=== PATIENT | male | born 1940 | race Caucasian/White ===

== ENCOUNTER 2018-04-30 13:22 | Emergency (ER) | payer MEDICARE, OTHER ==
[2018-04-30] MEDS ORDERED: SODIUM CHLORIDE 0.9% 1,000 ML IV STA (13:59)
--- NOTE | 2018-04-30 14:03 | ED ---
General Adult HPI - General Chief complaint: Dizziness Stated complaint: Hypertenion Time Seen by Provider: 04/30/18 13:45 Source: EMS Mode of arrival: EMS - History of Present Illness Initial comments: Dictation was produced using [employer] dictation software. please excuse any grammatical, word or spelling errors. Chief Complaint: 77-year-old male presents with low blood pressure. History of Present Illness: Patient is a 77-year-old male. He was sent here from [facility]. Patient was therefore a clinic appointment. They did vitals upon initial presentation. Is found have a low blood pressure with systolic in the 60s. Patient was transferred immediately to our emergency department. Patient states he feels slightly lightheaded. He has no other complaints at this time. Denies any abdominal pain, back pain or chest pain. Denies nausea vomiting diarrhea. No runny nose cough or sore throat. Patient denies any diarrhea. Patient reports he's been eating and drinking well. He states he is on a 2500 mg sodium diet. He eats of [employer] every day. Patient is a poor historian and digress is frequently during obtaining HPI. The ROS documented in this emergency department record has been reviewed and confirmed by me. Those systems with pertinent positive or negative responses have been documented in the HPI. All other systems are other negative and/or noncontributory. PHYSICAL EXAM: General Impression: Alert and oriented x3, not in acute distress, cachectic sick HEENT: Normocephalic atraumatic, extra-ocular movements intact, pupils equal and reactive to light bilaterally, mucous membranes moist. Cardiovascular: Heart regular rate and rhythm, S1&S2 audible, no murmurs, rubs or gallops Chest: Lungs clear to auscultation bilaterally, no rhonchi, no wheeze, no rales Abdomen: Bowel sounds present, abdomen soft, non-tender, non-distended, no organomegaly Musculoskeletal: Pulses present and equal in all extremities, no peripheral edema Motor: Power 5/5 bilaterally, no focal deficits noted Neurological: CN II-XII grossly intact, no focal motor or sensory deficits noted Skin: Intact with no visualized rashes Psych: Normal affect and mood ED course: 77-year-old male presents with acute episodic low blood pressure. Patient was transferred here by EMS. [facility] Blood pressure is checked by EMS shows improvement. Patient here in our emergency department with a blood pressure 122/80. Upon arrival are within acceptable limits.Laboratory evaluation obtained. CBC unremarkable. Patient has stable hemoglobin. Coag panel unremarkable. Metabolic panel is unremarkable. Patient appeared is unremarkable. Chest x- ray is unremarkable. Repeat EKG shows no dynamic changes. She is asymptomatic at this time. Tolerating by mouth. Patient clear for discharge. Told to follow-up with his primary care physician regarding his low blood pressure. Patient is understandable and agreeable to plan. Without complications and tolerated by mouth at time of discharge. EKG interpretation: Ventricular rate 57, sinus bradycardia, AR interval 226, QS 100, QTC 432. No AR prolongation, no QTC prolongation, no ST or T-wave changes noted. EKG compared to 12/12/2008 showing no changes. Overall, this EKG is unremarkable - Related Data Home Medications Medication Instructions Recorded Confirmed Artificial Tears Ointment 1 gm OPHTHALMIC HS 04/30/18 04/30/18 [Lub[place]h Pm Ointment] Aspirin [[place]owell Aspirin EC] 81 mg PO DAILY 04/30/18 04/30/18 Carboxymethylcellulose Sodium 1 drop BOTH EYES TID 04/30/18 04/30/18 [Refresh Tears] Finasteride [Proscar] 5 mg PO DAILY 04/30/18 04/30/18 Fluticasone Nasal [place] [Flonase 1 spray EA NOSTRIL BID 04/30/18 04/30/18 Nasal [place]] Furosemide [Lasix] 40 mg PO DAILY 04/30/18 04/30/18 Gabapentin [Neurontin] 100 mg PO TID 04/30/18 04/30/18 Glucosam/Geovany-Msm1/C/Evan/Bosw 2 tab PO DAILY 04/30/18 04/30/18 [Glucosamine-Chondroitin Tablet] Lidocaine 5% Patch [Lidoderm] 1 patch TOPICAL DAILY 04/30/18 04/30/18 Losartan [Cozaar] 25 mg PO DAILY 04/30/18 04/30/18 Metoprolol Succinate [Toprol XL] 12.5 mg PO DAILY 04/30/18 04/30/18 Nitroglycerin Sl Tabs [Nitrostat] 0.4 mg SUBLINGUAL Q5M PRN 02/04/19 02/04/19 Rosuvastatin Calcium [Crestor] 5 mg PO HS 04/30/18 04/30/18 Saw [place] 160 mg PO DAILY 04/30/18 04/30/18 Allergies Allergy/AdvReac Type Severity Reaction Status Date / Time diazepam [From Valium] Allergy Unknown Verified 04/30/18 14:25 simvastatin [From Zocor] Allergy MYOSITIS Verified 04/30/18 14:25 terazosin Allergy SYNCOPE Verified 04/30/18 14:25 lisinopril AdvReac Cough Verified 04/30/18 14:25 Review of Systems ROS Statement: Those systems with pertinent positive or pertinent negative responses have been documented in the HPI. ROS Other: All systems not noted in ROS Statement are negative. Past Medical History Past Medical History: Unable to Obtain History of Any Multi-Drug Resistant Organisms: None Reported Past Psychological History: PTSD Smoking Status: Never smoker Past Alcohol Use History: None Reported Past Drug Use History: None Reported Course Vital Signs 04/30/18 04/30/18 13:25 15:58 Temperature 99.1 F 99.0 F Pulse Rate 68 67 Respiratory 16 12 Rate Blood Pressure 123/80 143/85 O2 Sat by Pulse 95 97 Oximetry Medical Decision Making - Lab Data Result diagrams: 04/30/18 13:41 04/30/18 13:41 Lab Results 04/30/18 04/30/18 04/30/18 Range/Units 13:41 13:41 13:41 WBC 5.1 (3.8-10.6) k/uL RBC 3.78 L (4.30-5.90) m/uL Hgb 11.7 L (13.0-17.5) gm/dL Hct 34.0 L (39.0-53.0) % MCV 90.0 (80.0-100.0) fL MCH 30.9 (25.0-35.0) pg MCHC 34.3 (31.0-37.0) g/dL RDW 12.0 (11.5-15.5) % Plt Count 220 (150-450) k/uL Neutrophils % 67 % Lymphocytes % 18 % Monocytes % 9 % Eosinophils % 4 % Basophils % 1 % Neutrophils # 3.4 (1.3-7.7) k/uL Lymphocytes # 0.9 L (1.0-4.8) k/uL Monocytes # 0.5 (0-1.0) k/uL Eosinophils # 0.2 (0-0.7) k/uL Basophils # 0.0 (0-0.2) k/uL PT 11.7 (9.0-12.0) sec INR 1.1 (<1.2) Sodium 139 (137-145) mmol/L Potassium 4.0 (3.5-5.1) mmol/L Chloride 104 (98-107) mmol/L Carbon Dioxide 26 (22-30) mmol/L Anion Gap 9 mmol/L BUN 33 H (9-20) mg/dL Creatinine 1.45 H (0.66-1.25) mg/dL Est GFR (CKD-EPI)AfAm 53 (>60 ml/min/1.73 sqM) Est GFR (CKD-EPI)NonAf 46 (>60 ml/min/1.73 sqM) Glucose 90 (74-99) mg/dL Plasma Lactic Acid Dash (0.7-2.0) mmol/L Calcium 9.7 (8.4-10.2) mg/dL Troponin I (0.000-0.034) ng/mL Urine Color Urine Appearance (Clear) Urine pH (5.0-8.0) Ur Specific [place] (1.001-1.035) Urine Protein (Negative) Urine Glucose (UA) (Negative) Urine Ketones (Negative) Urine Blood (Negative) Urine Nitrite (Negative) Urine Bilirubin (Negative) Urine Urobilinogen (<2.0) mg/dL Ur Leukocyte Esterase (Negative) Urine RBC (0-5) /hpf Ur Squamous Epith Cells (0-4) /hpf Urine Mucus (None) /hpf 04/30/18 04/30/18 04/30/18 Range/Units 13:41 13:41 15:59 WBC (3.8-10.6) k/uL RBC (4.30-5.90) m/uL Hgb (13.0-17.5) gm/dL Hct (39.0-53.0) % MCV (80.0-100.0) fL MCH (25.0-35.0) pg MCHC (31.0-37.0) g/dL RDW (11.5-15.5) % Plt Count (150-450) k/uL Neutrophils % % Lymphocytes % % Monocytes % % Eosinophils % % Basophils % % Neutrophils # (1.3-7.7) k/uL Lymphocytes # (1.0-4.8) k/uL Monocytes # (0-1.0) k/uL Eosinophils # (0-0.7) k/uL Basophils # (0-0.2) k/uL PT (9.0-12.0) sec INR (<1.2) Sodium (137-145) mmol/L Potassium (3.5-5.1) mmol/L Chloride (98-107) mmol/L Carbon Dioxide (22-30) mmol/L Anion Gap mmol/L BUN (9-20) mg/dL Creatinine (0.66-1.25) mg/dL Est GFR (CKD-EPI)AfAm (>60 ml/min/1.73 sqM) Est GFR (CKD-EPI)NonAf (>60 ml/min/1.73 sqM) Glucose (74-99) mg/dL Plasma Lactic Acid Dash 1.2 (0.7-2.0) mmol/L Calcium (8.4-10.2) mg/dL Troponin I <0.012 (0.000-0.034) ng/mL Urine Color Yellow Urine Appearance Cloudy (Clear) Urine pH 7.5 (5.0-8.0) Ur Specific [place] 1.008 (1.001-1.035) Urine Protein Trace H (Negative) Urine Glucose (UA) Negative (Negative) Urine Ketones Negative (Negative) Urine Blood Negative (Negative) Urine Nitrite Negative (Negative) Urine Bilirubin Negative (Negative) Urine Urobilinogen <2.0 (<2.0) mg/dL Ur Leukocyte Esterase Large H (Negative) Urine RBC 4 (0-5) /hpf Ur Squamous Epith Cells 1 (0-4) /hpf Urine Mucus Rare H (None) /hpf Disposition Clinical Impression: Hypotension Disposition: HOME SELF-CARE Condition: Good Instructions (If sedation given, give patient instructions): Hypotension (ED) Is patient prescribed a controlled substance at d/c from ED?: No Referrals: [facility],Clinic [Primary Care Provider] - 1-2 days Time of Disposition: 16:39
[2018-04-30 14:30] LABS: Basophils % (A) 1 %; Eosinophils # (A) 0.2 k/uL (0-0.7); Eosinophils % (A) 4 %; HGB 11.7 gm/dL (13.0-17.5); Lymphocytes # (A) 0.9 k/uL (1.0-4.8); Lymphocytes % (A) 18 %; MCH 30.9 pg (25.0-35.0); MCHC 34.3 g/dL (31.0-37.0); Mean Platelet Volume 7.7; Monocytes # (A) 0.5 k/uL (0-1.0); Monocytes % (A) 9 %; Neutrophils # (A) 3.4 k/uL (1.3-7.7); Neutrophils % (A) 67 %; Platelet Count 220 k/uL (150-450); RBC 3.78 m/uL (4.30-5.90); WBC 5.1 k/uL (3.8-10.6)
[2018-04-30 14:36] LABS: INR 1.1 (<1.2); Prothrombin Time 11.7 sec (9.0-12.0)
[2018-04-30 14:43] LABS: Calcium 9.7 mg/dL (8.4-10.2)
--- NOTE | 2018-04-30 14:45 | XR ---
EXAMINATION TYPE: XR chest 2V DATE OF EXAM: 04/30/2018 COMPARISON: Chest x-ray November 14, 2014 HISTORY: History of dizziness presents with hypotension per order. TECHNIQUE: Frontal and lateral views of the chest are obtained. FINDINGS: There is diminished inspiration current study. There is chronic parenchymal change redemons trated bilaterally most prominent in the left and lower lungs. Overlying sternal wires and mediastina l clips are redemonstrated. There is no new suspicious focal air space opacity, pleural effusion, or pneumothorax seen. The cardiac silhouette size is stable and upper limits of normal. The osseous s tructures are demineralized . Advanced right shoulder glenohumeral joint arthropathy is redemonstrate d. IMPRESSION: Chronic parenchymal changes suspected with cardiomegaly, no new suspicious focal infiltra te clearly seen.
[2018-04-30 16:27] LABS: Appearance,Urine Cloudy (Clear); Bilirubin,Urine Negative (Negative); Blood,Urine Negative (Negative); Color,Urine Yellow; Glucose,Urine (UA) Negative (Negative); Ketones,Urine Negative (Negative); Leukocyte Esterase,Urine Large (Negative); Mucus,Urine Rare /hpf; Nitrite,Urine Negative (Negative); PH, Urine 7.5 (5.0-8.0); Protein,Urine Trace (Negative); RBC,Urine 4 /hpf (0-5); Specific Gravity,Urine 1.008 (1.001-1.035); Squamous Epithelial Cell,Urine 1 /hpf (0-4); Urobilinogen,Urine <2.0 mg/dL (<2.0)
[2018-04-30 17:00] VITALS: BP 145/86; PULSE 77; RESP 20; TEMP 98.2
== END 2018-04-30 16:59 | disposition home or self-care (01) ==
LOC: EC 13:22
DX: I95.9 Hypotension, unspecified (principal); R00.1 Bradycardia, unspecified; Z88.8 Allergy status to other drugs, medicaments and biological substances; Z79.51 Long term (current) use of inhaled steroids; Z79.82 Long term (current) use of aspirin; Z79.899 Other long term (current) drug therapy
CPT/HCPCS: 36415; 71046; 80048; 81001; 83605; 84484; 85025; 85610; 87077; 87086; 87186; 93005; 96360; 96361; 99285

== ENCOUNTER 2018-12-18 16:29 | Emergency (ER) | payer MEDICARE, OTHER ==
[2018-12-18 16:57] VITALS: TEMP 98.2
--- NOTE | 2018-12-18 18:25 | XR ---
PROCEDURE: XR foot complete LT - 3V DATE AND TIME: 12/18/2018 5:31 PM CLINICAL INDICATION: PHH; pain swelling left foot TECHNIQUE: Department protocol COMPARISON: None FINDINGS: There is no fracture or malalignment. The soft tissues are for acute findings. Atherosclero tic calcifications are noted. IMPRESSION: NO ACUTE PROCESS.
[2018-12-18 19:09] VITALS: BP 128/78; PULSE 58; RESP 20
[2018-12-18 19:12] LABS: Basophils % (A) 1 %; Eosinophils # (A) 0.2 k/uL (0-0.7); Eosinophils % (A) 4 %; HCT 36.9 % (39.0-53.0); HGB 12.7 gm/dL (13.0-17.5); Lymphocytes # (A) 1.7 k/uL (1.0-4.8); Lymphocytes % (A) 28 %; MCH 32.1 pg (25.0-35.0); MCHC 34.4 g/dL (31.0-37.0); MCV 93.1 fL (80.0-100.0); Mean Platelet Volume 7.7; Monocytes # (A) 0.4 k/uL (0-1.0); Monocytes % (A) 7 %; Neutrophils # (A) 3.5 k/uL (1.3-7.7); Neutrophils % (A) 59 %; Platelet Count 166 k/uL (150-450); RBC 3.96 m/uL (4.30-5.90); RDW 14.2 % (11.5-15.5)
[2018-12-18 19:22] LABS: Albumin 3.8 g/dL (3.5-5.0); Calcium 10.2 mg/dL (8.4-10.2); Potassium 4.6 mmol/L (3.5-5.1); Total Bilirubin 0.7 mg/dL (0.2-1.3); Total Protein 6.8 g/dL (6.3-8.2)
--- NOTE | 2018-12-18 19:54 | ED ---
Extremity Problem HPI - General Chief complaint: Extremity Problem,Nontraumatic Stated complaint: foot swelling Time Seen by Provider: 12/18/18 17:02 Source: patient Mode of arrival: wheelchair Limitations: no limitations - History of Present Illness Initial comments: 78-year-old male presents emergency department for evaluation of left foot swelling. Patient states his left foot and ankle swelling for the past few days. He states he has had no trauma causing injury to the area. Patient denies any redness. He denies any fever or flulike symptoms. Patient denies any pain in the calf mass the calf or calf swelling. 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 Patient denies any difficulty lying flat chest pain shortness of breath. Patient does any history of heart failure states he does wear compression stockings daily. Patient states the swelling is called discomfort at the ankle especially lateral and medial malleolus. Patient denies any numbness tingling loss of sensation or pain that feels out of proportion, rashes. Remaining review systems negative. Upon arrival patient appears well signs of acute distress. - Related Data Home Medications Medication Instructions Recorded Confirmed Artificial Tears Ointment 1 gm OPHTHALMIC HS 04/30/18 04/30/18 [Lubrifresh Pm Ointment] Aspirin [[place] Aspirin EC] 81 mg PO DAILY 04/30/18 04/30/18 Carboxymethylcellulose Sodium 1 drop BOTH EYES TID 04/30/18 04/30/18 [Refresh Tears] Finasteride [Proscar] 5 mg PO DAILY 04/30/18 04/30/18 Fluticasone Nasal [place] [Flonase 1 spray EA NOSTRIL BID 04/30/18 04/30/18 Nasal [place]] Furosemide [Lasix] 40 mg PO DAILY 04/30/18 04/30/18 Gabapentin [Neurontin] 100 mg PO TID 04/30/18 04/30/18 Glucosam/Geovany-Msm1/C/Evan/Bosw 2 tab PO DAILY 04/30/18 04/30/18 [Glucosamine-Chondroitin Tablet] Lidocaine 5% Patch [Lidoderm] 1 patch TOPICAL DAILY 04/30/18 04/30/18 Losartan [Cozaar] 25 mg PO DAILY 04/30/18 04/30/18 Metoprolol Succinate [Toprol XL] 12.5 mg PO DAILY 04/30/18 04/30/18 Nitroglycerin Sl Tabs [Nitrostat] 0.4 mg SUBLINGUAL Q5M PRN 04/30/18 04/30/18 Rosuvastatin Calcium [Crestor] 5 mg PO HS 04/30/18 04/30/18 Saw Rembert 160 mg PO DAILY 04/30/18 04/30/18 Previous Rx's Medication Instructions Recorded Cephalexin [Keflex] 500 mg PO Q6HR 7 Days #28 cap 12/18/18 Allergies Allergy/AdvReac Type Severity Reaction Status Date / Time diazepam [From Valium] Allergy Unknown Verified 12/18/18 16:57 simvastatin [From Zocor] Allergy MYOSITIS Verified 12/18/18 16:57 terazosin Allergy SYNCOPE Verified 12/18/18 16:57 lisinopril AdvReac Cough Verified 12/18/18 16:57 Review of Systems ROS Statement: Those systems with pertinent positive or pertinent negative responses have been documented in the HPI. ROS Other: All systems not noted in ROS Statement are negative. Past Medical History Past Medical History: Unable to Obtain History of Any Multi-Drug Resistant Organisms: None Reported Past Surgical History: No Surgical Hx Reported Past Psychological History: PTSD Smoking Status: Never smoker Past Alcohol Use History: None Reported Past Drug Use History: None Reported General Exam - General Exam Comments Initial Comments: General: The patient is awake and alert, in no distress, and does not appear acutely ill. Eye: Pupils are equal, round and reactive to light, extra-ocular movements are intact. No nystagmus. There is normal conjunctiva bilaterally. No signs of icterus. Cardiovascular: There is a regular rate and rhythm. No murmur, rub or gallop is appreciated. Respiratory: Lungs are clear to auscultation, respirations are non-labored, breath sounds are equal. No wheezes, stridor, rales, or rhonchi. Musculoskeletal: Soft tissue swelling of the left foot and ankle. Tenderness to patient the lateral medial malleolus. Normal ROM, with tenderness at the right ankle. Strength 5/5. Sensation intact. DP ulses equal bilaterally 2+. Neurological: A&O x 3. CN II-XII intact grossly, There are no obvious motor or sensory deficits. Coordination appears grossly intact. Speech is normal. Skin: Skin is warm and dry and no rashes or lesions are noted. Pitting edema of the right distal ankle and foot. Slight dry skin on dorsum of right foot, with mild redness. No redness of ankle joint or great toe Psychiatric: Cooperative, appropriate mood & affect, normal judgment. Limitations: no limitations Course Vital Signs 12/18/18 12/18/18 16:52 19:00 Temperature 98.2 F Pulse Rate 54 L 58 L Respiratory 18 20 Rate Blood Pressure 125/81 128/78 O2 Sat by Pulse 98 98 Oximetry Medical Decision Making - Medical Decision Making Well-appearing 78-year-old male presenting for evaluation of left ankle foot pain and swelling. No known trauma. No falls. No redness or history of gout. No flulike symptoms or fevers. Afebrile well-appearing upon arrival. Patient does have history of CABG with previous pain harvest on the left leg. Patient does wear compression stockings usually. Patient denies any chest pain shortness of breath or difficulty lying flat. Patient denies any pain or redness of the calf. Patient does have history of blood clot. Patient ultraso und revealed no evidence of acute venous thrombosis. And he says revealed no acute osseous process. An BMP within except limits. I discussed the case by attending provider Dr. Castelan and at this time we recommend discharge with outpatient PCP f/u, rest ice and elevation of the leg with use of compression stocking. Given slight skin irritation on dorsum of foot Dr. Castelan recommended keflex. Patient elizabeth villanueva appears well and is stable for discharge. She was agreeable to this Plan discharge at this time and patient see his primary care provider within 1-2 days. Pt was evaluated in person by my attending provider. - Lab Data Result diagrams: 12/18/18 19:00 12/18/18 19:00 Lab Results 12/18/18 12/18/18 12/18/18 Range/Units 19:00 19:00 19:00 WBC 6.0 (3.8-10.6) k/uL RBC 3.96 L (4.30-5.90) m/uL Hgb 12.7 L (13.0-17.5) gm/dL Hct 36.9 L (39.0-53.0) % MCV 93.1 (80.0-100.0) fL MCH 32.1 (25.0-35.0) pg MCHC 34.4 (31.0-37.0) g/dL RDW 14.2 (11.5-15.5) % Plt Count 166 (150-450) k/uL Neutrophils % 59 % Lymphocytes % 28 % Monocytes % 7 % Eosinophils % 4 % Basophils % 1 % Neutrophils # 3.5 (1.3-7.7) k/uL Lymphocytes # 1.7 (1.0-4.8) k/uL Monocytes # 0.4 (0-1.0) k/uL Eosinophils # 0.2 (0-0.7) k/uL Basophils # 0.0 (0-0.2) k/uL Sodium 140 (137-145) mmol/L Potassium 4.6 (3.5-5.1) mmol/L Chloride 104 (98-107) mmol/L Carbon Dioxide 30 (22-30) mmol/L Anion Gap 6 mmol/L BUN 36 H (9-20) mg/dL Creatinine 1.42 H (0.66-1.25) mg/dL Est GFR (CKD-EPI)AfAm 55 (>60 ml/min/1.73 sqM) Est GFR (CKD-EPI)NonAf 47 (>60 ml/min/1.73 sqM) Glucose 86 (74-99) mg/dL Calcium 10.2 (8.4-10.2) mg/dL Total Bilirubin 0.7 (0.2-1.3) mg/dL AST 25 (17-59) U/L ALT 18 L (21-72) U/L Alkaline Phosphatase 52 (38-126) U/L NT-Pro-B Natriuret Pep 596 pg/mL Total Protein 6.8 (6.3-8.2) g/dL Albumin 3.8 (3.5-5.0) g/dL Disposition Clinical Impression: Left leg swelling, Lower extremity edema Disposition: HOME SELF-CARE Condition: Good Instructions (If sedation given, give patient instructions): Cellulitis (ED), Leg Edema (ED) Additional Instructions: Please use medication as discussed. Please follow-up with family doctor in the next 2 days, please elevated leg, wear compression stockings and have repeat ultrasound in 7 days. Please return to emergency room if the symptoms increase or worsen or for any other concerns. Prescriptions: Cephalexin [Keflex] 500 mg PO Q6HR 7 Days #28 cap Is patient prescribed a controlled substance at d/c from ED?: No Referrals: [facility],Clinic [Primary Care Provider] - 1-2 days Time of Disposition: 21:02
--- NOTE | 2018-12-18 20:12 | US ---
EXAMINATION TYPE: US venous doppler duplex LE LT DATE OF EXAM: 12/18/2018 7:29 PM COMPARISON: NONE CLINICAL HISTORY: swelling no trauma LLE, hx DVT. Swelling left leg x couple weeks per patient. Hx DV T. SIDE PERFORMED: Left TECHNIQUE: The lower extremity deep venous system is examined utilizing real time linear array sonog sheela with graded compression, doppler sonography and color-flow sonography. VESSELS IMAGED: External Iliac Vein (EIV) Common Femoral Vein Deep Femoral Vein Greater Saphenous Vein * Femoral Vein Popliteal Vein Small Saphenous Vein * Proximal Calf Veins (* superficial vessels) Findings: No direct or indirect evidence of DVT in veins imaged from prox calf veins to EIV. Limited visibility of prox calf veins. IMPRESSION: NEGATIVE FOR DVT, LEFT LOWER EXTREMITY.
--- NOTE | 2018-12-18 20:56 | XR ---
PROCEDURE: XR ankle complete LT - 3V DATE AND TIME: 12/18/2018 8:24 PM CLINICAL INDICATION: PHH; swelling, pain TECHNIQUE: Department protocol COMPARISON: None FINDINGS: There is no fracture or malalignment. Mortise is intact. Pes planus noted. There is diffuse soft tissue swelling. Atherosclerotic arterial calcifications noted. IMPRESSION: NO ACUTE PROCESS.
== END 2018-12-18 21:35 | disposition home or self-care (01) ==
LOC: EC 16:29
DX: R60.0 Localized edema (principal); Z88.8 Allergy status to other drugs, medicaments and biological substances; Z79.51 Long term (current) use of inhaled steroids; Z79.82 Long term (current) use of aspirin; Z79.899 Other long term (current) drug therapy
CPT/HCPCS: 36415; 80053; 83880; 85025; 99284

== ENCOUNTER 2019-10-17 16:54 | Emergency (ER) | payer MEDICARE, OTHER ==
[2019-10-17 17:02] VITALS: RESP 18
--- NOTE | 2019-10-17 18:24 | ED ---
Abdominal Pain HPI - General Chief Complaint: Abdominal Pain Stated Complaint: Abd Hernia Time Seen by Provider: 10/17/19 18:16 Source: patient Mode of arrival: ambulatory Limitations: no limitations - History of Present Illness Initial Comments: Patient is 78-year-old male with history of inguinal and umbilical hernia presenting to emergency Department with a chief complaint of a hernia. Patient states he has had 2 right-sided inguinal hernias several decades ago. Patient states that he is concerned for another hernia in the same region. Patient states she's been having pain in the right inguinal region that is exacerbated after episode of straining. Patient denies any difficulties with bowel movements. Denies any constipation but does take Colace daily. Patient denies any nausea or vomiting or diarrhea. Does report intermittent obstructive urinary symptoms. States he has not had a prostate examination. Denies dysuria, increased urgency or frequency. Denies penile discharge, testicular swelling or tenderness. - Related Data Home Medications Medication Instructions Recorded Confirmed Artificial Tears Ointment 1 gm OPHTHALMIC HS 04/30/18 04/30/18 [[place] Pm Ointment] Aspirin [[place] Aspirin EC] 81 mg PO DAILY 04/30/18 04/30/18 Carboxymethylcellulose Sodium 1 drop BOTH EYES TID 04/30/18 04/30/18 [Refresh Tears] Finasteride [Proscar] 5 mg PO DAILY 04/30/18 04/30/18 Fluticasone Nasal [place] [Flonase 1 spray EA NOSTRIL BID 04/30/18 04/30/18 Nasal [place]] Furosemide [Lasix] 40 mg PO DAILY 04/30/18 04/30/18 Gabapentin [Neurontin] 100 mg PO TID 04/30/18 04/30/18 Glucosam/Geovany-Msm1/C/Evan/Bosw 2 tab PO DAILY 04/30/18 04/30/18 [Glucosamine-Chondroitin Tablet] Lidocaine 5% Patch [Lidoderm] 1 patch TOPICAL DAILY 04/30/18 04/30/18 Losartan [Cozaar] 25 mg PO DAILY 04/30/18 04/30/18 Metoprolol Succinate [Toprol XL] 12.5 mg PO DAILY 04/30/18 04/30/18 Nitroglycerin Sl Tabs [Nitrostat] 0.4 mg SUBLINGUAL Q5M PRN 04/30/18 04/30/18 Rosuvastatin Calcium [Crestor] 5 mg PO HS 04/30/18 04/30/18 Saw [place] 160 mg PO DAILY 04/30/18 04/30/18 Previous Rx's Medication Instructions Recorded Cephalexin [Keflex] 500 mg PO Q6HR 7 Days #28 cap 12/18/18 Allergies Allergy/AdvReac Type Severity Reaction Status Date / Time diazepam [From Valium] Allergy Unknown Verified 10/17/19 17:03 simvastatin [From Zocor] Allergy MYOSITIS Verified 10/17/19 17:03 terazosin Allergy SYNCOPE Verified 10/17/19 17:03 lisinopril AdvReac Cough Verified 10/17/19 17:03 Review of Systems ROS Statement: Those systems with pertinent positive or pertinent negative responses have been documented in the HPI. ROS Other: All systems not noted in ROS Statement are negative. Past Medical History Past Medical History: Asthma, Coronary Artery Disease (CAD), COPD, Hyperlipidemia, Hypertension, Prostate Disorder History of Any Multi-Drug Resistant Organisms: None Reported Past Surgical History: Back Surgery, Coronary Bypass/CABG, Heart Catheterization With Stent Additional Past Surgical History / Comment(s): eye surgery Past Psychological History: PTSD Smoking Status: Never smoker Past Alcohol Use History: None Reported Past Drug Use History: None Reported General Exam Limitations: no limitations General appearance: alert, in no apparent distress Head exam: Present: atraumatic, normocephalic, normal inspection Eye exam: Present: normal appearance, PERRL, EOMI Pupils: Present: normal accommodation ENT exam: Present: normal exam, normal oropharynx, mucous membranes moist, TM's normal bilaterally, normal external ear exam Neck exam: Present: normal inspection, full ROM. Absent: tenderness Respiratory exam: Present: normal lung sounds bilaterally. Absent: respiratory distress, wheezes Cardiovascular Exam: Present: regular rate, normal rhythm, normal heart sounds GI/Abdominal exam: Present: soft, tenderness (Right inguinal tenderness. ). Absent: distended, guarding, hernia (No signs of a direct or indirect hernia.) exam: Present: normal inspection. Absent: testicular tenderness, urethral discharge, scrotal swelling, vertical testicular lie Extremities exam: Present: normal inspection, full ROM. Absent: tenderness Back exam: Present: normal inspection, full ROM. Absent: tenderness, CVA tenderness (R), CVA tenderness (L) Neurological exam: Present: alert, oriented X3 Psychiatric exam: Present: normal affect, normal mood Skin exam: Present: warm, dry, intact, normal color Course Vital Signs 10/17/19 10/17/19 16:57 21:38 Temperature 98.5 F Pulse Rate 62 63 Respiratory 18 18 Rate Blood Pressure 181/86 193/95 O2 Sat by Pulse 97 98 Oximetry Medical Decision Making - Medical Decision Making Patient is a 78-year-old male presenting to emergency Department with chief complaint of a hernia. Patient does have history of right-sided inguinal hernia repair several decades ago. On exam no signs of direct or indirect hernia at this time. No signs of a ventral hernia or umbilical either. No testicular swelling or pain. CBC unremarkable. CMP reveals elevated BUN/creatinine although this appears to be his baseline. Patient given 1 L bolus fluids. UA is unremarkable. Patient states he is in a low-sodium diet but he has been eating pizza today which tends to increase his blood pressure. Patient did take his antihypertensive medication today.. Patient is hypertensive in the ED and was given hydralazine. Patient is to follow with the primary care physician. Return parameters were thoroughly discussed the patient was understanding and agreeable. Case discussed with physician. - Lab Data Result diagrams: 10/17/19 18:50 10/17/19 18:50 Lab Results 10/17/19 10/17/19 10/17/19 Range/Units 18:50 18:50 18:50 WBC 5.8 (3.8-10.6) k/uL RBC 4.24 L (4.30-5.90) m/uL Hgb 12.7 L (13.0-17.5) gm/dL Hct 39.9 (39.0-53.0) % MCV 94.2 (80.0-100.0) fL MCH 30.0 (25.0-35.0) pg MCHC 31.9 (31.0-37.0) g/dL RDW 12.5 (11.5-15.5) % Plt Count 150 (150-450) k/uL Neutrophils % 63 % Lymphocytes % 24 % Monocytes % 7 % Eosinophils % 4 % Basophils % 1 % Neutrophils # 3.6 (1.3-7.7) k/uL Lymphocytes # 1.4 (1.0-4.8) k/uL Monocytes # 0.4 (0-1.0) k/uL Eosinophils # 0.2 (0-0.7) k/uL Basophils # 0.1 (0-0.2) k/uL Sodium 138 (137-145) mmol/L Potassium 4.1 (3.5-5.1) mmol/L Chloride 104 (98-107) mmol/L Carbon Dioxide 29 (22-30) mmol/L Anion Gap 5 mmol/L BUN 24 H (9-20) mg/dL Creatinine 1.36 H (0.66-1.25) mg/dL Est GFR (CKD-EPI)AfAm 57 (>60 ml/min/1.73 sqM) Est GFR (CKD-EPI)NonAf 50 (>60 ml/min/1.73 sqM) Glucose 91 (74-99) mg/dL Plasma Lactic Acid Dash 1.0 (0.7-2.0) mmol/L Calcium 9.6 (8.4-10.2) mg/dL Total Bilirubin 0.5 (0.2-1.3) mg/dL AST 21 (17-59) U/L ALT 10 (4-49) U/L Alkaline Phosphatase 52 (38-126) U/L Total Protein 6.2 L (6.3-8.2) g/dL Albumin 3.7 (3.5-5.0) g/dL Urine Color Urine Appearance (Clear) Urine pH (5.0-8.0) Ur Specific [place] (1.001-1.035) Urine Protein (Negative) Urine Glucose (UA) (Negative) Urine Ketones (Negative) Urine Blood (Negative) Urine Nitrite (Negative) Urine Bilirubin (Negative) Urine Urobilinogen (<2.0) mg/dL Ur Leukocyte Esterase (Negative) Urine RBC (0-5) /hpf Urine WBC (0-5) /hpf Ur Squamous Epith Cells (0-4) /hpf Amorphous Sediment (None) /hpf Hyaline Casts (0-2) /lpf Urine Mucus (None) /hpf 10/17/19 Range/Units 18:50 WBC (3.8-10.6) k/uL RBC (4.30-5.90) m/uL Hgb (13.0-17.5) gm/dL Hct (39.0-53.0) % MCV (80.0-100.0) fL MCH (25.0-35.0) pg MCHC (31.0-37.0) g/dL RDW (11.5-15.5) % Plt Count (150-450) k/uL Neutrophils % % Lymphocytes % % Monocytes % % Eosinophils % % Basophils % % Neutrophils # (1.3-7.7) k/uL Lymphocytes # (1.0-4.8) k/uL Monocytes # (0-1.0) k/uL Eosinophils # (0-0.7) k/uL Basophils # (0-0.2) k/uL Sodium (137-145) mmol/L Potassium (3.5-5.1) mmol/L Chloride (98-107) mmol/L Carbon Dioxide (22-30) mmol/L Anion Gap mmol/L BUN (9-20) mg/dL Creatinine (0.66-1.25) mg/dL Est GFR (CKD-EPI)AfAm (>60 ml/min/1.73 sqM) Est GFR (CKD-EPI)NonAf (>60 ml/min/1.73 sqM) Glucose (74-99) mg/dL Plasma Lactic Acid Dash (0.7-2.0) mmol/L Calcium (8.4-10.2) mg/dL Total Bilirubin (0.2-1.3) mg/dL AST (17-59) U/L ALT (4-49) U/L Alkaline Phosphatase (38-126) U/L Total Protein (6.3-8.2) g/dL Albumin (3.5-5.0) g/dL Urine Color Yellow Urine Appearance Cloudy (Clear) Urine pH 7.0 (5.0-8.0) Ur Specific [place] 1.012 (1.001-1.035) Urine Protein Negative (Negative) Urine Glucose (UA) Negative (Negative) Urine Ketones Negative (Negative) Urine Blood Negative (Negative) Urine Nitrite Negative (Negative) Urine Bilirubin Negative (Negative) Urine Urobilinogen <2.0 (<2.0) mg/dL Ur Leukocyte Esterase Negative (Negative) Urine RBC 3 (0-5) /hpf Urine WBC 15 H (0-5) /hpf Ur Squamous Epith Cells 1 (0-4) /hpf Amorphous Sediment Few H (None) /hpf Hyaline Casts 19 H (0-2) /lpf Urine Mucus Rare H (None) /hpf Disposition Clinical Impression: Right inguinal pain Disposition: HOME SELF-CARE Condition: Stable Instructions (If sedation given, give patient instructions): Abdominal Pain (ED) Additional Instructions: Follow-up with the primary care. Return to emergency department if symptoms worsen. Is patient prescribed a controlled substance at d/c from ED?: No Referrals: [facility],Clinic [Primary Care Provider] - 1-2 days Time of Disposition: 21:53
[2019-10-17 19:04] LABS: Basophils # (A) 0.1 k/uL (0-0.2); Basophils % (A) 1 %; Eosinophils # (A) 0.2 k/uL (0-0.7); Eosinophils % (A) 4 %; HCT 39.9 % (39.0-53.0); HGB 12.7 gm/dL (13.0-17.5); Lymphocytes # (A) 1.4 k/uL (1.0-4.8); Lymphocytes % (A) 24 %; MCHC 31.9 g/dL (31.0-37.0); MCV 94.2 fL (80.0-100.0); Mean Platelet Volume 8.6; Monocytes # (A) 0.4 k/uL (0-1.0); Monocytes % (A) 7 %; Neutrophils # (A) 3.6 k/uL (1.3-7.7); Neutrophils % (A) 63 %; Platelet Count 150 k/uL (150-450); RBC 4.24 m/uL (4.30-5.90); RDW 12.5 % (11.5-15.5); WBC 5.8 k/uL (3.8-10.6)
[2019-10-17 19:12] LABS: Amorphous Sediment,Urine Few /hpf; Appearance,Urine Cloudy (Clear); Bilirubin,Urine Negative (Negative); Blood,Urine Negative (Negative); Color,Urine Yellow; Glucose,Urine (UA) Negative (Negative); Hyaline Casts,Urine 19 /lpf (0-2); Ketones,Urine Negative (Negative); Leukocyte Esterase,Urine Negative (Negative); Mucus,Urine Rare /hpf; Nitrite,Urine Negative (Negative); Protein,Urine Negative (Negative); RBC,Urine 3 /hpf (0-5); Specific Gravity,Urine 1.012 (1.001-1.035); Squamous Epithelial Cell,Urine 1 /hpf (0-4); Urobilinogen,Urine <2.0 mg/dL (<2.0); WBC,Urine 15 /hpf (0-5)
[2019-10-17 19:15] LABS: Albumin 3.7 g/dL (3.5-5.0); Calcium 9.6 mg/dL (8.4-10.2); Potassium 4.1 mmol/L (3.5-5.1); Total Bilirubin 0.5 mg/dL (0.2-1.3); Total Protein 6.2 g/dL (6.3-8.2)
[2019-10-17] MEDS ORDERED: SODIUM CHLORIDE 0.9% 1,000 ML IV STA (19:21)
[2019-10-17] MEDS ORDERED: hydrALAZINE HCL 20 MG/ML 1 ML VIAL IVP STA (21:37)
--- NOTE | 2019-10-17 21:42 | CT ---
EXAMINATION TYPE: CT abdomen pelvis w con DATE OF EXAM: 10/17/2019 COMPARISON: None HISTORY: abdominal pain, groin pain CT DLP: 929 mGycm Automated exposure control for dose reduction was used. TECHNIQUE: Helical acquisition of images was performed from the lung bases through the pelvis. CONTRAST: Performed without Oral Contrast and with IV Contrast, patient injected with 80cc mL of Isov ue 300. FINDINGS: LUNG BASES: No significant abnormality is appreciated. LIVER/GB: No significant abnormality is appreciated. PANCREAS: No significant abnormality is seen. SPLEEN: No significant abnormality is seen. ADRENALS: No significant abnormality is seen. KIDNEYS: No significant abnormality is seen. FREE AIR: No free air is visualized. RETROPERITONEAL ADENOPATHY: None visualized REPRODUCTIVE ORGANS: No significant abnormality is seen URINARY BLADDER: No significant abnormality is seen. PELVIC ADENOPATHY: None visualized. OSSEOUS STRUCTURES: No significant abnormality is seen. BOWEL: No significant abnormality is seen. OTHER: No acute vascular findings. The lower abdominal wall musculature is intact. IMPRESSION: NO DEFINITE ACUTE PROCESS.
[2019-10-17 22:07] VITALS: BP 158/81; PULSE 67; TEMP 98.2
== END 2019-10-17 22:11 | disposition home or self-care (01) ==
LOC: EC 16:54
DX: R10.31 Right lower quadrant pain (principal); J44.9 Chronic obstructive pulmonary disease, unspecified; E78.5 Hyperlipidemia, unspecified; I10 Essential (primary) hypertension; I25.10 Atherosclerotic heart disease of native coronary artery without angina pectoris; Z79.82 Long term (current) use of aspirin; Z79.51 Long term (current) use of inhaled steroids; Z79.899 Other long term (current) drug therapy; Z88.8 Allergy status to other drugs, medicaments and biological substances; Z95.1 Presence of aortocoronary bypass graft; Z95.5 Presence of coronary angioplasty implant and graft
CPT/HCPCS: 36415; 80053; 83605; 85025; 81001; 87086; 74177; 99284; 96374; 96361 ×2; J0360; Q9967; 87077; 87186

== ENCOUNTER 2020-01-05 18:30 | Emergency (ER) | payer MEDICARE, OTHER ==
[2020-01-05 18:47] VITALS: BP 185/98; PULSE 59; RESP 16; TEMP 98.4
--- NOTE | 2020-01-05 18:55 | ED ---
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 Patient states that he thought there was a piece of pear that had gotten stuck while eating it he states he felt in his throat but upon arriving in the ER with EMS he states that he feels like it went away. Patient states he has not been coughing he states he did not feel like he aspirated the pear. Patient denies vomiting. Patient states he thinks he is ok now. Patient has no additional complaints. - Related Data Home Medications Medication Instructions Recorded Confirmed Artificial Tears Ointment 1 gm OPHTHALMIC HS 04/30/18 04/30/18 [Lubrifresh Pm Ointment] Aspirin [[place] Aspirin EC] 81 mg PO DAILY 04/30/18 04/30/18 Carboxymethylcellulose Sodium 1 drop BOTH EYES TID 04/30/18 04/30/18 [Refresh Tears] Finasteride [Proscar] 5 mg PO DAILY 04/30/18 04/30/18 Fluticasone Nasal [place] [Flonase 1 spray EA NOSTRIL BID 04/30/18 04/30/18 Nasal [place]] Furosemide [Lasix] 40 mg PO DAILY 04/30/18 04/30/18 Gabapentin [Neurontin] 100 mg PO TID 04/30/18 04/30/18 Glucosam/[place]ov[place]-Msm1/C/Evan/Bosw 2 tab PO DAILY 04/30/18 04/30/18 [Glucosamine-Chondroitin Tablet] Lidocaine 5% Patch [Lidoderm] 1 patch TOPICAL DAILY 04/30/18 04/30/18 Losartan [Cozaar] 25 mg PO DAILY 04/30/18 04/30/18 Metoprolol Succinate [Toprol XL] 12.5 mg PO DAILY 04/30/18 04/30/18 Nitroglycerin Sl Tabs [Nitrostat] 0.4 mg SUBLINGUAL Q5M PRN 04/30/18 04/30/18 Rosuvastatin Calcium [Crestor] 5 mg PO HS 04/30/18 04/30/18 Saw [place] 160 mg PO DAILY 04/30/18 04/30/18 Previous Rx's Medication Instructions Recorded Cephalexin [Keflex] 500 mg PO Q6HR 7 Days #28 cap 12/18/18 Allergies Allergy/AdvReac Type Severity Reaction Status Date / Time diazepam [From Valium] Allergy Unknown Verified 01/05/20 18:47 simvastatin [From Zocor] Allergy MYOSITIS Verified 01/05/20 18:47 terazosin Allergy SYNCOPE Verified 01/05/20 18:47 lisinopril AdvReac Cough Verified 01/05/20 18:47 Review of Systems ROS Statement: Those systems with pertinent positive or pertinent negative responses have been documented in the HPI. ROS Other: All systems not noted in ROS Statement are negative. Past Medical History Past Medical History: Asthma, Coronary Artery Disease (CAD), COPD, Hyperlipidemia, Hypertension, Prostate Disorder History of Any Multi-Drug Resistant Organisms: None Reported Past Surgical History: Back Surgery, Coronary Bypass/CABG, Heart Catheterization With Stent Additional Past Surgical History / Comment(s): eye surgery Past Psychological History: PTSD Smoking Status: Never smoker Past Alcohol Use History: None Reported Past Drug Use History: None Reported General Exam - General Exam Comments Initial Comments: General: The patient is awake and alert, in no distres Eye: +3 mm pupils are equal, round and reactive to light, extra-ocular movements are intact. No nystagmus. There is normal conjunctiva bilaterally. No signs of icterus. Ears, nose, mouth and throat: There are moist mucous membranes and no oral lesions. No tripoding drooling, or coughing, pt tolerating oral secretions Neck: The neck is supple, there is no tenderness or JVD. Cardiovascular: There is a regular rate and rhythm. No murmur, rub or gallop is appreciated. Respiratory: Lungs are clear to auscultation, respirations are non-labored, breath sounds are equal. No wheezes, stridor, rales, or rhonchi. Gastrointestinal: Soft, non-distended, non-tender abdomen without masses or organomegaly noted. There is no rebound or guarding present. Musculoskeletal: Normal ROM, no tenderness. Strength 5/5. Sensation intact. Radial pulses equal bilaterally 2+. Neurological: A&O x 3. CN II-XII intact grossly, There are no obvious motor or sensory deficits. Coordination appears grossly intact. Skin: Skin is warm and dry and no rashes or lesions are noted. Psychiatric: Cooperative, appropriate mood & affect, normal judgment. Limitations: no limitations Course Vital Signs 01/05/20 18:42 Temperature 98.4 F Pulse Rate 59 L Respiratory 16 Rate Blood Pressure 185/98 O2 Sat by Pulse 97 Oximetry - Reevaluation(s) Reevaluation #1: passed PO challenge with water Medical Decision Making - Medical Decision Making 79yo sympotms resolved on arrival. sensation of food stuck after eating pear. patient has no current symptoms. tolerating oral intake. passed PO challenege. discussed case with Dr. Wetzel who is agreeable to discharge with PCP f/u. Patient is agreeable to careplan. Disposition Clinical Impression: Esophageal foreign body Disposition: HOME SELF-CARE Condition: Good Instructions (If sedation given, give patient instructions): Esophageal Foreign Body (ED) Additional Instructions: Please use medication as discussed. Please follow-up with family doctor in the next 2 days. Please return to emergency room if the symptoms increase or worsen or for any other concerns. Is patient prescribed a controlled substance at d/c from ED?: No Referrals: [facility],Clinic [Primary Care Provider] - 1-2 days Time of Disposition: 18:54
== END 2020-01-05 20:43 | disposition home or self-care (01) ==
LOC: EC 18:30
DX: T18.128A Food in esophagus causing other injury, initial encounter (principal); J44.9 Chronic obstructive pulmonary disease, unspecified; E78.5 Hyperlipidemia, unspecified; I10 Essential (primary) hypertension; I25.10 Atherosclerotic heart disease of native coronary artery without angina pectoris; N42.9 Disorder of prostate, unspecified; Z79.51 Long term (current) use of inhaled steroids; Z79.82 Long term (current) use of aspirin; Z79.899 Other long term (current) drug therapy; Z88.8 Allergy status to other drugs, medicaments and biological substances; Z95.5 Presence of coronary angioplasty implant and graft; Z95.1 Presence of aortocoronary bypass graft; X58.XXXA Exposure to other specified factors, initial encounter
CPT/HCPCS: 99284

== ENCOUNTER 2020-06-24 11:55 | Emergency (ER) | payer MEDICARE, OTHER ==
[2020-06-24 12:18] VITALS: BP 176/99; PULSE 84; RESP 20; TEMP 100
[2020-06-24] MEDS ORDERED: KETOROLAC 15 MG/ML 1 ML VIAL IM STA (13:05)
--- NOTE | 2020-06-24 13:13 | ED ---
General Adult HPI - General Chief complaint: Back Pain/Injury Stated complaint: trouble walking, med refill Time Seen by Provider: 06/24/20 12:15 Source: patient, RN notes reviewed, old records reviewed, Caregiver Mode of arrival: wheelchair Limitations: physical limitation - History of Present Illness Initial comments: This is a 79-year-old male who presents emergency Department complaining of chronic back pain. Patient states there is no new symptoms relative to the back pain. Patient states his been no new trauma. Patient states he has swelling to the legs bilaterally and states that it is been ongoing for months. Patient denies any recent fever chills patient denies any nausea vomiting diarrhea. Patient denies any chest pain or palpitations. Patient denies difficulty breathing shortest breath. Patient denies abdominal pain. - Related Data Home Medications Medication Instructions Recorded Confirmed Artificial Tears Ointment 1 gm OPHTHALMIC HS 04/30/18 04/30/18 [Lubrifresh Pm Ointment] Aspirin [[place] Aspirin EC] 81 mg PO DAILY 04/30/18 04/30/18 Carboxymethylcellulose Sodium 1 drop BOTH EYES TID 04/30/18 04/30/18 [Refresh Tears] Finasteride [Proscar] 5 mg PO DAILY 04/30/18 04/30/18 Fluticasone Nasal [place] [Flonase 1 spray EA NOSTRIL BID 04/30/18 04/30/18 Nasal [place]] Furosemide [Lasix] 40 mg PO DAILY 04/30/18 04/30/18 Gabapentin [Neurontin] 100 mg PO TID 04/30/18 04/30/18 Glucosam/[place]-Msm1/C/Evan/Bosw 2 tab PO DAILY 04/30/18 04/30/18 [Glucosamine-Chondroitin Tablet] Lidocaine 5% Patch [Lidoderm] 1 patch TOPICAL DAILY 04/30/18 04/30/18 Losartan [Cozaar] 25 mg PO DAILY 04/30/18 04/30/18 Metoprolol Succinate [Toprol XL] 12.5 mg PO DAILY 04/30/18 04/30/18 Nitroglycerin Sl Tabs [Nitrostat] 0.4 mg SUBLINGUAL Q5M PRN 04/30/18 04/30/18 Rosuvastatin Calcium [Crestor] 5 mg PO HS 04/30/18 04/30/18 Saw [place] 160 mg PO DAILY 04/30/18 04/30/18 Previous Rx's Medication Instructions Recorded Cephalexin [Keflex] 500 mg PO Q6HR 7 Days #28 cap 12/18/18 Allopurinol [Zyloprim] 100 mg PO DAILY #30 tab 06/24/20 Gabapentin [Neurontin] 100 mg PO TID #90 cap 06/24/20 Allergies Allergy/AdvReac Type Severity Reaction Status Date / Time diazepam [From Valium] Allergy Unknown Verified 06/24/20 12:18 simvastatin [From Zocor] Allergy MYOSITIS Verified 06/24/20 12:18 terazosin Allergy SYNCOPE Verified 06/24/20 12:18 lisinopril AdvReac Cough Verified 06/24/20 12:18 Review of Systems ROS Statement: Those systems with pertinent positive or pertinent negative responses have been documented in the HPI. ROS Other: All systems not noted in ROS Statement are negative. Past Medical History Past Medical History: Asthma, Coronary Artery Disease (CAD), COPD, Hype rlipidemia, Hypertension, Prostate Disorder History of Any Multi-Drug Resistant Organisms: None Reported Past Surgical History: Back Surgery, Coronary Bypass/CABG, Heart Catheterization With Stent Additional Past Surgical History / Comment(s): eye surgery Past Psychological History: PTSD Smoking Status: Never smoker Past Alcohol Use History: None Reported Past Drug Use History: None Reported General Exam - General Exam Comments Initial Comments: GENERAL: Patient is well-developed and well-nourished. Patient is nontoxic and well- hydrated and is in no acute distress. ENT: Neck is soft and supple. No significant lymphadenopathy is noted. Oropharynx is clear. Moist mucous membranes. Neck has full range of motion without eliciting any pain. EYES: The sclera were anicteric and conjunctiva were pink and moist. Extraocular movements were intact and pupils were equal round and reactive to light. Eyelids were unremarkable. PULMONARY: Unlabored respirations. Good breath sounds bilaterally. No audible rales rhonchi or wheezing was noted. CARDIOVASCULAR: There is a regular rate and rhythm without any murmurs gallops or rubs. ABDOMEN: Soft and nontender with normal bowel sounds. SKIN: Skin is clear with no lesions or rashes and otherwise unremarkable. NEUROLOGIC: Patient is alert and oriented x3. Cranial nerves II through XII are grossly intact. Motor and sensory are also intact. Normal speech, volume and content. Symmetrical smile. MUSCULOSKELETAL: Normal extremities with adequate strength and full range of motion. 2+ edema bilaterally LYMPHATICS: No significant lymphadenopathy is noted PSYCHIATRIC: Normal psychiatric evaluation. Limitations: physical limitation Course Vital Signs 06/24/20 12:11 Temperature 100.0 F H Pulse Rate 84 Respiratory 20 Rate Blood Pressure 176/99 O2 Sat by Pulse 96 Oximetry Medical Decision Making - Medical Decision Making Patient does not want any workup for his low-grade fever and he states he has no symptoms whatsoever. Disposition Clinical Impression: Chronic back pain, Medication refill Disposition: HOME SELF-CARE Instructions (If sedation given, give patient instructions): Chronic Back Pain (DC) Prescriptions: Gabapentin [Neurontin] 100 mg PO TID #90 cap Allopurinol [Zyloprim] 100 mg PO DAILY #30 tab Is patient prescribed a controlled substance at d/c from ED?: No Referrals: [facility],Clinic [Primary Care Provider] - 1-2 days Time of Disposition: 13:10
== END 2020-06-24 13:22 | disposition home or self-care (01) ==
LOC: EC 11:55
DX: Z76.0 Encounter for issue of repeat prescription (principal); G89.29 Other chronic pain; M54.9 Dorsalgia, unspecified; M79.89 Other specified soft tissue disorders; I25.10 Atherosclerotic heart disease of native coronary artery without angina pectoris; J44.9 Chronic obstructive pulmonary disease, unspecified; E78.5 Hyperlipidemia, unspecified; I10 Essential (primary) hypertension; Z79.82 Long term (current) use of aspirin
CPT/HCPCS: 99283; 96372; J1885

== ENCOUNTER 2020-07-22 22:01 | Inpatient (IN) | payer MEDICARE, OTHER ==
[2020-07-22] MEDS ORDERED: KETOROLAC 15 MG/ML 1 ML VIAL IVP STA (22:29)
[2020-07-22] MEDS ORDERED: ACETAMINOPHEN TAB 500 MG TAB PO STA (22:29)
[2020-07-22] MEDS ORDERED: SODIUM CHLORIDE 0.9% 500 ML 500 ML IV SCH (22:30)
[2020-07-22] MEDS ORDERED: SODIUM CHLORIDE 0.9% 500 ML 500 ML IV STA (22:31)
--- NOTE | 2020-07-22 22:32 | ED ---
General Adult HPI - General Chief complaint: Back Pain/Injury Stated complaint: Fall Time Seen by Provider: 07/22/20 22:10 Source: patient, EMS Mode of arrival: EMS Limitations: physical limitation - History of Present Illness Initial comments: 79-year-old male with a past medical history of asthma, COPD, hyperlipidemia, hypertension, prostate disorder presents to the emergency room for a chief complaint of back pain. Patient reports he has chronic back pain from being in the [employer] for 20 some years. States that today the pain was worse. Patient d enies bladder or bowel changes. Denies numbness or tingling of the lower extremities. Denies fevers at home. Of note, patient does have redness and swelling to the left leg. States he usually has swelling but it is much worse the past few days. Patient has no other complaints at this time including shortness of breath, chest pain, abdominal pain, nausea or vomiting, headache, or visual changes. - Related Data Home Medications Medication Instructions Recorded Confirmed Aspirin [[place] Aspirin EC] 81 mg PO DAILY 04/30/18 06/24/20 Finasteride [Proscar] 5 mg PO DAILY 04/30/18 06/24/20 Metoprolol Succinate [Toprol XL] 12.5 mg PO DAILY 04/30/18 06/24/20 Rosuvastatin Calcium [Crestor] 5 mg PO HS 04/30/18 06/24/20 Omeprazole 20 mg PO DAILY 06/24/20 06/24/20 Tamsulosin [Flomax] 0.4 mg PO DAILY 06/24/20 06/24/20 Previous Rx's Medication Instructions Recorded Allopurinol [Zyloprim] 100 mg PO DAILY #30 tab 06/24/20 Gabapentin [Neurontin] 100 mg PO TID #90 cap 06/24/20 Allergies Allergy/AdvReac Type Severity Reaction Status Date / Time diazepam [From Valium] Allergy Unknown Verified 07/22/20 22:10 simvastatin [From Zocor] Allergy MYOSITIS Verified 07/22/20 22:10 terazosin Allergy SYNCOPE Verified 07/22/20 22:10 lisinopril AdvReac Cough Verified 07/22/20 22:10 Review of Systems ROS Statement: Those systems with pertinent positive or pertinent negative responses have been documented in the HPI. ROS Other: All systems not noted in ROS Statement are negative. Past Medical History Past Medical History: Asthma, Coronary Artery Disease (CAD), COPD, H yperlipidemia, Hypertension, Prostate Disorder History of Any Multi-Drug Resistant Organisms: None Reported Past Surgical History: Back Surgery, Coronary Bypass/CABG, Heart Catheterization With Stent Additional Past Surgical History / Comment(s): eye surgery Past Psychological History: PTSD Smoking Status: Never smoker Past Alcohol Use History: None Reported Past Drug Use History: None Reported General Exam Limitations: physical limitation General appearance: alert, in no apparent distress Head exam: Present: atraumatic, normocephalic, normal inspection Eye exam: Present: normal appearance, PERRL, EOMI. Absent: scleral icterus, conjunctival injection, periorbital swelling ENT exam: Present: normal exam, mucous membranes moist Neck exam: Present: normal inspection. Absent: tenderness, meningismus, lymphadenopathy Respiratory exam: Present: normal lung sounds bilaterally. Absent: respiratory distress, wheezes, rales, rhonchi, stridor Cardiovascular Exam: Present: regular rate, normal rhythm, normal heart sounds. Absent: systolic murmur, diastolic murmur, rubs, gallop, clicks GI/Abdominal exam: Present: soft, normal bowel sounds. Absent: distended, tenderness, guarding, rebound, rigid Course Vital Signs 07/22/20 07/22/20 07/23/20 22:05 23:09 00:13 Temperature 99.8 F H 100.4 F H 97.6 F Pulse Rate 77 68 Respiratory 18 16 Rate Blood Pressure 163/92 153/87 O2 Sat by Pulse 98 99 Oximetry EKG Findings - EKG Comments: EKG Findings:: Sinus rhythm, ventricular rate 61, NH interval 260, QTC 426 Medical Decision Making - Medical Decision Making Patient presents with a fever of 100.4. Patient's initial complaint with his chronic back pain. I believe this may have been exacerbated by his fever. CBC is unremarkable. CMP does show evidence of dehydration over patient is a significant edema of the bilateral lower extremities. Left lower extremity is erythematous and warm and taking a feeling more edematous than the right. This is likely a cellulitis. Patient will be treated Rocephin and Vanco. Urinalysis shows hematuria however no evidence for acute infection. Chest x-ray is unremarkable in terms of pneumonia. Patient will be admitted for cellulitis, fever. I did add on a troponin, BNP, and EKG given edematous legs. Ultrasound was also obtained and this did come back positive for DVT. Denies CP or SOB. Not tachycardic. Patient started on Eliquis. We will continue to treat him for a possible cellulitis given his fever as well. - Lab Data Result diagrams: 07/22/20 22:56 07/22/20 22:56 Lab Results 07/22/20 07/22/20 07/22/20 Range/Units 22:56 22:56 22:56 WBC 6.7 (3.8-10.6) k/uL RBC 4.14 L (4.30-5.90) m/uL Hgb 12.7 L (13.0-17.5) gm/dL Hct 38.9 L (39.0-53.0) % MCV 93.9 (80.0-100.0) fL MCH 30.6 (25.0-35.0) pg MCHC 32.6 (31.0-37.0) g/dL RDW 12.9 (11.5-15.5) % Plt Count 181 (150-450) k/uL MPV 7.9 Neutrophils % 72 % Lymphocytes % 17 % Monocytes % 7 % Eosinophils % 2 % Basophils % 1 % Neutrophils # 4.8 (1.3-7.7) k/uL Lymphocytes # 1.2 (1.0-4.8) k/uL Monocytes # 0.5 (0-1.0) k/uL Eosinophils # 0.1 (0-0.7) k/uL Basophils # 0.0 (0-0.2) k/uL Sodium 138 (137-145) mmol/L Potassium 4.6 (3.5-5.1) mmol/L Chloride 107 (98-107) mmol/L Carbon Dioxide 30 (22-30) mmol/L Anion Gap 1 mmol/L BUN 30 H (9-20) mg/dL Creatinine 1.05 (0.66-1.25) mg/dL Est GFR (CKD-EPI)AfAm 78 (>60 ml/min/1.73 sqM) Est GFR (CKD-EPI)NonAf 68 (>60 ml/min/1.73 sqM) Glucose 89 (74-99) mg/dL Plasma Lactic Acid Dash 1.0 (0.7-2.0) mmol/L Calcium 10.0 (8.4-10.2) mg/dL Total Bilirubin 0.5 (0.2-1.3) mg/dL AST 24 (17-59) U/L ALT 10 (4-49) U/L Alkaline Phosphatase 65 (38-126) U/L NT-Pro-B Natriuret Pep pg/mL Total Protein 6.4 (6.3-8.2) g/dL Albumin 3.5 (3.5-5.0) g/dL Urine Color Urine Appearance (Clear) Urine pH (5.0-8.0) Ur Specific [place] (1.001-1.035) Urine Protein (Negative) Urine Glucose (UA) (Negative) Urine Ketones (Negative) Urine Blood (Negative) Urine Nitrite (Negative) Urine Bilirubin (Negative) Urine Urobilinogen (<2.0) mg/dL Ur Leukocyte Esterase (Negative) Urine RBC (0-5) /hpf Urine WBC (0-5) /hpf Urine Mucus (None) /hpf Influenza Type A (PCR) (Not Detectd) Influenza Type B (PCR) (Not Detectd) RSV (PCR) (Not Detectd) SARS-CoV-2 (PCR) (Not Detectd) 07/22/20 07/22/20 07/22/20 Range/Units 22:56 23:03 23:40 WBC (3.8-10.6) k/uL RBC (4.30-5.90) m/uL Hgb (13.0-17.5) gm/dL Hct (39.0-53.0) % MCV (80.0-100.0) fL MCH (25.0-35.0) pg MCHC (31.0-37.0) g/dL RDW (11.5-15.5) % Plt Count (150-450) k/uL MPV Neutrophils % % Lymphocytes % % Monocytes % % Eosinophils % % Basophils % % Neutrophils # (1.3-7.7) k/uL Lymphocytes # (1.0-4.8) k/uL Monocytes # (0-1.0) k/uL Eosinophils # (0-0.7) k/uL Basophils # (0-0.2) k/uL Sodium (137-145) mmol/L Potassium (3.5-5.1) mmol/L Chloride (98-107) mmol/L Carbon Dioxide (22-30) mmol/L Anion Gap mmol/L BUN (9-20) mg/dL Creatinine (0.66-1.25) mg/dL Est GFR (CKD-EPI)AfAm (>60 ml/min/1.73 sqM) Est GFR (CKD-EPI)NonAf (>60 ml/min/1.73 sqM) Glucose (74-99) mg/dL Plasma Lactic Acid Dash (0.7-2.0) mmol/L Calcium (8.4-10.2) mg/dL Total Bilirubin (0.2-1.3) mg/dL AST (17-59) U/L ALT (4-49) U/L Alkaline Phosphatase (38-126) U/L NT-Pro-B Natriuret Pep 1290 pg/mL Total Protein (6.3-8.2) g/dL Albumin (3.5-5.0) g/dL Urine Color Yellow Urine Appearance Clear (Clear) Urine pH 7.0 (5.0-8.0) Ur Specific [place] 1.022 (1.001-1.035) Urine Protein Trace H (Negative) Urine Glucose (UA) Negative (Negative) Urine Ketones Negative (Negative) Urine Blood Small H (Negative) Urine Nitrite Negative (Negative) Urine Bilirubin Negative (Negative) Urine Urobilinogen <2.0 (<2.0) mg/dL Ur Leukocyte Esterase Negative (Negative) Urine RBC 60 H (0-5) /hpf Urine WBC 1 (0-5) /hpf Urine Mucus Rare H (None) /hpf Influenza Type A (PCR) Not Detected (Not Detectd) Influenza Type B (PCR) Not Detected (Not Detectd) RSV (PCR) Not Detected (Not Detectd) SARS-CoV-2 (PCR) Not Detected (Not Detectd) Disposition Clinical Impression: DVT (deep venous thrombosis), Cellulitis, Lower extremity edema Disposition: ADMITTED IP TO THIS HOSP Is patient prescribed a controlled substance at d/c from ED?: No Time of Disposition: 02:37
--- NOTE | 2020-07-22 23:00 | XR ---
EXAMINATION TYPE: XR chest 1V portable DATE OF EXAM: 07/22/2020 COMPARISON: 04/30/2018 HISTORY: Fever TECHNIQUE: FINDINGS: There is no heart failure. There is coarse interstitial density in both lungs. There are st ernal wires. Heart size is normal. Bony thorax is intact. There is moderate arthritic change in the r ight shoulder joint. IMPRESSION: Pulmonary interstitial fibrosis similar to old exam. No obvious heart failure.
[2020-07-22 23:04] LABS: Basophils % (A) 1 %; Eosinophils # (A) 0.1 k/uL (0-0.7); Eosinophils % (A) 2 %; HCT 38.9 % (39.0-53.0); HGB 12.7 gm/dL (13.0-17.5); Lymphocytes # (A) 1.2 k/uL (1.0-4.8); Lymphocytes % (A) 17 %; MCH 30.6 pg (25.0-35.0); MCHC 32.6 g/dL (31.0-37.0); MCV 93.9 fL (80.0-100.0); Mean Platelet Volume 7.9; Monocytes # (A) 0.5 k/uL (0-1.0); Monocytes % (A) 7 %; Neutrophils # (A) 4.8 k/uL (1.3-7.7); Neutrophils % (A) 72 %; Platelet Count 181 k/uL (150-450); RBC 4.14 m/uL (4.30-5.90); RDW 12.9 % (11.5-15.5); WBC 6.7 k/uL (3.8-10.6)
[2020-07-22 23:26] LABS: Albumin 3.5 g/dL (3.5-5.0); Potassium 4.6 mmol/L (3.5-5.1); Total Bilirubin 0.5 mg/dL (0.2-1.3); Total Protein 6.4 g/dL (6.3-8.2)
[2020-07-23 00:03] LABS: Appearance,Urine Clear (Clear); Bilirubin,Urine Negative (Negative); Blood,Urine Small (Negative); Color,Urine Yellow; Glucose,Urine (UA) Negative (Negative); Ketones,Urine Negative (Negative); Leukocyte Esterase,Urine Negative (Negative); Mucus,Urine Rare /hpf; Nitrite,Urine Negative (Negative); Protein,Urine Trace (Negative); RBC,Urine 60 /hpf (0-5); Specific Gravity,Urine 1.022 (1.001-1.035); Urobilinogen,Urine <2.0 mg/dL (<2.0); WBC,Urine 1 /hpf (0-5)
[2020-07-23] MEDS ORDERED: cefTRIAXone IN SWFI 1,000 MG/10 ML SYRINGE IVP STA (00:39)
[2020-07-23] MEDS ORDERED: ONDANSETRON 4 MG/2 ML VIAL IVP PRN (00:51)
[2020-07-23] MEDS ORDERED: MORPHINE SULFATE 4 MG/ML SYRINGE IV PRN (00:51)
[2020-07-23] MEDS ORDERED: NALOXONE 0.4 MG/ML 1 ML VIAL IV PRN (00:51)
[2020-07-23] MEDS ORDERED: VANCOMYCIN IV PER PHARMACY 1 EACH MISC MISCELLANE PRN (00:52)
[2020-07-23] MEDS ORDERED: VANCOMYCIN 1,500 MG in SODIUM CHLORIDE 0.9% 250 ML IVPB ONE (01:15)
--- NOTE | 2020-07-23 01:31 | US ---
EXAM: US Duplex Left Lower Extremity Veins CLINICAL HISTORY: ITS.REASON US Reason: cellulitis TECHNIQUE: Real-time duplex ultrasound scan of the left lower extremity veins integrating B-mode two-dimensional vascular structure, Doppler spectral analysis, color flow Doppler imaging and compression. COMPARISON: 12/18/2018 FINDINGS: Deep veins: Nonocclusive thrombus seen within the common femoral vein, femoral vein, popliteal vein, and proximal calf veins. Superficial veins: Unremarkable. No thrombus in the visualized great saphenous vein. Soft tissues: Mild edema seen within the soft tissues. No popliteal cyst. IMPRESSION: Nonocclusive thrombus seen within the common femoral vein, femoral vein, popliteal vein, and proximal calf veins.
[2020-07-23] MEDS: SODIUM CHLORIDE 0.9% 1,000 ML IV SCH (01:45)
[2020-07-23] MEDS ORDERED: APIXABAN 5 MG TAB PO STA (02:32)
[2020-07-23] MEDS ORDERED: cefTRIAXone IN SWFI 1,000 MG/10 ML SYRINGE IVP SCH (09:00)
[2020-07-23] MEDS ORDERED: NITROGLYCERIN SL TABS 0.4 MG TAB SUBLINGUAL PRN (10:17)
[2020-07-23] MEDS: APIXABAN 5 MG TAB PO SCH ×2 (11:03→20:52)
[2020-07-23] MEDS ORDERED: VANCOMYCIN 1,500 MG in SODIUM CHLORIDE 0.9% 250 ML IVPB SCH (12:00)
[2020-07-23] MEDS: FUROSEMIDE 10 MG/ML 4 ML VIAL IV SCH ×2 (12:11→20:51)
[2020-07-23] MEDS: TAMSULOSIN 0.4 MG CAP.ER.24H PO SCH (12:11)
--- NOTE | 2020-07-23 13:01 | ECHOF ---
Referral Reason:lower extremit swelling, murmur MEASUREMENTS -------- HEIGHT: 185.4 cm WEIGHT: 81.7 kg BP: 147/83 RVIDd: 2.8 cm (< 3.3) IVSd: 1.2 cm (0.6 - 1.1) LVIDd: 4.0 cm (3.9 - 5.3) LVPWd: 1.3 cm (0.6 - 1.1) IVSs: 1.5 cm LVIDs: 2.9 cm LVPWs: 1.9 cm LAESV Index (A-L): 37.29 ml/m Ao Diam: 3.2 cm (2.0 - 3.7) AV Cusp: 1.9 cm (1.5 - 2.6) MV EXCURSION: 13.883 mm (> 18.000) MV EF SLOPE: 64 mm/s (70 - 150) EPSS: 1.0 cm MV E Jesús: 0.70 m/s MV DecT: 300 ms MV A Jesús: 1.01 m/s MV E/A Ratio: 0.69 AV maxP.61 mmHg AV meanP.44 mmHg RAP: 5.00 mmHg RVSP: 21.31 mmHg FINDINGS -------- Sinus rhythm. This was a technically adequate study. The left ventricular size is normal. There is mild concentric left ventricular hypertrophy. Overa ll left ventricular systolic function is mildly impaired with, an EF between 45 - 50 %. Basal infer ior LV wall motion is hypokinetic. Basal inferoseptal LV wall motion is hypokinetic. The right ventricle is normal in size. LA is moderately dilated 34-39 ml/m2 The right atrial size is normal. Mobile interatrial septum. There is mild aortic valve sclerosis. There is mild aortic stenosis present. Peak/mean gradient a cross the Aortic Valve is 19.61mmHg / 11.44mmHg. Mild mitral annular calcification present. Mild mitral regurgitation is present. The tricuspid valve appears structurally normal. Mild tricuspid regurgitation present. Right vent ricular systolic pressure is normal at < 35 mmHg. The right ventricular systolic pressure, as measu red by Doppler, is 21.31mmHg. Trace/mild (physiologic) pulmonic regurgitation. The aortic root size is normal. IVC Not well visulized. There is no pericardial effusion. CONCLUSIONS -------- 1. The left ventricular size is normal. 2. There is mild concentric left ventricular hypertrophy. 3. Overall left ventricular systolic function is mildly impaired with, an EF between 45 - 50 %. 4. Basal inferior LV wall motion is hypokinetic. 5. Basal inferoseptal LV wall motion is hypokinetic. 6. LA is moderately dilated 34-39 ml/m2 7. Mobile interatrial septum. 8. There is mild aortic valve sclerosis. 9. There is mild aortic stenosis present. 10. Peak/mean gradient across the Aortic Valve is 19.61mmHg / 11.44mmHg. 11. Mild mitral annular calcification present. 12. Mild mitral regurgitation is present. 13. Mild tricuspid regurgitation present. 14. Trace/mild (physiologic) pulmonic regurgitation. ANIMAL HUSBANDRY MANAGER: Lima Cervantes RDCS
--- NOTE | 2020-07-23 13:37 | P.CRDCN ---
History of Present Illness History of present illness: HISTORY OF PRESENTING ILLNESS This is a pleasant 79-year-old male past medical history significant for coronary artery disease status post 5 vessel bypass grafting in 2003 in [place], multiple TIAs in the past of unknown etiology, hypertension, dyslipidemia, gout and history of agent orange exposure. He follows in the office with a guest services representative out of the [place]. We have been asked to see in consultation for elevated troponin. He presented to the hospital with symptoms of lower extremity swelling, lower back pain and was found to have a temperature of 100.4F. He underwent lower extremity Doppler revealing nonocclusive thrombus seen within the common femoral vein, femoral vein, popliteal vein and proximal calf veins. He has been initiated on anticoagulation. He also received a dose of IV antibiotics for possible lower extremity cellulitis. He is seen and examined resting comfortably laying flat in bed in no acute distress. He denies any significant symptoms of chest discomfort, shortness of breath, dizziness or palpitations. According to the patient he has chronic lower extremity edema that has been worsening over the past few weeks because he has been out of his gout medication. DIAGNOSTICS EKG reveals sinus mechanism with first-degree AV block heart rate of 61 with T- wave inversions noted in the inferior leads and flat T waves in the precordial lateral leads. Consistent with previous EKGs.. Chest xray pulmonary fibrotic changes with no evidence of overt heart failure. Laboratory reviewed, WBC 6.7, hemoglobin 12.7, platelets 181, sodium 138, po tassium 4.6, creatinine 1.05, troponin 0.037 and and proBNP 1290. Current cardiac medications include aspirin 81 mg daily, Toprol 12.5 mg daily and rosuvastatin 5 mg daily. REVIEW OF SYSTEMS At the time of my exam: CONSTITUTIONAL: Denies fever or chills. CARDIOVASCULAR: Denies chest pain, shortness of breath, orthopnea, PND or palpitations. RESPIRATORY: Denies cough. GASTROINTESTINAL: Denies abdominal pain, diarrhea, constipation, nausea or vomiting. MUSCULOSKELETAL: Denies myalgias. NEUROLOGIC: Denies numbness, tingling, headacbe or weakness. ENDOCRINE: Denies fatigue, weight change, polydipsia or polyurina. GENITOURINARY: Denies burning, hematuria or urgency with micturation. HEMATOLOGIC: Denies history of anemia or bleeding. PHYSICAL EXAMINATION Blood pressure 147/83 heart rate 51 afebrile and maintaining oxygen saturation on room air. CONSTITUTIONAL: No apparent distress. HEENT: Head is normocephalic. Pupils are equal, round. Sclerae anicteric. Mucous membranes of the mouth are moist. No JVD. No carotid bruit. CHEST EXAMINATION: Lungs are clear to auscultation. No chest wall tenderness is noted on palpation or with deep breathing. HEART EXAMINATION: Regular rate and rhythm. S1, S2 heard. Systolic ejection murmur at the base, no gallops or rub. ABDOMEN: Soft, nontender. Positive bowel sounds. EXTREMITIES: 2+ peripheral pulses, 2+ bilateral lower extremity pitting edema up to the knee and no calf tenderness. NEUROLOGIC EXAMINATION: Patient is awake, alert and oriented x3. ASSESSMENT Lower extremity swelling with no symptoms of shortness of breath to suggest ov ert heart failure and normal BNP. Suspect some component of venous insufficiency Elevated troponin of unclear significance Coronary artery disease status post bypass grafting Lower extremity DVT with possible cellulitis on eliquis and vanco per PCP Hypertension Dyslipidemia History of TIA. PLAN Troponin leak of unclear significance. He has no chest pain or symptoms suggestive of angina. EKG abnormalities are chronic when compared to previous from 2019. Recommend IV diuresis for comfort purposes. Obtain 2D echocardiogram to assess cardiac structure and function. Further recommendations to follow based on clinical course. Thank you kindly for this consultation. Nurse Practitioner note has been reviewed, I agree with a documented findings and plan of care. Patient was seen and examined. Past Medical History Past Medical History: Asthma, Coronary Artery Disease (CAD), COPD, Hyperlipidemia, Hypertension, Prostate Disorder History of Any Multi-Drug Resistant Organisms: None Reported Past Surgical History: Back Surgery, Coronary Bypass/CABG, Heart Catheterization With Stent Additional Past Surgical History / Comment(s): eye surgery Past Psychological History: PTSD Smoking Status: Never smoker Past Alcohol Use History: None Reported Past Drug Use History: None Reported - Past Family History Father Family Medical History: No Reported History Additional Family Medical History / Comment(s): Father was healthy Mother Family Medical History: No Reported History Additional Family Medical History / Comment(s): Mother was healthy Medications and Allergies Home Medications Medication Instructions Recorded Confirmed Type Aspirin [[place] Aspirin EC] 81 mg PO DAILY 04/30/18 07/23/20 History Metoprolol Succinate [Toprol XL] 12.5 mg PO DAILY 04/30/18 07/23/20 History Rosuvastatin Calcium [Crestor] 5 mg PO HS 04/30/18 07/23/20 History Allopurinol [Zyloprim] 100 mg PO DAILY #30 tab 06/24/20 07/23/20 Rx Omeprazole 20 mg PO DAILY 06/24/20 07/23/20 History Tamsulosin [Flomax] 0.4 mg PO DAILY 06/24/20 07/23/20 History Fluticasone Nasal [place] [Flonase 1 spr EA NOSTRIL BID 07/23/20 07/23/20 History Nasal [place]] Glucosam/Geovany-Msm1/C/Evan/Bosw 2 tab PO DAILY 07/23/20 07/23/20 History [Glucosamine-Chondroitin Tablet] Grape Seed 1 tab PO DAILY 07/23/20 07/23/20 History Melatonin 3 mg PO HS 07/23/20 07/23/20 History Nitroglycerin Sl Tabs [Nitrostat] 0.4 mg SUBLINGUAL Q5M PRN 07/23/20 07/23/20 History Saw [place] 160 mg PO DAILY 07/23/20 07/23/20 History Ubidecarenone [Coenzyme Q10] 30 mg PO DAILY 07/23/20 07/23/20 History Allergies Allergy/AdvReac Type Severity Reaction Status Date / Time diazepam [From Valium] Allergy Unknown Verified 07/23/20 07:25 simvastatin [From Zocor] Allergy MYOSITIS Verified 07/23/20 07:25 terazosin Allergy SYNCOPE Verified 07/23/20 07:25 egg AdvReac Unknown Verified 07/23/20 08:01 lisinopril AdvReac Cough Verified 07/23/20 07:25 Physical Exam Vitals: Vital Signs Temp Pulse Resp BP Pulse Ox 07/23/20 08:04 51 L 18 147/83 99 07/23/20 06:25 97.8 F 55 L 16 151/80 98 07/23/20 04:50 52 L 16 157/99 99 07/23/20 02:00 56 L 16 163/90 98 07/23/20 00:13 97.6 F 68 16 153/87 99 07/22/20 23:09 100.4 F H 07/22/20 22:05 99.8 F H 77 18 163/92 98 Intake and Output 07/22/20 07/23/20 07/23/20 22:59 06:59 14:59 Other: Weight 81.647 kg Results 07/22/20 22:56 07/22/20 22:56 Cardiac Enzymes 07/22/20 07/23/20 Range/Units 22:56 01:25 AST 24 (17-59) U/L Troponin I 0.037 H* (0.000-0.034) ng/mL CBC 07/22/20 Range/Units 22:56 WBC 6.7 (3.8-10.6) k/uL RBC 4.14 L (4.30-5.90) m/uL Hgb 12.7 L (13.0-17.5) gm/dL Hct 38.9 L (39.0-53.0) % Plt Count 181 (150-450) k/uL Comprehensive Metabolic Panel 07/22/20 Range/Units 22:56 Sodium 138 (137-145) mmol/L Potassium 4.6 (3.5-5.1) mmol/L Chloride 107 (98-107) mmol/L Carbon Dioxide 30 (22-30) mmol/L BUN 30 H (9-20) mg/dL Creatinine 1.05 (0.66-1.25) mg/dL Glucose 89 (74-99) mg/dL Calcium 10.0 (8.4-10.2) mg/dL AST 24 (17-59) U/L ALT 10 (4-49) U/L Alkaline Phosphatase 65 (38-126) U/L Total Protein 6.4 (6.3-8.2) g/dL Albumin 3.5 (3.5-5.0) g/dL Current Medications Generic Name Dose Route Start Last Admin Trade Name Freq PRN Reason Stop Dose Admin Acetaminophen 650 mg 07/23/20 00:51 Acetaminophen Tab 325 Mg Tab PO Q6HR PRN Mild Pain or Fever > 100.5 Allopurinol 100 mg 07/24/20 09:00 Allopurinol 100 Mg Tab PO DAILY [facility] Apixaban 10 mg 07/23/20 10:00 07/23/20 11:03 Apixaban 5 Mg Tab PO 07/29/20 09:01 10 mg BID NIKKI Administration Aspirin 81 mg 07/24/20 09:00 Aspirin 81 Mg PO DAILY [facility] Fluticasone Propionate 1 spray 07/23/20 21:00 Fluticasone 50mcg/[place] Nasal 16gm EA NOSTRIL BID [facility] Sodium Chloride 1,000 mls @ 20 mls/hr 07/23/20 01:00 07/23/20 01:45 Saline 0.9% IV 20 mls/hr .Q24H NIKKI Administration Vancomycin HCl 1,500 mg/ 250 mls @ 125 mls/hr 07/23/20 12:00 Sodium Chloride IVPB Q12H NIKKI Melatonin 3 mg 07/23/20 21:00 Melatonin 3 Mg Tablet PO HS [facility] Metoprolol Succinate 12.5 mg 07/24/20 09:00 Metoprolol Succinate (Er) 25 Mg Tab.Er.24h PO DAILY [facility] Miscellaneous Information 0 each 07/24/20 11:00 Vancomycin Trough Due 1 Each Misc MISCELLANE 07/24/20 11:01 DIRECTED ONE Morphine Sulfate 4 mg 07/23/20 00:51 Morphine Sulfate 4 Mg/Ml Syringe IV Q4HR PRN Severe Pain Naloxone HCl 0.2 mg 07/23/20 00:51 Naloxone 0.4 Mg/Ml 1 Ml Vial IV Q2M PRN Opioid Reversal Nitroglycerin 0.4 mg 07/23/20 10:17 Nitroglycerin Sl Tabs 0.4 Mg Tab SUBLINGUAL Q5M PRN Chest Pain Rosuvastatin Calcium 5 mg 07/23/20 21:00 [Crestor] PO HS [facility] Ondansetron HCl 4 mg 07/23/20 00:51 Ondansetron 4 Mg/2 Ml Vial IVP Q8HR PRN Nausea And Vomiting Pantoprazole Sodium 40 mg 07/24/20 07:30 Pantoprazole 40 Mg Tablet PO AC-BRKFST [facility] Tamsulosin HCl 0.4 mg 07/23/20 10:30 Tamsulosin 0.4 Mg Cap.Er.24h PO DAILY [facility] Intake and Output 07/22/20 07/23/20 07/23/20 22:59 06:59 14:59 Other: Weight 81.647 kg 07/22/20 22:56 07/22/20 22:56
--- NOTE | 2020-07-23 14:19 | P.HPIM ---
History of Present Illness 79-year-old male came in with complaints of severe back pain as well as right knee pain and. Please see is gouty attack and patient has a back issue for long time and had surgeries in the past. Patient is found to have bilateral lower limbs swelling and swelling in the left leg is more than the right leg because of which patient had a Doppler of the left which did show nonocclusive thrombus within the common femoral vein popliteal vein. And was started on Eliquis. Patient does have extensive pedal edema which has been going on for about 2 years patient had an echocardiogram showed EF of 45-50%. had mildly elevated troponin without any chest pain EKG did not show any acute ST-T wave changes because of the troponin initially consulted cardiology evaluated the patient and patient the and a second set of troponin which is essentially within normal limits and patient has mildly elevated proBNP mildly elevated creatinine. Patient doesn't have any redness doesn't appear to have any cellulitis better since patient had low-grade fever patient was started on antibiotics vancomycin and Rocephin which will be discontinued now. Review of Systems REVIEW OF SYSTEMS: CONSTITUTIONAL: No fever, no malaise, no fatigue. HEENT: No recent visual problems or hearing problems. Denied any sore throat. CARDIOVASCULAR: No chest pain, orthopnea, PND, no palpitations, no syncope. PULMONARY: No shortness of breath, no cough, no hemoptysis. GASTROINTESTINAL: No diarrhea, no nausea, no vomiting, no abdominal pain. NEUROLOGICAL: No headaches, no weakness, no numbness. HEMATOLOGICAL: Denies any bleeding or petechiae. GENITOURINARY: Denies any burning micturition, frequency, or urgency. MUSCULOSKELETAL/RHEUMATOLOGICAL: As mentioned in HPI ENDOCRINE: Denies any polyuria or polydipsia. The rest of the 14-point review of systems is negative. Past Medical History Past Medical History: Asthma, Coronary Artery Disease (CAD), COPD, Hyperlipidemia, Hypertension, Prostate Disorder Additional Past Medical History / Comment(s): Pt denies hx COPD, bronchial pneumonia, bronchitis, pleurisy, multiple "mini strokes" per MRI/pt, degenerative arthritis in multiple joints, chronic low back pain/pinched nerve, R carpal tunnel syndrome, gout bilateral feet, TMJ, dysphagia-pt states was to have study done but did not get to it d/t covid, sinusitis, past 20 days has had bilateral lower extremity edema pt believes d/t running out of gout medications, BPH, agent orange exposure which pt states caused heart damage, murmur, R ear mostly deaf, wears bilateral hearing aides, skin cancer removals. History of Any Multi-Drug Resistant Organisms: None Reported Past Surgical History: Back Surgery, Coronary Bypass/CABG, Heart Catheterization With Stent Additional Past Surgical History / Comment(s): eye surgery Past Anesthesia/Blood Transfusion Reactions: No Reported Reaction Additional Past Anesthesia/Blood Transfusion Reaction / Comment(s): Pt has clausterphobia. Past Psychological History: PTSD Smoking Status: Never smoker Past Alcohol Use History: None Reported Past Drug Use History: None Reported - Past Family History Father Family Medical History: No Reported History Additional Family Medical History / Comment(s): Father was healthy Mother Family Medical History: No Reported History Additional Family Medical History / Comment(s): Mother was healthy Medications and Allergies Home Medications Medication Instructions Recorded Confirmed Type Aspirin [[place] Aspirin EC] 81 mg PO DAILY 04/30/18 07/23/20 History Metoprolol Succinate [Toprol XL] 12.5 mg PO DAILY 04/30/18 07/23/20 History Rosuvastatin Calcium [Crestor] 5 mg PO HS 04/30/18 07/23/20 History Allopurinol [Zyloprim] 100 mg PO DAILY #30 tab 06/24/20 07/23/20 Rx Omeprazole 20 mg PO DAILY 06/24/20 07/23/20 History Tamsulosin [Flomax] 0.4 mg PO DAILY 06/24/20 07/23/20 History Fluticasone Nasal [place] [Flonase 1 spr EA NOSTRIL BID 07/23/20 07/23/20 History Nasal [place]] Glucosam/Geovany-Msm1/C/Evan/Bosw 2 tab PO DAILY 07/23/20 07/23/20 History [Glucosamine-Chondroitin Tablet] Grape Seed 1 tab PO DAILY 07/23/20 07/23/20 History Melatonin 3 mg PO HS 07/23/20 07/23/20 History Nitroglycerin Sl Tabs [Nitrostat] 0.4 mg SUBLINGUAL Q5M PRN 07/23/20 07/23/20 History Saw [place] 160 mg PO DAILY 04/29/21 04/29/21 History Ubidecarenone [Coenzyme Q10] 30 mg PO DAILY 07/23/20 07/23/20 History Allergies Allergy/AdvReac Type Severity Reaction Status Date / Time diazepam [From Valium] Allergy Unknown Verified 07/23/20 07:25 simvastatin [From Zocor] Allergy MYOSITIS Verified 07/23/20 07:25 terazosin Allergy SYNCOPE Verified 07/23/20 07:25 egg AdvReac Unknown Verified 07/23/20 08:01 lisinopril AdvReac Cough Verified 07/23/20 07:25 Physical Exam Vitals: Vital Signs Temp Pulse Resp BP Pulse Ox 07/23/20 12:17 54 L 18 151/78 99 07/23/20 08:04 51 L 18 147/83 99 07/23/20 06:25 97.8 F 55 L 16 151/80 98 07/23/20 04:50 52 L 16 157/99 99 07/23/20 02:00 56 L 16 163/90 98 07/23/20 00:13 97.6 F 68 16 153/87 99 07/22/20 23:09 100.4 F H 07/22/20 22:05 99.8 F H 77 18 163/92 98 Intake and Output 07/22/20 07/23/20 07/23/20 22:59 06:59 14:59 Other: Weight 81.647 kg 81.647 kg PHYSICAL EXAMINATION: GENERAL: The patient is alert and oriented x3, not in any acute distress. Well developed, well nourished. HEENT: Pupils are round and equally reacting to light. EOMI. No scleral icterus. No conjunctival pallor. Normocephalic, atraumatic. No pharyngeal erythema. No thyromegaly. CARDIOVASCULAR: S1 and S2 present. No rubs, or gallops. PULMONARY: Chest is clear to auscultation, no wheezing or crackles. ABDOMEN: Soft, nontender, nondistended, normoactive bowel sounds. No palpable organomegaly. MUSCULOSKELETAL: No joint swelling or deformity. EXTREMITIES: No cyanosis, clubbing, since to 2-3+ pedal edema in both legs. Left worse than right pitting pedal edema extending up both knees NEUROLOGICAL: Gross neurological examination did not reveal any focal deficits. SKIN: No rashes. Results CBC & Chem 7: 07/22/20 22:56 07/22/20 22:56 Labs: Abnormal Lab Results - Last 24 Hours (Table) 07/22/20 07/22/20 07/22/20 Range/Units 22:56 22:56 23:40 RBC 4.14 L (4.30-5.90) m/uL Hgb 12.7 L (13.0-17.5) gm/dL Hct 38.9 L (39.0-53.0) % BUN 30 H (9-20) mg/dL Troponin I (0.000-0.034) ng/mL Urine Protein Trace H (Negative) Urine Blood Small H (Negative) Urine RBC 60 H (0-5) /hpf Urine Mucus Rare H (None) /hpf 07/23/20 Range/Units 01:25 RBC (4.30-5.90) m/uL Hgb (13.0-17.5) gm/dL Hct (39.0-53.0) % BUN (9-20) mg/dL Troponin I 0.037 H* (0.000-0.034) ng/mL Urine Protein (Negative) Urine Blood (Negative) Urine RBC (0-5) /hpf Urine Mucus (None) /hpf Thrombosis Risk Factor Assmnt - Choose All That Apply Any of the Below Risk Factors Present?: Yes Each Factor Represents 1 point: Swollen legs (current) Other Risk Factors: Yes Each Risk Factor Represents 3 Points: Age 75 years or older, History of DVT/PE Other congenital or acquired thrombophilia - If yes, enter type in comment: No Thrombosis Risk Factor Assessment Total Risk Factor Score: 7 Thrombosis Risk Factor Assessment Level: High Risk Assessment and Plan Plan: -DVT of left lower extremity: Patient was started on anti-correlation which will be continued -Bilateral lower extremity edema appears to be secondary to chronic venous insufficiency rather than congestive heart failure patient will be started on Lasix twice a day once his edema is better patient probably can be discharged and may need subacute rehabitation. -Congestive heart failure chronic systolic dysfunction, maybe ischemic cardiomyopathy patient is not in heart failure exacerbation does have pedal edema and that this is basically because of local venous causes -Mild elevation of troponin only 1 troponin is elevated may be related to mild renal failure. -Mild acute renal failure secondary to prerenal azotemia from volume overload. -Hypertension -Dyslipidemia -Chronic low back pain patient had multiple back injections in the past the patient and occupational therapy will evaluate the patient patient may need plac ement -Coronary artery disease history with CABG in the past -Benign prostatic hypertrophy -COPD without any acute exacerbation.
[2020-07-23 16:15] LABS: Glucose,Whole Blood 90 mg/dL (75-99)
[2020-07-23] MEDS: MELATONIN 3 MG TABLET PO SCH (20:52)
[2020-07-23] MEDS: FLUTICASONE 50MCG/SPRAY NASAL 16GM EA NOSTRIL SCH (20:52)
[2020-07-23] MEDS: ACETAMINOPHEN TAB 325 MG TAB PO PRN (20:56)
[2020-07-24] MEDS: SODIUM CHLORIDE 0.9% 1,000 ML IV SCH (05:16)
[2020-07-24] MEDS: ASPIRIN 81 MG PO SCH (08:26)
[2020-07-24] MEDS: FLUTICASONE 50MCG/SPRAY NASAL 16GM EA NOSTRIL SCH ×2 (08:26→20:13)
[2020-07-24] MEDS: TAMSULOSIN 0.4 MG CAP.ER.24H PO SCH (08:26)
[2020-07-24] MEDS: allopurinoL 100 MG TAB PO SCH (08:26)
[2020-07-24] MEDS: APIXABAN 5 MG TAB PO SCH ×2 (08:26→20:13)
[2020-07-24] MEDS: PANTOPRAZOLE 40 MG TABLET PO SCH (08:26)
[2020-07-24] MEDS: FUROSEMIDE 10 MG/ML 4 ML VIAL IV SCH ×2 (08:26→20:13)
[2020-07-24] MEDS: METOPROLOL SUCCINATE (ER) 25 MG TAB.ER.24H PO SCH (08:27)
[2020-07-24 09:34] LABS: Calcium 8.9 mg/dL (8.4-10.2); Potassium 3.6 mmol/L (3.5-5.1)
[2020-07-24] MEDS ORDERED: VANCOMYCIN TROUGH DUE 1 EACH MISC MISCELLANE ONE (11:00)
--- NOTE | 2020-07-24 13:10 | PN ---
PROGRESS NOTE Mr. Faustin is a 79-year-old male with known history of coronary artery disease status post coronary artery bypass grafting in 2004, history of CVA in the past who presented with febrile episode and worsening peripheral edema. He was found to have a nonocclusive thrombus in the lower extremities. He is feeling better today. His breathing is better. He denied any chest pain. He denies any dizziness. He continues to have significant peripheral edema. He was started on anticoagulation yesterday. He had an echocardiogram showed ejection fraction of 45% to 50% with segmental wall motion abnormality. He continues to be on Lasix 40 mg IV q.12 hours, Eliquis 10 mg twice a day, metoprolol succinate 12.5 mg daily, and rosuvastatin 5 mg daily. PHYSICAL EXAMINATION: Blood pressure 110/50 with the heart rate in 60s. Afebrile. LUNGS: Clear. HEART: Regular rate and rhythm/ S1, S2. No S3. No rub with a systolic ejection murmur. ABDOMEN: Soft, nontender. EXTREMITIES: +2 edema bilaterally. LAB DATA: Lab data revealed BUN and creatinine 25 and 0.99. Potassium 3.6. IMPRESSION: 1. Evidence of deep venous thrombosis. Anticoagulation initiated. 2. Significant peripheral edema, improving. 3. History of coronary artery disease with mild ischemic cardiomyopathy. 4. Prior history of stroke. 5. Mild troponin elevation. No evidence to suggest acute coronary syndrome. 6. Hyperlipidemia. RECOMMENDATION: From the cardiac standpoint, will continue present therapy. Will continue anticoagulation. I will continue IV diuretic for another 24 hours, follow his renal function, increase his level activity and depending on his progress, further recommendation will be made. MMODL / IJN: [id number] /
[2020-07-24 15:22] VITALS: BMI 23.7
[2020-07-24] MEDS: MELATONIN 3 MG TABLET PO SCH (20:13)
[2020-07-24] MEDS: ACETAMINOPHEN TAB 325 MG TAB PO PRN (20:13)
[2020-07-25] MEDS: SODIUM CHLORIDE 0.9% 1,000 ML IV SCH (01:34)
[2020-07-25 07:08] LABS: African American GFR (CKD) 70 (>60 ml/min/1.73 sqM); Anion Gap 3 mmol/L; Blood Urea Nitrogen 26 mg/dL (9-20); Calcium 9.1 mg/dL (8.4-10.2); Carbon Dioxide 30 mmol/L (22-30); Chloride 105 mmol/L (98-107); Glucose 80 mg/dL (74-99); Non-African American GFR(CKD) 61 (>60 ml/min/1.73 sqM); Potassium 3.7 mmol/L (3.5-5.1); Sodium 138 mmol/L (137-145)
[2020-07-25] MEDS: METOPROLOL SUCCINATE (ER) 25 MG TAB.ER.24H PO SCH (09:21)
[2020-07-25] MEDS: allopurinoL 100 MG TAB PO SCH (09:21)
[2020-07-25] MEDS: FUROSEMIDE 10 MG/ML 4 ML VIAL IV SCH ×2 (09:21→19:08)
[2020-07-25] MEDS: ASPIRIN 81 MG PO SCH (09:21)
[2020-07-25] MEDS: TAMSULOSIN 0.4 MG CAP.ER.24H PO SCH (09:21)
[2020-07-25] MEDS: PANTOPRAZOLE 40 MG TABLET PO SCH (09:21)
[2020-07-25] MEDS: APIXABAN 5 MG TAB PO SCH ×2 (09:21→19:08)
[2020-07-25] MEDS: FLUTICASONE 50MCG/SPRAY NASAL 16GM EA NOSTRIL SCH ×2 (09:25→19:09)
--- NOTE | 2020-07-25 09:44 | P.PN ---
Subjective Progress Note Date: 07/24/20 Principal diagnosis: Acute DVT left lower extremity Acute on chronic systolic CHF Mild elevation of troponin Mild acute renal failure 79-year-old male came in with complaints of severe back pain as well as right knee pain and. Please see is gouty attack and patient has a back issue for long time and had surgeries in the past. Patient is found to have bilateral lower limbs swelling and swelling in the left leg is more than the right leg because of which patient had a Doppler of the left which did show nonocclusive thrombus within the common femoral vein popliteal vein. And was started on Eliquis. Patient does have extensive pedal edema which has been going on for about 2 years patient had an echocardiogram showed EF of 45-50%. had mildly elevated troponin without any chest pain EKG did not show any acute ST-T wave changes because of the troponin initially consulted cardiology evaluated the patient and patient the and a second set of troponin which is essentially within normal limits and patient has mildly elevated proBNP mildly elevated creatinine. Patient doesn't have any redness doesn't appear to have any cellulitis better since patient had low-grade fever patient was started on antibiotics vancomycin and Rocephin which will be discontinued now. Objective - Vital Signs Vital signs: Vital Signs Temp 97.9 F 07/24/20 07:00 Pulse 100 07/24/20 07:00 Resp 16 07/24/20 07:00 BP 110/54 07/24/20 07:00 Pulse Ox 92 L 07/24/20 07:00 Intake & Output 07/23/20 07/24/20 07/24/20 18:59 06:59 18:59 Intake Total 60 240 Balance 60 240 Weight 81.647 kg Intake: IV 60 Sodium Chloride 0.9% 1, 60 000 ml @ 20 mls/hr IV . Q24H NIKKI Rx#:[id number] Intake, IV Titration 240 Amount Vancomycin 1,500 mg In 240 Sodium Chloride 0.9% 250 ml @ 125 mls/hr IVPB Q12H NIKKI Rx#:[id number] Other: # Voids 2 - Exam PHYSICAL EXAMINATION: GENERAL: The patient is alert and oriented x3, not in any acute distress. Well developed, well nourished. HEENT: Pupils are round and equally reacting to light. EOMI. No scleral icterus. No conjunctival pallor. Normocephalic, atraumatic. No pharyngeal erythema. No thyromegaly. CARDIOVASCULAR: S1 and S2 present. No murmurs, rubs, or gallops. PULMONARY: Chest is clear to auscultation, no wheezing or crackles. ABDOMEN: Soft, nontender, nondistended, normoactive bowel sounds. No palpable organomegaly. MUSCULOSKELETAL: No joint swelling or deformity. EXTREMITIES: No cyanosis, clubbing, or pedal edema. NEUROLOGICAL: Gross neurological examination did not reveal any focal deficits. SKIN: No rashes. - Labs CBC & Chem 7: 07/22/20 22:56 07/25/20 05:37 Labs: Abnormal Lab Results - Last 24 Hours (Table) 07/24/20 Range/Units 08:16 BUN 25 H (9-20) mg/dL Microbiology - Last 24 Hours (Table) 07/22/20 22:50 Blood Culture - Preliminary Blood No Growth after 24 hours 07/22/20 22:35 Blood Culture - Preliminary Blood No Growth after 24 hours Assessment and Plan Assessment: -DVT of left lower extremity: Patient was started on anti-correlation which will be continued -Bilateral lower extremity edema appears to be secondary to chronic venous insufficiency rather than congestive heart failure patient will be started on Lasix twice a day once his edema is better patient probably can be discharged a nd may need subacute rehabitation. -Congestive heart failure chronic systolic dysfunction, maybe ischemic cardiomyopathy patient is not in heart failure exacerbation does have pedal edema and that this is basically because of local venous causes -Mild elevation of troponin only 1 troponin is elevated may be related to mild renal failure. -Mild acute renal failure secondary to prerenal azotemia from volume overload. -Hypertension -Dyslipidemia -Chronic low back pain patient had multiple back injections in the past the patient and occupational therapy will evaluate the patient patient may need p lacement -Coronary artery disease history with CABG in the past -Benign prostatic hypertrophy -COPD without any acute exacerbation.
--- NOTE | 2020-07-25 12:24 | P.PN ---
Subjective Progress Note Date: 07/25/20 HISTORY OF PRESENTING ILLNESS This is a pleasant 79-year-old male past medical history significant for coronary artery disease status post 5 vessel bypass grafting in 2003 in [place], multiple TIAs in the past of unknown etiology, hypertension, dyslipidemia, gout and history of agent orange exposure. 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 We have been asked to see in consultation for elevated troponin. He presented to the hospital with symptoms of lower extremity swelling, lower back pain and was found to have a temperature of 100.4F. He underwent lower extremity Doppler revealing nonocclusive thrombus seen within the common femoral vein, femoral vein, popliteal vein and proximal calf veins. He has been initiated on anticoagulation. He also received a dose of IV antibiotics for possible lower extremity cellulitis. He is seen and examined resting comfortably laying flat in bed in no acute distress. He denies any significant symptoms of chest discomfort, shortness of breath, dizziness or palpitations. According to the patient he has chronic lower extremity edema that has been worsening over the past few weeks because he has been out of his gout medication. DIAGNOSTICS EKG reveals sinus mechanism with first-degree AV block heart rate of 61 with T- wave inversions noted in the inferior leads and flat T waves in the precordial lateral leads. Consistent with previous EKGs.. Chest xray pulmonary fibrotic changes with no evidence of overt heart failure. Laboratory reviewed, WBC 6.7, hemoglobin 12.7, platelets 181, sodium 138, potassium 4.6, creatinine 1.05, troponin 0.037 and and proBNP 1290. Current cardiac medications include aspirin 81 mg daily, Toprol 12.5 mg daily and rosuvastatin 5 mg daily. 07/25: Patient denies having any chest pain, no shortness of breath. He continues to have lower extremity edema and is on Lasix 40 mg IV every 12 hours. Patient states that he is urinating well. Patient has been afebrile, heart rate 68, blo od pressure 162/83, pulse ox 99% on room air. Echocardiogram reveals EF of 45- 50% with mild concentric left ventricular hypertrophy, mild aortic valve stenosis, mild mitral regurgitation, mild tricuspid regurgitation. PHYSICAL EXAMINATION CONSTITUTIONAL: No apparent distress. HEENT: Head is normocephalic. Pupils are equal, round. Sclerae anicteric. Mucous membranes of the mouth are moist. No JVD. No carotid bruit. CHEST EXAMINATION: Lungs are clear to auscultation. No chest wall tenderness is noted on palpation or with deep breathing. HEART EXAMINATION: Regular rate and rhythm. S1, S2 heard. Systolic ejection murmur at the base, no gallops or rub. ABDOMEN: Soft, nontender. Positive bowel sounds. EXTREMITIES: 2+ peripheral pulses, 2+ bilateral lower extremity pitting edema up to the knee and no calf tenderness. NEUROLOGIC EXAMINATION: Patient is awake, alert and oriented x3. ASSESSMENT Lower extremity swelling with no symptoms of shortness of breath to suggest overt heart failure and normal BNP. Suspect some component of venous insufficiency Elevated troponin of unclear significance Coronary artery disease status post bypass grafting Lower extremity DVT with possible cellulitis on eliquis and vanco per PCP Hypertension Dyslipidemia History of TIA. PLAN Troponin leak of unclear significance. He has no chest pain or symptoms suggestive of angina. EKG abnormalities are chronic when compared to previous from 2019. Continue IV Lasix 40 mg every 12 hours Obtain 2D echocardiogram to assess cardiac structure and function. Further recommendations to follow based on clinical course. Nurse Practitioner note has been reviewed, I agree with a documented findings and plan of care. Patient was seen and examined. Objective - Vital Signs Vital signs: Vital Signs Temp 97.4 F L 07/25/20 07:00 Pulse 68 07/25/20 07:00 Resp 19 07/25/20 07:00 BP 162/83 07/25/20 07:00 Pulse Ox 99 07/25/20 07:00 Intake & Output 07/24/20 07/25/20 07/25/20 18:59 06:59 18:59 Intake Total 480 240 Balance 480 240 Weight 81.647 kg Intake: Oral 480 240 Other: # Voids 2 3 - Labs CBC & Chem 7: 07/22/20 22:56 07/25/20 05:37 Labs: Abnormal Lab Results - Last 24 Hours (Table) 07/25/20 Range/Units 05:37 BUN 26 H (9-20) mg/dL Microbiology - Last 24 Hours (Table) 07/22/20 22:50 Blood Culture - Preliminary Blood No Growth after 48 hours 07/22/20 22:35 Blood Culture - Preliminary Blood No Growth after 48 hours
[2020-07-25] MEDS: MELATONIN 3 MG TABLET PO SCH (19:08)
[2020-07-26] MEDS: SODIUM CHLORIDE 0.9% 1,000 ML IV SCH ×2 (02:26→23:00)
[2020-07-26] MEDS: FLUTICASONE 50MCG/SPRAY NASAL 16GM EA NOSTRIL SCH ×2 (08:25→20:06)
[2020-07-26] MEDS: TAMSULOSIN 0.4 MG CAP.ER.24H PO SCH (08:25)
[2020-07-26] MEDS: allopurinoL 100 MG TAB PO SCH (08:25)
[2020-07-26] MEDS: METOPROLOL SUCCINATE (ER) 25 MG TAB.ER.24H PO SCH (08:25)
[2020-07-26] MEDS: APIXABAN 5 MG TAB PO SCH ×2 (08:25→20:06)
[2020-07-26] MEDS: ASPIRIN 81 MG PO SCH (08:25)
[2020-07-26] MEDS: PANTOPRAZOLE 40 MG TABLET PO SCH (08:25)
[2020-07-26] MEDS: FUROSEMIDE 10 MG/ML 4 ML VIAL IV SCH ×2 (08:25→20:06)
--- NOTE | 2020-07-26 13:22 | P.PN ---
Subjective Progress Note Date: 07/25/20 Principal diagnosis: Acute DVT left lower extremity Acute on chronic systolic CHF Mild elevation of troponin Mild acute renal failure 79-year-old male came in with complaints of severe back pain as well as right knee pain and. Please see is gouty attack and patient has a back issue for long time and had surgeries in the past. Patient is found to have bilateral lower limbs swelling and swelling in the left leg is more than the right leg because of which patient had a Doppler of the left which did show nonocclusive thrombus within the common femoral vein popliteal vein. And was started on Eliquis. Patient does have extensive pedal edema which has been going on for about 2 years patient had an echocardiogram showed EF of 45-50%. had mildly elevated troponin without any chest pain EKG did not show any acute ST-T wave changes because of the troponin initially consulted cardiology evaluated the patient and patient the and a second set of troponin which is essentially within normal limits and patient has mildly elevated proBNP mildly elevated creatinine. Patient doesn't have any redness doesn't appear to have any cellulitis better since patient had low-grade fever patient was started on antibiotics vancomycin and Rocephin which will be discontinued now. 07/25/2020 Patient is seen and evaluated in room at bedside; denies any complaint of chest pain or shortness of breath Vital signs are stable with pulse of 68, blood pressure of 162/83, patient remains afebrile with a pulse ox of 99% on room air Patient remains on Lasix 40 mg IV every 12 hours; echocardiogram is completed and reveals an EF of 45-50% with mild LVH, mild aortic stenosis, mild mitral regurgitation and tricuspid regurgitation Cardiology on board and recommending to continue with IV Lasix for another 24 hours Remains on IV vancomycin and anticoagulation for lower extremity cellulitis and DVT Objective - Vital Signs Vital signs: Vital Signs Temp 97.4 F L 07/25/20 07:00 Pulse 68 07/25/20 07:00 Resp 19 07/25/20 07:00 BP 162/83 07/25/20 07:00 Pulse Ox 99 07/25/20 07:00 Intake & Output 07/24/20 07/25/20 07/25/20 18:59 06:59 18:59 Intake Total 480 240 Balance 480 240 Weight 81.647 kg Intake: Oral 480 240 Other: # Voids 2 3 - Exam PHYSICAL EXAMINATION: GENERAL: The patient is alert and oriented x3, not in any acute distress. Well developed, well nourished. HEENT: Pupils are round and equally reacting to light. EOMI. No scleral icterus. No conjunctival pallor. Normocephalic, atraumatic. No pharyngeal erythema. No thyromegaly. CARDIOVASCULAR: S1 and S2 present. No murmurs, rubs, or gallops. PULMONARY: Chest is clear to auscultation, no wheezing or crackles. ABDOMEN: Soft, nontender, nondistended, normoactive bowel sounds. No palpable organomegaly. MUSCULOSKELETAL: No joint swelling or deformity. EXTREMITIES: No cyanosis, clubbing, or pedal edema. NEUROLOGICAL: Gross neurological examination did not reveal any focal deficits. SKIN: No rashes. - Labs CBC & Chem 7: 07/22/20 22:56 07/25/20 05:37 Labs: Abnormal Lab Results - Last 24 Hours (Table) 07/25/20 Range/Units 05:37 BUN 26 H (9-20) mg/dL Microbiology - Last 24 Hours (Table) 07/22/20 22:50 Blood Culture - Preliminary Blood No Growth after 48 hours 07/22/20 22:35 Blood Culture - Preliminary Blood No Growth after 48 hours Assessment and Plan Assessment: -DVT of left lower extremity: Patient was started on anti-correlation which will be continued -Bilateral lower extremity edema appears to be secondary to chronic venous insufficiency rather than congestive heart failure patient will be started on Lasix twice a day once his edema is better patient probably can be discharged and may need subacute rehabitation. -Congestive heart failure chronic systolic dysfunction, maybe ischemic cardiomyopathy patient is not in heart failure exacerbation does have pedal edema and that this is basically because of local venous causes -Mild elevation of troponin only 1 troponin is elevated may be related to mild renal failure. -Mild acute renal failure secondary to prerenal azotemia from volume overload. -Hypertension -Dyslipidemia -Chronic low back pain patient had multiple back injections in the past the pa tient and occupational therapy will evaluate the patient patient may need placement -Coronary artery disease history with CABG in the past -Benign prostatic hypertrophy -COPD without any acute exacerbation.
[2020-07-26] MEDS: MELATONIN 3 MG TABLET PO SCH (20:06)
--- NOTE | 2020-07-27 03:36 | P.PN ---
Subjective Progress Note Date: 07/26/20 Principal diagnosis: Acute DVT left lower extremity Acute on chronic systolic CHF Mild elevation of troponin Mild acute renal failure 79-year-old male came in with complaints of severe back pain as well as right knee pain and. Please see is gouty attack and patient has a back issue for long time and had surgeries in the past. Patient is found to have bilateral lower limbs swelling and swelling in the left leg is more than the right leg because of which patient had a Doppler of the left which did show nonocclusive thrombus within the common femoral vein popliteal vein. And was started on Eliquis. Patient does have extensive pedal edema which has been going on for about 2 years patient had an echocardiogram showed EF of 45-50%. had mildly elevated troponin without any chest pain EKG did not show any acute ST-T wave changes because of the troponin initially consulted cardiology evaluated the patient and patient the and a second set of troponin which is essentially within normal limits and patient has mildly elevated proBNP mildly elevated creatinine. Patient doesn't have any redness doesn't appear to have any cellulitis better since patient had low-grade fever patient was started on antibiotics vancomycin and Rocephin which will be discontinued now. 07/25/2020 Patient is seen and evaluated in room at bedside; denies any complaint of chest pain or shortness of breath Vital signs are stable with pulse of 68, blood pressure of 162/83, patient remains afebrile with a pulse ox of 99% on room air Patient remains on Lasix 40 mg IV every 12 hours; echocardiogram is completed and reveals an EF of 45-50% with mild LVH, mild aortic stenosis, mild mitral regurgitation and tricuspid regurgitation Cardiology on board and recommending to continue with IV Lasix for another 24 hours Remains on IV vancomycin and anticoagulation for lower extremity cellulitis and DVT 07/26/2020 79 year old male patient seen for follow up- being treated for LLE DVT; NSTEMI and CHF exac; patient remains on IV Lasix per Cards recommendation; continue to monitor strict I/Os, daily weights, low salt and fluid restricted diet; tolerating Eliquis for anticoagulation; recommend CM/[employer] consult for transition of care after cleared by Cards Objective - Vital Signs Vital signs: Vital Signs Temp 98.3 F 07/26/20 07:00 Pulse 67 07/26/20 07:00 Resp 19 07/26/20 07:00 BP 146/75 07/26/20 07:00 Pulse Ox 98 07/26/20 07:00 Intake & Output 07/25/20 07/26/20 07/26/20 18:59 06:59 18:59 Intake Total 480 240 Balance 480 240 Intake: Oral 480 240 Other: # Voids 3 - Exam PHYSICAL EXAMINATION: GENERAL: The patient is alert and oriented x3, not in any acute distress. Well developed, well nourished. HEENT: Pupils are round and equally reacting to light. EOMI. No scleral icterus. No conjunctival pallor. Normocephalic, atraumatic. No pharyngeal erythema. No thyromegaly. CARDIOVASCULAR: S1 and S2 present. No murmurs, rubs, or gallops. PULMONARY: Chest is clear to auscultation, no wheezing or crackles. ABDOMEN: Soft, nontender, nondistended, normoactive bowel sounds. No palpable organomegaly. MUSCULOSKELETAL: No joint swelling or deformity. EXTREMITIES: No cyanosis, clubbing, or pedal edema. NEUROLOGICAL: Gross neurological examination did not reveal any focal deficits. SKIN: No rashes. - Labs CBC & Chem 7: 07/22/20 22:56 07/25/20 05:37 Labs: Microbiology - Last 24 Hours (Table) 07/22/20 22:50 Blood Culture - Preliminary Blood No Growth after 72 hours 07/22/20 22:35 Blood Culture - Preliminary Blood No Growth after 72 hours Assessment and Plan Assessment: -DVT of left lower extremity: Patient was started on anti-correlation which will be continued -Bilateral lower extremity edema appears to be secondary to chronic venous insufficiency rather than congestive heart failure patient will be started on Lasix twice a day once his edema is better patient probably can be discharged and may need subacute rehabitation. -Congestive heart failure chronic systolic dysfunction, maybe ischemic cardiomyopathy patient is not in heart failure exacerbation does have pedal edema and that this is basically because of local venous causes -Mild elevation of troponin only 1 troponin is elevated may be related to mild renal failure. -Mild acute renal failure secondary to prerenal azotemia from volume overload. -Hypertension -Dyslipidemia -Chronic low back pain patient had multiple back injections in the past the patient and occupational therapy will evaluate the patient patient may need placement -Coronary artery disease history with CABG in the past -Benign prostatic hypertrophy -COPD without any acute exacerbation.
[2020-07-27] MEDS: APIXABAN 5 MG TAB PO SCH (07:52)
[2020-07-27] MEDS: TAMSULOSIN 0.4 MG CAP.ER.24H PO SCH (07:52)
[2020-07-27] MEDS: FUROSEMIDE 10 MG/ML 4 ML VIAL IV SCH (07:52)
[2020-07-27] MEDS: ASPIRIN 81 MG PO SCH (07:52)
[2020-07-27] MEDS: allopurinoL 100 MG TAB PO SCH (07:52)
[2020-07-27] MEDS: PANTOPRAZOLE 40 MG TABLET PO SCH (07:52)
[2020-07-27] MEDS: METOPROLOL SUCCINATE (ER) 25 MG TAB.ER.24H PO SCH (07:52)
[2020-07-27] MEDS: FLUTICASONE 50MCG/SPRAY NASAL 16GM EA NOSTRIL SCH (07:53)
[2020-07-27 08:56] VITALS: BP 155/78; PULSE 66; RESP 18; TEMP 98.5
--- NOTE | 2020-07-27 16:50 | P.DS ---
Providers Date of admission: 07/27/20 08:16 Expected date of discharge: 07/27/20 Attending physician: Thomas Hull Consults: 07/23/20 10:15 Consult Physician Routine Consulting Provider: Alba Ruiz Consult Reason/Comments: elevated troponins Do you want consulting provider notified?: Yes Primary care physician: [facility] Hospital Course: Final diagnosis -Acute DVT of the left lower extremity -Bilateral lower extremity edema appears to be secondary to chronic venous insufficiency rather than congestive heart failure -Congestive heart failure chronic systolic dysfunction, maybe ischemic cardiomyopathy patient is not in heart failure exacerbation does have pedal edema and that this is basically because of local venous causes -Mild elevation of troponin only 1 troponin is elevated may be related to mild renal failure. -Mild acute renal failure secondary to prerenal azotemia from volume overload. -Hypertension -Dyslipidemia -Chronic low back pain patient had multiple back injections in the past -Coronary artery disease history with CABG in the past -Benign prostatic hypertrophy -COPD without any acute exacerbation. Discharge disposition Patient is being discharged in a stable condition with guarded prognosis to home. Patient will follow-up with Dr. Zee at the [facility] in the outpatient setting upon discharge. Patient will also follow-up with his rn immunology as instructed. Patient to continue with oral Lasix 40 mg twice daily per cardiology recommendations. Prescription provided for repeat labs to monitor kidney functions closely. Total time taken is greater than 35 minutes. Hospital course 79-year-old male came in with complaints of severe back pain as well as right knee pain and. Please see is gouty attack and patient has a back issue for long time and had surgeries in the past. Patient is found to have bilateral lower limbs swelling and swelling in the left leg is more than the right leg because of which patient had a Doppler of the left which did show nonocclusive thrombus within the common femoral vein popliteal vein. And was started on Eliquis. Patient does have extensive pedal edema which has been going on for about 2 years patient had an echocardiogram showed EF of 45-50%. had mildly elevated troponin without any chest pain EKG did not show any acute ST-T wave changes because of the troponin initially consulted cardiology evaluated the patient and patient the and a second set of troponin which is essentially within normal limits and patient has mildly elevated proBNP mildly elevated creatinine. Patient doesn't have any redness doesn't appear to have any cellulitis better since patient had low-grade fever patient was started on antibiotics vancomycin and Rocephin which will be discontinued now. 07/25/2020 Patient is seen and evaluated in room at bedside; denies any complaint of chest pain or shortness of breath Vital signs are stable with pulse of 68, blood pressure of 162/83, patient remains afebrile with a pulse ox of 99% on room air Patient remains on Lasix 40 mg IV every 12 hours; echocardiogram is completed and reveals an EF of 45-50% with mild LVH, mild aortic stenosis, mild mitral regurgitation and tricuspid regurgitation Cardiology on board and recommending to continue with IV Lasix for another 24 hours Remains on IV vancomycin and anticoagulation for lower extremity cellulitis and DVT 07/26/2020 79 year old male patient seen for follow up- being treated for LLE DVT; NSTEMI and CHF exac; patient remains on IV Lasix per Cards recommendation; continue to monitor strict I/Os, daily weights, low salt and fluid restricted diet; tolerating Eliquis for anticoagulation; recommend CM/[employer] consult for transition of care after cleared by Cards 07/27/2020 Patient is seen and evaluated in follow-up currently no acute overnight issues. Patient continues with lower extremity swelling and instructed the patient to continue to use Fili wraps from the toes up to the knees and elevate lower extremities while at rest. Maintain on IV Lasix and will transition to oral Lasix of 40 mg twice daily and recommended repeat labs to monitor kidney functions closely. Patient was also found to have left lower extremity DVT and was started on Eliquis and instructed to continue to use 10 mg twice daily for 1 week and then continue 5 mg twice daily in the outpatient setting. [facility] Patient continued to be weak and PT/OT therapy recommending subacute rehab although patient is adamantly refusing and stating he was going home and is agreeable to home care and [facility] setting. Currently no reports of chest pain, shortness of breath, or palpitations. Patient is afebrile. No reports of nausea or vomiting and patient is tolerating diet. Patient will be discharged home today. Guarded prognosis. On exam vital signs are stable. Cardio S1, S2 are muffled. Respiratory system shows diminished breath sounds at the bases with no wheezing or rhonchi noted. Abdomen is soft and nontender. Nervous system shows no focal deficits. Please refer to medication reconciliation sheet for a list of medications. Patient Condition at Discharge: Fair Plan - Discharge Summary Discharge Rx Participant: No New Discharge Prescriptions: New Acetaminophen Tab [Tylenol] 650 mg PO Q6HR PRN tab PRN Reason: Mild Pain Or Fever > 100.5 Apixaban [Eliquis] 5 mg PO BID 30 Days #60 tab Furosemide [Lasix] 40 mg PO BID 30 Days #60 tablet Continue Rosuvastatin Calcium [Crestor] 5 mg PO HS Aspirin [[place] Aspirin EC] 81 mg PO DAILY Metoprolol Succinate [Toprol XL] 12.5 mg PO DAILY Omeprazole 20 mg PO DAILY Grape Seed 1 tab PO DAILY Fluticasone Nasal [place] [Flonase Nasal [place]] 1 spr EA NOSTRIL BID Melatonin 3 mg PO HS Nitroglycerin Sl Tabs [Nitrostat] 0.4 mg SUBLINGUAL Q5M PRN PRN Reason: Chest Pain Saw [place] 160 mg PO DAILY Gabapentin [Neurontin] 100 mg PO TID Allopurinol [Zyloprim] 100 mg PO DAILY #30 tab Tamsulosin [Flomax] 0.4 mg PO DAILY Glucosam/Geovany-Msm1/C/Evan/Bosw [Glucosamine-Chondroitin Tablet] 2 tab PO DAILY Ubidecarenone [Coenzyme Q10] 30 mg PO DAILY Discharge Medication List Aspirin [[place] Aspirin EC] 81 mg PO DAILY 04/30/18 [History] Metoprolol Succinate [Toprol XL] 12.5 mg PO DAILY 04/30/18 [History] Rosuvastatin Calcium [Crestor] 5 mg PO HS 04/30/18 [History] Allopurinol [Zyloprim] 100 mg PO DAILY #30 tab 06/24/20 [Rx] Omeprazole 20 mg PO DAILY 06/24/20 [History] Tamsulosin [Flomax] 0.4 mg PO DAILY 06/24/20 [History] Fluticasone Nasal [place] [Flonase Nasal [place]] 1 spr EA NOSTRIL BID 07/23/20 [History] Glucosam/[place]-Msm1/C/Evan/Bosw [Glucosamine-Chondroitin Tablet] 2 tab PO DAILY 07/23/20 [History] Grape Seed 1 tab PO DAILY 07/23/20 [History] Melatonin 3 mg PO HS 07/23/20 [History] Nitroglycerin Sl Tabs [Nitrostat] 0.4 mg SUBLINGUAL Q5M PRN 07/23/20 [History] Saw [place] 160 mg PO DAILY 07/23/20 [History] Ubidecarenone [Coenzyme Q10] 30 mg PO DAILY 07/23/20 [History] Acetaminophen Tab [Tylenol] 650 mg PO Q6HR PRN tab 07/27/20 [Rx] Apixaban [Eliquis] 5 mg PO BID 30 Days #60 tab 07/27/20 [Rx] Furosemide [Lasix] 40 mg PO BID 30 Days #60 tablet 07/27/20 [Rx] Gabapentin [Neurontin] 100 mg PO TID 07/27/20 [History] Follow up Appointment(s)/Referral(s): [facility],Clinic [Primary Care Provider] - 1-2 days Patient Instructions/Handouts: Deep Vein Thrombosis (DC) Activity/Diet/Wound Care/Special Instructions: Home care referral faxed to [facility] who will arrange home care. Please call [facility] to follow up: #[phone]. Follow up at [facility] for wheelchair at home Activity Limited until follow-up Follow-up primary care provider upon discharge Continue with Lasix 40 mg twice daily and a prescription was sent to [facility] and also a paper prescription will be faxed to the [facility] Follow-up with your rn immunology Continue heart healthy diet Continue with Eliquis 10 mg twice daily for the next 5 days and then transition to 5 mg twice daily Continue with Fili wraps from the toes up to the knees and elevate lower extremities while at rest Discharge Disposition: HOME WITH HOME HEALTH SERVICES
[2020-07-30] MEDS ORDERED: GABAPENTIN 100 MG CAP PO SCH (16:00)
== END 2020-07-27 15:25 | disposition home health service (06) | DRG 300 ==
LOC: EC 22:01 → 6NMEDSUR 07-23 00:42 → 1SOBS 07-23 14:46 → 6NMEDSUR 07-24 12:17 → OBSVTOIN 07-27 08:16
PROVIDERS: ADMIT Hospitalist; ATTEND Hospitalist
DX: I87.2 Venous insufficiency (chronic) (peripheral) (principal); I82.412 Acute embolism and thrombosis of left femoral vein; N17.9 Acute kidney failure, unspecified; L03.116 Cellulitis of left lower limb; I82.432 Acute embolism and thrombosis of left popliteal vein; I82.4Y2 Acute embolism and thrombosis of unspecified deep veins of left proximal lower extremity; I50.22 Chronic systolic (congestive) heart failure; I11.0 Hypertensive heart disease with heart failure; J44.9 Chronic obstructive pulmonary disease, unspecified; Z20.822 Contact with and (suspected) exposure to COVID-19; E78.5 Hyperlipidemia, unspecified; E86.0 Dehydration; I25.5 Ischemic cardiomyopathy; I08.3 Combined rheumatic disorders of mitral, aortic and tricuspid valves; R31.9 Hematuria, unspecified; I25.10 Atherosclerotic heart disease of native coronary artery without angina pectoris; N40.0 Benign prostatic hyperplasia without lower urinary tract symptoms; G89.29 Other chronic pain; M54.5 Low back pain; M10.9 Gout, unspecified; F43.10 Post-traumatic stress disorder, unspecified; R13.10 Dysphagia, unspecified; H91.91 Unspecified hearing loss, right ear; R77.8 Other specified abnormalities of plasma proteins; Z79.82 Long term (current) use of aspirin; Z79.899 Other long term (current) drug therapy; Z87.39 Personal history of other diseases of the musculoskeletal system and connective tissue; Z95.1 Presence of aortocoronary bypass graft; Z95.5 Presence of coronary angioplasty implant and graft; Z86.69 Personal history of other diseases of the nervous system and sense organs; Z86.73 Personal history of transient ischemic attack (TIA), and cerebral infarction without residual deficits; Z77.098 Contact with and (suspected) exposure to other hazardous, chiefly nonmedicinal, chemicals; Z97.4 Presence of external hearing-aid; Z85.828 Personal history of other malignant neoplasm of skin; Z98.890 Other specified postprocedural states; Z88.8 Allergy status to other drugs, medicaments and biological substances
CPT/HCPCS: 36415; 71045; 80048; 80053; 81001; 83605; 83880; 84484; 85025; 87040; 87636; 93005; 93306; 96365; 96374; 96375; 99285

== ENCOUNTER 2020-07-30 11:02 | Observation (INO) | payer MEDICARE, OTHER ==
[2020-07-30] MEDS ORDERED: SODIUM CHLORIDE 0.9% 500 ML 500 ML IV STA (11:37)
[2020-07-30 11:55] LABS: Basophils % (A) 1 %; Eosinophils # (A) 0.1 k/uL (0-0.7); Eosinophils % (A) 2 %; HCT 29.4 % (39.0-53.0); HGB 10.4 gm/dL (13.0-17.5); Lymphocytes % (A) 16 %; MCH 32.1 pg (25.0-35.0); MCHC 35.3 g/dL (31.0-37.0); Mean Platelet Volume 7.8; Monocytes # (A) 0.7 k/uL (0-1.0); Monocytes % (A) 11 %; Neutrophils # (A) 4.6 k/uL (1.3-7.7); Neutrophils % (A) 70 %; Platelet Count 219 k/uL (150-450); RBC 3.23 m/uL (4.30-5.90); RDW 12.5 % (11.5-15.5); WBC 6.6 k/uL (3.8-10.6)
[2020-07-30 12:05] LABS: Albumin 3.1 g/dL (3.5-5.0); Calcium 9.2 mg/dL (8.4-10.2); Magnesium 2.1 mg/dL (1.6-2.3); Potassium 3.5 mmol/L (3.5-5.1); Total Bilirubin 1.8 mg/dL (0.2-1.3); Total Protein 5.8 g/dL (6.3-8.2)
--- NOTE | 2020-07-30 12:05 | XR ---
EXAMINATION TYPE: XR chest 2V DATE OF EXAM: 07/30/2020 COMPARISON: Chest x-ray July 22, 2020 HISTORY: Weakness and dyspnea. TECHNIQUE: Frontal and lateral views of the chest are obtained. FINDINGS: There is chronic parenchymal change and bilateral increased opacities. The cardiac silhou ette size is within normal limits. Overlying sternal wires. The osseous structures are demineralize d. Advanced degenerative change right glenohumeral joint. IMPRESSION: Chronic changes with multifocal areas of new increased opacity particularly right lung b ase.
[2020-07-30 12:11] LABS: Partial Thromboplastin Time 24.1 sec (22.0-30.0); Prothrombin Time 10.8 sec (9.0-12.0)
[2020-07-30 12:21] LABS: Appearance,Urine Cloudy (Clear); Bacteria,Urine Rare /hpf; Bilirubin,Urine Negative (Negative); Blood,Urine Negative (Negative); Budding Yeast,Urine Rare /hpf; Color,Urine Yellow; Glucose,Urine (UA) Negative (Negative); Ketones,Urine Negative (Negative); Leukocyte Esterase,Urine Large (Negative); Nitrite,Urine Negative (Negative); PH, Urine 5.5 (5.0-8.0); Protein,Urine Trace (Negative); RBC,Urine 8 /hpf (0-5); Specific Gravity,Urine 1.015 (1.001-1.035); Squamous Epithelial Cell,Urine 2 /hpf (0-4); Urobilinogen,Urine <2.0 mg/dL (<2.0); WBC,Urine 4 /hpf (0-5)
--- NOTE | 2020-07-30 12:27 | ED ---
General Adult HPI - General Chief complaint: Weakness Stated complaint: Fall/Weakness Time Seen by Provider: 07/30/20 11:05 Source: patient, EMS, RN notes reviewed, old records reviewed Mode of arrival: EMS Limitations: physical limitation - History of Present Illness Initial comments: This is a 79-year-old male presents emergency Department complaining of generalized weakness. Patient states she's on blood thinner for a blood clot. Patient states the swelling in his left leg is about the same size as it was regular. Patient states he went to stand up today and was unable to stand. Patient states was discharged from the hospital a few days ago. Patient states he was unable to stand up and therefore he came to the emergency department. Patient denied any focal weakness per patient states the weakness was equal on both legs. Patient denied any bowel or bladder dysfunction. Patient denied any numbness. Patient denied any recent fever chills or cough. Patient denies any chest pain or palpitations. - Related Data Home Medications Medication Instructions Recorded Confirmed Aspirin [[place] Aspirin EC] 81 mg PO DAILY 04/30/18 07/30/20 Metoprolol Succinate [Toprol XL] 12.5 mg PO DAILY 04/30/18 07/30/20 Rosuvastatin Calcium [Crestor] 5 mg PO HS 04/30/18 07/30/20 Omeprazole 20 mg PO DAILY 06/24/20 07/30/20 Tamsulosin [Flomax] 0.4 mg PO DAILY 06/24/20 07/30/20 Fluticasone Nasal [place] [Flonase 1 spr EA NOSTRIL BID 07/23/20 07/30/20 Nasal [place]] Glucosam/Geovany-Msm1/C/Evan/Bosw 2 tab PO DAILY 07/23/20 07/30/20 [Glucosamine-Chondroitin Tablet] Grape Seed 1 tab PO DAILY 07/23/20 07/30/20 Melatonin 3 mg PO HS 07/23/20 07/30/20 Nitroglycerin Sl Tabs [Nitrostat] 0.4 mg SUBLINGUAL Q5M PRN 07/23/20 07/30/20 Saw [place] 160 mg PO DAILY 07/23/20 07/30/20 Ubidecarenone [Coenzyme Q10] 30 mg PO DAILY 07/23/20 07/30/20 Gabapentin [Neurontin] 100 mg PO TID 07/27/20 07/30/20 Previous Rx's Medication Instructions Recorded Allopurinol [Zyloprim] 100 mg PO DAILY #30 tab 06/24/20 Acetaminophen Tab [Tylenol] 650 mg PO Q6HR PRN tab 07/27/20 Apixaban [Eliquis] 5 mg PO BID 30 Days #60 tab 07/27/20 Furosemide [Lasix] 40 mg PO BID 30 Days #60 tablet 07/27/20 Allergies Allergy/AdvReac Type Severity Reaction Status Date / Time diazepam [From Valium] Allergy Unknown Verified 07/30/20 11:35 simvastatin [From Zocor] Allergy MYOSITIS Verified 07/30/20 11:35 terazosin Allergy SYNCOPE Verified 07/30/20 11:35 egg AdvReac Unknown Verified 07/30/20 11:35 lisinopril AdvReac Cough Verified 07/30/20 11:35 Review of Systems ROS Statement: Those systems with pertinent positive or pertinent negative responses have been documented in the HPI. ROS Other: All systems not noted in ROS Statement are negative. Past Medical History Past Medical History: Asthma, Coronary Artery Disease (CAD), COPD, Hyperlipidemia, Hypertension, Prostate Disorder Additional Past Medical History / Comment(s): Pt denies hx COPD, bronchial pneumonia, bronchitis, pleurisy, multiple "mini strokes" per MRI/pt, degenerative arthritis in multiple joints, chronic low back pain/pinched nerve, R carpal tunnel syndrome, gout bilateral feet, TMJ, dysphagia-pt states was to have study done but did not get to it d/t covid, sinusitis, past 20 days has had bilateral lower extremity edema pt believes d/t running out of gout medications, BPH, agent orange exposure which pt states caused heart damage, murmur, R ear mostly deaf, wears bilateral hearing aides, skin cancer removals. History of Any Multi-Drug Resistant Organisms: None Reported Past Surgical History: Back Surgery, Coronary Bypass/CABG, Heart Catheterization With Stent Additional Past Surgical History / Comment(s): eye surgery Past Anesthesia/Blood Transfusion Reactions: No Reported Reaction Additional Past Anesthesia/Blood Transfusion Reaction / Comment(s): Pt has clausterphobia. Past Psychological History: PTSD Smoking Status: Never smoker Past Alcohol Use History: None Reported Past Drug Use History: None Reported - Past Family History Father Family Medical History: No Reported History Additional Family Medical History / Comment(s): Father was healthy Mother Family Medical History: No Reported History Additional Family Medical History / Comment(s): Mother was healthy General Exam - General Exam Comments Initial Comments: GENERAL: Patient is well-developed and well-nourished. Patient is nontoxic and well- hydrated and is in no acute distress. ENT: Neck is soft and supple. No significant lymphadenopathy is noted. Oropharynx is clear. Moist mucous membranes. Neck has full range of motion without eliciting any pain. EYES: The sclera were anicteric and conjunctiva were pink and moist. Extraocular movements were intact and pupils were equal round and reactive to light. Eyelids were unremarkable. PULMONARY: Unlabored respirations. Good breath sounds bilaterally. No audible rales rhonchi or wheezing was noted. CARDIOVASCULAR: There is a regular rate and rhythm without any murmurs gallops or rubs. ABDOMEN: Soft and nontender with normal bowel sounds. No palpable organomegaly was noted. There is no palpable pulsatile mass. SKIN: Skin is clear with no lesions or rashes and otherwise unremarkable. NEUROLOGIC: Patient is alert and oriented x3. Cranial nerves II through XII are grossly intact. Patient has significant weakness bilaterally. Difficult to lift his leg off the bed or bend at the knee. Patient has a stuttering speech which she states is normal. MUSCULOSKELETAL: Normal extremities with adequate strength and full range of motion. Patient has 2+ edema in his left leg with ecchymosis. Patient states this is unchanged since he left the hospital. LYMPHATICS: No significant lymphadenopathy is noted PSYCHIATRIC: Normal psychiatric evaluation. Limitations: physical limitation Course Vital Signs 07/30/20 07/30/20 11:07 11:45 Temperature 99.6 F Pulse Rate 81 80 Respiratory 20 18 Rate Blood Pressure 166/88 147/80 O2 Sat by Pulse 99 99 Oximetry Medical Decision Making - Medical Decision Making EKG shows sinus rhythm at 79 bpm AK interval is 214 QRS is under QT interval 46 QTC is 465 per patient's EKG shows T-wave inversions in II, III, and F aVF which were seen in previous EKG. Chest x-ray shows no acute abnormality. I spoke with because he agreed to admit the patient admitted the patient wrote admitting orders. - Lab Data Result diagrams: 07/30/20 11:43 07/30/20 11:43 Lab Results 05/09/1407/30/20 07/30/20 Range/Units 11:43 11:43 11:43 WBC 6.6 (3.8-10.6) k/uL RBC 3.23 L (4.30-5.90) m/uL Hgb 10.4 L (13.0-17.5) gm/dL Hct 29.4 L (39.0-53.0) % MCV 91.0 (80.0-100.0) fL MCH 32.1 (25.0-35.0) pg MCHC 35.3 (31.0-37.0) g/dL RDW 12.5 (11.5-15.5) % Plt Count 219 (150-450) k/uL MPV 7.8 Neutrophils % 70 % Lymphocytes % 16 % Monocytes % 11 % Eosinophils % 2 % Basophils % 1 % Neutrophils # 4.6 (1.3-7.7) k/uL Lymphocytes # 1.0 (1.0-4.8) k/uL Monocytes # 0.7 (0-1.0) k/uL Eosinophils # 0.1 (0-0.7) k/uL Basophils # 0.0 (0-0.2) k/uL PT 10.8 (9.0-12.0) sec INR 1.0 (<1.2) APTT 24.1 (22.0-30.0) sec Sodium (137-145) mmol/L Potassium (3.5-5.1) mmol/L Chloride (98-107) mmol/L Carbon Dioxide (22-30) mmol/L Anion Gap mmol/L BUN (9-20) mg/dL Creatinine (0.66-1.25) mg/dL Est GFR (CKD-EPI)AfAm (>60 ml/min/1.73 sqM) Est GFR (CKD-EPI)NonAf (>60 ml/min/1.73 sqM) Glucose (74-99) mg/dL Plasma Lactic Acid Dash (0.7-2.0) mmol/L Calcium (8.4-10.2) mg/dL Magnesium (1.6-2.3) mg/dL Total Bilirubin (0.2-1.3) mg/dL AST (17-59) U/L ALT (4-49) U/L Alkaline Phosphatase (38-126) U/L Troponin I (0.000-0.034) ng/mL Total Protein (6.3-8.2) g/dL Albumin (3.5-5.0) g/dL Urine Color Yellow Urine Appearance Cloudy (Clear) Urine pH 5.5 (5.0-8.0) Ur Specific [place] 1.015 (1.001-1.035) Urine Protein Trace H (Negative) Urine Glucose (UA) Negative (Negative) Urine Ketones Negative (Negative) Urine Blood Negative (Negative) Urine Nitrite Negative (Negative) Urine Bilirubin Negative (Negative) Urine Urobilinogen <2.0 (<2.0) mg/dL Ur Leukocyte Esterase Large H (Negative) Urine RBC 8 H (0-5) /hpf Urine WBC 4 (0-5) /hpf Ur Squamous Epith Cells 2 (0-4) /hpf Urine Bacteria Rare H (None) /hpf Urine Yeast (Budding) Rare H (None) /hpf Coronavirus (PCR) (Not Detectd) 07/30/20 07/30/20 07/30/20 Range/Units 11:43 11:43 11:43 WBC (3.8-10.6) k/uL RBC (4.30-5.90) m/uL Hgb (13.0-17.5) gm/dL Hct (39.0-53.0) % MCV (80.0-100.0) fL MCH (25.0-35.0) pg MCHC (31.0-37.0) g/dL RDW (11.5-15.5) % Plt Count (150-450) k/uL MPV Neutrophils % % Lymphocytes % % Monocytes % % Eosinophils % % Basophils % % Neutrophils # (1.3-7.7) k/uL Lymphocytes # (1.0-4.8) k/uL Monocytes # (0-1.0) k/uL Eosinophils # (0-0.7) k/uL Basophils # (0-0.2) k/uL PT (9.0-12.0) sec INR (<1.2) APTT (22.0-30.0) sec Sodium 138 (137-145) mmol/L Potassium 3.5 (3.5-5.1) mmol/L Chloride 103 (98-107) mmol/L Carbon Dioxide 31 H (22-30) mmol/L Anion Gap 4 mmol/L BUN 39 H (9-20) mg/dL Creatinine 1.16 (0.66-1.25) mg/dL Est GFR (CKD-EPI)AfAm 69 (>60 ml/min/1.73 sqM) Est GFR (CKD-EPI)NonAf 60 (>60 ml/min/1.73 sqM) Glucose 89 (74-99) mg/dL Plasma Lactic Acid Dash 1.2 (0.7-2.0) mmol/L Calcium 9.2 (8.4-10.2) mg/dL Magnesium 2.1 (1.6-2.3) mg/dL Total Bilirubin 1.8 H (0.2-1.3) mg/dL AST 37 (17-59) U/L ALT 16 (4-49) U/L Alkaline Phosphatase 53 (38-126) U/L Troponin I 0.023 (0.000-0.034) ng/mL Total Protein 5.8 L (6.3-8.2) g/dL Albumin 3.1 L (3.5-5.0) g/dL Urine Color Urine Appearance (Clear) Urine pH (5.0-8.0) Ur Specific [place] (1.001-1.035) Urine Protein (Negative) Urine Glucose (UA) (Negative) Urine Ketones (Negative) Urine Blood (Negative) Urine Nitrite (Negative) Urine Bilirubin (Negative) Urine Urobilinogen (<2.0) mg/dL Ur Leukocyte Esterase (Negative) Urine RBC (0-5) /hpf Urine WBC (0-5) /hpf Ur Squamous Epith Cells (0-4) /hpf Urine Bacteria (None) /hpf Urine Yeast (Budding) (None) /hpf Coronavirus (PCR) (Not Detectd) 07/30/20 Range/Units 12:43 WBC (3.8-10.6) k/uL RBC (4.30-5.90) m/uL Hgb (13.0-17.5) gm/dL Hct (39.0-53.0) % MCV (80.0-100.0) fL MCH (25.0-35.0) pg MCHC (31.0-37.0) g/dL RDW (11.5-15.5) % Plt Count (150-450) k/uL MPV Neutrophils % % Lymphocytes % % Monocytes % % Eosinophils % % Basophils % % Neutrophils # (1.3-7.7) k/uL Lymphocytes # (1.0-4.8) k/uL Monocytes # (0-1.0) k/uL Eosinophils # (0-0.7) k/uL Basophils # (0-0.2) k/uL PT (9.0-12.0) sec INR (<1.2) APTT (22.0-30.0) sec Sodium (137-145) mmol/L Potassium (3.5-5.1) mmol/L Chloride (98-107) mmol/L Carbon Dioxide (22-30) mmol/L Anion Gap mmol/L BUN (9-20) mg/dL Creatinine (0.66-1.25) mg/dL Est GFR (CKD-EPI)AfAm (>60 ml/min/1.73 sqM) Est GFR (CKD-EPI)NonAf (>60 ml/min/1.73 sqM) Glucose (74-99) mg/dL Plasma Lactic Acid Dash (0.7-2.0) mmol/L Calcium (8.4-10.2) mg/dL Magnesium (1.6-2.3) mg/dL Total Bilirubin (0.2-1.3) mg/dL AST (17-59) U/L ALT (4-49) U/L Alkaline Phosphatase (38-126) U/L Troponin I (0.000-0.034) ng/mL Total Protein (6.3-8.2) g/dL Albumin (3.5-5.0) g/dL Urine Color Urine Appearance (Clear) Urine pH (5.0-8.0) Ur Specific [place] (1.001-1.035) Urine Protein (Negative) Urine Glucose (UA) (Negative) Urine Ketones (Negative) Urine Blood (Negative) Urine Nitrite (Negative) Urine Bilirubin (Negative) Urine Urobilinogen (<2.0) mg/dL Ur Leukocyte Esterase (Negative) Urine RBC (0-5) /hpf Urine WBC (0-5) /hpf Ur Squamous Epith Cells (0-4) /hpf Urine Bacteria (None) /hpf Urine Yeast (Budding) (None) /hpf Coronavirus (PCR) Not Detected (Not Detectd) Disposition Clinical Impression: Generalized weakness Disposition: ADMITTED IP TO THIS HOSP Referrals: [facility] [Primary Care Provider] - 1-2 days Time of Disposition: 14:10
[2020-07-30] MEDS ORDERED: SODIUM CHLORIDE 0.9% 1,000 ML IV ONE (14:10)
[2020-07-30] MEDS ORDERED: ACETAMINOPHEN TAB 325 MG TAB PO PRN (14:39)
[2020-07-30] MEDS ORDERED: NITROGLYCERIN SL TABS 0.4 MG TAB SUBLINGUAL PRN (14:39)
[2020-07-30] MEDS ORDERED: MELATONIN 3 MG TABLET PO PRN (14:39)
--- NOTE | 2020-07-30 14:45 | P.HPIM ---
History of Present Illness 79-year-old male was recently discharged from hospital after he was diagnosed with DVT. Patient comes in with vague symptoms of low back pain and generalized weakness and unable to take care of himself. Patient was advised to go to subacute rehabilitation during his last hospitalization. Patient does have low back issues patient does have some medical her symptoms as well. Physical therapy and outpatient therapy will evaluate the patient patient will be admitted for back pain. Patient still has significant swelling of the left lower extending from his DVT. Patient does have congestive heart failure with EF of around 40-45%. Review of Systems REVIEW OF SYSTEMS: CONSTITUTIONAL: No fever, no malaise, no fatigue. HEENT: No recent visual problems or hearing problems. Denied any sore throat. CARDIOVASCULAR: No chest pain, orthopnea, PND, no palpitations, no syncope. PULMONARY: No shortness of breath, no cough, no hemoptysis. GASTROINTESTINAL: No diarrhea, no nausea, no vomiting, no abdominal pain. NEUROLOGICAL: No headaches, no weakness, no numbness. HEMATOLOGICAL: Denies any bleeding or petechiae. GENITOURINARY: Denies any burning micturition, frequency, or urgency. MUSCULOSKELETAL/RHEUMATOLOGICAL: Back pain as mentioned above ENDOCRINE: Denies any polyuria or polydipsia. The rest of the 14-point review of systems is negative. Past Medical History Past Medical History: Asthma, Coronary Artery Disease (CAD), COPD, Hyperlipidemi a, Hypertension, Prostate Disorder Additional Past Medical History / Comment(s): Pt denies hx COPD, bronchial pneumonia, bronchitis, pleurisy, multiple "mini strokes" per MRI/pt, degenerative arthritis in multiple joints, chronic low back pain/pinched nerve, R carpal tunnel syndrome, gout bilateral feet, TMJ, dysphagia-pt states was to have study done but did not get to it d/t covid, sinusitis, past 20 days has had bilateral lower extremity edema pt believes d/t running out of gout medications, BPH, agent orange exposure which pt states caused heart damage, murmur, R ear mostly deaf, wears bilateral hearing aides, skin cancer removals. History of Any Multi-Drug Resistant Organisms: None Reported Past Surgical History: Back Surgery, Coronary Bypass/CABG, Heart Catheterization With Stent Additional Past Surgical History / Comment(s): eye surgery Past Anesthesia/Blood Transfusion Reactions: No Reported Reaction Additional Past Anesthesia/Blood Transfusion Reaction / Comment(s): Pt has clausterphobia. Past Psychological History: PTSD Smoking Status: Never smoker Past Alcohol Use History: None Reported Past Drug Use History: None Reported - Past Family History Father Family Medical History: No Reported History Additional Family Medical History / Comment(s): Father was healthy Mother Family Medical History: No Reported History Additional Family Medical History / Comment(s): Mother was healthy Medications and Allergies Home Medications Medication Instructions Recorded Confirmed Type Aspirin [[place] Aspirin EC] 81 mg PO DAILY 04/30/18 07/30/20 History Metoprolol Succinate [Toprol XL] 12.5 mg PO DAILY 04/30/18 07/30/20 History Rosuvastatin Calcium [Crestor] 5 mg PO HS 04/30/18 07/30/20 History Allopurinol [Zyloprim] 100 mg PO DAILY #30 tab 06/24/20 07/30/20 Rx Omeprazole 20 mg PO DAILY 06/24/20 07/30/20 History Tamsulosin [Flomax] 0.4 mg PO DAILY 06/24/20 07/30/20 History Fluticasone Nasal [place] [Flonase 1 spr EA NOSTRIL BID 07/23/20 07/30/20 History Nasal [place]] Glucosam/Geovany-Msm1/C/Evan/Bosw 2 tab PO DAILY 07/23/20 07/30/20 History [Glucosamine-Chondroitin Tablet] Grape Seed 1 tab PO DAILY 07/23/20 07/30/20 History Melatonin 3 mg PO HS 07/23/20 07/30/20 History Nitroglycerin Sl Tabs [Nitrostat] 0.4 mg SUBLINGUAL Q5M PRN 07/23/20 07/30/20 History Saw [place] 160 mg PO DAILY 07/23/20 07/30/20 History Ubidecarenone [Coenzyme Q10] 30 mg PO DAILY 07/23/20 07/30/20 History Acetaminophen Tab [Tylenol] 650 mg PO Q6HR PRN tab 07/27/20 07/30/20 Rx Apixaban [Eliquis] 5 mg PO BID 30 Days #60 tab 07/27/20 07/30/20 Rx Furosemide [Lasix] 40 mg PO BID 30 Days #60 tablet 05/03/21 05/06/21 Rx Gabapentin [Neurontin] 100 mg PO TID 07/27/20 07/30/20 History Allergies Allergy/AdvReac Type Severity Reaction Status Date / Time diazepam [From Valium] Allergy Unknown Verified 07/30/20 11:35 simvastatin [From Zocor] Allergy MYOSITIS Verified 07/30/20 11:35 terazosin Allergy SYNCOPE Verified 07/30/20 11:35 egg AdvReac Unknown Verified 07/30/20 11:35 lisinopril AdvReac Cough Verified 07/30/20 11:35 Physical Exam Vitals: Vital Signs Temp Pulse Resp BP Pulse Ox 07/30/20 11:45 80 18 147/80 99 07/30/20 11:07 99.6 F 81 20 166/88 99 Intake and Output 07/29/20 07/30/20 07/30/20 22:59 06:59 14:59 Other: Weight 78.925 kg PHYSICAL EXAMINATION: GENERAL: The patient is alert and oriented x3, not in any acute distress. Well developed, well nourished. HEENT: Pupils are round and equally reacting to light. EOMI. No scleral icterus. No conjunctival pallor. Normocephalic, atraumatic. No pharyngeal erythema. No thyromegaly. CARDIOVASCULAR: S1 and S2 present. No murmurs, rubs, or gallops. PULMONARY: Chest is clear to auscultation, no wheezing or crackles. ABDOMEN: Soft, nontender, nondistended, normoactive bowel sounds. No palpable organomegaly. MUSCULOSKELETAL: No joint swelling or deformity. EXTREMITIES: No cyanosis, clubbing, bilateral lower extremity edema predominantly in the left lower extremity NEUROLOGICAL: Gross neurological examination did not reveal any focal deficits. SKIN: No rashes. Results CBC & Chem 7: 07/30/20 11:43 07/30/20 11:43 Labs: Abnormal Lab Results - Last 24 Hours (Table) 07/30/20 07/30/20 07/30/20 Range/Units 11:43 11:43 11:43 RBC 3.23 L (4.30-5.90) m/uL Hgb 10.4 L (13.0-17.5) gm/dL Hct 29.4 L (39.0-53.0) % Carbon Dioxide 31 H (22-30) mmol/L BUN 39 H (9-20) mg/dL Total Bilirubin 1.8 H (0.2-1.3) mg/dL Total Protein 5.8 L (6.3-8.2) g/dL Albumin 3.1 L (3.5-5.0) g/dL Urine Protein Trace H (Negative) Ur Leukocyte Esterase Large H (Negative) Urine RBC 8 H (0-5) /hpf Urine Bacteria Rare H (None) /hpf Urine Yeast (Budding) Rare H (None) /hpf Assessment and Plan Plan: -Generalized weakness: Secondary to deconditioning patient had a recent aspiration will be evaluated with physical therapy and occupational therapy patient may need to go to subacute rehabitation. -Back pain in patient does have chronic back pain which is bit worse, arthritic surgery will be consulted -DVT of the left lower extremity for which patient was admitted during last hospital patient was discharged couple days ago. Patient does have bilateral lower extremity swelling -Congestive heart failure chronic systolic dysfunction without any acute exacerbation, bilateral lower x-ray swelling is secondary to venous insufficiency and DVT. Patient has EF of around 40-45% -Hypertension -Hyperlipidemia -Coronary artery disease with history of CVA in the past -Benign prostatic hypertrophy -COPD without any acute exacerbation
[2020-07-30] MEDS: APIXABAN 5 MG TAB PO SCH (16:52)
[2020-07-30] MEDS: GABAPENTIN 100 MG CAP PO SCH ×2 (16:52→21:31)
[2020-07-30] MEDS: FUROSEMIDE 40 MG TAB PO SCH (16:52)
[2020-07-30] MEDS: FLUTICASONE 50MCG/SPRAY NASAL 16GM EA NOSTRIL SCH (21:39)
[2020-07-31] MEDS: FUROSEMIDE 40 MG TAB PO SCH (07:23)
[2020-07-31] MEDS: APIXABAN 5 MG TAB PO SCH (07:24)
[2020-07-31] MEDS: FLUTICASONE 50MCG/SPRAY NASAL 16GM EA NOSTRIL SCH (07:24)
[2020-07-31] MEDS: GABAPENTIN 100 MG CAP PO SCH (07:24)
[2020-07-31] MEDS ORDERED: PANTOPRAZOLE 40 MG TABLET PO SCH (07:30)
[2020-07-31] MEDS ORDERED: TAMSULOSIN 0.4 MG CAP.ER.24H PO SCH (09:00)
[2020-07-31] MEDS ORDERED: allopurinoL 100 MG TAB PO SCH (09:00)
[2020-07-31] MEDS ORDERED: METOPROLOL SUCCINATE (ER) 25 MG TAB.ER.24H PO SCH (09:00)
[2020-07-31] MEDS ORDERED: ASPIRIN 81 MG PO SCH (09:00)
[2020-07-31 11:40] VITALS: BP 136/70; PULSE 68; RESP 16; TEMP 98.7
--- NOTE | 2020-07-31 12:46 | P.CNOR ---
History of Present Illness - [facility] Consult date: 07/31/20 Requesting physician: Aurora Sosa Consult reason: low back pain (Chronic low back pain and generalized lower extremity weakness) History of present illness: Patient is a pleasant 79-year-old male who is seen and examined bedside for further evaluation of his low back pain. He does admit to chronic low back pain. He states he did previously undergo surgical intervention of his lumbar spine in 1992 in the [facility]. He states he has not had significant change in regards to his low back pain. He does feel like his legs will give out on him recently and feels generally weak in his lower extremities. He was recently discharged from [facility] after being diagnosed with a DVT. He is currently on Eliquis. At the time of discharge he was advised to be discharged to a subacute rehabilitation facility but was discharged home. Patient does have significant swelling of bilateral lower extremities. He states he is on Lasix. He is currently being treated for his left lower extremity DVT. Patient's other past medical history includes coronary artery disease, COPD, hyperlipidemia, hypertension, prostate disorder, and asthma. He has a history of coronary bypass surgery. He has a history of congestive heart failure with ejection fraction of approximately 40% to 45%. Patient is able to answer questions the bedside but does have difficulty staying focused on the topic of conversation. He does admit to multiple medical diagnoses and treatment in the past. He wears a wrap around his right knee as he states he did suffer a patella fracture in the . He is able to move his legs independently in bed today. He has no increased leg pain while doing so. He does have some increased back pain with rolling over in bed. Patient was discussed with case management. Patient may be cleared for discharge to a rehabilitation facility today. Past Medical History Past Medical History: Asthma, Coronary Artery Disease (CAD), Cancer, Heart Failure, COPD, Deep Vein Thrombosis (DVT), Hearing Disorder / Deafness, Hyperlipidemia, Hypertension, Osteoarthritis (OA), Prostate Disorder, Vascular Disorder Additional Past Medical History / Comment(s): Pt recently admitted to [facility] on 07/27/20 with acute DVT L lower extremity, bilateral lower extremity edema thought d/t venous insufficiency, acute renal failure. Other hx: Pt denies hx COPD, bronchial pneumonia, bronchitis, pleurisy, multiple "mini strokes" per MRI/pt, degenerative arthritis in multiple joints, chronic low back pain/pinched nerve, R carpal tunnel syndrome, gout bilateral feet, TMJ, dysphagia-pt states was to have study done but did not get to it d/t covid, sinusitis, over 20 days has had bilateral lower extremity edema pt believes d/t running out of gout medications, BPH, agent orange exposure which pt states caused heart damage, murmur, R ear mostly deaf, wears bilateral hearing aides, skin cancer removals. History of Any Multi-Drug Resistant Organisms: None Reported Past Surgical History: Back Surgery, Coronary Bypass/CABG, Ear Surgery, Heart Catheterization, Heart Catheterization With Stent Additional Past Surgical History / Comment(s): L eye surgery for benign lesion, lumbar back surgery, pain clinic procedures, 2003 CABG 5 vessel, R ear wax removal, skin cancer removal Past Anesthesia/Blood Transfusion Reactions: No Reported Reaction Additional Past Anesthesia/Blood Transfusion Reaction / Comm: Pt has clausterphobia. Date of Last Stent Placement:: unkn Smoking Status: Never smoker - Past Family History Father Family Medical History: No Reported History Additional Family Medical History / Comment(s): Father was healthy Mother Family Medical History: No Reported History Additional Family Medical History / Comment(s): Mother was healthy Medications and Allergies Home Medications Medication Instructions Recorded Confirmed Type Aspirin [[place] Aspirin EC] 81 mg PO DAILY 04/30/18 07/30/20 History Metoprolol Succinate [Toprol XL] 12.5 mg PO DAILY 04/30/18 07/30/20 History Rosuvastatin Calcium [Crestor] 5 mg PO HS 04/30/18 07/30/20 History Allopurinol [Zyloprim] 100 mg PO DAILY #30 tab 06/24/20 07/30/20 Rx Omeprazole 20 mg PO DAILY 06/24/20 07/30/20 History Tamsulosin [Flomax] 0.4 mg PO DAILY 06/24/20 07/30/20 History Fluticasone Nasal [place] [Flonase 1 spr EA NOSTRIL BID 07/23/20 07/30/20 History Nasal [place]] Glucosam/Geovany-Msm1/C/Evan/Bosw 2 tab PO DAILY 07/23/20 07/30/20 History [Glucosamine-Chondroitin Tablet] Grape Seed 1 tab PO DAILY 07/23/20 07/30/20 History Melatonin 3 mg PO HS 07/23/20 07/30/20 History Nitroglycerin Sl Tabs [Nitrostat] 0.4 mg SUBLINGUAL Q5M PRN 07/23/20 07/30/20 History Ubidecarenone [Coenzyme Q10] 30 mg PO DAILY 07/23/20 07/30/20 History Acetaminophen Tab [Tylenol] 650 mg PO Q6HR PRN tab 07/27/20 07/30/20 Rx Apixaban [Eliquis] 5 mg PO BID 30 Days #60 tab 07/27/20 07/30/20 Rx Furosemide [Lasix] 40 mg PO BID 30 Days #60 tablet 07/27/20 07/30/20 Rx Gabapentin [Neurontin] 100 mg PO TID #12 cap 07/31/20 Rx Allergies Allergy/AdvReac Type Severity Reaction Status Date / Time diazepam [From Valium] Allergy Unknown Verified 07/30/20 11:35 simvastatin [From Zocor] Allergy MYOSITIS Verified 07/30/20 11:35 terazosin Allergy SYNCOPE Verified 07/30/20 11:35 egg AdvReac Unknown Verified 07/30/20 11:35 lisinopril AdvReac Cough Verified 07/30/20 11:35 Physical Examination Physical exam: Patient is awake, alert, and oriented 3 Vital signs stable Adequate chest excursion with deep inspiration and expiration Examination of lumbar spine reveals skin is intact with no abrasions, aspiration, or bruises; no erythema, purulence or signs of infection Increased low back pain while rolling over in bed No pain with palpation over his lumbar spine After significant examination I do not see evidence of a well-healed incision o karine his lumbar spine to correlate with previously reported lumbar surgery Dorsiflexion, plantarflexion, and extensor hallucis longus positive sustained bilaterally Patient is able to lift his lower extremities off the bed independently Significant left lower extremity swelling with at least 2+ pitting edema at the left foot Some erythema and bruising over the left anterior lower extremity Significant right lower extremity swelling most significantly the right foot and ankle area Right calf is soft nontender No significant pain on palpation of the left lower extremity No pain with internal and external rotation of the hips bilaterally Neurovascularly intact Results X-rays of the lumbosacral spine taken on 07/31/2020: Significant degenerative disc disease throughout the lumbar spine with significant bilateral osteophytic spurring and anterior osteophytic spurring throughout the lumbar spine with significant spondylosis; no obvious compression fracture deformity; retained hardware - Labs Labs: Abnormal Lab Results - Last 24 Hours (Table) 07/30/20 07/30/20 07/30/20 Range/Units 11:43 11:43 11:43 RBC 3.23 L (4.30-5.90) m/uL Hgb 10.4 L (13.0-17.5) gm/dL Hct 29.4 L (39.0-53.0) % Carbon Dioxide 31 H (22-30) mmol/L BUN 39 H (9-20) mg/dL Total Bilirubin 1.8 H (0.2-1.3) mg/dL Total Protein 5.8 L (6.3-8.2) g/dL Albumin 3.1 L (3.5-5.0) g/dL Urine Protein Trace H (Negative) Ur Leukocyte Esterase Large H (Negative) Urine RBC 8 H (0-5) /hpf Urine Bacteria Rare H (None) /hpf Urine Yeast (Budding) Rare H (None) /hpf H & H 07/30/20 Range/Units 11:43 Hgb 10.4 L (13.0-17.5) gm/dL Hct 29.4 L (39.0-53.0) % Coagulation 07/30/20 Range/Units 11:43 INR 1.0 (<1.2) Result Diagrams: 07/30/20 11:43 07/30/20 11:43 Assessment and Plan Assessment: Assessment: Chronic low back pain Lumbar degenerative disc disease Lumbar spondylosis Lumbar osteophytic spurring Generalized weakness in bilateral lower extremities Left lower extremity DVT currently being treated with ELIQUIS Bilateral lower extremity swelling Reported history of surgical intervention of his lumbar spine Coronary artery disease Heart failure History of CABG COPD Hyperlipidemia Hypertension History of prostate disorder Asthma (1) Chronic low back pain Current Visit: Yes Status: Acute Code(s): M54.5 - LOW BACK PAIN; G89.29 - OTHER CHRONIC PAIN SNOMED Code(s): 793648096 (2) Deep vein thrombosis, lower left extremity Current Visit: Yes Status: Acute Code(s): I82.402 - ACUTE EMBOLISM AND THOMBOS UNSP DEEP VEINS OF L LOW EXTREM SNOMED Code(s): 299109548 (3) Bilateral lower extremity edema Current Visit: Yes Status: Acute Code(s): R60.0 - LOCALIZED EDEMA SNOMED Code(s): 302995524 (4) Coronary artery disease Current Visit: Yes Status: Acute Code(s): I25.10 - ATHSCL HEART DISEASE OF [place] CORONARY ARTERY W/O ANG PCTRS SNOMED Code(s): 95157237 (5) Heart failure Current Visit: Yes Status: Acute Code(s): I50.9 - HEART FAILURE, UNSPECIFIED SNOMED Code(s): 90856785 (6) History of coronary artery bypass graft Current Visit: Yes Status: Acute Code(s): Z95.1 - PRESENCE OF AORTOCORONARY BYPASS GRAFT SNOMED Code(s): 856537272 (7) COPD (chronic obstructive pulmonary disease) Current Visit: Yes Status: Acute Code(s): J44.9 - CHRONIC OBSTRUCTIVE PULMONARY DISEASE, UNSPECIFIED SNOMED Code(s): 04649730 (8) Hyperlipidemia Current Visit: Yes Status: Acute Code(s): E78.5 - HYPERLIPIDEMIA, UNSPECIFIED SNOMED Code(s): 88471734 (9) Hypertension Current Visit: Yes Status: Acute Code(s): I10 - ESSENTIAL (PRIMARY) HYPERTENSION SNOMED Code(s): 51298963 (10) Asthma Current Visit: Yes Status: Acute Code(s): J45.909 - UNSPECIFIED ASTHMA, UNCOMPLICATED SNOMED Code(s): 756303097 (11) History of prostate disorder Current Visit: Yes Status: Acute Code(s): Z87.438 - PERSONAL HISTORY OF OTHER DISEASES OF MALE GENITAL ORGANS SNOMED Code(s): 503850107 (12) Generalized weakness Current Visit: Yes Status: Acute Code(s): R53.1 - WEAKNESS SNOMED Code(s): 72573620 (13) Lumbar degenerative disc disease Current Visit: Yes Status: Acute Code(s): M51.36 - OTHER INTERVERTEBRAL DISC DEGENERATION, LUMBAR REGION SNOMED Code(s): 10714510 (14) Lumbar spondylosis Current Visit: Yes Status: Acute Code(s): M47.816 - SPONDYLOSIS W/O MYELOPATHY OR RADICULOPATHY, LUMBAR REGION SNOMED Code(s): 121706409 (15) Osteophyte determined by x-ray Current Visit: Yes Status: Acute Code(s): M25.70 - OSTEOPHYTE, UNSPECIFIED JOINT SNOMED Code(s): 113032334462603 Plan: Plan: 1. After further discussion with the patient and physical examination of the patient, will currently plan to obtain lumbar x-ray imaging. Patient states he has a history of surgical intervention at his lumbar spine but I'm unable to visualize any well-healed incisions of his lumbar spine. Patient does have chronic low back pain without change. He has been experiencing increased generalized weakness in his lower extremities. Currently he is being treated for an acute left lower extremity DVT and is on anticoagulation with Eliquis. We did discuss given his recent diagnosis of left lower extremity DVT, current anticoagulation status, and other significant comorbidities, we would not plan for any acute surgical intervention of his lumbar spine. We are obtaining imaging for further evaluation and to rule out any possible fracture. X-rays of the lumbar spine have been performed and reviewed prior to completion of his note and imaging has been reviewed. He does have significant degenerative disc disease with spondylosis and osteophytic spurring throughout his lumbar spine. I do not see any obvious sign of compression fracture deformity. I do not see evidence of spondylolisthesis. At this time would not currently plan for further acute treatment, imaging, or acute surgical intervention. We did discuss the patient should continue with treatment for his left lower extremity DVT as recommended and with medication as prescribed. His generalized lower extremity weakness recently began. We did discuss he could benefit from discharged to a rehabilitation facility. Case management states patient could be cleared for discharge to a rehabilitation facility today. We discussed he could benefit from working with physical therapy to increase his generalized lower extremity weakness. We will plan to have him follow him up in the outpatient setting for further treatment and evaluation. Depending on his progress with conservative treatment with rehabilitation and further treatment for his left lower extremity DVT, if he will fail to improve, we could plan to obtain MRI imaging of his lumbar spine. We will plan to review his lumbar x-ray imaging once this is performed. Following discharge, we will have the patient follow-up with Bjorn Fuentes PA-C or Dr. Figueroa Mcknight at [facility] in 2-3 weeks following discharge. 2. Patient will continue these things and by medicine for his other medical diagnoses Time with Patient: Greater than 30 (Including obtaining history, physical examination, reviewing of imaging, and dictation.)
--- NOTE | 2020-07-31 13:17 | P.DS ---
Providers Date of admission: 07/30/20 15:12 Expected date of discharge: 07/31/20 Attending physician: Aurora Sosa Consults: 07/30/20 14:40 Consult Physician Routine Consulting Provider: Nory Mcknight Consult Reason/Comments: Back Pain Do you want consulting provider notified?: Yes Primary care physician: [facility] Hospital Course: Final diagnosis -Generalized weakness: Secondary to deconditioning -Back pain, chronic back pain -DVT of the left lower extremity -Congestive heart failure chronic systolic dysfunction without any acute exacerbation, bilateral lower extremity swelling is secondary to venous insufficiency and DVT. Patient has EF of around 40-45% -Hypertension -Hyperlipidemia -Coronary artery disease with history of CVA in the past -Benign prostatic hypertrophy -COPD without any acute exacerbation Discharge disposition Patient is being discharged in a stable condition with guarded prognosis to [facility] for continued PT/OT therapy. Patient will follow-up with Dr. Acevedo in the outpatient setting upon discharge. Patient will follow-up at the [facility] once discharged from [facility]. Patient is to follow-up with orthopedics in 2 weeks outpatient. Total time taken is greater than 35 minutes. Hospital course 79-year-old male was recently discharged from hospital after he was diagnosed with DVT. Patient comes in with vague symptoms of low back pain and generalized weakness and unable to take care of himself. Patient was advised to go to subacute rehabilitation during his last hospitalization. Patient does have low back issues patient does have some medical her symptoms as well. Physical therapy and outpatient therapy will evaluate the patient patient will be admitted for back pain. Patient still has significant swelling of the left lower extending from his DVT. Patient does have congestive heart failure with EF of around 40-45%. 07/31/2020 Patient seen and evaluated by physical therapy recommending subacute rehab and patient is now agreeable and will be going to [facility] for continued PT/OT therapy. Patient will follow-up with orthopedics for chronic back pain in the outpatient setting as needed. Recommend to continue with soft foods as patient states he has a chronic history of being unable to tolerate solid food swallowing. Currently no reports of chest pain, shortness of breath, or palpit ations. Patient is afebrile. No reports of nausea or vomiting and patient is tolerating diet. Patient will be going to [facility] today. On exam vital signs are stable. Cardio S1, S2 are muffled. Respiratory system shows diminished breath sounds at the bases with no wheezing or rhonchi noted. Abdomen is soft and nontender. Nervous system shows diffuse weakness. Please refer to medication reconciliation sheet for a list of medications. Patient Condition at Discharge: Stable Plan - Discharge Summary Discharge Rx Participant: No New Discharge Prescriptions: Continue Rosuvastatin Calcium [Crestor] 5 mg PO HS Aspirin [[place] Aspirin EC] 81 mg PO DAILY Metoprolol Succinate [Toprol XL] 12.5 mg PO DAILY Omeprazole 20 mg PO DAILY Grape Seed 1 tab PO DAILY Fluticasone Nasal [place] [Flonase Nasal [place]] 1 spr EA NOSTRIL BID Melatonin 3 mg PO HS Nitroglycerin Sl Tabs [Nitrostat] 0.4 mg SUBLINGUAL Q5M PRN PRN Reason: Chest Pain Acetaminophen Tab [Tylenol] 650 mg PO Q6HR PRN tab PRN Reason: Mild Pain Or Fever > 100.5 Allopurinol [Zyloprim] 100 mg PO DAILY #30 tab Tamsulosin [Flomax] 0.4 mg PO DAILY Glucosam/[place]-Msm1/C/Evan/Bosw [Glucosamine-Chondroitin Tablet] 2 tab PO DAILY Ubidecarenone [Coenzyme Q10] 30 mg PO DAILY Apixaban [Eliquis] 5 mg PO BID 30 Days #60 tab Furosemide [Lasix] 40 mg PO BID 30 Days #60 tablet Gabapentin [Neurontin] 100 mg PO TID #12 cap Discontinued [place] 160 mg PO DAILY Discharge Medication List Aspirin [[place] Aspirin EC] 81 mg PO DAILY 04/30/18 [History] Metoprolol Succinate [Toprol XL] 12.5 mg PO DAILY 04/30/18 [History] Rosuvastatin Calcium [Crestor] 5 mg PO HS 04/30/18 [History] Allopurinol [Zyloprim] 100 mg PO DAILY #30 tab 06/24/20 [Rx] Omeprazole 20 mg PO DAILY 06/24/20 [History] Tamsulosin [Flomax] 0.4 mg PO DAILY 06/24/20 [History] Fluticasone Nasal [place] [Flonase Nasal [place]] 1 spr EA NOSTRIL BID 07/23/20 [History] Glucosam/[place]-Msm1/C/Evan/Bosw [Glucosamine-Chondroitin Tablet] 2 tab PO DAILY 07/23/20 [History] Grape Seed 1 tab PO DAILY 07/23/20 [History] Melatonin 3 mg PO HS 07/23/20 [History] Nitroglycerin Sl Tabs [Nitrostat] 0.4 mg SUBLINGUAL Q5M PRN 07/23/20 [History] Ubidecarenone [Coenzyme Q10] 30 mg PO DAILY 07/23/20 [History] Acetaminophen Tab [Tylenol] 650 mg PO Q6HR PRN tab 07/27/20 [Rx] Apixaban [Eliquis] 5 mg PO BID 30 Days #60 tab 07/27/20 [Rx] Furosemide [Lasix] 40 mg PO BID 30 Days #60 tablet 07/27/20 [Rx] Gabapentin [Neurontin] 100 mg PO TID #12 cap 07/31/20 [Rx] Follow up Appointment(s)/Referral(s): Bjorn Fuentes, PAC [PHYSICIAN [employer]] - 2 Weeks (Patient may follow-up with Bjorn Fuentes PA-C or Dr. Figueroa Mcknight at [facility] in 2-3 weeks following discharge. ) [facility] [Primary Care Provider] - 1-2 days Activity/Diet/Wound Care/Special Instructions: Patient is going to [employer] [facility] as tolerated Continue current soft foods diet as he states he is unable to tolerate solid foods Follow-up orthopedics outpatient chronic back pain Continue with physical therapy Follow-up primary care provider upon discharge Discharge Disposition: TRANSFER TO SNF/ECF
--- NOTE | 2020-07-31 14:07 | XR ---
EXAMINATION TYPE: XR lumbar spine 2 or 3V DATE OF EXAM: 07/31/2020 COMPARISON: NONE HISTORY: Back pain TECHNIQUE: 3 views FINDINGS: Lumbar vertebra have normal alignment. There is moderate narrowing of the disc spaces. Ther e is spurring of the endplates throughout the lumbar spine. There is no compression fracture. Abdomin al aorta is atheromatous. Sacroiliac joints are intact. IMPRESSION: Moderately severe multilevel spondylotic changes. No fracture seen.
== END 2020-07-31 14:39 ==
LOC: EC 11:02 → 5NMEDONC 15:12
PROVIDERS: ADMIT Internal Medicine; ATTEND Internal Medicine
DX: R53.1 Weakness (principal); G89.29 Other chronic pain; M54.5 Low back pain; I82.402 Acute embolism and thrombosis of unspecified deep veins of left lower extremity; E78.5 Hyperlipidemia, unspecified; Z86.73 Personal history of transient ischemic attack (TIA), and cerebral infarction without residual deficits; I25.10 Atherosclerotic heart disease of native coronary artery without angina pectoris; N40.0 Benign prostatic hyperplasia without lower urinary tract symptoms; J44.9 Chronic obstructive pulmonary disease, unspecified; I11.0 Hypertensive heart disease with heart failure; I50.22 Chronic systolic (congestive) heart failure; M19.90 Unspecified osteoarthritis, unspecified site; R01.1 Cardiac murmur, unspecified; H91.90 Unspecified hearing loss, unspecified ear; M10.9 Gout, unspecified; M26.609 Unspecified temporomandibular joint disorder, unspecified side; R13.10 Dysphagia, unspecified; F43.10 Post-traumatic stress disorder, unspecified; I87.2 Venous insufficiency (chronic) (peripheral); T50.4X6A Underdosing of drugs affecting uric acid metabolism, initial encounter; M51.36 Other intervertebral disc degeneration, lumbar region; M47.26 Other spondylosis with radiculopathy, lumbar region; M51.16 Intervertebral disc disorders with radiculopathy, lumbar region; M25.78 Osteophyte, vertebrae; Z20.822 Contact with and (suspected) exposure to COVID-19; Z91.19 Patient's noncompliance with other medical treatment and regimen; Z77.098 Contact with and (suspected) exposure to other hazardous, chiefly nonmedicinal, chemicals; Z87.01 Personal history of pneumonia (recurrent); Z87.09 Personal history of other diseases of the respiratory system; Z95.1 Presence of aortocoronary bypass graft; Z95.5 Presence of coronary angioplasty implant and graft; Z85.828 Personal history of other malignant neoplasm of skin; Z97.4 Presence of external hearing-aid; Z79.82 Long term (current) use of aspirin; Z79.899 Other long term (current) drug therapy; Z79.01 Long term (current) use of anticoagulants; Z88.8 Allergy status to other drugs, medicaments and biological substances; Z91.012 Allergy to eggs
CPT/HCPCS: 96360; 99285; 36415; 93005; 97162; 97166; 80053; 83605; 83735; 84484; 85025; 85610; 85730; 81001; 87635; 72100; 71046; G0378 ×2

== ENCOUNTER 2020-10-24 09:13 | Inpatient (IN) | payer MEDICARE, OTHER ==
--- NOTE | 2020-10-24 09:35 | ED ---
Fall HPI - General Chief Complaint: Fall Stated Complaint: Fall Time Seen by Provider: 10/24/20 09:15 Source: patient, EMS Mode of arrival: EMS - History of Present Illness Initial Comments: This is a 78-year-old male who lives at home alone who fell while using his walker this morning. He is found supine on the floor by paramedics. He did complain some neck pain also some left ankle area pain but he relates this to his previous history of DVT. No reports of fevers chills nausea vomiting sweats he reportedly was awake alert and oriented 4. No other current complaints or modifying factors he does state he [facility] being admitted for blood clot. MD Complaint: fall - Related Data Home Medications Medication Instructions Recorded Confirmed Aspirin [[place] Aspirin EC] 81 mg PO DAILY 04/30/18 10/24/20 Metoprolol Succinate [Toprol XL] 12.5 mg PO DAILY 04/30/18 10/24/20 Rosuvastatin Calcium [Crestor] 5 mg PO HS 04/30/18 10/24/20 Omeprazole 20 mg PO DAILY 06/24/20 10/24/20 Tamsulosin [Flomax] 0.4 mg PO DAILY 06/24/20 10/24/20 Fluticasone Nasal [place] [Flonase 1 spr EA NOSTRIL BID 07/23/20 10/24/20 Nasal [place]] Glucosam/[place]ov[place]-Msm1/C/Evan/Bosw 2 tab PO DAILY 07/23/20 10/24/20 [Glucosamine-Chondroitin Tablet] Grape Seed 1 tab PO DAILY 07/23/20 10/24/20 Melatonin 3 mg PO HS 07/23/20 10/24/20 Nitroglycerin Sl Tabs [Nitrostat] 0.4 mg SL Q5M PRN 07/23/20 10/24/20 Ubidecarenone [Coenzyme Q10] 30 mg PO DAILY 07/23/20 10/24/20 Albuterol Sulfate [Albuterol 2 puff INHALATION RT-QID PRN 10/24/20 10/24/20 Sulfate Hfa] Finasteride [Proscar] 5 mg PO DAILY 10/24/20 10/24/20 Furosemide [Lasix] 40 mg PO DAILY 10/24/20 10/24/20 Gabapentin 300 mg PO BID 10/24/20 10/24/20 Lidocaine 5% Patch [Lidoderm] 1 patch TOPICAL DAILY 10/24/20 10/24/20 Mineral Oil/Petrolatum,White [Stye 0.25 inch BOTH EYES HS 10/24/20 10/24/20 Lubricant Eye Ointment] Potassium Chloride ER [K-Dur 10] 10 meq PO DAILY 10/24/20 10/24/20 Saw [place] 500 mg PO DAILY 10/24/20 10/24/20 Previous Rx's Medication Instructions Recorded Allopurinol [Zyloprim] 100 mg PO DAILY #30 tab 06/24/20 Apixaban [Eliquis] 5 mg PO BID 30 Days #60 tab 07/27/20 Allergies Allergy/AdvReac Type Severity Reaction Status Date / Time diazepam [From Valium] Allergy Unknown Verified 10/24/20 11:54 simvastatin [From Zocor] Allergy MYOSITIS Verified 10/24/20 11:54 terazosin Allergy SYNCOPE Verified 10/24/20 11:54 egg AdvReac Unknown Verified 10/24/20 11:54 lisinopril AdvReac Cough Verified 10/24/20 11:54 Review of Systems ROS Statement: Those systems with pertinent positive or pertinent negative responses have been documented in the HPI. ROS Other: All systems not noted in ROS Statement are negative. Past Medical History Past Medical History: Asthma, Coronary Artery Disease (CAD), Cancer, Heart Failure, COPD, Deep Vein Thrombosis (DVT), Hearing Disorder / Deafness, Hyperlipidemia, Hypertension, Osteoarthritis (OA), Prostate Disorder, Vascular Disorder Additional Past Medical History / Comment(s): Pt recently admitted to [facility] on 07/27/20 with acute DVT L lower extremity, bilateral lower extremity edema thought d/t venous insufficiency, acute renal failure. Other hx: Pt denies hx COPD, bronchial pneumonia, bronchitis, pleurisy, multiple "mini strokes" per MRI/pt, degenerative arthritis in multiple joints, chronic low back pain/pinched nerve, R carpal tunnel syndrome, gout bilateral feet, TMJ, dysphagia-pt states was to have study done but did not get to it d/t covid, sinusitis, over 20 days has had bilateral lower extremity edema pt believes d/t running out of gout medications, BPH, agent orange exposure which pt states caused heart damage, murmur, R ear mostly deaf, wears bilateral hearing aides, skin cancer removals. History of Any Multi-Drug Resistant Organisms: None Reported Past Surgical History: Back Surgery, Coronary Bypass/CABG, Ear Surgery, Heart Catheterization, Heart Catheterization With Stent Additional Past Surgical History / Comment(s): L eye surgery for benign lesion, lumbar back surgery, pain clinic procedures, 2003 CABG 5 vessel, R ear wax removal, skin cancer removal Past Anesthesia/Blood Transfusion Reactions: No Reported Reaction Additional Past Anesthesia/Blood Transfusion Reaction / Comment(s): Pt has clausterphobia. Date of Last Stent Placement:: unkn Past Psychological History: PTSD Smoking Status: Never smoker - Past Family History Father Family Medical History: No Reported History Additional Family Medical History / Comment(s): Father was healthy Mother Family Medical History: No Reported History Additional Family Medical History / Comment(s): Mother was healthy General Exam - General Exam Comments Initial Comments: This is a well-developed sec appearing male who is awake and alert 3 Limitations: no limitations General appearance: alert Head exam: Present: atraumatic, normocephalic, normal inspection Eye exam: Present: normal appearance, PERRL, EOMI. Absent: scleral icterus, conjunctival injection, periorbital swelling ENT exam: Present: mucous membranes dry Neck exam: Present: normal inspection, other (Cervical collar in place mild tenderness palpation along the paracervical muscles but no spinous process t enderness.). Absent: tenderness, meningismus, lymphadenopathy Respiratory exam: Present: normal lung sounds bilaterally. Absent: respiratory distress, wheezes, rales, rhonchi, stridor Cardiovascular Exam: Present: regular rate, normal rhythm, normal heart sounds. Absent: systolic murmur, diastolic murmur, rubs, gallop, clicks GI/Abdominal exam: Present: soft, normal bowel sounds. Absent: distended, tenderness, guarding, rebound, rigid, bruit, pulsatile mass Extremities exam: Present: full ROM, tenderness (Tenderness over the distal tib- fib no step-off or crepitation some stasis dermatitis noted. No overt Tenderness at this time.), normal capillary refill, pedal edema. Absent: joint swelling, calf tenderness Back exam: Present: normal inspection Neurological exam: Present: alert, oriented X3, CN II-XII intact, other (The patient was noted to ramble on about different topics bili was ALLERGIC to person place and time) Psychiatric exam: Present: normal affect, normal mood Skin exam: Present: warm, dry, intact, normal color. Absent: rash Course Vital Signs 10/24/20 10/24/20 09:15 12:00 Temperature 98.2 F 98.4 F Pulse Rate 66 71 Respiratory 18 20 Rate Blood Pressure 173/89 164/92 O2 Sat by Pulse 98 99 Oximetry Medical Decision Making - Medical Decision Making I did a long discussion with the patient and caregivers. Patient does not appear to be able to care for himself at home he's had decreased oral intake frequent falls. Is unclear if he is currently taking Eliquis at this time he's not sure of his medications it did show up on a old medication list from his last admission. Patient will be admitted imaging studies were negative for acute findings including head CT and cervical spine CAT scan x-ray did show the increased pulmonary markings that were there previously. - Lab Data Result diagrams: 10/24/20 09:36 10/24/20 09:36 Lab Results 10/24/20 10/24/20 10/24/20 Range/Units 09:36 09:36 09:36 WBC 5.6 (3.8-10.6) k/uL RBC 4.05 L (4.30-5.90) m/uL Hgb 13.3 (13.0-17.5) gm/dL Hct 38.5 L (39.0-53.0) % MCV 95.1 (80.0-100.0) fL MCH 32.9 (25.0-35.0) pg MCHC 34.6 (31.0-37.0) g/dL RDW 13.3 (11.5-15.5) % Plt Count 138 L (150-450) k/uL MPV 8.7 Neutrophils % 73 % Lymphocytes % 15 % Monocytes % 7 % Eosinophils % 2 % Basophils % 1 % Neutrophils # 4.1 (1.3-7.7) k/uL Lymphocytes # 0.9 L (1.0-4.8) k/uL Monocytes # 0.4 (0-1.0) k/uL Eosinophils # 0.1 (0-0.7) k/uL Basophils # 0.0 (0-0.2) k/uL Sodium 139 (137-145) mmol/L Potassium 4.3 (3.5-5.1) mmol/L Chloride 108 H (98-107) mmol/L Carbon Dioxide 21 L (22-30) mmol/L Anion Gap 10 mmol/L BUN 29 H (9-20) mg/dL Creatinine 0.98 (0.66-1.25) mg/dL Est GFR (CKD-EPI)AfAm 85 (>60 ml/min/1.73 sqM) Est GFR (CKD-EPI)NonAf 74 (>60 ml/min/1.73 sqM) Glucose 82 (74-99) mg/dL Calcium 10.5 H (8.4-10.2) mg/dL Magnesium 2.1 (1.6-2.3) mg/dL Total Bilirubin 1.3 (0.2-1.3) mg/dL AST 38 (17-59) U/L ALT 12 (4-49) U/L Alkaline Phosphatase 59 (38-126) U/L Creatine Kinase 248 H (55-170) U/L NT-Pro-B Natriuret Pep 2310 pg/mL Total Protein 6.4 (6.3-8.2) g/dL Albumin 3.6 (3.5-5.0) g/dL Urine Color Urine Appearance (Clear) Urine pH (5.0-8.0) Ur Specific [place] (1.001-1.035) Urine Protein (Negative) Urine Glucose (UA) (Negative) Urine Ketones (Negative) Urine Blood (Negative) Urine Nitrite (Negative) Urine Bilirubin (Negative) Urine Urobilinogen (<2.0) mg/dL Ur Leukocyte Esterase (Negative) 10/24/20 Range/Units 09:36 WBC (3.8-10.6) k/uL RBC (4.30-5.90) m/uL Hgb (13.0-17.5) gm/dL Hct (39.0-53.0) % MCV (80.0-100.0) fL MCH (25.0-35.0) pg MCHC (31.0-37.0) g/dL RDW (11.5-15.5) % Plt Count (150-450) k/uL MPV Neutrophils % % Lymphocytes % % Monocytes % % Eosinophils % % Basophils % % Neutrophils # (1.3-7.7) k/uL Lymphocytes # (1.0-4.8) k/uL Monocytes # (0-1.0) k/uL Eosinophils # (0-0.7) k/uL Basophils # (0-0.2) k/uL Sodium (137-145) mmol/L Potassium (3.5-5.1) mmol/L Chloride (98-107) mmol/L Carbon Dioxide (22-30) mmol/L Anion Gap mmol/L BUN (9-20) mg/dL Creatinine (0.66-1.25) mg/dL Est GFR (CKD-EPI)AfAm (>60 ml/min/1.73 sqM) Est GFR (CKD-EPI)NonAf (>60 ml/min/1.73 sqM) Glucose (74-99) mg/dL Calcium (8.4-10.2) mg/dL Magnesium (1.6-2.3) mg/dL Total Bilirubin (0.2-1.3) mg/dL AST (17-59) U/L ALT (4-49) U/L Alkaline Phosphatase (38-126) U/L Creatine Kinase (55-170) U/L NT-Pro-B Natriuret Pep pg/mL Total Protein (6.3-8.2) g/dL Albumin (3.5-5.0) g/dL Urine Color Yellow Urine Appearance Clear (Clear) Urine pH 6.5 (5.0-8.0) Ur Specific [place] 1.017 (1.001-1.035) Urine Protein Trace H (Negative) Urine Glucose (UA) Negative (Negative) Urine Ketones 2+ H (Negative) Urine Blood Negative (Negative) Urine Nitrite Negative (Negative) Urine Bilirubin Negative (Negative) Urine Urobilinogen <2.0 (<2.0) mg/dL Ur Leukocyte Esterase Negative (Negative) - EKG Data -: EKG Interpreted by Me EKG shows normal: sinus rhythm EKG Comments: Sinus rhythm first-degree AV block rate 62 CA interval 2:30 QRS 94 QT since QTC 434/440 nonspecific T-wave configuration - Radiology Data Radiology results: report reviewed, image reviewed (Imaging shows increased interstitial markings similar to previous x-rays) Disposition Clinical Impression: Fall, Dehydration, Elevated brain natriuretic peptide (BNP) level, Failure to thrive in adult Disposition: ADMITTED IP TO THIS [facility] Condition: Fair Referrals: Deandre Pimentel PT [Primary Care Provider] - 1-2 days
[2020-10-24 09:50] LABS: Basophils % (A) 1 %; Eosinophils # (A) 0.1 k/uL (0-0.7); Eosinophils % (A) 2 %; HCT 38.5 % (39.0-53.0); HGB 13.3 gm/dL (13.0-17.5); Lymphocytes # (A) 0.9 k/uL (1.0-4.8); Lymphocytes % (A) 15 %; MCH 32.9 pg (25.0-35.0); MCHC 34.6 g/dL (31.0-37.0); MCV 95.1 fL (80.0-100.0); Mean Platelet Volume 8.7; Monocytes # (A) 0.4 k/uL (0-1.0); Monocytes % (A) 7 %; Neutrophils # (A) 4.1 k/uL (1.3-7.7); Neutrophils % (A) 73 %; Platelet Count 138 k/uL (150-450); RBC 4.05 m/uL (4.30-5.90); RDW 13.3 % (11.5-15.5); WBC 5.6 k/uL (3.8-10.6)
[2020-10-24 09:59] LABS: Albumin 3.6 g/dL (3.5-5.0); Calcium 10.5 mg/dL (8.4-10.2); Magnesium 2.1 mg/dL (1.6-2.3); Potassium 4.3 mmol/L (3.5-5.1); Total Bilirubin 1.3 mg/dL (0.2-1.3); Total Protein 6.4 g/dL (6.3-8.2)
[2020-10-24 10:19] LABS: Appearance,Urine Clear (Clear); Bilirubin,Urine Negative (Negative); Blood,Urine Negative (Negative); Color,Urine Yellow; Glucose,Urine (UA) Negative (Negative); Ketones,Urine 2+ (Negative); Leukocyte Esterase,Urine Negative (Negative); Nitrite,Urine Negative (Negative); PH, Urine 6.5 (5.0-8.0); Protein,Urine Trace (Negative); Specific Gravity,Urine 1.017 (1.001-1.035); Urobilinogen,Urine <2.0 mg/dL (<2.0)
--- NOTE | 2020-10-24 10:25 | CT ---
EXAMINATION TYPE: CT brain kecia pathak DATE OF EXAM: 10/24/2020 COMPARISON: None HISTORY: Fall with neck pain CT DLP: 1450.7 mGycm Automated exposure control for dose reduction was used. TECHNIQUE: CT scan of the head and cervical spine are performed without contrast. FINDINGS: Skull base and posterior fossa are limited due to artifact patient's dental work. Remaini ng portions of the brain parenchyma demonstrate generalized degenerative change. There is an area of encephalomalacia involving the left temporal occipital region compatible with previous infarct. Low-a ttenuation white matter is nonspecific but most typical remote ischemic change. Hyperostosis of the c alvarium noted. Orbits are symmetric. No significant changes of sinusitis. Calcification the left bas al ganglia noted. Additional parenchymal calcifications are seen. Assessment spinal canal nondiagnostic due to artifact and resolution. There is multilevel severe dege nerative disc disease with posterior spondylosis and retrolisthesis. Multilevel canal stenosis and fo raminal encroachment. Odontoid intact. Prevertebral soft tissue structures are within normal limits. Calcification soft tis say the neck most typical of carotid artery atherosclerotic changes. Findings greater on the left. Bi lateral thyroid nodules are seen with the largest noted in the left measuring 2.3 cm partially calcif ied. There is biapical pleural-based thickening IMPRESSION: 1. There is no acute fracture or dislocation evident in the cervical spine. Severe multilevel degener ative disc disease with multilevel foraminal encroachment and canal stenosis recommend MRI. 2. No acute intracranial hemorrhage, mass effect, or midline shift is seen. Degenerative and remote i schemic change. 3. Bilateral thyroid nodules.
--- NOTE | 2020-10-24 11:16 | XR ---
EXAMINATION TYPE: XR chest 2V DATE OF EXAM: 10/24/2020 COMPARISON: 07/30/2020 TECHNIQUE: PA and lateral views submitted. HISTORY: Pain FINDINGS: There is a diffuse interstitial pattern similar to the prior exam. Arthropathy of the shoulders great er on the right. No pneumothorax. No pleural effusion. Postoperative change. Heart size normal. IMPRESSION: 1. Diffuse interstitial pattern is stable from prior exam correlate for chronic interstitial lung dis ease or venous congestion.
--- NOTE | 2020-10-24 11:17 | XR ---
EXAMINATION TYPE: XR pelvis AP view DATE OF EXAM: 10/24/2020 COMPARISON: NONE HISTORY: Pain The osseous structures are intact and degenerative change of the lumbar spine with arthropathy of the hips bilaterally. Vascular calcifications noted.. No acute fracture is seen. Visualized bowel gas pattern is nonspecific. IMPRESSION: 1. No acute fracture.
--- NOTE | 2020-10-24 11:18 | XR ---
EXAMINATION TYPE: XR tibia fibula LT DATE OF EXAM: 10/24/2020 COMPARISON: NONE HISTORY: Pain TECHNIQUE: Two views are submitted. FINDINGS: The osseous structures are intact. The joint spaces are preserved. Diffuse osteopenia. Vascular madeline cifications noted. Soft tissue edema suspected. IMPRESSION: 1. No acute osseous abnormality.
[2020-10-24] MEDS ORDERED: SODIUM CHLORIDE 0.9% 1,000 ML IV STA (11:32)
[2020-10-24] MEDS ORDERED: ACETAMINOPHEN TAB 325 MG TAB PO PRN (12:35)
[2020-10-24] MEDS ORDERED: NALOXONE 0.4 MG/ML 1 ML VIAL IV PRN (12:35)
[2020-10-24] MEDS ORDERED: DOCUSATE 100 MG CAP PO STA (13:01)
[2020-10-24] MEDS: SODIUM CHLORIDE 0.9% 1,000 ML IV SCH (13:03)
[2020-10-24] MEDS ORDERED: NITROGLYCERIN SL TABS 0.4 MG TAB SUBLINGUAL PRN (13:49)
[2020-10-24] MEDS ORDERED: ALBUTEROL NEBULIZED 2.5 MG/3 ML INHALATION PRN (13:49)
[2020-10-24] MEDS: MELATONIN 3 MG TABLET PO SCH (21:50)
[2020-10-24] MEDS: GABAPENTIN 300 MG CAP PO SCH (21:50)
[2020-10-24] MEDS: APIXABAN 5 MG TAB PO SCH (21:50)
[2020-10-24] MEDS: ATORVASTATIN 10 MG TAB PO SCH (21:50)
[2020-10-24] MEDS: FLUTICASONE 50MCG/SPRAY NASAL 16GM EA NOSTRIL SCH (22:12)
[2020-10-24] MEDS: ARTIFICIAL TEARS OINTMENT 3.5 GM TUBE BOTH EYES SCH (22:13)
[2020-10-25] MEDS: SODIUM CHLORIDE 0.9% 1,000 ML IV SCH ×2 (00:10→12:24)
[2020-10-25] MEDS: METOPROLOL SUCCINATE (ER) 25 MG TAB.ER.24H PO SCH (09:20)
[2020-10-25] MEDS: ASPIRIN 81 MG PO SCH (09:21)
[2020-10-25] MEDS: APIXABAN 5 MG TAB PO SCH ×2 (09:21→21:50)
[2020-10-25] MEDS: PANTOPRAZOLE 40 MG TABLET PO SCH (09:22)
[2020-10-25] MEDS: TAMSULOSIN 0.4 MG CAP.ER.24H PO SCH (09:22)
[2020-10-25] MEDS: NON FORMULARY DRUG (Glucosam/Chon-Msm1/C/Mang/Bosw [Glucosamine-Chondroitin Tablet] 1 EACH PO SCH (09:22)
[2020-10-25] MEDS: GRAPE SEED PO SCH (09:22)
[2020-10-25] MEDS: NON FORMULARY DRUG (Saw Palmetto [Saw Palmetto] 500 MG Capsule) PO SCH (09:23)
[2020-10-25] MEDS: FINASTERIDE 5 MG TAB PO SCH (09:23)
[2020-10-25] MEDS: POTASSIUM CHLORIDE ER 10 MEQ TAB.ER.PRT PO SCH (09:23)
[2020-10-25] MEDS: GABAPENTIN 300 MG CAP PO SCH ×2 (09:23→21:50)
[2020-10-25] MEDS: FUROSEMIDE 40 MG TAB PO SCH (09:23)
[2020-10-25] MEDS: UBIDECARENONE 10 MG PO SCH (09:24)
[2020-10-25] MEDS: FLUTICASONE 50MCG/SPRAY NASAL 16GM EA NOSTRIL SCH ×2 (09:30→21:52)
[2020-10-25] MEDS: ATORVASTATIN 10 MG TAB PO SCH (21:50)
[2020-10-25] MEDS: MELATONIN 3 MG TABLET PO SCH (21:50)
[2020-10-25] MEDS: ARTIFICIAL TEARS OINTMENT 3.5 GM TUBE BOTH EYES SCH (21:52)
--- NOTE | 2020-10-26 01:35 | P.HPIM ---
History of Present Illness H&P Date: 10/24/20 Chief Complaint: fall Patient is a 79-year-old male with a known history of coronary artery disease status post CABG, history of stent placement, COPD, DVT on anticoagulation with Eliquis, hearing disorder/deafness, hypertension, hyperlipidemia, and other multiple medical problems including chronic back pain and TMJ and history of CVA/TIA with no residual weakness was brought to the hospital status post fall. Patient states that he lives by himself alone and while he is walking this morning he felt. He uses walker usually. He was found supine on on the floor by paramedics. He was also complaining of neck pain and left ankle pain but related to his previous history of DVT. Patient has been afebrile. No nausea vomiting abdominal pain or diarrhea. Awake alert oriented x3-4. Patient was previously [facility] to [facility] from being admitted for blood clot.and recently came back to home. Patient lives by himself. CT of the head and cervical spine showed there is no acute fracture or dislocation. Severe multilevel degenerative disc disease with multilevel foraminal encroachment and canal stenosis. Recommended MRI. No acute intracranial hemorrhage. Bilateral thyroid nodules. Chest x-ray showed diffuse interstitial pattern is stable from prior exam. Chronic interstitial lung disease. Pelvis x-ray showed no acute fracture. X-ray of the tibia and fibula showed no acute osseous abnormality. EKG showed sinus rhythm with first-degree AV block. Laboratory data showed WBC 5.6 hemoglobin 13.3 and platelets 138 Sodium 139 potassium 4.3 chloride 108 bicarb is 21 BUN 29 creatinine 0.98 CK 248 and troponin 0 0.064, 0.064 proBNP 2310 Urinalysis is negative for infection. Review of Systems Constitutional: Patient denies any fever or chills . No generalized weakness or weight loss. Abdomen: Patient denied nausea vomiting and diarrhea and abdominal pain. Cardiovascular: Patient denies any chest pain or short of breath no palpitations. Respiratory: patient denied any cough or sputum production. No shortness of breath Neurologic: Patient denied any numbness or tingling headache. Musculoskeletal: Patient denies any complaints of joint swelling or deformity. Skin: Negative Psychiatric: Negative Endocrine: No heat or cold intolerance. No recent weight gain. Genitourinary: No dysuria or hematuria. All other 14 point ROS negative except the above Past Medical History Past Medical History: Asthma, Coronary Artery Disease (CAD), Cancer, Heart Failure, COPD, Deep Vein Thrombosis (DVT), Hearing Disorder / Deafness, Hyperlipidemia, Hypertension, Osteoarthritis (OA), Prostate Disorder, Vascular Disorder Additional Past Medical History / Comment(s): Pt recently admitted to [facility] on 07/27/20 with acute DVT L lower extremity, bilateral lower extremity edema thought d/t venous insufficiency, acute renal failure. Other hx: Pt denies hx COPD, bronchial pneumonia, bronchitis, pleurisy, multiple "mini strokes" per MRI/pt, degenerative arthritis in multiple joints, chronic low back pain/pinched nerve, R carpal tunnel syndrome, gout bilateral feet, TMJ, dysphagia-pt states was to have study done but did not get to it d/t covid, sinusitis, over 20 days has had bilateral lower extremity edema pt believes d/t running out of gout medications, BPH, agent orange exposure which pt states caused heart damage, murmur, R ear mostly deaf, wears bilateral hearing aides, skin cancer removals. History of Any Multi-Drug Resistant Organisms: None Reported Past Surgical History: Back Surgery, Coronary Bypass/CABG, Ear Surgery, Heart Catheterization, Heart Catheterization With Stent Additional Past Surgical History / Comment(s): L eye surgery for benign lesion, lumbar back surgery, pain clinic procedures, 2003 CABG 5 vessel, R ear wax removal, skin cancer removal Past Anesthesia/Blood Transfusion Reactions: No Reported Reaction Additional Past Anesthesia/Blood Transfusion Reaction / Comment(s): Pt has clausterphobia. Date of Last Stent Placement:: unkn Past Psychological History: PTSD Smoking Status: Never smoker - Past Family History Father Family Medical History: No Reported History Additional Family Medical History / Comment(s): Father was healthy Mother Family Medical History: No Reported History Additional Family Medical History / Comment(s): Mother was healthy Medications and Allergies Home Medications Medication Instructions Recorded Confirmed Type Aspirin [[place] Aspirin EC] 81 mg PO DAILY 04/30/18 10/24/20 History Metoprolol Succinate [Toprol XL] 12.5 mg PO DAILY 04/30/18 10/24/20 History Rosuvastatin Calcium [Crestor] 5 mg PO HS 04/30/18 10/24/20 History Allopurinol [Zyloprim] 100 mg PO DAILY #30 tab 06/24/20 10/24/20 Rx Omeprazole 20 mg PO DAILY 06/24/20 10/24/20 History Tamsulosin [Flomax] 0.4 mg PO DAILY 06/24/20 10/24/20 History Fluticasone Nasal [place] [Flonase 1 spr EA NOSTRIL BID 07/23/20 10/24/20 History Nasal [place]] Glucosam/[place]-Msm1/C/Evan/Bosw 2 tab PO DAILY 07/23/20 10/24/20 History [Glucosamine-Chondroitin Tablet] Grape Seed 1 tab PO DAILY 07/23/20 10/24/20 History Melatonin 3 mg PO HS 07/23/20 10/24/20 History Nitroglycerin Sl Tabs [Nitrostat] 0.4 mg SL Q5M PRN 07/23/20 10/24/20 History Ubidecarenone [Coenzyme Q10] 30 mg PO DAILY 07/23/20 10/24/20 History Apixaban [Eliquis] 5 mg PO BID 30 Days #60 tab 07/27/20 10/24/20 Rx Albuterol Sulfate [Albuterol 2 puff INHALATION RT-QID PRN 10/24/20 10/24/20 History Sulfate Hfa] Finasteride [Proscar] 5 mg PO DAILY 10/24/20 10/24/20 History Furosemide [Lasix] 40 mg PO DAILY 10/24/20 10/24/20 History Gabapentin 300 mg PO BID 10/24/20 10/24/20 History Lidocaine 5% Patch [Lidoderm] 1 patch TOPICAL DAILY 10/24/20 10/24/20 History Mineral Oil/Petrolatum,White [Stye 0.25 inch BOTH EYES HS 10/24/20 10/24/20 History Lubricant Eye Ointment] Potassium Chloride ER [K-Dur 10] 10 meq PO DAILY 10/24/20 10/24/20 History Saw [place] 500 mg PO DAILY 10/24/20 10/24/20 History Allergies Allergy/AdvReac Type Severity Reaction Status Date / Time diazepam [From Valium] Allergy Unknown Verified 10/24/20 11:54 simvastatin [From Zocor] Allergy MYOSITIS Verified 10/24/20 11:54 terazosin Allergy SYNCOPE Verified 10/24/20 11:54 egg AdvReac Unknown Verified 10/24/20 11:54 lisinopril AdvReac Cough Verified 10/24/20 11:54 Physical Exam Vitals: Vital Signs Temp Pulse Resp BP Pulse Ox 10/24/20 13:15 98.1 F 81 17 181/88 98 10/24/20 12:00 98.4 F 71 20 164/92 99 10/24/20 09:15 98.2 F 66 18 173/89 98 Intake and Output 10/23/20 10/24/20 10/24/20 22:59 06:59 14:59 Output Total 150 Balance -150 Output: Urine 150 Straight 150 Other: Weight 77.111 kg PHYSICAL EXAMINATION: Patient is lying in the bed comfortably, no acute distress, awake alert and oriented.. HEENT: Normocephalic. Neck is supple. Pupils reactive. Nostrils clear. Oral cavity is moist. Neck reveals no JVD, carotid bruits, or thyromegaly. CHEST EXAMINATION: Trachea is central. Symmetrical expansion. Bibasilar diminished sounds..Lung calderón clear to auscultation and percussion. CARDIAC: Normal S1, S2 with no gallops. No murmurs ABDOMEN: Soft. Bowel sounds normal. No organomegaly. No abdominal bruits. Extremities: reveal no edema. No clubbing or cyanosis Neurologically awake, alert, oriented x3 with well-coordinated movements. No focal deficits noted, Skin: No rash or skin lesions. Psychiatric: Coperative. Nonsuicidal Musculoskeletal: No joint swelling or deformity. Normal range of motion. Results CBC & Chem 7: 10/24/20 09:36 10/24/20 09:36 Labs: Abnormal Lab Results - Last 24 Hours (Table) 10/24/20 10/24/20 10/24/20 Range/Units 09:36 09:36 09:36 RBC 4.05 L (4.30-5.90) m/uL Hct 38.5 L (39.0-53.0) % Plt Count 138 L (150-450) k/uL Lymphocytes # 0.9 L (1.0-4.8) k/uL Chloride 108 H (98-107) mmol/L Carbon Dioxide 21 L (22-30) mmol/L BUN 29 H (9-20) mg/dL Calcium 10.5 H (8.4-10.2) mg/dL Creatine Kinase 248 H (55-170) U/L Urine Protein Trace H (Negative) Urine Ketones 2+ H (Negative) Thrombosis Risk Factor Assmnt - DVT/VTE Prophylaxis DVT/VTE Prophylaxis: Pharmacologic Prophylaxis ordered Assessment and Plan Assessment: Status post mechanical fall. No evidence of fracture noted on the imaging studies. Recent history of DVT and was discharged to rehab. Recently moved back home 2 weeks ago. Adult failure to thrive Dehydration volume depletion Elevated BNP level without evidence of acute CHF. Coronary artery disease history of CABG Coronary disease history of stent placement COPD Hearing disorder/deafness Hyperlipidemia Chronic back pain History of CVA/TIA with no residual weakness Osteoarthritis BPH Bilateral lower extremity edema due to venous insufficiency. Chronic low back pain History of TMJ PTSD Plan: Patient will continue on gentle IV hydration. Increase oral intake. PT OT and can with home medications and pain management. Possible discharge to extended care facility. Follow-up closely. Time with Patient: Greater than 30
--- NOTE | 2020-10-26 01:37 | P.PN ---
Subjective Progress Note Date: 10/25/20 Principal diagnosis: Status post mechanical fall. Patient is a 79-year-old male with a known history of coronary artery disease status post CABG, history of stent placement, COPD, DVT on anticoagulation with Eliquis, hearing disorder/deafness, hypertension, hyperlipidemia, and other multiple medical problems including chronic back pain and TMJ and history of CVA/TIA with no residual weakness was brought to the hospital status post fall. Patient states that he lives by himself alone and while he is walking this morning he felt. He uses walker usually. He was found supine on on the floor by paramedics. He was also complaining of neck pain and left ankle pain but related to his previous history of DVT. Patient has been afebrile. No nausea vomiting abdominal pain or diarrhea. Awake alert oriented x3-4. [facility] being [facility] for [facility] clot.and recently came back to home. Patient lives by himself. CT of the head and cervical spine showed there is no acute fracture or dislocation. Severe multilevel degenerative disc disease with multilevel foraminal encroachment and canal stenosis. Recommended MRI. No acute intracranial hemorrhage. Bilateral thyroid nodules. Chest x-ray showed diffuse interstitial pattern is stable from prior exam. Chronic interstitial lung disease. Pelvis x-ray showed no acute fracture. X-ray of the tibia and fibula showed no acute osseous abnormality. EKG showed sinus rhythm with first-degree AV block. Laboratory data showed WBC 5.6 hemoglobin 13.3 and platelets 138 Sodium 139 potassium 4.3 chloride 108 bicarb is 21 BUN 29 creatinine 0.98 CK 248 and troponin 0 0.064, 0.064 proBNP 2310 Urinalysis is negative for infection. 10/25/2020 Patient is currently resting in the bed comfortably. Awake alert 1x3. Tolerating oral diet. No complaints of chest pain or shortness of. No nausea vomiting abdominal pain or diarrhea. PT OT will be consulted and possible discharge to rehab. Follow-up CBC and BMP tomorrow. Current medications reviewed. Objective - Vital Signs Vital signs: Vital Signs Temp 98.0 F 10/25/20 11:23 Pulse 49 L 10/25/20 20:32 Resp 18 10/25/20 11:23 BP 136/65 10/25/20 11:23 Pulse Ox 98 08/01/21 11:23 Intake & Output 10/25/20 10/25/20 10/26/20 06:59 18:59 06:59 Intake Total 1100 Balance 1100 Intake: Intake, IV Titration 900 Amount Sodium Chloride 0.9% 1, 900 000 ml @ 75 mls/hr IV . [id number] [facility] Rx#:[id number] Oral 200 Other: Voiding Method Urinal Urinal Diaper Diaper Incontinent Incontinent # Voids 2 1 # Bowel Movements 2 - Exam PHYSICAL EXAMINATION: Patient is lying in the bed comfortably, no acute distress, awake alert and oriented.Patient is dishelved and poorly kept.. HEENT: Normocephalic. Neck is supple. Pupils reactive. Nostrils clear. Oral cavity is moist. Neck reveals no JVD, carotid bruits, or thyromegaly. CHEST EXAMINATION: Trachea is central. Symmetrical expansion. Bibasilar diminished sounds..Lung calderón clear to auscultation and percussion. CARDIAC: Normal S1, S2 with no gallops. No murmurs ABDOMEN: Soft. Bowel sounds normal. No organomegaly. No abdominal bruits. Extremities: reveal no edema. No clubbing or cyanosis Neurologically awake, alert, oriented x3 with well-coordinated movements. No focal deficits noted, Skin: No rash or skin lesions. Psychiatric: Coperative. Nonsuicidal Musculoskeletal: No joint swelling or deformity. Normal range of motion. - Labs CBC & Chem 7: 10/24/20 09:36 10/24/20 09:36 Assessment and Plan Assessment: Status post mechanical fall. No evidence of fracture noted on the imaging studies. Recent history of DVT and was discharged to rehab. Recently moved back home 2 weeks ago. Adult failure to thrive Dehydration volume depletion Elevated BNP level without evidence of acute CHF. Coronary artery disease history of CABG Coronary disease history of stent placement COPD Hearing disorder/deafness Hyperlipidemia Chronic back pain History of CVA/TIA with no residual weakness Osteoarthritis BPH Bilateral lower extremity edema due to venous insufficiency. Chronic low back pain History of TMJ PTSD Plan: Patient will continue on gentle IV hydration. Increase oral intake. PT OT and can with home medications and pain management. Possible discharge to extended care facility. Follow-up closely.
[2020-10-26 05:28] LABS: Basophils % (A) 0 %; Eosinophils # (A) 0.2 k/uL (0-0.7); Eosinophils % (A) 4 %; HCT 34.3 % (39.0-53.0); HGB 11.4 gm/dL (13.0-17.5); Lymphocytes # (A) 1.2 k/uL (1.0-4.8); Lymphocytes % (A) 20 %; MCH 32.3 pg (25.0-35.0); MCHC 33.4 g/dL (31.0-37.0); MCV 96.6 fL (80.0-100.0); Mean Platelet Volume 8.4; Monocytes # (A) 0.5 k/uL (0-1.0); Monocytes % (A) 8 %; Neutrophils % (A) 67 %; Platelet Count 135 k/uL (150-450); RBC 3.55 m/uL (4.30-5.90); RDW 13.9 % (11.5-15.5)
[2020-10-26] MEDS: SODIUM CHLORIDE 0.9% 1,000 ML IV SCH ×2 (06:13→17:18)
[2020-10-26] MEDS: ASPIRIN 81 MG PO SCH (08:32)
[2020-10-26] MEDS: FUROSEMIDE 40 MG TAB PO SCH (08:33)
[2020-10-26] MEDS: TAMSULOSIN 0.4 MG CAP.ER.24H PO SCH (08:33)
[2020-10-26] MEDS: METOPROLOL SUCCINATE (ER) 25 MG TAB.ER.24H PO SCH (08:33)
[2020-10-26] MEDS: APIXABAN 5 MG TAB PO SCH ×2 (08:33→21:19)
[2020-10-26] MEDS: POTASSIUM CHLORIDE ER 10 MEQ TAB.ER.PRT PO SCH (08:33)
[2020-10-26] MEDS: PANTOPRAZOLE 40 MG TABLET PO SCH (08:33)
[2020-10-26] MEDS: GABAPENTIN 300 MG CAP PO SCH ×2 (08:33→21:19)
[2020-10-26] MEDS: NON FORMULARY DRUG (Glucosam/Chon-Msm1/C/Mang/Bosw [Glucosamine-Chondroitin Tablet] 1 EACH PO SCH (08:34)
[2020-10-26] MEDS: GRAPE SEED PO SCH (08:34)
[2020-10-26] MEDS: UBIDECARENONE 10 MG PO SCH (08:36)
[2020-10-26] MEDS: NON FORMULARY DRUG (Saw Palmetto [Saw Palmetto] 500 MG Capsule) PO SCH (08:36)
[2020-10-26] MEDS: FINASTERIDE 5 MG TAB PO SCH (09:06)
[2020-10-26] MEDS: FLUTICASONE 50MCG/SPRAY NASAL 16GM EA NOSTRIL SCH ×2 (09:06→21:20)
[2020-10-26 09:46] LABS: African American GFR (CKD) 82.6 (60.0-200.0); Calcium 9.1 mg/dL (8.7-10.3); Non-African American GFR(CKD) 71.3 (60.0-200.0); Potassium 3.6 mmol/L (3.5-5.5)
[2020-10-26 14:26] VITALS: BMI 22.4
--- NOTE | 2020-10-26 15:50 | P.PN ---
Subjective Progress Note Date: 10/26/20 Status post mechanical fall. Patient is a 79-year-old male with a known history of coronary artery disease status post CABG, history of stent placement, COPD, DVT on anticoagulation with Eliquis, hearing disorder/deafness, hypertension, hyperlipidemia, and other multiple medical problems including chronic back pain and TMJ and history of CVA/TIA with no residual weakness was brought to the hospital status post fall. Patient states that he lives by himself alone and while he is walking this morning he felt. He uses walker usually. He was found supine on on the floor by paramedics. He was also complaining of neck pain and left ankle pain but related to his previous history of DVT. Patient has been afebrile. No nausea vomiting abdominal pain or diarrhea. Awake alert oriented x3-4. [facility] being admitted for blood clot.and recently came back to home. Patient lives by himself. CT of the head and cervical spine showed there is no acute fracture or dislocation. Severe multilevel degenerative disc disease with multilevel foraminal encroachment and canal stenosis. Recommended MRI. No acute intracranial hemorrhage. Bilateral thyroid nodules. Chest x-ray showed diffuse interstitial pattern is stable from prior exam. Chronic interstitial lung disease. Pelvis x-ray showed no acute fracture. X-ray of the tibia and fibula showed no acute osseous abnormality. EKG showed sinus rhythm with first-degree AV block. Laboratory data showed WBC 5.6 hemoglobin 13.3 and platelets 138 Sodium 139 potassium 4.3 chloride 108 bicarb is 21 BUN 29 creatinine 0.98 CK 248 and troponin 0 0.064, 0.064 proBNP 2310 Urinalysis is negative for infection. 10/25/2020 Patient is currently resting in the bed comfortably. Awake alert 1x3. Tolera ting oral diet. No complaints of chest pain or shortness of. No nausea vomiting abdominal pain or diarrhea. PT OT will be consulted and possible discharge to rehab. Follow-up CBC and BMP tomorrow. 10/26/2020 Patient is seen in follow-up with no acute overnight issues noted. Patient continues to be weak and having PT/OT evaluate the patient and also consult social possible ECF placement. White blood count today is 6.0 with a hemoglobin of 11.4, sodium is 142 with a potassium of 3.6 and current creatinine is 1.0. TSH is 2.7-0. Review of systems: Constitutional: reports of fatigue, no reports of fever, or chills Cardiovascular: No reports of chest pain or palpitations Respiratory: No reports of shortness of breath or cough GI: No reports of nausea, vomiting, or diarrhea : No reports of dysuria or retention Neurovascular: Reports generalized weakness All medications have been reviewed Physical Exam: Patient is lying in the bed comfortably, no acute distress, awake alert and oriented. Patient is dishelved and poorly kept.. HEENT: Normocephalic. Neck is supple. Pupils reactive. Nostrils clear. Oral cavity is moist. Neck reveals no JVD, carotid bruits, or thyromegaly. CHEST EXAMINATION: Trachea is central. Symmetrical expansion. Bibasilar diminished sounds..Lung calderón clear to auscultation and percussion. CARDIAC: Normal S1, S2 with no gallops. No murmurs ABDOMEN: Soft. Bowel sounds normal. No organomegaly. No abdominal bruits. Extremities: reveal no edema. No clubbing or cyanosis Neurologically awake, alert, oriented x3 with well-coordinated movements. No focal deficits noted, Skin: No rash or skin lesions. Psychiatric: Cooperative. Non-suicidal Musculoskeletal: No joint swelling or deformity. Normal range of motion. Assessment and Plan: Status post mechanical fall. No evidence of fracture noted on the imaging studies. Recent history of DVT and was discharged to rehab. Recently moved back home 2 weeks ago. Adult failure to thrive Dehydration volume depletion Elevated BNP level without evidence of acute CHF. Coronary artery disease history of CABG Coronary disease history of stent placement COPD Hearing disorder/deafness Hyperlipidemia Chronic back pain History of CVA/TIA with no residual weakness Osteoarthritis BPH Bilateral lower extremity edema due to venous insufficiency. Chronic low back pain History of TMJ PTSD Plan: Patient will continue on gentle IV hydration. Increase oral intake. PT OT to evaluate the patient and will consult social work for possible placement as patient continues to be weak and having multiple falls. Case management also working [facility] as [facility] has paid out of pocket for one that does not fit properly. We'll continue to monitor closely with possible discharge in 24-48 hours to ECF once accepting facility and insurance authorization is obtained. Objective - Vital Signs Vital signs: Vital Signs Temp 98.5 F 10/26/20 05:00 Pulse 43 L 08/02/21 05:00 Resp 20 10/26/20 05:00 BP 146/77 10/26/20 05:00 Pulse Ox 97 10/26/20 05:00 Intake & Output 10/25/20 10/26/20 10/26/20 18:59 06:59 18:59 Intake Total 150 Balance 150 Intake: Oral 150 Other: Voiding Method Urinal Urinal Diaper Diaper Incontinent Incontinent # Voids 1 5 # Bowel Movements 2 - Labs CBC & Chem 7: 10/26/20 04:52 10/26/20 04:52 Labs: Abnormal Lab Results - Last 24 Hours (Table) 10/26/20 Range/Units 04:52 RBC 3.55 L (4.30-5.90) m/uL Hgb 11.4 L (13.0-17.5) gm/dL Hct 34.3 L (39.0-53.0) % Plt Count 135 L (150-450) k/uL
[2020-10-26] MEDS: ATORVASTATIN 10 MG TAB PO SCH (21:19)
[2020-10-26] MEDS: MELATONIN 3 MG TABLET PO SCH (21:19)
[2020-10-26] MEDS: ARTIFICIAL TEARS OINTMENT 3.5 GM TUBE BOTH EYES SCH (21:20)
[2020-10-27] MEDS: APIXABAN 5 MG TAB PO SCH ×2 (08:08→21:42)
[2020-10-27] MEDS: FINASTERIDE 5 MG TAB PO SCH (08:08)
[2020-10-27] MEDS: ASPIRIN 81 MG PO SCH (08:08)
[2020-10-27] MEDS: METOPROLOL SUCCINATE (ER) 25 MG TAB.ER.24H PO SCH (08:08)
[2020-10-27] MEDS: POTASSIUM CHLORIDE ER 10 MEQ TAB.ER.PRT PO SCH (08:08)
[2020-10-27] MEDS: TAMSULOSIN 0.4 MG CAP.ER.24H PO SCH (08:08)
[2020-10-27] MEDS: FUROSEMIDE 40 MG TAB PO SCH (08:08)
[2020-10-27] MEDS: GABAPENTIN 300 MG CAP PO SCH ×2 (08:09→21:42)
[2020-10-27] MEDS: PANTOPRAZOLE 40 MG TABLET PO SCH (08:09)
[2020-10-27] MEDS: UBIDECARENONE 10 MG PO SCH (08:09)
[2020-10-27] MEDS: NON FORMULARY DRUG (Saw Palmetto [Saw Palmetto] 500 MG Capsule) PO SCH (08:09)
[2020-10-27] MEDS: NON FORMULARY DRUG (Glucosam/Chon-Msm1/C/Mang/Bosw [Glucosamine-Chondroitin Tablet] 1 EACH PO SCH (08:19)
[2020-10-27] MEDS: GRAPE SEED PO SCH (08:19)
[2020-10-27] MEDS: SODIUM CHLORIDE 0.9% 1,000 ML IV SCH ×2 (11:49→22:12)
[2020-10-27] MEDS: FLUTICASONE 50MCG/SPRAY NASAL 16GM EA NOSTRIL SCH ×2 (11:59→21:42)
--- NOTE | 2020-10-27 14:27 | P.DS ---
Providers Date of admission: 10/24/20 12:36 Expected date of discharge: 10/27/20 Attending physician: Jaspreet Jackson Primary care physician: Deandre GUZMÁN [place] [facility] Course: Final diagnosis Status post mechanical fall. No evidence of fracture noted on the imaging studies. Recent history of DVT Adult failure to thrive Dehydration volume depletion Elevated BNP level without evidence of acute CHF. Coronary artery disease history of CABG Coronary disease history of stent placement COPD Hearing disorder/deafness Hyperlipidemia Chronic back pain History of CVA/TIA with no residual weakness Osteoarthritis BPH Bilateral lower extremity edema due to venous insufficiency. Chronic low back pain History of TMJ PTSD Full code Discharge disposition Patient is being discharged in a stable condition with guarded prognosis to [facility] bed for continued PT/OT therapy. Patient will follow-up with primary care provider in the outpatient setting upon discharge. Total time taken is greater than 35 minutes. Hospital course Status post mechanical fall. Patient is a 79-year-old male with a known history of coronary artery disease status post CABG, history of stent placement, COPD, DVT on anticoagulation with Eliquis, hearing disorder/deafness, hypertension, hyperlipidemia, and other multiple medical problems including chronic back pain and TMJ and history of CVA/TIA with no residual weakness was brought to the hospital status post fall. Patient states that he lives by himself alone and while he is walking this morning he felt. He uses walker usually. He was found supine on on the floor by paramedics. He was also complaining of neck pain and left ankle pain but related to his previous history of DVT. Patient has been afebrile. No nausea vomiting abdominal pain or diarrhea. Awake alert oriented x3-4. Patient was previously discharged to long-term for rehab from being admitted for blood clot.and recently came back to home. Patient lives by himself. CT of the head and cervical spine showed there is no acute fracture or dislocation. Severe multilevel degenerative disc disease with multilevel foraminal encroachment and canal stenosis. Recommended MRI. No acute intracranial hemorrhage. Bilateral thyroid nodules. Chest x-ray showed diffuse interstitial pattern is stable from prior exam. Chronic interstitial lung disease. Pelvis x-ray showed no acute fracture. X-ray of the tibia and fibula showed no acute osseous abnormality. EKG showed sinus rhythm with first-degree AV block. Laboratory data showed WBC 5.6 hemoglobin 13.3 and platelets 138 Sodium 139 potassium 4.3 chloride 108 bicarb is 21 BUN 29 creatinine 0.98 CK 248 and troponin 0 0.064, 0.064 proBNP 2310 Urinalysis is negative for infection. 10/25/2020 Patient is currently resting in the bed comfortably. Awake alert 1x3. Judy erating oral diet. No complaints of chest pain or shortness of. No nausea vomiting abdominal pain or diarrhea. PT OT will be consulted and possible discharge to rehab. Follow-up CBC and BMP tomorrow. 10/26/2020 Patient is seen in follow-up with no acute overnight issues noted. Patient continues to be weak and having PT/OT evaluate the patient and also consult social possible ECF placement. White blood count today is 6.0 with a hemoglobin of 11.4, sodium is 142 with a potassium of 3.6 and current creatinine is 1.0. TSH is 2.7-0. 10/27/2020 Patient is seen in follow-up this morning and is agreeable to rehab as he was evaluated by PT/OT therapy recommending subacute rehab for continued strength and mobility. Case management has also faxed documents and orders to the [place] and awaiting TLSO brace. Patient will be going to [facility] bed for continued PT/OT therapy. Currently no reports of chest pain, shortness of breath, or palpitations. Patient is afebrile. No reports of nausea or vomiting and patient is tolerating diet. On exam vital signs are stable. Cardio S1, S2 are muffled. Respiratory system shows diminished breath sounds at the bases with no wheezing or rhonchi noted. Abdomen is soft and nontender. Nervous system shows diffuse weakness. Please refer to medication reconciliation sheet for a list of medications. Patient Condition at Discharge: Stable Plan - Discharge Summary New Discharge Prescriptions: New Acetaminophen Tab [Tylenol] 650 mg PO Q6HR PRN tab PRN Reason: Mild Pain Or Fever > 100.5 Continue Rosuvastatin Calcium [Crestor] 5 mg PO HS Aspirin [[place] Aspirin EC] 81 mg PO DAILY Metoprolol Succinate [Toprol XL] 12.5 mg PO DAILY Omeprazole 20 mg PO DAILY Grape Seed 1 tab PO DAILY Fluticasone Nasal Coalgate [Flonase Nasal Coalgate] 1 spr EA NOSTRIL BID Melatonin 3 mg PO HS Nitroglycerin Sl Tabs [Nitrostat] 0.4 mg SL Q5M PRN PRN Reason: Chest Pain Albuterol Sulfate [Albuterol Sulfate Hfa] 2 puff INHALATION RT-QID PRN PRN Reason: Shortness Of Breath Saw Eastern 500 mg PO DAILY Mineral Oil/Petrolatum,White [Stye Lubricant Eye Ointment] 0.25 inch BOTH EYES HS Finasteride [Proscar] 5 mg PO DAILY Allopurinol [Zyloprim] 100 mg PO DAILY #30 tab Tamsulosin [Flomax] 0.4 mg PO DAILY Glucosam/Geovany-Msm1/C/Evan/Bosw [Glucosamine-Chondroitin Tablet] 2 tab PO DAILY Ubidecarenone [Coenzyme Q10] 30 mg PO DAILY Apixaban [Eliquis] 5 mg PO BID 30 Days #60 tab Potassium Chloride ER [K-Dur 10] 10 meq PO DAILY Lidocaine 5% Patch [Lidoderm 5% Patch] 1 patch TOPICAL DAILY Furosemide [Lasix] 40 mg PO DAILY Gabapentin 300 mg PO BID #10 cap Discharge Medication List Aspirin [[place] Aspirin EC] 81 mg PO DAILY 04/30/18 [History] Metoprolol Succinate [Toprol XL] 12.5 mg PO DAILY 04/30/18 [History] Rosuvastatin Calcium [Crestor] 5 mg PO HS 04/30/18 [History] Allopurinol [Zyloprim] 100 mg PO DAILY #30 tab 06/24/20 [Rx] Omeprazole 20 mg PO DAILY 06/24/20 [History] Tamsulosin [Flomax] 0.4 mg PO DAILY 06/24/20 [History] Fluticasone Nasal Coalgate [Flonase Nasal Coalgate] 1 spr EA NOSTRIL BID 07/23/20 [History] Glucosam/[place]-Msm1/C/Evan/Bosw [Glucosamine-Chondroitin Tablet] 2 tab PO DAILY 07/23/20 [History] Grape Seed 1 tab PO DAILY 07/23/20 [History] Melatonin 3 mg PO HS 07/23/20 [History] Nitroglycerin Sl Tabs [Nitrostat] 0.4 mg SL Q5M PRN 07/23/20 [History] Ubidecarenone [Coenzyme Q10] 30 mg PO DAILY 07/23/20 [History] Apixaban [Eliquis] 5 mg PO BID 30 Days #60 tab 07/27/20 [Rx] Albuterol Sulfate [Albuterol Sulfate Hfa] 2 puff INHALATION RT-QID PRN 10/24/20 [History] Finasteride [Proscar] 5 mg PO DAILY 10/24/20 [History] Furosemide [Lasix] 40 mg PO DAILY 10/24/20 [History] Lidocaine 5% Patch [Lidoderm 5% Patch] 1 patch TOPICAL DAILY 10/24/20 [History] Mineral Oil/Petrolatum,White [Stye Lubricant Eye Ointment] 0.25 inch BOTH EYES HS 10/24/20 [History] Potassium Chloride ER [K-Dur 10] 10 meq PO DAILY 10/24/20 [History] Saw Eastern 500 mg PO DAILY 10/24/20 [History] Acetaminophen Tab [Tylenol] 650 mg PO Q6HR PRN tab 10/27/20 [Rx] Gabapentin 300 mg PO BID #10 cap 10/27/20 [Rx] Follow up Appointment(s)/Referral(s): Deandre Pimentel PT [Primary Care Provider] - 1-2 days Activity/Diet/Wound Care/Special Instructions: Rolliator ordered from [facility] - they stated that 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 Patient is going to [facility] swing bed Activity as tolerated Follow-up with primary care provider on discharge Take medications as prescribed Continue with heart healthy dysphasia 3 chopped diet and ensure compact segura pplements 3 times a day with meals Vanilla Continue with physical therapy Discharge Disposition: TRANSFER TO SNF/ECF
[2020-10-27] MEDS: ATORVASTATIN 10 MG TAB PO SCH (21:42)
[2020-10-27] MEDS: ARTIFICIAL TEARS OINTMENT 3.5 GM TUBE BOTH EYES SCH (21:42)
[2020-10-27] MEDS: MELATONIN 3 MG TABLET PO SCH (21:43)
[2020-10-28 05:45] VITALS: RESP 16; TEMP 97.5
[2020-10-28 07:49] VITALS: BP 124/81; PULSE 63
[2020-10-28] MEDS: APIXABAN 5 MG TAB PO SCH (07:50)
[2020-10-28] MEDS: TAMSULOSIN 0.4 MG CAP.ER.24H PO SCH (07:50)
[2020-10-28] MEDS: PANTOPRAZOLE 40 MG TABLET PO SCH (07:50)
[2020-10-28] MEDS: ASPIRIN 81 MG PO SCH (07:50)
[2020-10-28] MEDS: FINASTERIDE 5 MG TAB PO SCH (07:50)
[2020-10-28] MEDS: METOPROLOL SUCCINATE (ER) 25 MG TAB.ER.24H PO SCH (07:50)
[2020-10-28] MEDS: FLUTICASONE 50MCG/SPRAY NASAL 16GM EA NOSTRIL SCH (07:51)
[2020-10-28] MEDS: GABAPENTIN 300 MG CAP PO SCH (07:51)
[2020-10-28] MEDS: FUROSEMIDE 40 MG TAB PO SCH (07:51)
[2020-10-28] MEDS: UBIDECARENONE 10 MG PO SCH (07:52)
[2020-10-28] MEDS: NON FORMULARY DRUG (Glucosam/Chon-Msm1/C/Mang/Bosw [Glucosamine-Chondroitin Tablet] 1 EACH PO SCH (07:52)
[2020-10-28] MEDS: GRAPE SEED PO SCH (07:52)
[2020-10-28] MEDS: NON FORMULARY DRUG (Saw Palmetto [Saw Palmetto] 500 MG Capsule) PO SCH (07:52)
[2020-10-28] MEDS: POTASSIUM CHLORIDE ER 10 MEQ TAB.ER.PRT PO SCH (07:52)
--- NOTE | 2020-10-28 08:20 | P.DS ---
Providers Date of admission: 10/24/20 12:36 Expected date of discharge: 10/28/20 Attending physician: Jaspreet Jackson Primary care physician: Deandre GUZMÁN Lloyd Hospital Course: Final Diagnosis Final diagnosis Status post mechanical fall. No evidence of fracture noted on the imaging studies. Recent history of DVT of the left lower extremity Adult failure to thrive Moderate protein calorie malnutrition with a BMI of 22.4 secondary to poor oral intake Dehydration volume depletion Elevated BNP level without evidence of acute CHF. History of congestive heart failure with chronic diastolic dysfunction, not in acute exacerbation Coronary artery disease history of CABG stent placement Left hip stage II pressure ulcer, present on arrival COPD Hearing disorder/deafness Hyperlipidemia Chronic back pain History of CVA/TIA with no residual weakness Osteoarthritis BPH Bilateral lower extremity edema due to venous insufficiency. Chronic low back pain History of TMJ PTSD Full code Discharge disposition Patient is being discharged in a stable condition with guarded prognosis to [facility] bed for continued PT/OT therapy. Patient will follow-up with primary care provider in the outpatient setting upon discharge. Total time take n is greater than 35 minutes. Hospital course Status post mechanical fall. Patient is a 79-year-old male with a known history of coronary artery disease status post CABG, history of stent placement, COPD, DVT on anticoagulation with Eliquis, hearing disorder/deafness, hypertension, hyperlipidemia, and other multiple medical problems including chronic back pain and TMJ and history of CVA/TIA with no residual weakness was brought to the hospital status post fall. Patient states that he lives by himself alone and while he is walking this morning he felt. He uses walker usually. He was found supine on on the floor by paramedics. He was also complaining of neck pain and left ankle pain but related to his previous history of DVT. Patient has been afebrile. No nausea vomiting abdominal pain or diarrhea. Awake alert oriented x3-4. Patient was previously discharged to long-term for rehab from being admitted for blood clot.and recently came back to home. Patient lives by himself. CT of the head and cervical spine showed there is no acute fracture or dislocation. Severe multilevel degenerative disc disease with multilevel foraminal encroachment and canal stenosis. Recommended MRI. No acute intracranial hemorrhage. Bilateral thyroid nodules. Chest x-ray showed diffuse interstitial pattern is stable from prior exam. Chronic interstitial lung disease. Pelvis x-ray showed no acute fracture. X-ray of the tibia and fibula showed no acute osseous abnormality. EKG showed sinus rhythm with first-degree AV block. Laboratory data showed WBC 5.6 hemoglobin 13.3 and platelets 138 Sodium 139 potassium 4.3 chloride 108 bicarb is 21 BUN 29 creatinine 0.98 CK 248 and troponin 0 0.064, 0.064 proBNP 2310 Urinalysis is negative for infection. 10/25/2020 Patient is currently resting in the bed comfortably. Awake alert 1x3. Tolerating oral diet. No complaints of chest pain or shortness of. No nausea vomiting abdominal pain or diarrhea. PT OT will be consulted and possible discharge to rehab. Follow-up CBC and BMP tomorrow. 10/26/2020 Patient is seen in follow-up with no acute overnight issues noted. Patient continues to be weak and having PT/OT evaluate the patient and also consult social possible ECF placement. White blood count today is 6.0 with a hemoglobin of 11.4, sodium is 142 with a potassium of 3.6 and current creatinine is 1.0. TSH is 2.7-0. 10/27/2020 Patient is seen in follow-up this morning and is agreeable to rehab as he was evaluated by PT/OT therapy recommending subacute rehab for continued strength and mobility. Case management has also faxed documents and orders to the [facility] and awaiting TLSO brace. Patient will be going to [facility] for continued PT/OT therapy. Currently no reports of chest pain, shortness of breath, or palp itations. Patient is afebrile. No reports of nausea or vomiting and patient is tolerating diet. 10/28/2020 There are transportation issues with EMS providing transportation to [facility] while awaiting for TLSO brace arrival which came shortly before 3:00 and EMS extremely busy and rescheduled transport to [facility] for this morning. On exam vital signs are stable. Cardio S1, S2 are muffled. Respiratory system shows diminished breath sounds at the bases with no wheezing or rhonchi noted. Abdomen is soft and nontender. Nervous system shows diffuse weakness. Please refer to medication reconciliation sheet for a list of medications. Patient Condition at Discharge: Stable Plan - Discharge Summary New Discharge Prescriptions: New Acetaminophen Tab [Tylenol] 650 mg PO Q6HR PRN tab PRN Reason: Mild Pain Or Fever > 100.5 Continue Rosuvastatin Calcium [Crestor] 5 mg PO HS Aspirin [[place] Aspirin EC] 81 mg PO DAILY Metoprolol Succinate [Toprol XL] 12.5 mg PO DAILY Omeprazole 20 mg PO DAILY Grape Seed 1 tab PO DAILY Fluticasone Nasal [place] [Flonase Nasal [place]] 1 spr EA NOSTRIL BID Melatonin 3 mg PO HS Nitroglycerin Sl Tabs [Nitrostat] 0.4 mg SL Q5M PRN PRN Reason: Chest Pain Albuterol Sulfate [Albuterol Sulfate Hfa] 2 puff INHALATION RT-QID PRN PRN Reason: Shortness Of Breath Saw [place] 500 mg PO DAILY Mineral Oil/Petrolatum,White [Stye Lubricant Eye Ointment] 0.25 inch BOTH EYES HS Finasteride [Proscar] 5 mg PO DAILY Allopurinol [Zyloprim] 100 mg PO DAILY #30 tab Tamsulosin [Flomax] 0.4 mg PO DAILY Glucosam/[place]-Msm1/C/Evan/Bosw [Glucosamine-Chondroitin Tablet] 2 tab PO DAILY Ubidecarenone [Coenzyme Q10] 30 mg PO DAILY Apixaban [Eliquis] 5 mg PO BID 30 Days #60 tab Potassium Chloride ER [K-Dur 10] 10 meq PO DAILY Lidocaine 5% Patch [Lidoderm 5% Patch] 1 patch TOPICAL DAILY Furosemide [Lasix] 40 mg PO DAILY Gabapentin 300 mg PO BID #10 cap Discharge Medication List Aspirin [[place] Aspirin EC] 81 mg PO DAILY 04/30/18 [History] Metoprolol Succinate [Toprol XL] 12.5 mg PO DAILY 04/30/18 [History] Rosuvastatin Calcium [Crestor] 5 mg PO HS 04/30/18 [History] Allopurinol [Zyloprim] 100 mg PO DAILY #30 tab 06/24/20 [Rx] Omeprazole 20 mg PO DAILY 06/24/20 [History] Tamsulosin [Flomax] 0.4 mg PO DAILY 06/24/20 [History] Fluticasone Nasal [place] [Flonase Nasal [place]] 1 spr EA NOSTRIL BID 07/23/20 [History] Glucosam/[place]-Msm1/C/Evan/Bosw [Glucosamine-Chondroitin Tablet] 2 tab PO DAILY 07/23/20 [History] Grape Seed 1 tab PO DAILY 07/23/20 [History] Melatonin 3 mg PO HS 07/23/20 [History] Nitroglycerin Sl Tabs [Nitrostat] 0.4 mg SL Q5M PRN 07/23/20 [History] Ubidecarenone [Coenzyme Q10] 30 mg PO DAILY 07/23/20 [History] Apixaban [Eliquis] 5 mg PO BID 30 Days #60 tab 07/27/20 [Rx] Albuterol Sulfate [Albuterol Sulfate Hfa] 2 puff INHALATION RT-QID PRN 10/24/20 [History] Finasteride [Proscar] 5 mg PO DAILY 10/24/20 [History] Furosemide [Lasix] 40 mg PO DAILY 10/24/20 [History] Lidocaine 5% Patch [Lidoderm 5% Patch] 1 patch TOPICAL DAILY 10/24/20 [History] Mineral Oil/Petrolatum,White [Stye Lubricant Eye Ointment] 0.25 inch BOTH EYES HS 10/24/20 [History] Potassium Chloride ER [K-Dur 10] 10 meq PO DAILY 10/24/20 [History] Saw [place] 500 mg PO DAILY 10/24/20 [History] Acetaminophen Tab [Tylenol] 650 mg PO Q6HR PRN tab 10/27/20 [Rx] Gabapentin 300 mg PO BID #10 cap 10/27/20 [Rx] Follow up Appointment(s)/Referral(s): Deandre Pimentel PT [Primary Care Provider] - 1-2 days Activity/Diet/Wound Care/Special Instructions: Rolliator ordered from [facility] - they stated that family should come hop picker the new rolliator in about a week from the [facility] ( november 02). Patient is going to [facility] bed Activity as tolerated Follow-up with primary care provider on discharge Take medications as prescribed Continue with heart healthy dysphasia 3 chopped diet and ensure compact supplements 3 times a day with meals Vanilla Continue with physical therapy Discharge Disposition: TRANSFER TO SNF/ECF
== END 2020-10-28 09:30 | DRG 641 ==
LOC: EC 09:13 → 5NMEDONC 12:36
PROVIDERS: ADMIT Internal Medicine; ATTEND Internal Medicine
DX: E44.0 Moderate protein-calorie malnutrition (principal); I50.32 Chronic diastolic (congestive) heart failure; J84.9 Interstitial pulmonary disease, unspecified; R62.7 Adult failure to thrive; E04.2 Nontoxic multinodular goiter; E78.5 Hyperlipidemia, unspecified; E86.0 Dehydration; F43.10 Post-traumatic stress disorder, unspecified; G89.29 Other chronic pain; H91.90 Unspecified hearing loss, unspecified ear; I11.0 Hypertensive heart disease with heart failure; I25.10 Atherosclerotic heart disease of native coronary artery without angina pectoris; I44.0 Atrioventricular block, first degree; I87.2 Venous insufficiency (chronic) (peripheral); L89.222 Pressure ulcer of left hip, stage 2; J44.9 Chronic obstructive pulmonary disease, unspecified; M19.90 Unspecified osteoarthritis, unspecified site; Z85.828 Personal history of other malignant neoplasm of skin; Z68.22 Body mass index [BMI] 22.0-22.9, adult; M10.9 Gout, unspecified; M48.00 Spinal stenosis, site unspecified; F40.240 Claustrophobia; N40.0 Benign prostatic hyperplasia without lower urinary tract symptoms; Z91.81 History of falling; Z79.01 Long term (current) use of anticoagulants; Z79.82 Long term (current) use of aspirin; Z79.899 Other long term (current) drug therapy; Z86.718 Personal history of other venous thrombosis and embolism; Z86.73 Personal history of transient ischemic attack (TIA), and cerebral infarction without residual deficits; Z95.1 Presence of aortocoronary bypass graft; Z95.5 Presence of coronary angioplasty implant and graft; Z97.4 Presence of external hearing-aid; Z57.4 Occupational exposure to toxic agents in agriculture; Z60.2 Problems related to living alone; Z87.01 Personal history of pneumonia (recurrent); Z88.8 Allergy status to other drugs, medicaments and biological substances; Z91.012 Allergy to eggs
CPT/HCPCS: 36415; 70450; 71046; 72125; 72170; 80048; 80053; 81003; 82550; 83735; 83880; 84443; 84484; 85025; 93005; 94640; 99285

== ENCOUNTER 2021-09-17 17:23 | Inpatient (IN) | payer MEDICARE, OTHER ==
--- NOTE | 2021-09-17 18:19 | ED ---
General Adult HPI - General Chief complaint: Weakness Stated complaint: Weakness Time Seen by Provider: 09/17/21 17:53 Source: patient, family, EMS, RN notes reviewed Mode of arrival: EMS Limitations: no limitations - History of Present Illness Initial comments: Patient is a pleasant 80-year-old male presenting to the emergency Department with cough and weakness. Onset of symptoms was a couple of days ago. Patient is a poor historian and family provides majority of history. Patient has chronic leg swelling, significantly currently improved from normal. No fever. Patient does have cough and some shortness of breath. Patient feels weak all over today. Patient did slide off the bed while getting changed. No injury. No isolated area of weakness. - Related Data Home Medications Medication Instructions Recorded Confirmed Aspirin [[place] Aspirin EC] 81 mg PO DAILY 04/30/18 10/24/20 Metoprolol Succinate [Toprol XL] 12.5 mg PO DAILY 04/30/18 10/24/20 Rosuvastatin Calcium [Crestor] 5 mg PO HS 04/30/18 10/24/20 Omeprazole 20 mg PO DAILY 06/24/20 10/24/20 Tamsulosin [Flomax] 0.4 mg PO DAILY 06/24/20 10/24/20 Fluticasone Nasal [place] [Flonase 1 spr EA NOSTRIL BID 07/23/20 10/24/20 Nasal [place]] Glucosam/[place]-Msm1/C/Evan/Bosw 2 tab PO DAILY 07/23/20 10/24/20 [Glucosamine-Chondroitin Tablet] Grape Seed 1 tab PO DAILY 07/23/20 10/24/20 Melatonin 3 mg PO HS 07/23/20 10/24/20 Nitroglycerin Sl Tabs [Nitrostat] 0.4 mg SL Q5M PRN 07/23/20 10/24/20 Ubidecarenone [Coenzyme Q10] 30 mg PO DAILY 07/23/20 10/24/20 Albuterol Sulfate [Albuterol 2 puff INHALATION RT-QID PRN 10/24/20 10/24/20 Sulfate Hfa] Finasteride [Proscar] 5 mg PO DAILY 10/24/20 10/24/20 Furosemide [Lasix] 40 mg PO DAILY 10/24/20 10/24/20 Lidocaine 5% Patch [Lidoderm 5% 1 patch TOPICAL DAILY 10/24/20 10/24/20 Patch] Mineral Oil/Petrolatum,White [Stye 0.25 inch BOTH EYES HS 10/24/20 10/24/20 Lubricant Eye Ointment] Potassium Chloride ER [K-Dur 10] 10 meq PO DAILY 10/24/20 10/24/20 Saw [place] 500 mg PO DAILY 10/24/20 10/24/20 Previous Rx's Medication Instructions Recorded allopurinoL [Zyloprim] 100 mg PO DAILY #30 tab 06/24/20 Apixaban [Eliquis] 5 mg PO BID 30 Days #60 tab 07/27/20 Acetaminophen Tab [Tylenol] 650 mg PO Q6HR PRN tab 10/27/20 Gabapentin 300 mg PO BID #10 cap 10/27/20 Allergies Allergy/AdvReac Type Severity Reaction Status Date / Time diazepam [From Valium] Allergy Unknown Verified 09/17/21 18:01 simvastatin [From Zocor] Allergy MYOSITIS Verified 09/17/21 18:01 terazosin Allergy SYNCOPE Verified 09/17/21 18:01 egg AdvReac Unknown Verified 09/17/21 18:01 Review of Systems ROS Statement: Those systems with pertinent positive or pertinent negative responses have been documented in the HPI. ROS Other: All systems not noted in ROS Statement are negative. Constitutional: Denies: fever Eyes: Denies: eye pain ENT: Denies: ear pain Respiratory: Reports: cough, dyspnea Cardiovascular: Denies: chest pain Endocrine: Reports: fatigue Gastrointestinal: Denies: abdominal pain Genitourinary: Denies: dysuria Musculoskeletal: Denies: back pain Skin: Denies: rash Neurological: Reports: as per HPI Past Medical History Past Medical History: Atrial Fibrillation, Asthma, Coronary Artery Disease (CAD), Cancer, Heart Failure, COPD, Deep Vein Thrombosis (DVT), Hearing Disorder / Deafness, Hyperlipidemia, Hypertension, Osteoarthritis (OA), Prostate Disorder, Vascular Disorder Additional Past Medical History / Comment(s): Pt recently admitted to [facility] on 07/27/20 with acute DVT L lower extremity, bilateral lower extremity edema thought d/t venous insufficiency, acute renal failure. Other hx: Pt denies hx COPD, bronchial pneumonia, bronchitis, pleurisy, multiple "mini strokes" per MRI/pt, degenerative arthritis in multiple joints, chronic low back pain/pinched nerve, R carpal tunnel syndrome, gout bilateral feet, TMJ, dysphagia-pt states was to have study done but did not get to it d/t covid, sinusitis, over 20 days has had bilateral lower extremity edema pt believes d/t running out of gout medications, BPH, agent orange exposure which pt states caused heart damage, murmur, R ear mostly deaf, wears bilateral hearing aides, skin cancer removals. History of Any Multi-Drug Resistant Organisms: None Reported Past Surgical History: Back Surgery, Coronary Bypass/CABG, Ear Surgery, Heart Catheterization, Heart Catheterization With Stent Additional Past Surgical History / Comment(s): L eye surgery for benign lesion, lumbar back surgery, pain clinic procedures, 2003 CABG 5 vessel, R ear wax removal, skin cancer removal Past Anesthesia/Blood Transfusion Reactions: No Reported Reaction Additional Past Anesthesia/Blood Transfusion Reaction / Comment(s): Pt has clausterphobia. Date of Last Stent Placement:: unkn Past Psychological History: PTSD Smoking Status: Never smoker - Past Family History Father Family Medical History: No Reported History Additional Family Medical History / Comment(s): Father was healthy Mother Family Medical History: No Reported History Additional Family Medical History / Comment(s): Mother was healthy General Exam Limitations: no limitations General appearance: alert, in no apparent distress Head exam: Present: normocephalic Eye exam: Present: normal appearance Neck exam: Present: normal inspection Respiratory exam: Present: rales. Absent: respiratory distress Cardiovascular Exam: Present: regular rate, normal rhythm GI/Abdominal exam: Present: soft. Absent: tenderness Extremities exam: Present: pedal edema. Absent: calf tenderness Neurological exam: Present: alert Psychiatric exam: Present: normal affect, normal mood Skin exam: Present: normal color Course Vital Signs 09/17/21 09/17/21 09/17/21 17:49 20:19 20:27 Temperature 97.8 F Pulse Rate 75 85 86 Respiratory 17 Rate Blood Pressure 119/92 O2 Sat by Pulse 97 Oximetry EKG Findings - EKG Comments: EKG Findings:: Sinus rhythm at 76. First-degree AV block MO 221. Motion artifact is present. QRS 114. QTC 413. QTC 444. Normal axis. Moderate intraventricular conduction delay. Lateral T wave inversion. Appearance of inferior T wave inversion. Medical Decision Making - Medical Decision Making Patient reevaluated. Patient and family are not comfortable with discharge home. Patient is having difficulty getting around. There may be concern for possible placement issues. Patient does have mild jo ann - Lab Data Result diagrams: 09/17/21 18:52 09/17/21 18:52 Lab Results 09/17/21 09/17/21 09/17/21 Range/Units 18:52 18:52 18:52 WBC 8.1 (3.8-10.6) k/uL RBC 4.17 L (4.30-5.90) m/uL Hgb 12.9 L (13.0-17.5) gm/dL Hct 39.4 (39.0-53.0) % MCV 94.5 (80.0-100.0) fL MCH 31.0 (25.0-35.0) pg MCHC 32.8 (31.0-37.0) g/dL RDW 12.9 (11.5-15.5) % Plt Count 178 (150-450) k/uL MPV 8.4 Neutrophils % 85 % Lymphocytes % 6 % Monocytes % 7 % Eosinophils % 1 % Basophils % 1 % Neutrophils # 6.8 (1.3-7.7) k/uL Lymphocytes # 0.5 L (1.0-4.8) k/uL Monocytes # 0.5 (0-1.0) k/uL Eosinophils # 0.1 (0-0.7) k/uL Basophils # 0.1 (0-0.2) k/uL PT 12.0 (9.0-12.0) sec INR 1.1 (<1.2) APTT 19.9 L (22.0-30.0) sec Sodium 139 (137-145) mmol/L Potassium 4.0 (3.5-5.1) mmol/L Chloride 105 (98-107) mmol/L Carbon Dioxide 25 (22-30) mmol/L Anion Gap 9 mmol/L BUN 54 H (9-20) mg/dL Creatinine 1.31 H (0.66-1.25) mg/dL Est GFR (CKD-EPI)AfAm 59 (>60 ml/min/1.73 sqM) Est GFR (CKD-EPI)NonAf 51 (>60 ml/min/1.73 sqM) Glucose 112 H (74-99) mg/dL Plasma Lactic Acid Dash (0.7-2.0) mmol/L Calcium 10.9 H (8.4-10.2) mg/dL Phosphorus 2.8 (2.5-4.5) mg/dL Magnesium 2.5 H (1.6-2.3) mg/dL Total Bilirubin 1.7 H (0.2-1.3) mg/dL AST 89 H (17-59) U/L ALT 27 (4-49) U/L Alkaline Phosphatase 60 (38-126) U/L Troponin I (0.000-0.034) ng/mL NT-Pro-B Natriuret Pep pg/mL Total Protein 6.2 L (6.3-8.2) g/dL Albumin 3.4 L (3.5-5.0) g/dL TSH 0.750 (0.465-4.680) mIU/L Free T4 1.53 (0.78-2.19) ng/dL Free T3 pg/mL 2.0 L (2.8-5.3) pg/ml Coronavirus (PCR) (Not Detectd) Influenza Type A RNA (Not Detectd) Influenza Type B (PCR) (Not Detectd) 09/17/21 09/17/21 09/17/21 Range/Units 18:52 18:52 18:52 WBC (3.8-10.6) k/uL RBC (4.30-5.90) m/uL Hgb (13.0-17.5) gm/dL Hct (39.0-53.0) % MCV (80.0-100.0) fL MCH (25.0-35.0) pg MCHC (31.0-37.0) g/dL RDW (11.5-15.5) % Plt Count (150-450) k/uL MPV Neutrophils % % Lymphocytes % % Monocytes % % Eosinophils % % Basophils % % Neutrophils # (1.3-7.7) k/uL Lymphocytes # (1.0-4.8) k/uL Monocytes # (0-1.0) k/uL Eosinophils # (0-0.7) k/uL Basophils # (0-0.2) k/uL PT (9.0-12.0) sec INR (<1.2) APTT (22.0-30.0) sec Sodium (137-145) mmol/L Potassium (3.5-5.1) mmol/L Chloride (98-107) mmol/L Carbon Dioxide (22-30) mmol/L Anion Gap mmol/L BUN (9-20) mg/dL Creatinine (0.66-1.25) mg/dL Est GFR (CKD-EPI)AfAm (>60 ml/min/1.73 sqM) Est GFR (CKD-EPI)NonAf (>60 ml/min/1.73 sqM) Glucose (74-99) mg/dL Plasma Lactic Acid Dash 1.3 (0.7-2.0) mmol/L Calcium (8.4-10.2) mg/dL Phosphorus (2.5-4.5) mg/dL Magnesium (1.6-2.3) mg/dL Total Bilirubin (0.2-1.3) mg/dL AST (17-59) U/L ALT (4-49) U/L Alkaline Phosphatase (38-126) U/L Troponin I 0.032 (0.000-0.034) ng/mL NT-Pro-B Natriuret Pep 3360 pg/mL Total Protein (6.3-8.2) g/dL Albumin (3.5-5.0) g/dL TSH (0.465-4.680) mIU/L Free T4 (0.78-2.19) ng/dL Free T3 pg/mL (2.8-5.3) pg/ml Coronavirus (PCR) (Not Detectd) Influenza Type A RNA (Not Detectd) Influenza Type B (PCR) (Not Detectd) 09/17/21 09/17/21 Range/Units 18:52 18:52 WBC (3.8-10.6) k/uL RBC (4.30-5.90) m/uL Hgb (13.0-17.5) gm/dL Hct (39.0-53.0) % MCV (80.0-100.0) fL MCH (25.0-35.0) pg MCHC (31.0-37.0) g/dL RDW (11.5-15.5) % Plt Count (150-450) k/uL MPV Neutrophils % % Lymphocytes % % Monocytes % % Eosinophils % % Basophils % % Neutrophils # (1.3-7.7) k/uL Lymphocytes # (1.0-4.8) k/uL Monocytes # (0-1.0) k/uL Eosinophils # (0-0.7) k/uL Basophils # (0-0.2) k/uL PT (9.0-12.0) sec INR (<1.2) APTT (22.0-30.0) sec Sodium (137-145) mmol/L Potassium (3.5-5.1) mmol/L Chloride (98-107) mmol/L Carbon Dioxide (22-30) mmol/L Anion Gap mmol/L BUN (9-20) mg/dL Creatinine (0.66-1.25) mg/dL Est GFR (CKD-EPI)AfAm (>60 ml/min/1.73 sqM) Est GFR (CKD-EPI)NonAf (>60 ml/min/1.73 sqM) Glucose (74-99) mg/dL Plasma Lactic Acid Dash (0.7-2.0) mmol/L Calcium (8.4-10.2) mg/dL Phosphorus (2.5-4.5) mg/dL Magnesium (1.6-2.3) mg/dL Total Bilirubin (0.2-1.3) mg/dL AST (17-59) U/L ALT (4-49) U/L Alkaline Phosphatase (38-126) U/L Troponin I (0.000-0.034) ng/mL NT-Pro-B Natriuret Pep pg/mL Total Protein (6.3-8.2) g/dL Albumin (3.5-5.0) g/dL TSH (0.465-4.680) mIU/L Free T4 (0.78-2.19) ng/dL Free T3 pg/mL (2.8-5.3) pg/ml Coronavirus (PCR) Not Detected (Not Detectd) Influenza Type A RNA Not Detected (Not Detectd) Influenza Type B (PCR) Not Detected (Not Detectd) - Radiology Data Radiology results: image reviewed (Chest x-ray shows fibrotic changes) Disposition Clinical Impression: COPD (chronic obstructive pulmonary disease), Acute kidney injury Disposition: ADMITTED IP TO THIS HOSP Is patient prescribed a controlled substance at d/c from ED?: No Referrals: [facility],Clinic [Primary Care Provider] - 1-2 days Time of Disposition: 21:25
[2021-09-17 18:57] LABS: Basophils # (A) 0.1 k/uL (0-0.2); Basophils % (A) 1 %; Eosinophils # (A) 0.1 k/uL (0-0.7); Eosinophils % (A) 1 %; HCT 39.4 % (39.0-53.0); HGB 12.9 gm/dL (13.0-17.5); Lymphocytes # (A) 0.5 k/uL (1.0-4.8); Lymphocytes % (A) 6 %; MCHC 32.8 g/dL (31.0-37.0); MCV 94.5 fL (80.0-100.0); Mean Platelet Volume 8.4; Monocytes # (A) 0.5 k/uL (0-1.0); Monocytes % (A) 7 %; Neutrophils # (A) 6.8 k/uL (1.3-7.7); Neutrophils % (A) 85 %; Platelet Count 178 k/uL (150-450); RBC 4.17 m/uL (4.30-5.90); RDW 12.9 % (11.5-15.5); WBC 8.1 k/uL (3.8-10.6)
[2021-09-17 19:08] LABS: Albumin 3.4 g/dL (3.5-5.0); Calcium 10.9 mg/dL (8.4-10.2); Magnesium 2.5 mg/dL (1.6-2.3); Phosphorus 2.8 mg/dL (2.5-4.5); Total Bilirubin 1.7 mg/dL (0.2-1.3); Total Protein 6.2 g/dL (6.3-8.2)
[2021-09-17 19:25] LABS: T4, Free (Free Thyroxine) 1.53 ng/dL (0.78-2.19)
[2021-09-17 19:32] LABS: INR 1.1 (<1.2)
[2021-09-17 19:37] LABS: Partial Thromboplastin Time 19.9 sec (22.0-30.0)
--- NOTE | 2021-09-17 19:46 | XR ---
EXAMINATION TYPE: XR chest 2V DATE OF EXAM: 09/17/2021 COMPARISON: 10/24/2020 HISTORY: Weakness TECHNIQUE: FINDINGS: Heart is normal. There is some coarsening of interstitial markings. There are chest leads. There are sternal wires. Costophrenic angles are clear. There is some spurring in the thoracic spine. IMPRESSION: Mild interstitial pulmonary fibrotic changes. No heart failure. No acute lung disease.
[2021-09-17] MEDS ORDERED: IPRATROPIUM-ALBUTEROL 3 ML NEB INHALATION STA (20:02)
[2021-09-17] MEDS ORDERED: NALOXONE 0.4 MG/ML 1 ML VIAL IV PRN (21:26)
[2021-09-17] MEDS ORDERED: IPRATROPIUM-ALBUTEROL 3 ML NEB INHALATION PRN (21:26)
[2021-09-17] MEDS: SODIUM CHLORIDE 0.9% 1,000 ML IV SCH (22:15)
--- NOTE | 2021-09-18 01:55 | P.HPIM ---
History of Present Illness H&P Date: 09/17/21 Chief Complaint: generalized weakness 80 year old male , does not provide any meaningful history , was brought in by family due to increase weakness, and confusion. he had a fall off his bed today while trying to get up. no reported head injury or loss of consciousness. patient does not report any complaint, he does not make any eye contact. he is moving spontaneously. per ED note, and RN, family reported chronic lower extremity edema that is improving . also reported history of DVT LLE last year. no family available at this time blood work reviewed , imaging reviewed no leukocytosis no fever, no reported diarrhea. CXR showed chronic changes Review of Systems ROS unobtainable: due to mental status Past Medical History Past Medical History: Atrial Fibrillation, Asthma, Coronary Artery Disease (CAD), Cancer, Heart Failure, COPD, Deep Vein Thrombosis (DVT), Hearing Disorder / Deafness, Hyperlipidemia, Hypertension, Osteoarthritis (OA), Prostate Disorder, Vascular Disorder Additional Past Medical History / Comment(s): Pt recently admitted to [facility] on 07/27/20 with acute DVT L lower extremity, bilateral lower extremity edema thought d/t venous insufficiency, acute renal failure. Other hx: Pt denies hx COPD, bronchial pneumonia, bronchitis, pleurisy, multiple "mini strokes" per MRI/pt, degenerative arthritis in multiple joints, chronic low back pain/pinched nerve, R carpal tunnel syndrome, gout bilateral feet, TMJ, dysphagia-pt states was to have study done but did not get to it d/t covid, sinusitis, over 20 days has had bilateral lower extremity edema pt believes d/t running out of gout medications, BPH, agent orange exposure which pt states caused heart damage, murmur, R ear mostly deaf, wears bilateral hearing aides, skin cancer removals. History of Any Multi-Drug Resistant Organisms: None Reported Past Surgical History: Back Surgery, Coronary Bypass/CABG, Ear Surgery, Heart Catheterization, Heart Catheterization With Stent Additional Past Surgical History / Comment(s): L eye surgery for benign lesion, lumbar back surgery, pain clinic procedures, 2003 CABG 5 vessel, R ear wax removal, skin cancer removal Past Anesthesia/Blood Transfusion Reactions: No Reported Reaction Additional Past Anesthesia/Blood Transfusion Reaction / Comment(s): Pt has clausterphobia. Date of Last Stent Placement:: unkn Past Psychological History: PTSD Smoking Status: Never smoker - Past Family History Father Family Medical History: No Reported History Additional Family Medical History / Comment(s): Father was healthy Mother Family Medical History: No Reported History Additional Family Medical History / Comment(s): Mother was healthy Medications and Allergies Home Medications Medication Instructions Recorded Confirmed Type Aspirin [[place] Aspirin EC] 81 mg PO DAILY 04/30/18 10/24/20 History Metoprolol Succinate [Toprol XL] 12.5 mg PO DAILY 04/30/18 10/24/20 History Rosuvastatin Calcium [Crestor] 5 mg PO HS 04/30/18 10/24/20 History Omeprazole 20 mg PO DAILY 06/24/20 10/24/20 History Tamsulosin [Flomax] 0.4 mg PO DAILY 06/24/20 10/24/20 History allopurinoL [Zyloprim] 100 mg PO DAILY #30 tab 06/24/20 10/24/20 Rx Fluticasone Nasal [place] [Flonase 1 spr EA NOSTRIL BID 07/23/20 10/24/20 History Nasal [place]] Glucosam/Geovany-Msm1/C/Evan/Bosw 2 tab PO DAILY 07/23/20 10/24/20 History [Glucosamine-Chondroitin Tablet] Grape Seed 1 tab PO DAILY 07/23/20 10/24/20 History Melatonin 3 mg PO HS 07/23/20 10/24/20 History Nitroglycerin Sl Tabs [Nitrostat] 0.4 mg SL Q5M PRN 07/23/20 10/24/20 History Ubidecarenone [Coenzyme Q10] 30 mg PO DAILY 07/23/20 10/24/20 History Apixaban [Eliquis] 5 mg PO BID 30 Days #60 tab 07/27/20 10/24/20 Rx Albuterol Sulfate [Albuterol 2 puff INHALATION RT-QID PRN 10/24/20 10/24/20 Hist ory Sulfate Hfa] Finasteride [Proscar] 5 mg PO DAILY 10/24/20 10/24/20 History Furosemide [Lasix] 40 mg PO DAILY 10/24/20 10/24/20 History Lidocaine 5% Patch [Lidoderm 5% 1 patch TOPICAL DAILY 10/24/20 10/24/20 History Patch] Mineral Oil/Petrolatum,White [Stye 0.25 inch BOTH EYES HS 10/24/20 10/24/20 History Lubricant Eye Ointment] Potassium Chloride ER [K-Dur 10] 10 meq PO DAILY 10/24/20 10/24/20 History Saw [place] 500 mg PO DAILY 10/24/20 10/24/20 History Acetaminophen Tab [Tylenol] 650 mg PO Q6HR PRN tab 10/27/20 Rx Gabapentin 300 mg PO BID #10 cap 10/27/20 Rx Allergies Allergy/AdvReac Type Severity Reaction Status Date / Time diazepam [From Valium] Allergy Unknown Verified 09/17/21 18:01 simvastatin [From Zocor] Allergy MYOSITIS Verified 09/17/21 18:01 terazosin Allergy SYNCOPE Verified 09/17/21 18:01 egg AdvReac Unknown Verified 09/17/21 18:01 Physical Exam Vitals: Vital Signs Temp Pulse Resp BP Pulse Ox 09/17/21 20:27 86 09/17/21 20:19 85 09/17/21 17:49 97.8 F 75 17 119/92 97 Intake and Output 09/17/21 09/17/21 09/18/21 14:59 22:59 06:59 Intake Total 20 Balance 20 Intake: IV 20 Invasive Line 2 20 Other: Weight 53.07 kg Constitutional: No acute distress, moving spontaneously , not interacting with interviewer, cachectic Eyes: resists opening eyes. ENMT: NC/AT, resists opening mouth Neck: resists neck exam , no masses, or JVD Lungs: poor effort, decrease breath sounds throughout, no audible wheezing Cardiovascular: Heart regular in rate and rhythm, systolic murmurs, no gallops, or rubs bilateral leg edema worse on the left leg Abdominal: Soft, Nontender, no guarding, rebound or rigidity Abdomen moving with respiration Normoactive bowel sounds No hepatomegaly, No splenomegaly No palpable mass No abdominal wall hernia noted Skin: warm left foot and lower third of the leg, with slight erythema no induration Extremities: bilateral leg edema worse on the left side, with erythema and warmth to the touch , no induration , no open wounds Psychiatric: responds to verbal stimulation by briefly opening eyes, does not follow commands, only says he is fine. Neurounable to perform neuro exam , patient does not cooperate Lymphatics: no palpable cervical or supraclavicular lymph nodes Results CBC & Chem 7: 06/24/22 18:52 09/17/21 18:52 Labs: Abnormal Lab Results - Last 24 Hours (Table) 09/17/21 09/17/21 09/17/21 Range/Units 18:52 18:52 18:52 RBC 4.17 L (4.30-5.90) m/uL Hgb 12.9 L (13.0-17.5) gm/dL Lymphocytes # 0.5 L (1.0-4.8) k/uL APTT 19.9 L (22.0-30.0) sec BUN 54 H (9-20) mg/dL Creatinine 1.31 H (0.66-1.25) mg/dL Glucose 112 H (74-99) mg/dL Calcium 10.9 H (8.4-10.2) mg/dL Magnesium 2.5 H (1.6-2.3) mg/dL Total Bilirubin 1.7 H (0.2-1.3) mg/dL AST 89 H (17-59) U/L Total Protein 6.2 L (6.3-8.2) g/dL Albumin 3.4 L (3.5-5.0) g/dL Free T3 pg/mL 2.0 L (2.8-5.3) pg/ml Assessment and Plan Assessment: 80 year old male , unable to provide any meaningful history , presented for progressive weakness, and a fall today. found to have mild ANDREW. family was reluctant to discharge patient , and would like patient evaluated for possible placement ANDREW generalized weakness, and confusion , unknown baseline COPD , compensated history of lower extremity DVT 1 year ago P.afib verify home meds hold nephrotoxic meds gentle IVF hydration with normal saline fall precautions possible need for placement, PT eval follow up AM labs check left LE venous US monitor urine output full code anticipated length of stay < 2 midnights
[2021-09-18 06:30] LABS: Calcium 10.9 mg/dL (8.4-10.2); Potassium 3.7 mmol/L (3.5-5.1)
[2021-09-18] MEDS ORDERED: HEPARIN SODIUM,PORCINE/PF 5,000 UNIT/0.5 ML SYRINGE SQ SCH (08:00)
--- NOTE | 2021-09-18 09:21 | US ---
EXAMINATION TYPE: US venous doppler duplex LE LT DATE OF EXAM: 09/18/2021 9:03 AM COMPARISON: 07/23/20 CLINICAL HISTORY: r/o DVT. Hx of DVT. Patient is on blood thinners. SIDE PERFORMED: Left TECHNIQUE: The lower extremity deep venous system is examined utilizing real time linear array sonog sheela with graded compression, doppler sonography and color-flow sonography. VESSELS IMAGED: Common Femoral Vein Deep Femoral Vein Greater Saphenous Vein * Femoral Vein Popliteal Vein Small Saphenous Vein * Proximal Calf Veins (* superficial vessels) Left Leg: No evidence of DVT seen. Good color flow seen throughout vessels. Limited visualization of prox popliteal vein due to pt positioning and body habitus. IMPRESSION: No evidence of DVT at this time.
[2021-09-18] MEDS: IPRATROPIUM-ALBUTEROL 3 ML NEB INHALATION SCH ×4 (09:32→20:01)
[2021-09-18] MEDS: SODIUM CHLORIDE 0.9% 1,000 ML IV SCH (13:18)
[2021-09-18] MEDS ORDERED: ARTIFICIAL TEARS-HYPROMELLOSE DROPS 15 ML BTL BOTH EYES PRN (13:33)
[2021-09-18] MEDS ORDERED: ACETAMINOPHEN TAB 325 MG TAB PO PRN (13:33)
--- NOTE | 2021-09-18 13:33 | P.PN ---
Subjective Progress Note Date: 09/18/21 Principal diagnosis: Acute Kidney injury weakness Patient is an 80-year-old male who presents with weakness, left lower extremity edema, COPD fell out of bed was unable to Provide a meaningful history on arrival per chart review. Patient was oriented to person place was still giving a rambling history. He denies any pain Objective - Vital Signs Vital signs: Vital Signs Temp 97.4 F L 09/18/21 08:00 Pulse 69 09/18/21 08:00 Resp 16 09/18/21 08:00 BP 158/80 09/18/21 08:00 Pulse Ox 100 09/18/21 08:00 FiO2 Intake & Output 09/17/21 09/18/21 09/18/21 18:59 06:59 18:59 Intake Total 20 Output Total 300 Balance 20 -300 Weight 53.07 kg 53.07 kg Intake: IV 20 Invasive Line 2 20 Output: Urine 300 Other: Voiding Method External Catheter - Constitutional General appearance: Present: cooperative - Respiratory Respiratory: bilateral: diminished - Cardiovascular Rhythm: regular - Peripheral edema ankle Peripheral Edema: left: 2+ - Gastrointestinal General gastrointestinal: Present: normal bowel sounds - Integumentary Integumentary Comment(s): chronic stasis changes - Labs CBC & Chem 7: 09/17/21 18:52 09/18/21 04:09 Labs: Abnormal Lab Results - Last 24 Hours (Table) 09/17/21 09/17/21 09/17/21 Range/Units 18:52 18:52 18:52 RBC 4.17 L (4.30-5.90) m/uL Hgb 12.9 L (13.0-17.5) gm/dL Lymphocytes # 0.5 L (1.0-4.8) k/uL APTT 19.9 L (22.0-30.0) sec Chloride (98-107) mmol/L BUN 54 H (9-20) mg/dL Creatinine 1.31 H (0.66-1.25) mg/dL Glucose 112 H (74-99) mg/dL Calcium 10.9 H (8.4-10.2) mg/dL Magnesium 2.5 H (1.6-2.3) mg/dL Total Bilirubin 1.7 H (0.2-1.3) mg/dL AST 89 H (17-59) U/L Total Protein 6.2 L (6.3-8.2) g/dL Albumin 3.4 L (3.5-5.0) g/dL Free T3 pg/mL 2.0 L (2.8-5.3) pg/ml 09/18/21 Range/Units 04:09 RBC (4.30-5.90) m/uL Hgb (13.0-17.5) gm/dL Lymphocytes # (1.0-4.8) k/uL APTT (22.0-30.0) sec Chloride 108 H (98-107) mmol/L BUN 53 H (9-20) mg/dL Creatinine 1.33 H (0.66-1.25) mg/dL Glucose 102 H (74-99) mg/dL Calcium 10.9 H (8.4-10.2) mg/dL Magnesium (1.6-2.3) mg/dL Total Bilirubin (0.2-1.3) mg/dL AST (17-59) U/L Total Protein (6.3-8.2) g/dL Albumin (3.5-5.0) g/dL Free T3 pg/mL (2.8-5.3) pg/ml Assessment and Plan (1) Acute kidney injury Narrative/Plan: Continue gentle hydration hold nephrotoxic drugs Current Visit: Yes Status: Acute Code(s): N17.9 - ACUTE KIDNEY FAILURE, UNSPECIFIED SNOMED Code(s): 53176446 (2) DVT (deep venous thrombosis) Narrative/Plan: The patient has a history of DVT he is on anticoagulation repeat ultrasound did not show any evidence of any DVT Current Visit: No Status: Acute Code(s): I82.409 - ACUTE EMBOLISM AND THOMBOS UNSP DEEP VN UNSP LOWER EXTREMITY SNOMED Code(s): 408057148 (3) Fall Narrative/Plan: Family concerns of patient functional decline will await PT and OT evaluation patient with recent fall Current Visit: No Status: Acute Code(s): W19.XXXA - UNSPECIFIED FALL, INITIAL ENCOUNTER SNOMED Code(s): 6770294 (4) COPD (chronic obstructive pulmonary disease) Narrative/Plan: The patient is not on home oxygen he is currently not wheezing continue nebs as needed evidence of exacerbation we'll continue his home regiment Current Visit: Yes Status: Acute Code(s): J44.9 - CHRONIC OBSTRUCTIVE PULMONARY DISEASE, UNSPECIFIED SNOMED Code(s): 03682158
[2021-09-18 17:02] VITALS: BMI 15.4
[2021-09-18 17:30] LABS: Appearance,Urine Cloudy (Clear); Bacteria,Urine Occasional /hpf; Bilirubin,Urine Negative (Negative); Blood,Urine Small (Negative); Color,Urine Yellow; Glucose,Urine (UA) Negative (Negative); Ketones,Urine 1+ (Negative); Leukocyte Esterase,Urine Large (Negative); Nitrite,Urine Negative (Negative); PH, Urine 6.5 (5.0-8.0); Protein,Urine 1+ (Negative); RBC,Urine 1 /hpf (0-5); Specific Gravity,Urine 1.018 (1.001-1.035); Squamous Epithelial Cell,Urine <1 /hpf (0-4); Urobilinogen,Urine <2.0 mg/dL (<2.0); WBC,Urine >182 /hpf (0-5)
[2021-09-18] MEDS ORDERED: [UNRECOGNIZED DRUG - OTHER] BOTH EYES SCH (21:00)
[2021-09-18] MEDS ORDERED: MINERAL OIL BOTH EYES SCH (21:00)
[2021-09-18] MEDS ORDERED: PETROLATUM WHITE BOTH EYES SCH (21:00)
[2021-09-18] MEDS: GABAPENTIN 300 MG CAP PO SCH (22:00)
[2021-09-18] MEDS: APIXABAN 5 MG TAB PO SCH (22:01)
[2021-09-18] MEDS: MELATONIN 3 MG TABLET PO SCH (22:01)
[2021-09-18] MEDS: FLUTICASONE 50MCG/SPRAY NASAL 16GM EA NOSTRIL SCH (22:10)
[2021-09-19] MEDS: SODIUM CHLORIDE 0.9% 1,000 ML IV SCH ×3 (05:27→23:16)
[2021-09-19] MEDS: PANTOPRAZOLE 40 MG TABLET PO SCH (08:07)
[2021-09-19] MEDS: APIXABAN 5 MG TAB PO SCH ×2 (08:07→19:40)
[2021-09-19] MEDS: ASPIRIN 81 MG PO SCH (08:07)
[2021-09-19] MEDS: GABAPENTIN 300 MG CAP PO SCH ×2 (08:07→19:41)
[2021-09-19] MEDS: METOPROLOL SUCCINATE (ER) 25 MG TAB.ER.24H PO SCH (08:07)
[2021-09-19] MEDS: FINASTERIDE 5 MG TAB PO SCH (08:07)
[2021-09-19] MEDS: ATORVASTATIN 10 MG TAB PO SCH (08:07)
[2021-09-19] MEDS: TAMSULOSIN 0.4 MG CAP.ER.24H PO SCH (08:07)
[2021-09-19] MEDS: allopurinoL 100 MG TAB PO SCH (08:08)
[2021-09-19] MEDS: LIDOCAINE 5% PATCH TOPICAL SCH (08:08)
[2021-09-19] MEDS: FLUTICASONE 50MCG/SPRAY NASAL 16GM EA NOSTRIL SCH ×2 (08:10→19:43)
[2021-09-19] MEDS: IPRATROPIUM-ALBUTEROL 3 ML NEB INHALATION SCH ×4 (08:22→19:09)
[2021-09-19] MEDS ORDERED: GRAPE SEED PO SCH (09:00)
[2021-09-19] MEDS ORDERED: NON FORMULARY DRUG (Saw Palmetto [Saw Palmetto] 500 MG Capsule) PO SCH (09:00)
[2021-09-19] MEDS ORDERED: NON FORMULARY DRUG (Glucosam/Chon-Msm1/C/Mang/Bosw [Glucosamine-Chondroitin Tablet] 1 EACH PO SCH (09:00)
[2021-09-19] MEDS ORDERED: UBIDECARENONE 10 MG PO SCH (09:00)
[2021-09-19] MEDS ORDERED: NON FORMULARY DRUG (Lactose-Reduced Food [Ensure Plus] 237 ML Ml) PO SCH (09:00)
[2021-09-19 09:35] LABS: African American GFR (CKD) 68.6 (60.0-200.0); Anion Gap 10.6 mmol/L (10.00-18.00); BUN/Creat Ratio 40.69 Ratio (12.00-20.00); Blood Urea Nitrogen 47.2 mg/dL (9.0-27.0); Calcium 10.4 mg/dL (8.7-10.3); Carbon Dioxide 23.1 mmol/L (20.0-27.5); Non-African American GFR(CKD) 59.1 (60.0-200.0); Potassium 3.5 mmol/L (3.5-5.5)
--- NOTE | 2021-09-19 14:51 | XR ---
EXAMINATION TYPE: XR chest 1V portable DATE OF EXAM: 09/19/2021 COMPARISON: 09/17/2021 HISTORY: Hypoxemia TECHNIQUE: Single view FINDINGS: There is moderate interstitial and airspace infiltrates throughout both lungs. There are st ernal wires. Costophrenic angles are fairly clear. IMPRESSION: Increasing pulmonary edema compared to recent exam and could be congestive heart failure or RDS.
--- NOTE | 2021-09-19 17:11 | P.PN ---
Subjective Progress Note Date: 09/19/21 Principal diagnosis: Acute Kidney injury weakness aspiration pneumonia Patient is an 80-year-old male who presents with weakness, left lower extremity edema, COPD fell out of bed was unable to provide a meaningful history on arrival per chart review. Patient was oriented to person place was still giving a rambling history. He denies any pain. Today, the patient was noted to have food in his mouth, pocketing food, and "ugly hypoxic has been started on Zosyn for aspiration pneumonia. He was also started on ceftriaxone earlier today because of a UA that was positive for evidence of a urinary tract infection of a slightly positive on admission. Objective - Vital Signs Vital signs: Vital Signs Temp 97.5 F L 09/19/21 13:35 Pulse 93 09/19/21 15:15 Resp 18 09/19/21 15:15 BP 129/68 09/19/21 13:35 Pulse Ox 95 09/19/21 15:02 FiO2 40 09/19/21 15:02 Intake & Output 09/18/21 09/19/21 09/19/21 18:59 06:59 18:59 Intake Total 900 Output Total 700 1200 Balance -700 -300 Weight 53.07 kg Intake: Intake, IV Titration 900 Amount Sodium Chloride 0.9% 1, 900 000 ml @ 75 mls/hr IV . [id number] [facility] Rx#:[id number] Output: Urine 700 1200 Other: Voiding Method External Catheter External Catheter External Catheter - Labs CBC & Chem 7: 09/17/21 18:52 09/19/21 05:20 Labs: Abnormal Lab Results - Last 24 Hours (Table) 09/18/21 09/19/21 Range/Units 17:12 05:20 Sodium 149 H (135-145) mmol/L Chloride 115 H (96-109) mmol/L BUN 47.2 H (9.0-27.0) mg/dL Est GFR (CKD-EPI)NonAf 59.1 L (60.0-200.0) BUN/Creatinine Ratio 40.69 H (12.00-20.00) Ratio Glucose 113 H (70-110) mg/dL Calcium 10.4 H (8.7-10.3) mg/dL Urine Protein 1+ H (Negative) Urine Ketones 1+ H (Negative) Urine Blood Small H (Negative) Ur Leukocyte Esterase Large H (Negative) Urine WBC >182 H (0-5) /hpf Urine Bacteria Occasional H (None) /hpf Microbiology - Last 24 Hours (Table) 09/18/21 17:12 Urine Culture - Preliminary Urine,Clean Catch Assessment and Plan (1) Aspiration into respiratory tract Narrative/Plan: Patient was noted to be pocketing food chest x-ray with no infiltrates will t reat for aspiration pneumonia with Zosyn Current Visit: Yes Status: Acute Code(s): T17.908A - UNSP FB IN RESP TRACT, PART UNSP CAUSING OTH INJURY, INIT SNOMED Code(s): 223728156 (2) Urinary tract infection Narrative/Plan: Patient urinary tract infection from yesterday's specimen patient did not get one initially evidence of urinary tract infection leukocytes present initially Rocephin was started however this was discontinued once Zosyn was started Current Visit: Yes Status: Acute Code(s): N39.0 - URINARY TRACT INFECTION, SITE NOT SPECIFIED SNOMED Code(s): 85155692 (3) Acute kidney injury Narrative/Plan: Continue gentle hydration hold nephrotoxic drugs creatinine has normalized Current Visit: Yes Status: Acute Code(s): N17.9 - ACUTE KIDNEY FAILURE, UNSPECIFIED SNOMED Code(s): 07307501 (4) DVT (deep venous thrombosis) Narrative/Plan: The patient has a history of DVT he is on anticoagulation repeat ultrasound did not show any evidence of any DVT continue current treatment Current Visit: No Status: Acute Code(s): I82.409 - ACUTE EMBOLISM AND THOMBOS UNSP DEEP VN UNSP LOWER EXTREMITY SNOMED Code(s): 669312824 (5) Fall Narrative/Plan: Family concerns of patient functional decline will await PT and OT evaluation patient with recent fall likely precipitated by urinary tract infection Current Visit: No Status: Acute Code(s): W19.XXXA - UNSPECIFIED FALL, INITIAL ENCOUNTER SNOMED Code(s): 4255450 (6) COPD (chronic obstructive pulmonary disease) Narrative/Plan: The patient is not on home oxygen he is currently not wheezing continue nebs as needed evidence of exacerbation we'll continue his home regiment Current Visit: Yes Status: Acute Code(s): J44.9 - CHRONIC OBSTRUCTIVE PULMONARY DISEASE, UNSPECIFIED SNOMED Code(s): 71690384
[2021-09-19] MEDS: PIPERACILLIN-TAZOBACTAM 3.375 GM in SODIUM CHLORIDE 0.9% 100 ML IVPB SCH ×2 (17:48→23:15)
[2021-09-19] MEDS: MELATONIN 3 MG TABLET PO SCH (19:41)
[2021-09-20] MEDS: IPRATROPIUM-ALBUTEROL 3 ML NEB INHALATION SCH ×4 (07:14→19:45)
[2021-09-20] MEDS: PANTOPRAZOLE 40 MG TABLET PO SCH (07:38)
[2021-09-20] MEDS: allopurinoL 100 MG TAB PO SCH (07:38)
[2021-09-20] MEDS: ATORVASTATIN 10 MG TAB PO SCH (07:39)
[2021-09-20] MEDS: METOPROLOL SUCCINATE (ER) 25 MG TAB.ER.24H PO SCH (07:39)
[2021-09-20] MEDS: FINASTERIDE 5 MG TAB PO SCH (07:39)
[2021-09-20] MEDS: TAMSULOSIN 0.4 MG CAP.ER.24H PO SCH (07:39)
[2021-09-20] MEDS: APIXABAN 5 MG TAB PO SCH ×2 (07:39→19:57)
[2021-09-20] MEDS: GABAPENTIN 300 MG CAP PO SCH (07:39)
[2021-09-20] MEDS: ASPIRIN 81 MG PO SCH (07:39)
[2021-09-20] MEDS: FLUTICASONE 50MCG/SPRAY NASAL 16GM EA NOSTRIL SCH (07:39)
[2021-09-20] MEDS: LIDOCAINE 5% PATCH TOPICAL SCH (08:10)
[2021-09-20] MEDS: PIPERACILLIN-TAZOBACTAM 3.375 GM in SODIUM CHLORIDE 0.9% 100 ML IVPB SCH ×3 (08:18→23:36)
--- NOTE | 2021-09-20 08:42 | P.PN ---
Subjective Progress Note Date: 09/20/21 80-year-old male who apparently lives by himself was brought in by the caregiver because of increased weakness and confusion, he fell off at home and couldn't get up. Patient has history of chronic systolic congestive heart failure with last echo report showing EF of 45-50% from 06/2020, mild valvular heart disease including mild aortic stenosis mild mitral and tricuspid regurgitation. Patient has history of coronary artery disease status post CABG stent placement hypertension hyperlipidemia COPD history of CVA/TIA, history of DVT on Eliquis at home, history of benign prostatic hypertrophy osteoarthritis. Patient was admitted for acute kidney injury debility, urine tract infection, hospital course was complicated by respiratory distress in the setting of aspiration, possibly combination of fluid overload and aspiration pneumonia. Acute hypoxic respiratory failure Multi-factorial with possibility of COPD exacerbation in the setting of aspiration pneumonia and on her fluid overload due to acute and chronic systolic congestive heart failure Patient was started on IV Zosyn that we will continue Starting patient on low-dose IV steroids Starting patient on low-dose Lasix, watch for renal function worsening, plan to switch to oral Lasix on discharge Wean oxygen as able If patient doesn't get better, consider pulmonary evaluation Aspiration pneumonia Continue antibiotics as mentioned above Sputum and blood cultures Acute and chronic systolic congestive heart failure History of EF 45-50% per echo report from 07/15 Consider repeating echocardiogram Careful diuresis Consider cardiology evaluation if patient doesn't improve Urinary tract infection Culture showing gram-negative bacilli Continue Zosyn Follow up cultures History of coronary artery disease status post CABG Resume home medications aspirin and statin beta blockers History of DVT Resume Eliquis Benign prostatic hypertrophy Resume home medication, Flomax Chronic medical condition Hypertension Hyperlipidemia Dementia Anxiety and depression PTSD disorder CODE STATUS: Full code DVT prophylaxis: Subcutaneous heparin Disposition plan: Patient hospice appropriate with all of his comorbidities, palliative care consulted, patient will need long-term placement Objective - Vital Signs Vital signs: Vital Signs Temp 98.4 F 09/20/21 08:00 Pulse 83 09/20/21 08:00 Resp 17 09/20/21 08:00 BP 155/72 09/20/21 08:00 Pulse Ox 94 L 09/20/21 08:00 FiO2 40 09/19/21 15:02 Intake & Output 09/19/21 09/20/21 09/20/21 18:59 06:59 18:59 Intake Total 600 Output Total 300 100 Balance -300 500 Intake: Intake, IV Titration 600 Amount cefTRIAXone 1 gm In 600 Sodium Chloride 0.9% 50 ml @ 100 mls/hr IVPB Q24HR [facility] Rx#:[id number] Output: Urine 300 100 Other: Voiding Method External Catheter External Catheter General: Patient is confused Head: atraumatic, normocephalic, symmetric Eyes: no lid lesion], anicteric sclera Mouth: no lip lesion, mucus membranes moist Cardiovascular: S1S2 reg rate and rhythm, no murmur, no gallop Lungs: Diminished breath sounds bilaterally Abdominal: soft, nontender to palpation, no guarding, no appreciable organomegaly Ext: no gross muscle atrophy, no edema extremities warm to suppose a positive Neuro: Patient is confused, exam grossly nonfocal Psych: Mood and affect appropriate, patient not so certain Skin exam: No rashes no jaundice. - Labs CBC & Chem 7: 09/20/21 05:27 09/19/21 05:20 Labs: Abnormal Lab Results - Last 24 Hours (Table) 09/19/21 Range/Units 05:20 Sodium 149 H (135-145) mmol/L Chloride 115 H (96-109) mmol/L BUN 47.2 H (9.0-27.0) mg/dL Est GFR (CKD-EPI)NonAf 59.1 L (60.0-200.0) BUN/Creatinine Ratio 40.69 H (12.00-20.00) Ratio Glucose 113 H (70-110) mg/dL Calcium 10.4 H (8.7-10.3) mg/dL Microbiology - Last 24 Hours (Table) 09/18/21 17:12 Urine Culture - Preliminary Urine,Clean Catch Gram Neg Bacilli
[2021-09-20 09:13] LABS: HCT 39.3 % (39.6-50.0); HGB 12.5 g/dL (13.0-17.0); MCH 30.6 pg (27.0-32.0); MCHC 31.8 g/dL (32.0-37.0); MCV 96.1 fL (80.0-97.0); Mean Platelet Volume 10.7 fL (9.5-12.2); NRBC Per 100 WBC 0 /100 WBCS (0.0-0.0); Platelet Count 138 X 10*3/uL (140-440); RBC 4.09 X 10*6/uL (4.40-5.60); RDW 13.7 % (11.5-14.5); WBC 10.03 X 10*3/uL (4.50-10.00)
[2021-09-20 10:23] LABS: Basophils # (A) 0.04 X 10*3/uL (0.00-0.10); Basophils % (A) 0.4 %; Eosinophils # (A) 0 X 10*3/uL (0.04-0.35); Eosinophils % (A) 0 %; Immature Grans, Automated 1.4 %; Lymphocytes # (A) 0.52 X 10*3/uL (0.90-5.00); Lymphocytes % (A) 5.2 %; Monocytes # (A) 0.58 X 10*3/uL (0.20-1.00); Monocytes % (A) 5.8 %; Neutrophils # (A) 8.75 X 10*3/uL (1.80-7.70); Neutrophils % (A) 87.2 %
[2021-09-20] MEDS ORDERED: HEPARIN SODIUM,PORCINE/PF 5,000 UNIT/0.5 ML SYRINGE SQ SCH (16:00)
--- NOTE | 2021-09-20 16:25 | FL ---
EXAMINATION TYPE: FL barium swallow w video DATE OF EXAM: 09/20/2021 COMPARISON: NONE HISTORY: Failed bedside exam, history of pneumonia TECHNIQUE: Fluoroscopy. FINDINGS: Fluoroscopic guidance was provided for the procedure performed in conjunction with the [facility] pathology department. Please see complete report forthcoming from the Speech Pathology departmen t. Various consistencies from thin liquid to solids were administered. Fluoroscopy time 2 minutes 39 seconds. Number of images: 0. Silent aspiration occurred with thin liquids. There was penetration with nectar thick and honey thick consistencies. Significant pooling was observed in the vallecula. There was hesitancy of propulsion of the bolus. IMPRESSION: 1. Silent aspiration with thin liquids. Penetration was evident with nectar thick consistencies 2. Significant pooling within the vallecula. 3. Please see complete report forthcoming from the speech pathology department.
[2021-09-20] MEDS: FUROSEMIDE 10 MG/ML 2 ML VIAL IV SCH (20:04)
[2021-09-20] MEDS: methylPREDNISolone SOD SUCCI 40 MG/ML 1 ML VIAL IV SCH ×2 (20:08→23:55)
[2021-09-21] MEDS: IPRATROPIUM-ALBUTEROL 3 ML NEB INHALATION SCH ×4 (08:02→20:31)
[2021-09-21] MEDS ORDERED: FONDAPARINUX 2.5 MG/0.5 ML SYRINGE SQ SCH (09:00)
[2021-09-21] MEDS: methylPREDNISolone SOD SUCCI 40 MG/ML 1 ML VIAL IV SCH ×3 (10:02→23:21)
[2021-09-21] MEDS: PIPERACILLIN-TAZOBACTAM 3.375 GM in SODIUM CHLORIDE 0.9% 100 ML IVPB SCH ×3 (10:02→23:17)
[2021-09-21] MEDS: FUROSEMIDE 10 MG/ML 2 ML VIAL IV SCH (10:02)
[2021-09-21] MEDS: APIXABAN 5 MG TAB PO SCH ×2 (10:02→19:56)
[2021-09-21] MEDS: TAMSULOSIN 0.4 MG CAP.ER.24H PO SCH (10:03)
[2021-09-21] MEDS: LIDOCAINE 5% PATCH TOPICAL SCH (10:03)
[2021-09-21] MEDS: ASPIRIN 81 MG PO SCH (10:03)
--- NOTE | 2021-09-21 10:20 | P.PN ---
Progress Note - Text Progress Note Date: 09/21/21 Attempted palliative care consult. The patient was examined at the bedside. He is awake and alert. He is able to answer some questions correctly, than rambles on about a subject not related to the conversation. He is oriented to person only. He thought he was at a physical therapy office, and thought it was June 2020. Unable to complete consult at this time. Attempted to contact caregiver, Aniyah, via telephone. There was no answer. Left voicemail message requesting a call back. Kailyn Whitmore [facility] Palliative [facility] [place] [phone] Email: [email or web address]
--- NOTE | 2021-09-21 11:46 | CT ---
EXAMINATION TYPE: CT chest wo con DATE OF EXAM: 09/21/2021 INDICATION: ANDREW -COPD CT DLP: 286.8 mGy.cm Automated Exposure Control for Dose Reduction was Utilized. TECHNIQUE AND CONTRAST: Axial CT scan of the chest without IV contrast administration, only in the supine position, as per id gh-resolution protocol. The patient was unable to lay prone. COMPARISON: Chest x-ray dated 09/19/2021 FINDINGS: Suboptimal CT scan of the artifactual images. Evident pneumomediastinum extending from the inferior aspect of the neck down to the diaphragm. This is suboptimally assessed by this nonenhanced thick cuts axial CT scan. Thick consolidation seen at th e posterior aspects of the lower lobes more on the right side, possibly representing acute inflammato ry/infectious process. Associated fibrotic changes mainly involving the lower lung zones with peripheral reticulations. Trac tion bronchiectasis can't be excluded. No obvious honeycombing. Scattered nodular opacities and small atelectasis in the upper and midlung zones. Patent trachea and main bronchi. Small right pleural eff usion. Cardiomegaly. Coronary and arterial atherosclerotic calcifications. The pulmonary trunk measures up to 3.5 cm sugge stive of pulmonary hypertension. Suboptimal assessment for lymph nodes. Artifacts in the upper abdome n from the dense barium of the recent modified barium swallow. Marked degenerative changes of the rig ht glenohumeral articulation. Sternotomy wire sutures. IMPRESSION: Suboptimal limited CT scan of the chest as described above. Evident pneumo mediastinum which can be appreciated back to September 17, 2021 x-ray. The underlying etiol ogy is not clear. Recommend correlation with history of recent aerodigestive scoping or vigorous coug h. Further workup for the pneumomediastinum is advised. Dedicated enhanced CT scan of the chest can b e considered if clinically required. Right lower lobe consolidation which could represent acute infection/pneumonia however recurrent aspi ration cannot be excluded. Associated pulmonary fibrotic changes and other findings as detailed above .
--- NOTE | 2021-09-21 12:24 | CA ---
Transthoracic Echo Report Name: Kevin Faustin Age: 80 Gender: M : 1940 Exam Date: 09/21/2021 09:04 Exam Location: [place] [facility] Ht (in): 73 Wt (lb): 117 Ordering Physician: Clay Mann MD Attending/Referring Phys: Insurance Verifier Lima Cervantes RDCS Procedure CPT: Indications: chf Cardiac Hx: Technical Quality: Fair Contrast 1: Total Dose (mL): Contrast 2: Total Dose (mL): MEASUREMENTS (Male / Female) Normal Values 2D ECHO LV Diastolic Diameter PLAX 3.3 cm 4.2 - 5.9 / 3.9 - 5.3 cm LV Systolic Diameter PLAX 2.5 cm IVS Diastolic Thickness 1.4 cm 0.6 - 1.0 / 0.6 - 0.9 cm LVPW Diastolic Thickness 1.5 cm 0.6 - 1.0 / 0.6 - 0.9 cm LV Relative Wall Thickness 0.9 RV Internal Dim ED PLAX 2.8 cm LA Volume 61.9 cm??? 18 - 58 / 22 - 52 cm??? M-MODE Aortic Root Diameter MM 3.6 cm LA Systolic Diameter MM 4.7 cm LA Ao Ratio MM 1.3 AV Cusp Separation MM 1.5 cm DOPPLER AV Peak Velocity 228.8 cm/s AV Peak Gradient 20.9 mmHg AV Mean Velocity 161.9 cm/s AV Mean Gradient 11.9 mmHg AV Velocity Time Integral 36.6 cm LVOT Peak Velocity 101.3 cm/s LVOT Peak Gradient 4.1 mmHg TR Peak Velocity 243.6 cm/s TR Peak Gradient 23.7 mmHg Right Ventricular Systolic Press 28.1 mmHg FINDINGS Left Ventricle Mildly increased left ventricular wall thickness. Left ventricular ejection fraction is estimated at 45-50 %. Abnormal (paradoxical) septal motion consistent with postoperative state. Right Ventricle Normal right ventricular size and function. Right ventricular systolic pressure within normal limits. Right Atrium Normal right atrial size. Left Atrium Mildly increased left atrial volume. Mildly increased left atrial area. No evidence for an atrial septal defect. Mitral Valve Mild mitral annular calcification. Mild mitral regurgitation. Aortic Valve Trileaflet aortic valve. Mild aortic stenosis with a peak gradient of 21 mmHg and a mean gradient of 12 mmHg. Tricuspid Valve Structurally normal tricuspid valve. Mild tricuspid regurgitation. No evidence of pulmonary hypertension. Pulmonic Valve Structurally normal pulmonic valve. Trace to mild pulmonic regurgitation. Pericardium No pericardial effusion. Aorta Normal size aortic root and proximal ascending aorta. CONCLUSIONS Mild LV systolic dysfunction with an ejection fraction of 45-50% Mild mitral regurgitation Mild tricuspid regurgitation Previewed by: Dr. Andre Baker MD (Electronically Signed) Final Date: 21 September 2021 12:22
--- NOTE | 2021-09-21 13:06 | P.CNPUL ---
History of Present Illness Consult date: 09/21/21 Reason for consult: pneumonia History of present illness: 80-year-old male patient with multiple medical problems and comorbidities who has been a silent aspirator. The patient is currently being treated for a right lower lobe aspiration pneumonia and a pulmonary consultation was requested. His comorbid conditions of multiple. Apparently the patient has a caregiver and is still living at home. He is quite sedentary. He has previous history of CVA. He also has previous history of DVT and the patient is demented on long-term medical condition with Eliquis. His comorbid conditions include chronic systolic heart failure with an ejection fraction of 45-50%, mild valvular heart disease, mild aortic stenosis, coronary artery disease, previous bypass surgery, hypertension hyperlipidemia. Unsure if the patient COPD as the patient is a lifetime nonsmoker. The patient is currently being treated for an acute hypoxic respiratory failure and a CAT scan of the chest was also done showing evidence of pneumomediastinum extending in the inferior aspect of the neck down to the diaphragm. There is also consolidation in the posterior aspect of the lower lobes, more so on the right and the patient has some chronic scattered fibrotic changes in the lung bases along with some peripheral reticulation. No obvious pulmonary fibrosis. No obvious honeycombing. There is also evidence of possible pulmonary artery hypertension as the PA was around 2.5 cm in size and the patient will also had degenerative changes of the right shoulder. An echo was also done and the patient was found to have a ejection fraction 45%. No significant pulmonary hypertension was noted on the echocardiogram. The white cell count is at 10.3 with hemoglobin 12.5 and a platelet count of 135. The patient is a proBNP level of 15,700. Sodium level is at 149, BUN is 47 with a creatinine of 1.2. UA was abnormal with positive white cells and leukocyte lisa rase. Influenza screen was negative. Overnight. He was also negative. The patient is currently on IV Zosyn. The patient is also on long-term and coagulation with Eliquis. The patient remains on IV Lasix. He is on DuoNeb nebulized treatments around the clock and IV Solu-Medrol. Very poor historian. Palliative care was also consulted on the case. Review of Systems Based on the review of system that was extubated on the patient, he has chronic issues with aspiration. He is currently on room air oxygen. Unreliable historian. Essentially sedentary. No falls. No trauma. No hemoptysis. No pleurisy. No reported chest pain. ROS unobtainable: due to mental status Past Medical History Past Medical History: Atrial Fibrillation, Asthma, Coronary Artery Disease (CAD), Cancer, Heart Failure, COPD, Deep Vein Thrombosis (DVT), Hearing Disorder / Deafness, Hyperlipidemia, Hypertension, Osteoarthritis (OA), Prostate Disorder, Vascular Disorder Additional Past Medical History / Comment(s): Pt recently admitted to [facility] on 07/27/20 with acute DVT L lower extremity, bilateral lower extremity edema thought d/t venous insufficiency, acute renal failure. Other hx: Pt denies hx COPD, bronchial pneumonia, bronchitis, pleurisy, multiple "mini strokes" per MRI/pt, degenerative arthritis in multiple joints, chronic low back pain/pinched nerve, R carpal tunnel syndrome, gout bilateral feet, TMJ, dysphagia-pt states was to have study done but did not get to it d/t covid, sinusitis, over 20 days has had bilateral lower extremity edema pt believes d/t running out of gout medications, BPH, agent orange exposure which pt states caused heart damage, murmur, R ear mostly deaf, wears bilateral hearing aides, skin cancer removals. History of Any Multi-Drug Resistant Organisms: None Reported Past Surgical History: Back Surgery, Coronary Bypass/CABG, Ear Surgery, Heart Catheterization, Heart Catheterization With Stent Additional Past Surgical History / Comment(s): L eye surgery for benign lesion, lumbar back surgery, pain clinic procedures, 2003 CABG 5 vessel, R ear wax removal, skin cancer removal Past Anesthesia/Blood Transfusion Reactions: No Reported Reaction Additional Past Anesthesia/Blood Transfusion Reaction / Comment(s): Pt has jessica terphobia. Date of Last Stent Placement:: unkn Past Psychological History: PTSD Smoking Status: Never smoker - Past Family History Father Family Medical History: No Reported History Additional Family Medical History / Comment(s): Father was healthy Mother Family Medical History: No Reported History Additional Family Medical History / Comment(s): Mother was healthy Medications and Allergies Home Medications Medication Instructions Recorded Confirmed Type Aspirin [[place] Aspirin EC] 81 mg PO DAILY 04/30/18 09/18/21 History Metoprolol Succinate [Toprol XL] 12.5 mg PO DAILY 04/30/18 09/18/21 History Omeprazole 20 mg PO DAILY 06/24/20 09/18/21 History Tamsulosin [Flomax] 0.4 mg PO DAILY 06/24/20 09/18/21 History Fluticasone Nasal Mars [Flonase 1 spr EA NOSTRIL BID 07/23/20 09/18/21 History Nasal Mars] Glucosam/Geovany-Msm1/C/Evan/Bosw 2 tab PO DAILY 07/23/20 09/18/21 History [Glucosamine-Chondroitin Tablet] Grape Seed 1 tab PO DAILY 07/23/20 09/18/21 History Melatonin 3 mg PO HS 07/23/20 09/18/21 History Nitroglycerin Sl Tabs [Nitrostat] 0.4 mg SL Q5M PRN 07/23/20 09/18/21 History Ubidecarenone [Coenzyme Q10] 30 mg PO DAILY 07/23/20 09/18/21 History Apixaban [Eliquis] 5 mg PO BID 30 Days #60 tab 07/27/20 09/18/21 Rx Albuterol Sulfate [Albuterol 2 puff INHALATION RT-QID PRN 10/24/20 09/18/21 History Sulfate Hfa] Finasteride [Proscar] 5 mg PO DAILY 10/24/20 09/18/21 History Furosemide [Lasix] 40 mg PO BID 10/24/20 09/18/21 History Lidocaine 5% Patch [Lidoderm 5% 1 patch TOPICAL DAILY 10/24/20 09/18/21 History Patch] Mineral Oil/Petrolatum,White [Stye 0.25 inch BOTH EYES HS 10/24/20 09/18/21 History Lubricant Eye Ointment] Potassium Chloride ER [K-Dur 10] 10 meq PO DAILY 10/24/20 09/18/21 History Saw [place] 500 mg PO DAILY 10/24/20 09/18/21 History Acetaminophen Tab [Tylenol] 650 mg PO Q6HR PRN tab 10/27/20 09/18/21 Rx Gabapentin 300 mg PO BID #10 cap 10/27/20 09/18/21 Rx Lactose-Reduced Food [Ensure Plus] 2 can PO DAILY 09/18/21 09/18/21 History Polyvinyl Alcohol/Povidone 1 drop BOTH EYES DAILY PRN 09/18/21 09/18/21 History [[place] Eye Drop] Rosuvastatin Calcium [Crestor] 5 mg PO DIRECTED 09/18/21 09/18/21 History allopurinoL [Zyloprim] 200 mg PO DAILY 09/18/21 09/18/21 History Allergies Allergy/AdvReac Type Severity Reaction Status Date / Time diazepam [From Valium] Allergy Unknown Verified 09/18/21 10:52 simvastatin [From Zocor] Allergy MYOSITIS Verified 09/18/21 10:52 terazosin Allergy SYNCOPE Verified 09/18/21 10:52 Beef Containing Products AdvReac Nausea & Verified 09/18/21 17:29 [Beef] Vomiting & Diarrhea chicken derived [Chicken] AdvReac Nausea & Verified 09/18/21 17:29 Vomiting & Diarrhea egg AdvReac Unknown Verified 09/18/21 10:52 gluten AdvReac Nausea & Verified 09/18/21 17:29 Vomiting & Diarrhea Pork/Porcine Containing AdvReac Nausea & Verified 09/18/21 17:29 Products Vomiting & [Pork] Diarrhea Physical Exam Vitals: Vital Signs Temp Pulse Pulse Resp BP Pulse Ox 09/21/21 08:14 80 09/21/21 08:03 75 09/21/21 08:00 97.7 F 82 16 157/99 97 09/21/21 01:15 97.6 F 91 18 135/81 96 09/20/21 20:10 20 09/20/21 20:00 98.6 F 113 H 16 101/62 95 09/20/21 19:54 90 09/20/21 19:47 86 96 09/20/21 13:48 98.2 F 96 18 114/74 96 Intake and Output 09/20/21 09/21/21 09/21/21 22:59 06:59 14:59 Output Total 250 400 Balance -250 -400 Output: Urine 250 400 Other: Voiding Method External Catheter Diaper External Catheter # Voids 2 1 Gen. appearance the patient is calm and comfortable and the breathing is nonla bored at this point in time. He is on room air oxygen. Body mass index is 15.4 Head exam was generally normal. There was no scleral icterus or corneal arcus. Mucous membranes were moist. Neck was supple and without jugular venous distension, thyromegaly, or carotid bruits. Carotids were easily palpable bilaterally. There was no adenopathy. Lungs sounds are diminished in lung bases and the patient clearly has right basilar crackles Cardiac exam revealed the PMI to be normally situated and sized. The rhythm was regular and no extrasystoles were noted during several minutes of auscultation. The first and second heart sounds were normal and physiologic splitting of the second heart sound was noted. There were no murmurs, rubs, clicks, or gallops. Abdominal exam revealed normal bowel sounds. The abdomen was soft, non-tender, and without masses, organomegaly, or appreciable enlargement of the abdominal aorta. Examination of the extremities revealed easily palpable radial, femoral and pedal pulses. There was no cyanosis, clubbing or edema. Examination of the skin revealed no evidence of significant rashes, suspicious appearing nevi or other concerning lesions. Results - Laboratory Findings CBC and BMP: 09/20/21 05:27 09/19/21 05:20 PT/INR, D-dimer PT 12.0 sec (9.0-12.0) 09/17/21 18:52 INR 1.1 (<1.2) 09/17/21 18:52 Abnormal lab findings: Abnormal Labs 09/17/21 09/17/21 09/17/21 18:52 18:52 18:52 WBC RBC 4.17 L Hgb 12.9 L Hct MCHC Plt Count Plt Count Comment Immature Gran # Neutrophils # Lymphocytes # 0.5 L Eosinophils # APTT 19.9 L Sodium Chloride BUN 54 H Creatinine 1.31 H Est GFR (CKD-EPI)NonAf BUN/Creatinine Ratio Glucose 112 H Calcium 10.9 H Magnesium 2.5 H Total Bilirubin 1.7 H AST 89 H Total Protein 6.2 L Albumin 3.4 L Free T3 pg/mL 2.0 L Urine Protein Urine Ketones Urine Blood Ur Leukocyte Esterase Urine WBC Urine Bacteria 09/18/21 09/18/21 09/19/21 04:09 17:12 05:20 WBC RBC Hgb Hct MCHC Plt Count Plt Count Comment Immature Gran # Neutrophils # Lymphocytes # Eosinophils # APTT Sodium 149 H Chloride 108 H 115 H BUN 53 H 47.2 H Creatinine 1.33 H Est GFR (CKD-EPI)NonAf 59.1 L BUN/Creatinine Ratio 40.69 H Glucose 102 H 113 H Calcium 10.9 H 10.4 H Magnesium Total Bilirubin AST Total Protein Albumin Free T3 pg/mL Urine Protein 1+ H Urine Ketones 1+ H Urine Blood Small H Ur Leukocyte Esterase Large H Urine WBC >182 H Urine Bacteria Occasional H 09/20/21 05:27 WBC 10.03 H RBC 4.09 L Hgb 12.5 L Hct 39.3 L MCHC 31.8 L Plt Count 138 L Plt Count Comment DECREASED A Immature Gran # 0.14 H Neutrophils # 8.75 H Lymphocytes # 0.52 L Eosinophils # 0 L APTT Sodium Chloride BUN Creatinine Est GFR (CKD-EPI)NonAf BUN/Creatinine Ratio Glucose Calcium Magnesium Total Bilirubin AST Total Protein Albumin Free T3 pg/mL Urine Protein Urine Ketones Urine Blood Ur Leukocyte Esterase Urine WBC Urine Bacteria - Diagnostic Findings Chest x-ray: image reviewed Assessment and Plan Plan: Chronic silent aspiration with ongoing aspiration to lower lobe posterior segment right more than left Acute hypoxic respiratory failure currently on room air oxygen Pneumomediastinum involving the inferior aspect of the neck to the diaphragm and along the left cardiac border, rule out esophageal tear, rule out perforated pulmonary bleb contributing to this no mediastinum. The patient did undergo a barium swallow on 09/20/2021 that showed silent aspiration with liquid material and penetration was evident with nectar thick consistencies. Chronic systolic heart failure with an ejection fraction of 45% UTI, and then IV Zosyn Coronary artery disease bypass surgery History of DVT BPH Hypertension Hyperlipidemia Previous history of CVA Dementia PTSD Chronic anxiety/depression Debilitated state secondary to above-mentioned comorbidities Plan Repeat chest x-ray with next 24 hours Aspiration precautions IV Zosyn Continue anticoagulation with Eliquis May discontinue the IV Lasix for now and monitor sodium levels We'll continue to follow
--- NOTE | 2021-09-21 13:58 | P.PN ---
Subjective Progress Note Date: 09/21/21 History of present illness per H&P: 80-year-old male who apparently lives by himself was brought in by the caregiver because of increased weakness and confusion, he fell off at home and couldn't g et up. Patient has history of chronic systolic congestive heart failure with last echo report showing EF of 45-50% from 06/2020, mild valvular heart disease including mild aortic stenosis mild mitral and tricuspid regurgitation. Patient has history of coronary artery disease status post CABG stent placement hypertension hyperlipidemia COPD history of CVA/TIA, history of DVT on Eliquis at home, history of benign prostatic hypertrophy osteoarthritis. Patient was admitted for acute kidney injury debility, urine tract infection, hospital course was complicated by respiratory distress in the setting of aspiration, possibly combination of fluid overload and aspiration pneumonia. Interval history: Patient was examined at the bedside. He will alert oriented to himself. Speech evaluated the patient and started the patient on pured diet with honey thick liquids. Physical examination: Gen. appearance the patient is calm and comfortable. Cachectic Head exam was generally normal. There was no scleral icterus or corneal arcus. Mucous membranes were moist. Neck was supple and without jugular venous distension, thyromegaly, or carotid bruits. Carotids were easily palpable bilaterally. There was no adenopathy. Lungs sounds are diminished in lung bases and the patient clearly has right basilar crackles Cardiac exam revealed the PMI to be normally situated and sized. The rhythm was regular and no extrasystoles were noted during several minutes of auscultation. The first and second heart sounds were normal and physiologic splitting of the second heart sound was noted. There were no murmurs, rubs, clicks, or gallops. Abdominal exam revealed normal bowel sounds. The abdomen was soft, non-tender, and without masses, organomegaly, or appreciable enlargement of the abdominal aorta. Examination of the extremities revealed easily palpable radial, femoral and pedal pulses. There was no cyanosis, clubbing or edema. Examination of the skin revealed no evidence of significant rashes, suspicious appearing nevi or other concerning lesions. Acute hypoxic respiratory failure secondary to chronic silent aspiration pneumonia -Computed tomography scan of the chest showed pneumo-mediastinum and bilateral aspiration pneumonia worse on the right -Resume IV Zosyn -Speech started patient on pured diet with honey thick liquids -Broncholithiasis treatment Aspiration pneumonia Continue antibiotics as mentioned above Sputum and blood cultures Pneumomediastinum -involving the inferior aspect of the neck to the diaphragm and along the left cardiac border, rule out esophageal tear, rule out perforated pulmonary bleb contributing to this no mediastinum. The patient did undergo a barium swallow on 09/20/2021 that showed silent aspiration with liquid material and penetration was evident with nectar thick consistencies. -Pulmonary consulted Severe protein calorie malnutrition Cachexia -Nutrition services consulted Chronic systolic heart failure -Echo showed mild LV systolic dysfunction with ejection fraction 45-50% -Mild mitral regurgitation -Mild tricuspid regurgitation -Cardiology consulted Proteus mirabilis urinary tract infection Pansensitive Continue Zosyn Follow up cultures History of coronary artery disease status post CABG Resume home medications aspirin and statin beta blockers History of DVT Resume Eliquis Benign prostatic hypertrophy Resume home medication, Flomax Chronic medical condition Hypertension Hyperlipidemia Dementia Anxiety and depression PTSD disorder CODE STATUS: Full code DVT prophylaxis: Subcutaneous heparin Disposition plan: Patient hospice appropriate with all of his comorbidities, palliative care consulted, patient will need long-term placement Objective - Vital Signs Vital signs: Vital Signs Temp 97.7 F 09/21/21 08:00 Pulse 80 09/21/21 08:14 Resp 16 09/21/21 08:00 BP 157/99 09/21/21 08:00 Pulse Ox 95 09/21/21 10:30 FiO2 40 09/19/21 15:02 Intake & Output 09/20/21 09/21/21 09/21/21 18:59 06:59 18:59 Output Total 250 400 Balance -250 -400 Output: Urine 250 400 Other: Voiding Method External Catheter Diaper External Catheter # Voids 2 1 - Labs CBC & Chem 7: 09/20/21 05:27 09/19/21 05:20 Labs: Microbiology - Last 24 Hours (Table) 09/18/21 17:12 Urine Culture - Preliminary Urine,Clean Catch Proteus mirabilis
[2021-09-22] MEDS: IPRATROPIUM-ALBUTEROL 3 ML NEB INHALATION SCH ×4 (08:54→19:29)
--- NOTE | 2021-09-22 08:55 | XR ---
EXAMINATION TYPE: XR chest 1V DATE OF EXAM: 09/22/2021 COMPARISON: 09/19/2021 INDICATION: Follow-up, short of breath TECHNIQUE: Single frontal view of the chest is obtained. FINDINGS: The heart size is normal. The pulmonary vasculature is normal. Patchy bilateral lung infiltrates are present. There may be some improvement over the interval. Leon nued follow-up is recommended. Pneumomediastinum appears to be resolving. Advanced degenerative changes are at the right glenohumeral junction. IMPRESSION: 1. Resolving pneumomediastinum. 2. Resolving bilateral lung infiltrates. Continued follow-up is recommended.
[2021-09-22 09:16] LABS: Basophils # (A) 0.02 X 10*3/uL (0.00-0.10); Basophils % (A) 0.1 %; Eosinophils # (A) 0 X 10*3/uL (0.04-0.35); Eosinophils % (A) 0 %; HGB 12.5 g/dL (13.0-17.0); Immature Grans, Automated 0.7 %; Lymphocytes # (A) 0.46 X 10*3/uL (0.90-5.00); Lymphocytes % (A) 3.1 %; MCH 30.6 pg (27.0-32.0); MCHC 32.1 g/dL (32.0-37.0); MCV 95.6 fL (80.0-97.0); Mean Platelet Volume 11.3 fL (9.5-12.2); Monocytes # (A) 0.46 X 10*3/uL (0.20-1.00); Monocytes % (A) 3.1 %; NRBC Per 100 WBC 0 /100 WBCS (0.0-0.0); Neutrophils # (A) 13.75 X 10*3/uL (1.80-7.70); Platelet Count 173 X 10*3/uL (140-440); RBC 4.08 X 10*6/uL (4.40-5.60); RDW 13.9 % (11.5-14.5)
[2021-09-22] MEDS: LIDOCAINE 5% PATCH TOPICAL SCH (09:16)
[2021-09-22] MEDS: TAMSULOSIN 0.4 MG CAP.ER.24H PO SCH (09:16)
[2021-09-22] MEDS: methylPREDNISolone SOD SUCCI 40 MG/ML 1 ML VIAL IV SCH ×2 (09:16→16:43)
[2021-09-22] MEDS: ASPIRIN 81 MG PO SCH (09:16)
[2021-09-22] MEDS: PIPERACILLIN-TAZOBACTAM 3.375 GM in SODIUM CHLORIDE 0.9% 100 ML IVPB SCH ×2 (09:16→15:25)
[2021-09-22] MEDS: APIXABAN 5 MG TAB PO SCH (09:16)
[2021-09-22 09:19] LABS: African American GFR (CKD) 54.6 (60.0-200.0); Albumin 2.7 g/dL (3.8-4.9); Albumin/Globulin Ratio 1.04 (1.60-3.17); Anion Gap 13.8 mmol/L (10.00-18.00); BUN/Creat Ratio 34.71 Ratio (12.00-20.00); Blood Urea Nitrogen 48.6 mg/dL (9.0-27.0); Calcium 12.1 mg/dL (8.7-10.3); Carbon Dioxide 20.2 mmol/L (20.0-27.5); Globulin 2.6 g/dL (1.6-3.3); Non-African American GFR(CKD) 47.1 (60.0-200.0); Potassium 3.3 mmol/L (3.5-5.5); Total Bilirubin 0.8 mg/dL (0.30-1.20); Total Protein 5.3 g/dL (6.2-8.2)
--- NOTE | 2021-09-22 10:40 | P.CRDCN ---
History of Present Illness Consult date: 09/22/21 History of present illness: HISTORY OF PRESENT ILLNESS: This is a 80-year-old male with a past medical history significant for coronary artery disease with previous CABG, DVT, congestive heart failure, hypertension, and hyperlipidemia. Patient follows in the office with Dr. Soto. We have been asked to see the patient in consultation for congestive heart failure. Patient is admitted to the hospital secondary to debility, acute kidney injury, urinary tract infection, and aspiration pneumonia. Patient examined at the bedside. Patient denies any chest pain or pressure. He denies any shortness of breath. Patient is on room air with oxygen saturations greater than 92%. He appears very comfortable and not in any acute distress. * Chest xray resolving pneumomediastinum. Resolving bilateral lung infiltrates. * Laboratory data: WBC 14.8. Hemoglobin 12.5. Platelet count 173. Sodium 157. Potassium 3.3. BUN 48. Creatinine 1.4. * Current home cardiac medications include Eliquis 5mg BID, aspirin 81 mg daily, Lasix 40 mg twice a day, metoprolol succinate 12.5 mg daily, Crestor 5 mg daily * Echocardiogram obtained revealing ejection fraction 45-50%, mild MR, mild aortic stenosis, mild TR * Cardiac catheterization history: Unknown REVIEW OF SYSTEMS: At the time of my exam: CONSTITUTIONAL: Denies fever or chills. HEENT: Denies blurred vision, vision changes, or eye pain. Denies hemoptysis CARDIOVASCULAR: Denies chest pain. Denies orthopnea. Denies PND. Denies palpitations RESPIRATORY: Denies shortness of breath. GASTROINTESTINAL: Denies abdominal pain. Denies nausea or vomiting. HEMATOLOGIC: Denies bleeding disorders. GENITOURINARY: Denies any blood in urine. SKIN: Denies pruitis. Denies rash. PHYSICAL EXAM: VITAL SIGNS: Reviewed. GENERAL: Well-developed in no acute distress. HEENT: Head is normocephalic. Pupils are equal, round. Sclerae anicteric. Mucous membranes of the mouth are moist. Neck supple. No JVD or thyromegaly LUNGS: Respirations even and unlabored. Lungs diminished bilaterally. HEART: Regular rate and rhythm. S1 and S2 heard. ABDOMEN: Soft. Nondistended. Nontender. EXTREMITIES: Normal range of motion. No clubbing or cyanosis. Peripheral p ulses intact. No lower extremity edema NEUROLOGIC: Awake and alert. ASSESSMENT: Urinary tract infection Acute kidney injury Aspiration pneumonia Pneumomediastinum Chronic congestive heart failure with pEF, intermediate or borderline, EF 45- 50%, appears euvolemic on examination Coronary artery disease with previous CABG History of DVT Hypertension Hyperlipidemia Hypernatremia PLAN: 2D echo obtained and reviewed Patient does not appear to be in overt heart failure. May hold lasix due to ANDREW. Will continue to monitor Resume additional home cardiac medications Add Norvasc for optimal blood pressure control Further recommendations pending patient course Nurse practitioner note has been reviewed by physician. Signing provider agrees with the documented findings, assessment, and plan of care. Past Medical History Past Medical History: Atrial Fibrillation, Asthma, Coronary Artery Disease (CAD), Cancer, Heart Failure, COPD, Deep Vein Thrombosis (DVT), Hearing Disorder / Deafness, Hyperlipidemia, Hypertension, Osteoarthritis (OA), Prostate Disorder, Vascular Disorder Additional Past Medical History / Comment(s): Pt recently admitted to [facility] on 07/27/20 with acute DVT L lower extremity, bilateral lower extremity edema thought d/t venous insufficiency, acute renal failure. Other hx: Pt denies hx COPD, bronchial pneumonia, bronchitis, pleurisy, multiple "mini strokes" per MRI/pt, degenerative arthritis in multiple joints, chronic low back pain/pinched nerve, R carpal tunnel syndrome, gout bilateral feet, TMJ, dysphagia-pt states was to have study done but did not get to it d/t covid, sinusitis, over 20 days has had bilateral lower extremity edema pt believes d/t running out of gout medications, BPH, agent orange exposure which pt states caused heart damage, murmur, R ear mostly deaf, wears bilateral hearing aides, skin cancer removals. History of Any Multi-Drug Resistant Organisms: None Reported Past Surgical History: Back Surgery, Coronary Bypass/CABG, Ear Surgery, Heart Catheterization, Heart Catheterization With Stent Additional Past Surgical History / Comment(s): L eye surgery for benign lesion, lumbar back surgery, pain clinic procedures, 2003 CABG 5 vessel, R ear wax removal, skin cancer removal Past Anesthesia/Blood Transfusion Reactions: No Reported Reaction Additional Past Anesthesia/Blood Transfusion Reaction / Comment(s): Pt has clausterphobia. Date of Last Stent Placement:: unkn Past Psychological History: PTSD Smoking Status: Never smoker - Past Family History Father Family Medical History: No Reported History Additional Family Medical History / Comment(s): Father was healthy Mother Family Medical History: No Reported History Additional Family Medical History / Comment(s): Mother was healthy Medications and Allergies Home Medications Medication Instructions Recorded Confirmed Type Aspirin [[place]irie Aspirin EC] 81 mg PO DAILY 04/30/18 09/18/21 History Metoprolol Succinate [Toprol XL] 12.5 mg PO DAILY 04/30/18 09/18/21 History Omeprazole 20 mg PO DAILY 06/24/20 09/18/21 History Tamsulosin [Flomax] 0.4 mg PO DAILY 06/24/20 09/18/21 History Fluticasone Nasal Marydel [Flonase 1 spr EA NOSTRIL BID 07/23/20 09/18/21 History Nasal Marydel] Glucosam/Geovany-Msm1/C/Evan/Bosw 2 tab PO DAILY 07/23/20 09/18/21 History [Glucosamine-Chondroitin Tablet] Grape Seed 1 tab PO DAILY 07/23/20 09/18/21 History Melatonin 3 mg PO HS 07/23/20 09/18/21 History Nitroglycerin Sl Tabs [Nitrostat] 0.4 mg SL Q5M PRN 07/23/20 09/18/21 History Ubidecarenone [Coenzyme Q10] 30 mg PO DAILY 07/23/20 09/18/21 History Apixaban [Eliquis] 5 mg PO BID 30 Days #60 tab 07/27/20 09/18/21 Rx Albuterol Sulfate [Albuterol 2 puff INHALATION RT-QID PRN 10/24/20 09/18/21 History Sulfate Hfa] Finasteride [Proscar] 5 mg PO DAILY 10/24/20 09/18/21 History Furosemide [Lasix] 40 mg PO BID 10/24/20 09/18/21 History Lidocaine 5% Patch [Lidoderm 5% 1 patch TOPICAL DAILY 10/24/20 09/18/21 History Patch] Mineral Oil/Petrolatum,White [Stye 0.25 inch BOTH EYES HS 10/24/20 09/18/21 History Lubricant Eye Ointment] Potassium Chloride ER [K-Dur 10] 10 meq PO DAILY 10/24/20 09/18/21 History Saw [place] 500 mg PO DAILY 10/24/20 09/18/21 History Acetaminophen Tab [Tylenol] 650 mg PO Q6HR PRN tab 10/27/20 09/18/21 Rx Gabapentin 300 mg PO BID #10 cap 10/27/20 09/18/21 Rx Lactose-Reduced Food [Ensure Plus] 2 can PO DAILY 09/18/21 09/18/21 History Polyvinyl Alcohol/Povidone 1 drop BOTH EYES DAILY PRN 09/18/21 09/18/21 History [[place] Eye Drop] Rosuvastatin Calcium [Crestor] 5 mg PO DIRECTED 09/18/21 09/18/21 History allopurinoL [Zyloprim] 200 mg PO DAILY 09/18/21 09/18/21 History Allergies Allergy/AdvReac Type Severity Reaction Status Date / Time diazepam [From Valium] Allergy Unknown Verified 09/18/21 10:52 simvastatin [From Zocor] Allergy MYOSITIS Verified 09/18/21 10:52 terazosin Allergy SYNCOPE Verified 09/18/21 10:52 Beef Containing Products AdvReac Nausea & Verified 09/18/21 17:29 [Beef] Vomiting & Diarrhea chicken derived [Chicken] AdvReac Nausea & Verified 09/18/21 17:29 Vomiting & Diarrhea egg AdvReac Unknown Verified 09/18/21 10:52 gluten AdvReac Nausea & Verified 09/18/21 17:29 Vomiting & Diarrhea Pork/Porcine Containing AdvReac Nausea & Verified 09/18/21 17:29 Products Vomiting & [Pork] Diarrhea Physical Exam Vitals: Vital Signs Temp Pulse Pulse Resp BP Pulse Ox 09/22/21 09:04 96 09/22/21 08:54 81 09/22/21 08:01 98 F 87 17 176/95 97 09/22/21 01:50 98.0 F 88 16 165/104 97 09/21/21 20:41 90 09/21/21 20:31 88 09/21/21 20:00 97.7 F 89 18 159/79 100 09/21/21 16:07 82 09/21/21 15:57 81 09/21/21 14:00 97.7 F 87 16 156/97 98 09/21/21 10:30 95 Intake and Output 09/21/21 09/22/21 09/22/21 22:59 06:59 14:59 Intake Total 120 200 Output Total 575 Balance -455 200 Intake: Intake, IV Titration 100 Amount Piperacillin-Tazobactam 3 100 .375 gm In Sodium Chloride 0.9% 100 ml @ 25 mls/hr IVPB Q8HR [facility] Rx# :[id number] Oral 120 100 Output: Urine 575 Other: Voiding Method Diaper External Catheter # Voids 1 Results 09/22/21 06:12 09/22/21 06:12 Cardiac Enzymes 09/22/21 Range/Units 06:12 AST 24 (14-35) U/L CBC 09/22/21 Range/Units 06:12 WBC 14.80 H (4.50-10.00) X 10*3/uL RBC 4.08 L (4.40-5.60) X 10*6/uL Hgb 12.5 L (13.0-17.0) g/dL Hct 39.0 L (39.6-50.0) % Plt Count 173 (140-440) X 10*3/uL Comprehensive Metabolic Panel 09/22/21 Range/Units 06:12 Sodium 157 H (135-145) mmol/L Potassium 3.3 L (3.5-5.5) mmol/L Chloride 123 H (96-109) mmol/L Carbon Dioxide 20.2 (20.0-27.5) mmol/L BUN 48.6 H (9.0-27.0) mg/dL Creatinine 1.4 (0.6-1.5) mg/dL Glucose 118 H (70-110) mg/dL Calcium 12.1 H (8.7-10.3) mg/dL AST 24 (14-35) U/L ALT 21 (10-49) U/L Alkaline Phosphatase 47 (41-126) U/L Total Protein 5.3 L (6.2-8.2) g/dL Albumin 2.7 L (3.8-4.9) g/dL Current Medications Generic Name Dose Route Start Last Admin Trade Name Freq PRN Reason Stop Dose Admin Albuterol/Ipratropium 3 ml 09/18/21 08:00 09/22/21 08:54 Ipratropium-Albuterol 3 Ml Neb INHALATION 3 ml RT-QID NIKKI Administration Albuterol/Ipratropium 3 ml 09/17/21 21:26 Ipratropium-Albuterol 3 Ml Neb INHALATION RT-Q4H PRN Shortness Of Breath Or Wheezing Apixaban 5 mg 09/20/21 21:00 09/22/21 09:16 Apixaban 5 Mg Tab PO 5 mg BID NIKKI Administration Protocol Artificial Tears 1 drops 09/18/21 13:33 Artificial Tears-Hypromellose Drops 15 Ml Btl BOTH EYES DAILY PRN DRY EYES Aspirin 81 mg 09/21/21 09:00 09/22/21 09:16 Aspirin 81 Mg PO 81 mg DAILY NIKKI Administration Piperacillin Sod/Tazobactam 100 mls @ 25 mls/hr 09/19/21 17:00 09/22/21 09:16 Sod 3.375 gm/ Sodium Chloride IVPB 25 mls/hr Q8HR NIKKI Administration Protocol Lidocaine 1 patch 09/19/21 09:00 09/22/21 09:16 Lidocaine 5% Patch TOPICAL 1 patch DAILY NIKKI Administration Protocol Methylprednisolone Sodium Succinate 40 mg 09/20/21 18:45 09/22/21 09:16 Methylprednisolone Sod Succi 40 Mg/Ml 1 Ml Vial IV 40 mg Q8HR NIKKI Administration Naloxone HCl 0.2 mg 09/17/21 21:26 Naloxone 0.4 Mg/Ml 1 Ml Vial IV Q2M PRN Opioid Reversal Tamsulosin HCl 0.4 mg 09/21/21 08:30 09/22/21 09:16 Tamsulosin 0.4 Mg Cap.Er.24h PO 0.4 mg [id number] NIKKI Administration Intake and Output 09/21/21 09/22/21 09/22/21 22:59 06:59 14:59 Intake Total 120 200 Output Total 575 Balance -455 200 Intake: Intake, IV Titration 100 Amount Piperacillin-Tazobactam 3 100 .375 gm In Sodium Chloride 0.9% 100 ml @ 25 mls/hr IVPB Q8HR [facility] Rx# :[id number] Oral 120 100 Output: Urine 575 Other: Voiding Method Diaper External Catheter # Voids 1 09/22/21 06:12 09/22/21 06:12
[2021-09-22] MEDS ORDERED: DEXTROSE 5%-0.45% NACL 1,000 ML IV SCH (10:45)
[2021-09-22] MEDS ORDERED: DEXTROSE 5% IN WATER 1,000 ML IV ONE (11:01)
--- NOTE | 2021-09-22 11:02 | P.PN ---
Subjective Progress Note Date: 09/22/21 80-year-old male patient with multiple medical problems and comorbidities who has been a silent aspirator. The patient is currently being treated for a right lower lobe aspiration pneumonia and a pulmonary consultation was requested. His comorbid conditions of multiple. Apparently the patient has a caregiver and is still living at home. He is quite sedentary. He has previous history of CVA. He also has previous history of DVT and the patient is demented on long-term medical condition with Eliquis. His comorbid conditions include chronic systolic heart failure with an ejection fraction of 45-50%, mild valvular heart disease, mild aortic stenosis, coronary artery disease, previous bypass surgery, hypertension hyperlipidemia. Unsure if the patient COPD as the patient is a lifetime nonsmoker. The patient is currently being treated for an acute hypoxic respiratory failure and a CAT scan of the chest was also done showing evidence of pneumomediastinum extending in the inferior aspect of the neck down to the diaphragm. There is also consolidation in the posterior aspect of the lower lo bes, more so on the right and the patient has some chronic scattered fibrotic changes in the lung bases along with some peripheral reticulation. No obvious pulmonary fibrosis. No obvious honeycombing. There is also evidence of possible pulmonary artery hypertension as the PA was around 2.5 cm in size and the patient will also had degenerative changes of the right shoulder. An echo was also done and the patient was found to have a ejection fraction 45%. No significant pulmonary hypertension was noted on the echocardiogram. The white cell count is at 10.3 with hemoglobin 12.5 and a platelet count of 135. The patient is a proBNP level of 15,700. Sodium level is at 149, BUN is 47 with a creatinine of 1.2. UA was abnormal with positive white cells and leukocyte esterase. Influenza screen was negative. Overnight. He was also negative. The patient is currently on IV Zosyn. The patient is also on long-term and coagulation with Eliquis. The patient remains on IV Lasix. He is on DuoNeb nebulized treatments around the clock and IV Solu-Medrol. Very poor historian. Palliative care was also consulted on the case. Pulmonary evaluation was delusional thinking 09/22/2021, the patient remains on room air oxygen. He remains on IV Zosyn. Chest x-ray findings are essentially unchanged with lower lobe pulmonary infiltrates. No evidence of any significant subcutaneous emphysema or pneumomediastinum and a chest x-ray. We stopped the Lasix on him yesterday and the sodium level is up to 157 and the potassium level is at 3.3. The white cell count of 14.8 with hemoglobin 4.5. The patient remains on IV Zosyn. No signs of any significant respiratory distress. Of significance, the creatinine is up to 1.4 with a BUN of 48 along with the intravascular volume depletion. The pro calcitonin level came back at 0.98. Objective - Vital Signs Vital signs: Vital Signs Temp 98 F 09/22/21 08:01 Pulse 96 09/22/21 09:04 Resp 17 09/22/21 08:01 BP 176/95 09/22/21 08:01 Pulse Ox 97 09/22/21 08:01 FiO2 40 09/19/21 15:02 Intake & Output 09/21/21 09/22/21 09/22/21 18:59 06:59 18:59 Intake Total 120 200 Output Total 575 Balance -455 200 Intake: Intake, IV Titration 100 Amount Piperacillin-Tazobactam 3 100 .375 gm In Sodium Chloride 0.9% 100 ml @ 25 mls/hr IVPB Q8HR [facility] Rx# :[id number] Oral 120 100 Output: Urine 575 Other: Voiding Method Diaper Diaper External Catheter External Catheter # Voids 1 - Exam Gen. appearance the patient is calm and comfortable and the breathing is nonlabored at this point in time. He is on room air oxygen. Body mass index is 15.4 Head exam was generally normal. There was no scleral icterus or corneal arcus. Mucous membranes were moist. Neck was supple and without jugular venous distension, thyromegaly, or carotid bruits. Carotids were easily palpable bilaterally. There was no adenopathy. Lungs sounds are diminished in lung bases and the patient clearly has right basilar crackles Cardiac exam revealed the PMI to be normally situated and sized. The rhythm was regular and no extrasystoles were noted during several minutes of auscultation. The first and second heart sounds were normal and physiologic splitting of the second heart sound was noted. There were no murmurs, rubs, clicks, or gallops. Abdominal exam revealed normal bowel sounds. The abdomen was soft, non-tender, and without masses, organomegaly, or appreciable enlargement of the abdominal aorta. Examination of the extremities revealed easily palpable radial, femoral and pedal pulses. There was no cyanosis, clubbing or edema. Examination of the skin revealed no evidence of significant rashes, suspicious appearing nevi or other concerning lesions. - Labs CBC & Chem 7: 09/22/21 06:12 09/22/21 06:12 Labs: Abnormal Lab Results - Last 24 Hours (Table) 09/21/21 09/22/21 09/22/21 Range/Units 11:16 06:12 06:12 WBC 14.80 H (4.50-10.00) X 10*3/uL RBC 4.08 L (4.40-5.60) X 10*6/uL Hgb 12.5 L (13.0-17.0) g/dL Hct 39.0 L (39.6-50.0) % Immature Gran # 0.11 H (0.00-0.04) X 10*3/uL Neutrophils # 13.75 H (1.80-7.70) X 10*3/uL Lymphocytes # 0.46 L (0.90-5.00) X 10*3/uL Eosinophils # 0 L (0.04-0.35) X 10*3/uL Sodium 157 H (135-145) mmol/L Potassium 3.3 L (3.5-5.5) mmol/L Chloride 123 H (96-109) mmol/L BUN 48.6 H (9.0-27.0) mg/dL Est GFR (CKD-EPI)AfAm 54.6 L (60.0-200.0) Est GFR (CKD-EPI)NonAf 47.1 L (60.0-200.0) BUN/Creatinine Ratio 34.71 H (12.00-20.00) Ratio Glucose 118 H (70-110) mg/dL Calcium 12.1 H (8.7-10.3) mg/dL Total Protein 5.3 L (6.2-8.2) g/dL Albumin 2.7 L (3.8-4.9) g/dL Albumin/Globulin Ratio 1.04 L (1.60-3.17) g/dL Procalcitonin 0.98 H (0.02-0.09) ng/mL Microbiology - Last 24 Hours (Table) 09/18/21 17:12 Urine Culture - Final Urine,Clean Catch Proteus mirabilis 09/20/21 19:24 Blood Culture - Preliminary Blood No Growth after 24 hours Assessment and Plan Plan: Chronic silent aspiration with ongoing aspiration to lower lobe posterior segment right more than left, the patient's chest x-ray is unchanged Acute hypoxic respiratory failure currently on room air oxygen Pneumomediastinum involving the inferior aspect of the neck to the diaphragm and along the left cardiac border, rule out esophageal tear, rule out perforated pulmonary bleb contributing to this no mediastinum. The patient did undergo a barium swallow on 09/20/2021 that showed silent aspiration with liquid material and penetration was evident with nectar thick consistencies. The chest x-ray is unchanged Chronic systolic heart failure with an ejection fraction of 45% UTI, and then IV Zosyn Acute hypernatremia, hyperchloremic, likely secondary to diuretics and intravascular volume depletion Acute kidney injury in the creatinine is up to 1.4 secondary to above Coronary artery disease bypass surgery History of DVT BPH Hypertension Hyperlipidemia Previous history of CVA Dementia PTSD Chronic anxiety/depression Debilitated state secondary to above-mentioned comorbidities Plan Repeat chest x-ray with next 24 hours, and the findings from today are essentially unchanged Aspiration precautions IV Zosyn Continue anticoagulation with Eliquis Stop the patient D5 water at the rate of 100 mL an hour Monitor sodium levels Monitor renal function We'll continue to follow
[2021-09-22] MEDS: METOPROLOL SUCCINATE (ER) 25 MG TAB.ER.24H PO SCH (12:04)
[2021-09-22] MEDS: amLODIPine 5 MG TAB PO SCH (12:04)
--- NOTE | 2021-09-22 13:11 | US ---
EXAMINATION TYPE: US kidneys/renal and bladder DATE OF EXAM: 09/22/2021 COMPARISON: NONE CLINICAL HISTORY: ANDREW. ANDREW EXAM MEASUREMENTS: Right Kidney: 8.6 x 5.2 x 3.9 cm Left Kidney: 9.4 x 5.2 x3.7 cm Right Kidney: SUPERIOR POLE OBSCURED, NO HYDRONEPHROSIS OR MASSES SEEN Left Kidney: No hydronephrosis or masses seen Bladder: DEBRIS NOTED THROUGHOUT BLADDER, ?CALCIFICATION SEEN IN RT Bilateral Jets seen: No INCIDENTAL FINDING: GB DISTENDED WITH MULTIPLE CALCIFICATIONS AND SLUDGE, WALL APPEARS EDEMATOUS NATALIE . 1.0cm IMPRESSION: 1. Thickened gallbladder wall with gallbladder sludge and cholelithiasis. Correlate for acute cholecy stitis. 2. Debris within the urinary bladder. The urinary bladder calcification also appears to be present. C onsider additional workup.
--- NOTE | 2021-09-22 14:39 | P.PN ---
Subjective History of present illness per H&P: 80-year-old male who apparently lives by himself was brought in by the caregiver because of increased weakness and confusion, he fell off at home and couldn't get up. Patient has history of chronic systolic congestive heart failure with last echo report showing EF of 45-50% from 06/2020, mild valvular heart disease including mild aortic stenosis mild mitral and tricuspid regurgitation. Patient has history of coronary artery disease status post CABG stent placement hypertension hyperlipidemia COPD history of CVA/TIA, history of DVT on Eliquis at home, history of benign prostatic hypertrophy osteoarthritis. Patient was admitted for acute kidney injury debility, urine tract infection, hospital course was complicated by respiratory distress in the setting of aspiration, possibly combination of fluid overload and aspiration pneumonia. Interval history: Patient was examined at the bedside. He will alert oriented to himself. Sodium level increased from 140 11/28/1956 also his creatinine went up from 1.2 to 1.4. Serum osmolarity is 343 Physical examination: Gen. appearance the patient is calm and comfortable. Cachectic Head exam was generally normal. There was no scleral icterus or corneal arcus. Mucous membranes were moist. Neck was supple and without jugular venous distension, thyromegaly, or carotid bruits. Carotids were easily palpable bilaterally. There was no adenopathy. Lungs sounds are diminished in lung bases and the patient clearly has right basilar crackles Cardiac exam revealed the PMI to be normally situated and sized. The rhythm was regular and no extrasystoles were noted during several minutes of auscultation. The first and second heart sounds were normal and physiologic splitting of the second heart sound was noted. There were no murmurs, rubs, clicks, or gallops. Abdominal exam revealed normal bowel sounds. The abdomen was soft, non-tender, and without masses, organomegaly, or appreciable enlargement of the abdominal aorta. Examination of the extremities revealed easily palpable radial, femoral and pedal pulses. There was no cyanosis, clubbing or edema. Examination of the skin revealed no evidence of significant rashes, suspicious appearing nevi or other concerning lesions. Acute hypoxic respiratory failure secondary to chronic silent aspiration pneumonia -Computed tomography scan of the chest showed pneumo-mediastinum and bilateral aspiration pneumonia worse on the right -Resume IV Zosyn -Speech started patient on pured diet with honey thick liquids -Broncholithiasis treatment Aspiration pneumonia Continue antibiotics as mentioned above Sputum and blood cultures Acute kidney injury -Most likely prerenal azotemia secondary to decreased oral intake -Patient started D5 half-normal saline -I nephrology consulted Acute hypernatremia -Secondary to water deficit -She started D5 half-normal saline Pneumomediastinum -involving the inferior aspect of the neck to the diaphragm and along the left cardiac border, rule out esophageal tear, rule out perforated pulmonary bleb contributing to this no mediastinum. The patient did undergo a barium swallow on 09/20/2021 that showed silent aspiration with liquid material and penetration was evident with nectar thick consistencies. -Pulmonary consulted Severe protein calorie malnutrition Cachexia -Nutrition services consulted Chronic systolic heart failure -Echo showed mild LV systolic dysfunction with ejection fraction 45-50% -Mild mitral regurgitation -Mild tricuspid regurgitation - Lasix discontinued secondary to acute kidney injury and hypernatremia payam -Cardiology consul Proteus mirabilis urinary tract infection Pansensitive Continue Zosyn Follow up cultures History of coronary artery disease status post CABG Resume home medications aspirin and statin beta blockers History of DVT Resume Eliquis Benign prostatic hypertrophy Resume home medication, Flomax Hypertension -Resume Norvasc Dysphagia -Patient on dysphagia 1 diet and honey thick liquids Chronic medical condition Hyperlipidemia Dementia Anxiety and depression PTSD disorder CODE STATUS: Full code DVT prophylaxis: Subcutaneous heparin Disposition plan: Patient hospice appropriate with all of his comorbidities, palliative care consulted, patient will need long-term placement Objective - Vital Signs Vital signs: Vital Signs Temp 96.9 F L 09/22/21 14:02 Pulse 96 09/22/21 14:02 Resp 16 09/22/21 14:02 BP 147/72 09/22/21 14:02 Pulse Ox 98 09/22/21 14:02 FiO2 40 09/19/21 15:02 Intake & Output 09/21/21 09/22/21 09/22/21 18:59 06:59 18:59 Intake Total 120 200 Output Total 575 Balance -455 200 Weight 53.07 kg Intake: Intake, IV Titration 100 Amount Piperacillin-Tazobactam 3 100 .375 gm In Sodium Chloride 0.9% 100 ml @ 25 mls/hr IVPB Q8HR [facility] Rx# :[id number] Oral 120 100 Output: Urine 575 Other: Voiding Method Diaper Diaper External Catheter External Catheter External Catheter # Voids 1 - Labs CBC & Chem 7: 09/22/21 06:12 09/22/21 06:12 Labs: Abnormal Lab Results - Last 24 Hours (Table) 09/21/21 09/22/21 09/22/21 Range/Units 11:16 06:12 06:12 WBC 14.80 H (4.50-10.00) X 10*3/uL RBC 4.08 L (4.40-5.60) X 10*6/uL Hgb 12.5 L (13.0-17.0) g/dL Hct 39.0 L (39.6-50.0) % Immature Gran # 0.11 H (0.00-0.04) X 10*3/uL Neutrophils # 13.75 H (1.80-7.70) X 10*3/uL Lymphocytes # 0.46 L (0.90-5.00) X 10*3/uL Eosinophils # 0 L (0.04-0.35) X 10*3/uL Sodium 157 H (135-145) mmol/L Potassium 3.3 L (3.5-5.5) mmol/L Chloride 123 H (96-109) mmol/L BUN 48.6 H (9.0-27.0) mg/dL Est GFR (CKD-EPI)AfAm 54.6 L (60.0-200.0) Est GFR (CKD-EPI)NonAf 47.1 L (60.0-200.0) BUN/Creatinine Ratio 34.71 H (12.00-20.00) Ratio Glucose 118 H (70-110) mg/dL Osmolality (280-301) mosm/kg Calcium 12.1 H (8.7-10.3) mg/dL Total Protein 5.3 L (6.2-8.2) g/dL Albumin 2.7 L (3.8-4.9) g/dL Albumin/Globulin Ratio 1.04 L (1.60-3.17) g/dL Procalcitonin 0.98 H (0.02-0.09) ng/mL 09/22/21 Range/Units 11:58 WBC (4.50-10.00) X 10*3/uL RBC (4.40-5.60) X 10*6/uL Hgb (13.0-17.0) g/dL Hct (39.6-50.0) % Immature Gran # (0.00-0.04) X 10*3/uL Neutrophils # (1.80-7.70) X 10*3/uL Lymphocytes # (0.90-5.00) X 10*3/uL Eosinophils # (0.04-0.35) X 10*3/uL Sodium (135-145) mmol/L Potassium (3.5-5.5) mmol/L Chloride (96-109) mmol/L BUN (9.0-27.0) mg/dL Est GFR (CKD-EPI)AfAm (60.0-200.0) Est GFR (CKD-EPI)NonAf (60.0-200.0) BUN/Creatinine Ratio (12.00-20.00) Ratio Glucose (70-110) mg/dL Osmolality 343 H* (280-301) mosm/kg Calcium (8.7-10.3) mg/dL Total Protein (6.2-8.2) g/dL Albumin (3.8-4.9) g/dL Albumin/Globulin Ratio (1.60-3.17) g/dL Procalcitonin (0.02-0.09) ng/mL Microbiology - Last 24 Hours (Table) 09/18/21 17:12 Urine Culture - Final Urine,Clean Catch Proteus mirabilis 09/20/21 19:24 Blood Culture - Preliminary Blood No Growth after 24 hours
--- NOTE | 2021-09-22 15:18 | P.CONS ---
History of Present Illness - Reason for Consult Consult date: 09/22/21 Goals of care Requesting physician: Clay Mann - Chief Complaint weakness, cough, confusion - History of Present Illness 80-year-old male who apparently lives by himself was brought in by the caregiver because of increased weakness and confusion, he fell off at home and could not get up. Patient has history of chronic systolic congestive heart failure with last echo report showing EF of 45-50% from 06/2020, mild valvular heart disease including mild aortic stenosis, mild mitral and tricuspid regurgitation. Patient has history of coronary artery disease status post CABG stent placement, hypertension, hyperlipidemia, COPD, history of CVA/TIA, history of DVT (on Crys viviana at home), history of benign prostatic hypertrophy, and osteoarthritis. Patient was admitted for acute kidney injury, debility, and urine tract infection. His hospital course was complicated by respiratory distress in the setting of aspiration. Pulmonary was consulted. Chest CT showed pneumom ediastinum involving the inferior aspect of the neck to the diaphragm and along the left cardiac border, rule out esophageal tear, rule out perforated pulmonary bleb contributing to this no mediastinum. The patient did undergo a barium swallow on 09/20/2021 that showed silent aspiration with liquid material and penetration was evident with nectar thick consistencies. Review of Systems ROS unobtainable: due to mental status Past Medical History Past Medical History: Atrial Fibrillation, Asthma, Coronary Artery Disease (CAD), Cancer, Heart Failure, COPD, Deep Vein Thrombosis (DVT), Hearing Disorder / Deafness, Hyperlipidemia, Hypertension, Osteoarthritis (OA), Prostate Disorder, Vascular Disorder Additional Past Medical History / Comment(s): Pt recently admitted to [facility] on 07/27/20 with acute DVT L lower extremity, bilateral lower extremity edema thought d/t venous insufficiency, acute renal failure. Other hx: Pt denies hx COPD, bronchial pneumonia, bronchitis, pleurisy, multiple "mini strokes" per MRI/pt, degenerative arthritis in multiple joints, chronic low back pain/pinched nerve, R carpal tunnel syndrome, gout bilateral feet, TMJ, dysphagia-pt states was to h ave study done but did not get to it d/t covid, sinusitis, over 20 days has had bilateral lower extremity edema pt believes d/t running out of gout medications, BPH, agent orange exposure which pt states caused heart damage, murmur, R ear mostly deaf, wears bilateral hearing aides, skin cancer removals. History of Any Multi-Drug Resistant Organisms: None Reported Past Surgical History: Back Surgery, Coronary Bypass/CABG, Ear Surgery, Heart Catheterization, Heart Catheterization With Stent Additional Past Surgical History / Comment(s): L eye surgery for benign lesion, lumbar back surgery, pain clinic procedures, 2003 CABG 5 vessel, R ear wax removal, skin cancer removal Past Anesthesia/Blood Transfusion Reactions: No Reported Reaction Additional Past Anesthesia/Blood Transfusion Reaction / Comm: Pt has clausterphobia. Date of Last Stent Placement:: unkn Past Psychological History: PTSD Smoking Status: Never smoker - Past Family History Father Family Medical History: No Reported History Additional Family Medical History / Comment(s): Father was healthy Mother Family Medical History: No Reported History Additional Family Medical History / Comment(s): Mother was healthy Medications and Allergies Home Medications Medication Instructions Recorded Confirmed Type Aspirin [[place] Aspirin EC] 81 mg PO DAILY 04/30/18 09/18/21 History Metoprolol Succinate [Toprol XL] 12.5 mg PO DAILY 04/30/18 09/18/21 History Omeprazole 20 mg PO DAILY 06/24/20 09/18/21 History Tamsulosin [Flomax] 0.4 mg PO DAILY 06/24/20 09/18/21 History Fluticasone Nasal [place] [Flonase 1 spr EA NOSTRIL BID 07/23/20 09/18/21 History Nasal [place]] Glucosam/Geovany-Msm1/C/Evan/Bosw 2 tab PO DAILY 07/23/20 09/18/21 History [Glucosamine-Chondroitin Tablet] Grape Seed 1 tab PO DAILY 07/23/20 09/18/21 History Melatonin 3 mg PO HS 07/23/20 09/18/21 History Nitroglycerin Sl Tabs [Nitrostat] 0.4 mg SL Q5M PRN 07/23/20 09/18/21 History Ubidecarenone [Coenzyme Q10] 30 mg PO DAILY 07/23/20 09/18/21 History Apixaban [Eliquis] 5 mg PO BID 30 Days #60 tab 07/27/20 09/18/21 Rx Albuterol Sulfate [Albuterol 2 puff INHALATION RT-QID PRN 10/24/20 09/18/21 History Sulfate Hfa] Finasteride [Proscar] 5 mg PO DAILY 10/24/20 09/18/21 History Furosemide [Lasix] 40 mg PO BID 10/24/20 09/18/21 History Lidocaine 5% Patch [Lidoderm 5% 1 patch TOPICAL DAILY 10/24/20 09/18/21 History Patch] Mineral Oil/Petrolatum,White [Stye 0.25 inch BOTH EYES HS 10/24/20 09/18/21 History Lubricant Eye Ointment] Potassium Chloride ER [K-Dur 10] 10 meq PO DAILY 10/24/20 09/18/21 History Saw [place] 500 mg PO DAILY 10/24/20 09/18/21 History Acetaminophen Tab [Tylenol] 650 mg PO Q6HR PRN tab 10/27/20 09/18/21 Rx Gabapentin 300 mg PO BID #10 cap 10/27/20 09/18/21 Rx Lactose-Reduced Food [Ensure Plus] 2 can PO DAILY 09/18/21 09/18/21 History Polyvinyl Alcohol/Povidone 1 drop BOTH EYES DAILY PRN 09/18/21 09/18/21 History [[place] Eye Drop] Rosuvastatin Calcium [Crestor] 5 mg PO DIRECTED 09/18/21 09/18/21 History allopurinoL [Zyloprim] 200 mg PO DAILY 09/18/21 09/18/21 History Allergies Allergy/AdvReac Type Severity Reaction Status Date / Time diazepam [From Valium] Allergy Unknown Verified 09/18/21 10:52 simvastatin [From Zocor] Allergy MYOSITIS Verified 09/18/21 10:52 terazosin Allergy SYNCOPE Verified 09/18/21 10:52 Beef Containing Products AdvReac Nausea & Verified 09/18/21 17:29 [Beef] Vomiting & Diarrhea chicken derived [Chicken] AdvReac Nausea & Verified 09/18/21 17:29 Vomiting & Diarrhea egg AdvReac Unknown Verified 09/18/21 10:52 gluten AdvReac Nausea & Verified 09/18/21 17:29 Vomiting & Diarrhea Pork/Porcine Containing AdvReac Nausea & Verified 09/18/21 17:29 Products Vomiting & [Pork] Diarrhea Physical Exam Vitals: Vital Signs Temp Pulse Pulse Resp BP Pulse Ox 09/22/21 12:01 104 H 09/22/21 11:52 100 09/22/21 09:04 96 09/22/21 08:54 81 09/22/21 08:01 98 F 87 17 176/95 97 09/22/21 01:50 98.0 F 88 16 165/104 97 09/21/21 20:41 90 09/21/21 20:31 88 09/21/21 20:00 97.7 F 89 18 159/79 100 09/21/21 16:07 82 09/21/21 15:57 81 09/21/21 14:00 97.7 F 87 16 156/97 98 Intake and Output 09/21/21 09/22/21 09/22/21 22:59 06:59 14:59 Intake Total 120 200 Output Total 575 Balance -455 200 Intake: Intake, IV Titration 100 Amount Piperacillin-Tazobactam 3 100 .375 gm In Sodium Chloride 0.9% 100 ml @ 25 mls/hr IVPB Q8HR [facility] Rx# :[id number] Oral 120 100 Output: Urine 575 Other: Voiding Method Diaper External Catheter External Catheter # Voids 1 Weight 53.07 kg General: Patient appears comfortable No acute distress noted. Cachexic HEENT: Head is atraumatic, normocephalic . Sclerae are clear. Pupils equal, round and reactive to light bilaterally. CV: Heart regular in rate and rhythm positive S1 and S2. No S3. No S4. No clicks, rubs or murmurs. No JVD. Peripheral pulses equal. 2/4 Lungs: Dimnished, crackles to right base. No wheezes rales or rhonchi. Respirations even and nonlabored. No intercostal retractions. on RA Abdomen/GI: Soft. Bowel sounds present in all 4 quadrants. Bowel sounds normoactive. No abdominal tenderness. : Catheter draining clear yellow urine Musculoskeletal/ Extremities: + generalized weakness Vascular: Radial pulses equal. 2/4. Trace right LE edema Skin: No rash. Warm and dry Neurologic: Awake, alert and oriented times 1-2. Psychiatric: Appropriate mood and affect. Results CBC & Chem 7: 09/22/21 06:12 09/22/21 06:12 Labs: Abnormal Lab Results - Last 24 Hours (Table) 09/21/21 09/22/21 09/22/21 Range/Units 11:16 06:12 06:12 WBC 14.80 H (4.50-10.00) X 10*3/uL RBC 4.08 L (4.40-5.60) X 10*6/uL Hgb 12.5 L (13.0-17.0) g/dL Hct 39.0 L (39.6-50.0) % Immature Gran # 0.11 H (0.00-0.04) X 10*3/uL Neutrophils # 13.75 H (1.80-7.70) X 10*3/uL Lymphocytes # 0.46 L (0.90-5.00) X 10*3/uL Eosinophils # 0 L (0.04-0.35) X 10*3/uL Sodium 157 H (135-145) mmol/L Potassium 3.3 L (3.5-5.5) mmol/L Chloride 123 H (96-109) mmol/L BUN 48.6 H (9.0-27.0) mg/dL Est GFR (CKD-EPI)AfAm 54.6 L (60.0-200.0) Est GFR (CKD-EPI)NonAf 47.1 L (60.0-200.0) BUN/Creatinine Ratio 34.71 H (12.00-20.00) Ratio Glucose 118 H (70-110) mg/dL Osmolality (280-301) mosm/kg Calcium 12.1 H (8.7-10.3) mg/dL Total Protein 5.3 L (6.2-8.2) g/dL Albumin 2.7 L (3.8-4.9) g/dL Albumin/Globulin Ratio 1.04 L (1.60-3.17) g/dL Procalcitonin 0.98 H (0.02-0.09) ng/mL 09/22/21 Range/Units 11:58 WBC (4.50-10.00) X 10*3/uL RBC (4.40-5.60) X 10*6/uL Hgb (13.0-17.0) g/dL Hct (39.6-50.0) % Immature Gran # (0.00-0.04) X 10*3/uL Neutrophils # (1.80-7.70) X 10*3/uL Lymphocytes # (0.90-5.00) X 10*3/uL Eosinophils # (0.04-0.35) X 10*3/uL Sodium (135-145) mmol/L Potassium (3.5-5.5) mmol/L Chloride (96-109) mmol/L BUN (9.0-27.0) mg/dL Est GFR (CKD-EPI)AfAm (60.0-200.0) Est GFR (CKD-EPI)NonAf (60.0-200.0) BUN/Creatinine Ratio (12.00-20.00) Ratio Glucose (70-110) mg/dL Osmolality 343 H* (280-301) mosm/kg Calcium (8.7-10.3) mg/dL Total Protein (6.2-8.2) g/dL Albumin (3.8-4.9) g/dL Albumin/Globulin Ratio (1.60-3.17) g/dL Procalcitonin (0.02-0.09) ng/mL Microbiology - Last 24 Hours (Table) 09/18/21 17:12 Urine Culture - Final Urine,Clean Catch Proteus mirabilis 09/20/21 19:24 Blood Culture - Preliminary Blood No Growth after 24 hours Chest x-ray: report reviewed CT scan - chest: report reviewed Assessment and Plan Assessment: Reason for consult - Goals of caare Social * Occupation - unemployed * Marital status - * Children/grandchildren - 2 adult children, 1 son - Carlos, 1 daughter - Conde. Both live in [place]. * Residence - [place] * Who do you reside with - lives alone * ETOH - none * Tobacco - no * Illicit drugs - no Spiritual/Cultural * A spiritual person - Yes * Presybeterian - Restorationist * Belong to a particular evangelical - No, has a platform supervisor friend whom visits him ofter * Beliefs a source of comfort and strength - Yes * Mu-Ism or cultural practices restrictions - No * EOL considerations/rituals? No Functional Assessment * Able to walk independently - Yes, until a couple days before he was admitted * Assistive devices - Walker, wheel chair for long distances * Able to use the bathroom independently - Yes * Continent - Yes * Require assistance bathing- No * Able to feed self - Yes * Who prepares meals - Caregivers * How many meals a day eaten - Unknown, caregivers made sure he had food. However, it did not seem to them as if he were eating it * What percentage of meals eaten daily - unknown * Able to clean house/do laundry - caregivers clean and do laundry/pt unable * Transportation - Caregiver - Howard * Able to shop - Yes, with scooter * Who manages medications - Patient * Who manages finances - Caregiver Aniyah Plata" PPS score - 30% Psychological/Emotional * Dementia present - Yes * Insight and judgment - Not intact * Depression - History of depression, currently unable to assess d/t AMS * Suicidal thoughts - Unable to assess * Good support system - Yes, caregivers, neighbors, and friends * Patients goals - Unable to assess * Frequent hospitalizations - No * Desire to keep coming back to the hospital for treatment - Unable to assess Plan: Symptoms * Pain -0/10, history of chronic back pain - continue Lidoderm patch * Fatigue - Yes * SOB - not currently, continue Duoneb treatments, Zosyn, and Solumedrol * Insomnia - No * N/V - No * Anxiety - No * Depression - No * Confusion - Yes * Agitation - No * Hallucinations - JOHN * Appetite/weight loss - Yes, caregivers state that he has not been eating or drinking at home, they provide food/water for him, but he is not consuming it, encourage PO intake and nutritional supplements * Dysphagia - Yes, + silent aspiration, continue pureed diet/honey thickened liquids * Constipation - No * Incontinence - Yes, has catheter and briefs on, continue Flomax * Itch - No Summary/Goals - Spoke with patient's son, Carlos, via telephone this morning. Palliative care services and philosophies explained. He stated that he lives in [place] and that the best person to talk to about his dad is his administrative support coordinator Aniyah (she also goes by the name Constance). He stated that he does not mind being included in the decision making process for his day, but insists that his dad has papers naming Aniyah his DPOA. He thinks he may be able to obtain a copy of them from the [facility] and will try. Met with caretakers Aniyah and Howard at the bedside. Palliative care services and philosophies explained. They were told the patient has had a decline in his functional status and he has been very confused. Aniyah stated she has noticed his dementia has been worse since the beginning of the year. She also reported that he has fallen a couple times. Concern over the patient returning home was expressed. He lives alone and is no longer able to care for himself. The physician is recommending hospice or a penitentiary. They at first agreed that he should go to a penitentiary. Then changed their minds. They stated that they do not feel like patient get good care at nursing homes. Aniyah stated she would like the patient to move in with her, and she would care for him. She states she has plenty of help and support from family and friends. They were also informed that he also has severe protein calorie malnutrition. Aniyah states that she makes sure he has plenty of food and water. She has noticed that he has not been eating or drinking very much despite her efforts to encourage it. He threw away the ensure that was given to him. Aniyah and Howard were told that the patient has been aspirating on his food, causing his pneumonia. A feeding tube was mentioned at some point as a possible treatment. Aniyah and Howard were educated on how feeding tubes are not recommended on patients with advanced dementia. If he continues to eat, it is likely that he will end up with pneumonia again and have to return to the hospital. Hospice philosophies and services were explained and recommended to Howard and Aniyah. Aniyah stated she would need to talk to the patient's son Carlos. It was explained that legally, Carlos is next of kin and the decision maker at this time, unless we receive paper work stating otherwise. She is agreeable to what ever he decides. Spoke with the patient's son, Carlos, via telephone again. He was given the same information that the caregivers were. Hospice philosophies and services explained. He stated Aniyah knows the patient better and should make the decisions. It was also explained to him that legally he was the decision maker at this point. All questions answered. Carlos stated he would talk to the [facility] about insurance coverage and to Aniyah. He stated he will need some time to make any decisions. Recommendations - Home with Aniyah and hospice Advanced Directives - No Code Status - Full code Thank you for this consult Kailyn Whitmore [facility] Palliative Care [facility] [id number] Email: [email or web address] Time with Patient: Greater than 30
--- NOTE | 2021-09-22 21:10 | CONS ---
CONSULTATION REASON FOR CONSULT: Hypernatremia. HISTORY OF PRESENT ILLNESS: The patient is an 80-year-old male who was admitted to the hospital on 09/17/2021 with complaints of increased weakness. The patient had not been able to eat much prior to his admission. He has had lower extremity edema for some time which had improved with use of support stockings. No history of fevers, chills, nausea, vomiting or abdominal pain. Currently being treated for right lower lobe aspiration pneumonia. Serum sodium was 149 on 09/19/2021 and this morning it is noted to be 157. There is concern for possible esophageal tear and patient has concern for possible esophageal tear. PAST MEDICAL HISTORY: Significant for chronic atrial fibrillation, asthma, coronary artery disease, CHF, COPD, history of DVT, hearing loss, hyperlipidemia, hypertension, osteoarthritis, BPH, bilateral venous insufficiency, dysphagia, bronchitis. PAST SURGICAL HISTORY: Coronary artery bypass surgery, cardiac catheterization, coronary stent placement, back surgery, ear surgery, left eye surgery, skin cancer removal. SOCIAL HISTORY: Negative for smoking, drug abuse or alcohol abuse. MEDICATIONS: Medications prior to admission included: Toprol, omeprazole, Flomax, melatonin, Eliquis, Proscar, Lasix, potassium gabapentin, Crestor, Zyloprim. ALLERGIES: INCLUDE VALIUM, ZOCOR, TERAZOSIN, BEEF CONTAINING PRODUCTS CAUSING NAUSEA, VOMITING, DIARRHEA. CHICKEN, EGG, GLUTEN AND PORK. REVIEW OF SYSTEMS: As per HPI. EXAMINATION: Patient is currently awake, comfortable. He is not in any acute distress. He is not able to communicate much but answers simple questions. Family is present at bedside. Blood pressure this morning was 176/95, heart rate of 104 per minute. Patient is afebrile. Examination of the heart S1, S2. Examination of the lungs, bilateral breath sounds are heard. Abdomen is soft, nontender. Examination of lower extremities shows edema, 2+ left leg and 1+ right leg. PIN INSERTER exam shows patient moves his extremities. No significant focal deficits noted at this time. LAB DATA: Show sodium of 157, potassium 3.3, chloride 123, BUN 48.6, serum creatinine 1.4, serum osmolality 343. ASSESSMENT: 1. Hypernatremia associated with free water deficit initially maintained on half- normal saline now switched to D5W. Agree with switching IV fluids to D5W given the significant increase in the serum sodium level. Repeat sodium this evening. 2. Aspiration pneumonia maintained on antibiotics. 3. Pneumomediastinum with suspicion for possible esophageal tear versus perforated pulmonary bleb. 4. Chronic systolic congestive heart failure with ejection fraction 45%. 5. Acute kidney injury, mostly prerenal. Expect improvement with IV hydration. 6. Hypercalcemia associated with volume depletion. Check vitamin D and PTH levels for further workup. Previous calcium had been elevated at 10.5 in September of 2020 as well. PLAN: Aggressive IV hydration. Agree with changing IV fluids to D5W. Replace potassium. Check PTH levels, vitamin D level, serum and urine immunofixation for workup of hypercalcemia. Repeat labs in a.m. Repeat sodium this evening and replace potassium. Thank you for this consultation. We will continue to follow the patient with you during his hospitalization. MMPALMIRAL / IJN: [id number] /
[2021-09-22] MEDS: DEXTROSE 5% IN WATER 1,000 ML IV SCH (21:48)
[2021-09-22] MEDS: APIXABAN 2.5 MG TABLET PO SCH (21:48)
[2021-09-22] MEDS: ATORVASTATIN 20 MG TAB PO SCH (21:49)
[2021-09-23] MEDS: PIPERACILLIN-TAZOBACTAM 3.375 GM in SODIUM CHLORIDE 0.9% 100 ML IVPB SCH ×4 (00:31→23:51)
[2021-09-23] MEDS: methylPREDNISolone SOD SUCCI 40 MG/ML 1 ML VIAL IV SCH ×2 (00:32→07:23)
[2021-09-23] MEDS ORDERED: cloNIDine HCL 0.2 MG TAB PO STA (03:19)
[2021-09-23] MEDS: ASPIRIN 81 MG PO SCH (07:22)
[2021-09-23] MEDS: LIDOCAINE 5% PATCH TOPICAL SCH (07:24)
[2021-09-23] MEDS: APIXABAN 2.5 MG TABLET PO SCH ×2 (07:26→20:12)
[2021-09-23] MEDS: TAMSULOSIN 0.4 MG CAP.ER.24H PO SCH (07:26)
[2021-09-23] MEDS: METOPROLOL SUCCINATE (ER) 25 MG TAB.ER.24H PO SCH (07:27)
[2021-09-23] MEDS: amLODIPine 5 MG TAB PO SCH (07:27)
[2021-09-23] MEDS: IPRATROPIUM-ALBUTEROL 3 ML NEB INHALATION SCH ×4 (08:15→20:23)
[2021-09-23] MEDS ORDERED: amLODIPine 5 MG TAB PO ONE (08:30)
[2021-09-23] MEDS ORDERED: amLODIPine 10 MG TAB PO SCH (09:00)
--- NOTE | 2021-09-23 09:34 | P.PN ---
Subjective Progress Note Date: 09/23/21 HISTORY OF PRESENT ILLNESS: This is a 80-year-old male with a past medical history significant for coronary artery disease with previous CABG, DVT, congestive heart failure, hypertension, and hyperlipidemia. Patient follows in the office with Dr. Soto. We have been asked to see the patient in consultation for congestive heart failure. Patient is admitted to the hospital secondary to debility, acute kidney injury, urinary tract infection, and aspiration pneumonia. Patient examined at the bedside. Patient denies any chest pain or pressure. He denies any shortness of breath. Patient is on room air with oxygen saturations greater than 92%. He appears very comfortable and not in any acute distress. * Chest xray resolving pneumomediastinum. Resolving bilateral lung infiltrates. * Laboratory data: WBC 14.8. Hemoglobin 12.5. Platelet count 173. Sodium 157. Potassium 3.3. BUN 48. Creatinine 1.4. * Current home cardiac medications include Eliquis 5mg BID, aspirin 81 mg daily, Lasix 40 mg twice a day, metoprolol succinate 12.5 mg daily, Crestor 5 mg daily * Echocardiogram obtained revealing ejection fraction 45-50%, mild MR, mild aortic stenosis, mild TR * Cardiac catheterization history: Unknown 09/23/2021 Patient examined this morning at the bedside. Patient denies chest pain or pressure. He denies shortness of breath. Blood pressure remains elevated this morning. Sodium improved to 150. PHYSICAL EXAM: VITAL SIGNS: Reviewed. GENERAL: Well-developed in no acute distress. HEENT: Head is normocephalic. Pupils are equal, round. Sclerae anicteric. Mucous membranes of the mouth are moist. Neck supple. No JVD or thyromegaly LUNGS: Respirations even and unlabored. Lungs diminished bilaterally with a few crackles at the bases. HEART: Regular rate and rhythm. S1 and S2 heard. ABDOMEN: Soft. Nondistended. Nontender. EXTREMITIES: Normal range of motion. No clubbing or cyanosis. Peripheral pulses intact. No lower extremity edema NEUROLOGIC: Awake and alert. ASSESSMENT: Urinary tract infection Acute kidney injury Aspiration pneumonia Pneumomediastinum Chronic congestive heart failure with pEF, intermediate or borderline, EF 45- 50%, appears euvolemic on examination Coronary artery disease with previous CABG History of DVT Hypertension Hyperlipidemia Hypernatremia PLAN: Patient does not appear to be in overt heart failure. May hold lasix due to ANDREW. Will continue to monitor Continue current cardiac medications Increase Norvasc to 10 mg daily for optimal blood pressure control We will sign off. Please reconsult if needed. Nurse practitioner note has been reviewed by physician. Signing provider agrees with the documented findings, assessment, and plan of care. Objective - Vital Signs Vital signs: Vital Signs Temp 97.3 F L 09/23/21 08:00 Pulse 90 09/23/21 08:26 Resp 15 09/23/21 08:00 BP 162/94 09/23/21 08:00 Pulse Ox 99 09/23/21 08:00 FiO2 40 09/19/21 15:02 Intake & Output 09/22/21 09/23/21 09/23/21 18:59 06:59 18:59 Intake Total 1000 Output Total 150 425 Balance -150 575 Weight 53.07 kg Intake: Intake, IV Titration 1000 Amount Dextrose 5% in Water 1, 900 000 ml @ 100 mls/hr IV . Q10H ONE Rx#:[id number] Piperacillin-Tazobactam 3 100 .375 gm In Sodium Chloride 0.9% 100 ml @ 25 mls/hr IVPB Q8HR [facility] Rx# :[id number] Output: Urine 150 425 Other: Voiding Method External Catheter External Catheter # Voids 2 4 - Labs CBC & Chem 7: 09/23/21 06:03 09/23/21 06:03 Labs: Abnormal Lab Results - Last 24 Hours (Table) 09/22/21 09/22/21 Range/Units 11:58 19:41 Sodium 150 H (137-145) mmol/L Osmolality 343 H* (280-301) mosm/kg Microbiology - Last 24 Hours (Table) 09/20/21 19:24 Blood Culture - Preliminary Blood No Growth after 48 hours 09/18/21 17:12 Urine Culture - Final Urine,Clean Catch Proteus mirabilis
[2021-09-23 10:37] LABS: Basophils # (A) 0.03 X 10*3/uL (0.00-0.10); Basophils % (A) 0.2 %; Eosinophils # (A) 0 X 10*3/uL (0.04-0.35); Eosinophils % (A) 0 %; HCT 37.6 % (39.6-50.0); Immature Grans, Automated 0.7 %; Lymphocytes % (A) 3.6 %; MCH 30.4 pg (27.0-32.0); MCHC 31.9 g/dL (32.0-37.0); MCV 95.2 fL (80.0-97.0); Mean Platelet Volume 11.1 fL (9.5-12.2); Monocytes # (A) 0.29 X 10*3/uL (0.20-1.00); Monocytes % (A) 2.1 %; NRBC Per 100 WBC 0 /100 WBCS (0.0-0.0); Neutrophils % (A) 93.4 %; Platelet Count 162 X 10*3/uL (140-440); RBC 3.95 X 10*6/uL (4.40-5.60); WBC 13.81 X 10*3/uL (4.50-10.00)
[2021-09-23 10:52] LABS: African American GFR (CKD) 65.8 (60.0-200.0); Albumin 2.4 g/dL (3.8-4.9); Albumin/Globulin Ratio 1.04 (1.60-3.17); Anion Gap 8.8 mmol/L (10.00-18.00); Blood Urea Nitrogen 43.2 mg/dL (9.0-27.0); Calcium 11.9 mg/dL (8.7-10.3); Carbon Dioxide 25.2 mmol/L (20.0-27.5); Globulin 2.3 g/dL (1.6-3.3); Non-African American GFR(CKD) 56.8 (60.0-200.0); Potassium 3.2 mmol/L (3.5-5.5); Total Bilirubin 0.7 mg/dL (0.30-1.20); Total Protein 4.7 g/dL (6.2-8.2)
[2021-09-23] MEDS ORDERED: POTASSIUM CHLORIDE 20 MEQ in WATER FOR INJECTION 1 100ML.BAG IVPB STA (11:24)
--- NOTE | 2021-09-23 11:24 | P.PN ---
Subjective History of present illness per H&P: 80-year-old male who apparently lives by himself was brought in by the caregiver because of increased weakness and confusion, he fell off at home and couldn't get up. Patient has history of chronic systolic congestive heart failure with last echo report showing EF of 45-50% from 06/2020, mild valvular heart disease including mild aortic stenosis mild mitral and tricuspid regurgitation. Patient has history of coronary artery disease status post CABG stent placement hypertension hyperlipidemia COPD history of CVA/TIA, history of DVT on Eliquis at home, history of benign prostatic hypertrophy osteoarthritis. Patient was admitted for acute kidney injury debility, urine tract infection, hospital course was complicated by respiratory distress in the setting of aspiration, possibly combination of fluid overload and aspiration pneumonia. Interval history: Patient was examined at the bedside. He will alert oriented to himself. No acute reported changes overnight. Sodium level is 152. Potassium 3.2. Physical examination: Gen. appearance the patient is calm and comfortable. Cachectic Head exam was generally normal. There was no scleral icterus or corneal arcus. Mucous membranes were moist. Neck was supple and without jugular venous distension, thyromegaly, or carotid bruits. Carotids were easily palpable bilaterally. There was no adenopathy. Lungs sounds are diminished in lung bases and the patient clearly has right basilar crackles Cardiac exam revealed the PMI to be normally situated and sized. The rhythm was regular and no extrasystoles were noted during several minutes of auscultation. The first and second heart sounds were normal and physiologic splitting of the second heart sound was noted. There were no murmurs, rubs, clicks, or gallops. Abdominal exam revealed normal bowel sounds. The abdomen was soft, non-tender, and without masses, organomegaly, or appreciable enlargement of the abdominal aorta. Examination of the extremities revealed easily palpable radial, femoral and pedal pulses. There was no cyanosis, clubbing or edema. Examination of the skin revealed no evidence of significant rashes, suspicious appearing nevi or other concerning lesions. Acute hypoxic respiratory failure secondary to chronic silent aspiration pneumonia -Computed tomography scan of the chest showed pneumo-mediastinum and bilateral aspiration pneumonia worse on the right -Resume IV Zosyn -Speech started patient on pured diet with honey thick liquids -Broncholithiasis treatment Aspiration pneumonia Continue antibiotics as mentioned above Sputum and blood cultures Acute kidney injury -Improving with IV fluids -Most likely prerenal azotemia secondary to decreased oral intake -Patient started D5 half-normal saline -Nephrology following Acute hypernatremia -Secondary to water deficit -She started D5 half-normal saline Hypokalemia -Replaced Pneumomediastinum -involving the inferior aspect of the neck to the diaphragm and along the left cardiac border, rule out esophageal tear, rule out perforated pulmonary bleb contributing to this no mediastinum. The patient did undergo a barium swallow on 09/20/2021 that showed silent aspiration with liquid material and penetration was evident with nectar thick consistencies. -Pulmonary consulted Dysphagia Severe protein calorie malnutrition Cachexia -Nutrition services consulted -Patient on dysphagia 1 diet and honey thick liquids -Gen. surgery consulted for feeding tube placement Chronic systolic heart failure -Echo showed mild LV systolic dysfunction with ejection fraction 45-50% -Mild mitral regurgitation -Mild tricuspid regurgitation - Lasix discontinued secondary to acute kidney injury and hypernatremia payam -Cardiology consul Proteus mirabilis urinary tract infection Pansensitive Continue Zosyn Follow up cultures History of coronary artery disease status post CABG Resume home medications aspirin and statin beta blockers History of DVT Resume Eliquis Benign prostatic hypertrophy Resume home medication, Flomax Hypertension -Resume Norvasc Chronic medical condition Hyperlipidemia Dementia Anxiety and depression PTSD disorder CODE STATUS: Full code DVT prophylaxis: Subcutaneous heparin Disposition plan: Patient hospice appropriate with all of his comorbidities, palliative care consulted, patient will need long-term placement Objective - Vital Signs Vital signs: Vital Signs Temp 97.3 F L 09/23/21 08:00 Pulse 90 09/23/21 08:26 Resp 15 09/23/21 08:00 BP 162/94 09/23/21 08:00 Pulse Ox 99 09/23/21 08:00 FiO2 40 09/19/21 15:02 Intake & Output 09/22/21 09/23/21 09/23/21 18:59 06:59 18:59 Intake Total 1000 Output Total 150 425 Balance -150 575 Weight 53.07 kg Intake: Intake, IV Titration 1000 Amount Dextrose 5% in Water 1, 900 000 ml @ 100 mls/hr IV . Q10H ONE Rx#:[id number] Piperacillin-Tazobactam 3 100 .375 gm In Sodium Chloride 0.9% 100 ml @ 25 mls/hr IVPB Q8HR [facility] Rx# :[id number] Output: Urine 150 425 Other: Voiding Method External Catheter External Catheter # Voids 2 4 - Labs CBC & Chem 7: 09/23/21 06:03 09/23/21 06:03 Labs: Abnormal Lab Results - Last 24 Hours (Table) 09/22/21 09/22/21 09/23/21 Range/Units 11:58 19:41 06:03 WBC 13.81 H (4.50-10.00) X 10*3/uL RBC 3.95 L (4.40-5.60) X 10*6/uL Hgb 12.0 L (13.0-17.0) g/dL Hct 37.6 L (39.6-50.0) % MCHC 31.9 L (32.0-37.0) g/dL Immature Gran # 0.09 H (0.00-0.04) X 10*3/uL Neutrophils # 12.90 H (1.80-7.70) X 10*3/uL Lymphocytes # 0.50 L (0.90-5.00) X 10*3/uL Eosinophils # 0 L (0.04-0.35) X 10*3/uL Sodium 150 H (137-145) mmol/L Potassium (3.5-5.5) mmol/L Chloride (96-109) mmol/L Anion Gap (10.00-18.00) mmol/L BUN (9.0-27.0) mg/dL Est GFR (CKD-EPI)NonAf (60.0-200.0) BUN/Creatinine Ratio (12.00-20.00) Ratio Glucose (70-110) mg/dL Osmolality 343 H* (280-301) mosm/kg Calcium (8.7-10.3) mg/dL Total Protein (6.2-8.2) g/dL Albumin (3.8-4.9) g/dL Albumin/Globulin Ratio (1.60-3.17) g/dL Vitamin D 25-Hydroxy (30.0-100.0) ng/mL PTH Intact (14.0-72.0) pg/mL 09/23/21 09/23/21 09/23/21 Range/Units 06:03 06:03 06:03 WBC (4.50-10.00) X 10*3/uL RBC (4.40-5.60) X 10*6/uL Hgb (13.0-17.0) g/dL Hct (39.6-50.0) % MCHC (32.0-37.0) g/dL Immature Gran # (0.00-0.04) X 10*3/uL Neutrophils # (1.80-7.70) X 10*3/uL Lymphocytes # (0.90-5.00) X 10*3/uL Eosinophils # (0.04-0.35) X 10*3/uL Sodium 152 H (137-145) mmol/L Potassium 3.2 L (3.5-5.5) mmol/L Chloride 118 H (96-109) mmol/L Anion Gap 8.80 L (10.00-18.00) mmol/L BUN 43.2 H (9.0-27.0) mg/dL Est GFR (CKD-EPI)NonAf 56.8 L (60.0-200.0) BUN/Creatinine Ratio 36.00 H (12.00-20.00) Ratio Glucose 122 H (70-110) mg/dL Osmolality (280-301) mosm/kg Calcium 11.9 H (8.7-10.3) mg/dL Total Protein 4.7 L (6.2-8.2) g/dL Albumin 2.4 L (3.8-4.9) g/dL Albumin/Globulin Ratio 1.04 L (1.60-3.17) g/dL Vitamin D 25-Hydroxy 13.0 L (30.0-100.0) ng/mL PTH Intact 180.0 H (14.0-72.0) pg/mL Microbiology - Last 24 Hours (Table) 09/20/21 19:24 Blood Culture - Preliminary Blood No Growth after 48 hours 09/18/21 17:12 Urine Culture - Final Urine,Clean Catch Proteus mirabilis
[2021-09-23] MEDS: DEXTROSE 5% IN WATER 1,000 ML IV SCH (11:50)
--- NOTE | 2021-09-23 13:24 | P.PN ---
Subjective Patient is seen for follow-up for hyponatremia. He is currently maintained on D5W and serum sodium has decreased. 6 sodium had decreased to 150 from 157 and I had decrease the rate of D5W to 75 mL an hour. This morning sodium was at 152. No other complaints today. Objective - Vital Signs Vital signs: Vital Signs Temp 97.3 F L 09/23/21 08:00 Pulse 80 09/23/21 12:14 Resp 15 09/23/21 08:00 BP 162/94 09/23/21 08:00 Pulse Ox 99 09/23/21 08:00 FiO2 40 09/19/21 15:02 Intake & Output 09/22/21 09/23/21 09/23/21 18:59 06:59 18:59 Intake Total 1000 Output Total 150 425 Balance -150 575 Weight 53.07 kg Intake: Intake, IV Titration 1000 Amount Dextrose 5% in Water 1, 900 000 ml @ 100 mls/hr IV . Q10H ONE Rx#:[id number] Piperacillin-Tazobactam 3 100 .375 gm In Sodium Chloride 0.9% 100 ml @ 25 mls/hr IVPB Q8HR [facility] Rx# :[id number] Output: Urine 150 425 Other: Voiding Method External Catheter External Catheter # Voids 2 4 - Exam Patient is awake, comfortable, not in any acute distress Examination of the heart S1 and S2 Examination lungs bilateral breath sounds are heard Abdomen is soft nontender Examination lower extremity shows edema 2+ left leg 1+ right leg FRONT DESK exam shows patient is moving all 4 extremities. - Labs CBC & Chem 7: 09/23/21 06:03 09/23/21 06:03 Labs: Abnormal Lab Results - Last 24 Hours (Table) 09/22/21 09/23/21 09/23/21 Range/Units 19:41 06:03 06:03 WBC 13.81 H (4.50-10.00) X 10*3/uL RBC 3.95 L (4.40-5.60) X 10*6/uL Hgb 12.0 L (13.0-17.0) g/dL Hct 37.6 L (39.6-50.0) % MCHC 31.9 L (32.0-37.0) g/dL Immature Gran # 0.09 H (0.00-0.04) X 10*3/uL Neutrophils # 12.90 H (1.80-7.70) X 10*3/uL Lymphocytes # 0.50 L (0.90-5.00) X 10*3/uL Eosinophils # 0 L (0.04-0.35) X 10*3/uL Sodium 150 H 152 H (137-145) mmol/L Potassium 3.2 L (3.5-5.5) mmol/L Chloride 118 H (96-109) mmol/L Anion Gap 8.80 L (10.00-18.00) mmol/L BUN 43.2 H (9.0-27.0) mg/dL Est GFR (CKD-EPI)NonAf 56.8 L (60.0-200.0) BUN/Creatinine Ratio 36.00 H (12.00-20.00) Ratio Glucose 122 H (70-110) mg/dL Calcium 11.9 H (8.7-10.3) mg/dL Total Protein 4.7 L (6.2-8.2) g/dL Albumin 2.4 L (3.8-4.9) g/dL Albumin/Globulin Ratio 1.04 L (1.60-3.17) g/dL Vitamin D 25-Hydroxy (30.0-100.0) ng/mL PTH Intact (14.0-72.0) pg/mL 09/23/21 09/23/21 Range/Units 06:03 06:03 WBC (4.50-10.00) X 10*3/uL RBC (4.40-5.60) X 10*6/uL Hgb (13.0-17.0) g/dL Hct (39.6-50.0) % MCHC (32.0-37.0) g/dL Immature Gran # (0.00-0.04) X 10*3/uL Neutrophils # (1.80-7.70) X 10*3/uL Lymphocytes # (0.90-5.00) X 10*3/uL Eosinophils # (0.04-0.35) X 10*3/uL Sodium (137-145) mmol/L Potassium (3.5-5.5) mmol/L Chloride (96-109) mmol/L Anion Gap (10.00-18.00) mmol/L BUN (9.0-27.0) mg/dL Est GFR (CKD-EPI)NonAf (60.0-200.0) BUN/Creatinine Ratio (12.00-20.00) Ratio Glucose (70-110) mg/dL Calcium (8.7-10.3) mg/dL Total Protein (6.2-8.2) g/dL Albumin (3.8-4.9) g/dL Albumin/Globulin Ratio (1.60-3.17) g/dL Vitamin D 25-Hydroxy 13.0 L (30.0-100.0) ng/mL PTH Intact 180.0 H (14.0-72.0) pg/mL Microbiology - Last 24 Hours (Table) 09/20/21 19:24 Blood Culture - Preliminary Blood No Growth after 48 hours 09/18/21 17:12 Urine Culture - Final Urine,Clean Catch Proteus mirabilis Assessment and Plan Assessment: 1. Hypernatremia associated with free water deficit currently improving. Increase D5W back 200 mL an hour 2. Aspiration pneumonia maintained on antibiotics 3. Pneumomediastinum with suspicion for possible is available today versus perforated pulmonary bleb 4. Chronic systolic CHF with ejection fraction 45% 5. Acute kidney injury prerenal, improving with IV hydration 6. Hypercalcemia, PTH is elevated suggesting primary hyperparathyroidism. Vitamin D level is low which should be replaced. I will add Sensipar. Plan: Continue D5W Increase rate to 100 mL an hour Replace potassium Add Sensipar for hypercalcemia which is secondary to primary hyperparathyroidism. Patient is not a candidate for surgery. A nuclear scan 4 parathyroid glands will be ordered.
--- NOTE | 2021-09-23 14:19 | P.GSCN ---
History of Present Illness Consult date: 09/23/21 History of present illness: CHIEF COMPLAINT: Generalized weakness HISTORY OF PRESENT ILLNESS: This is a 80-year-old male who presented with generalized weakness and confusion. He had a fall at home and could not get up. He has been found to have silent aspiration on Barium Swallow. He is being treated for aspiration pneumonia. And is followed by pulmonary service. There was also evidence of pneumomediastinum due to possible esophageal tear or perforated pulmonary bleb. Patient has extensive past medical history. Patient is being considered for possible palliative care or hospice. Surgical service has been consulted for PEG tube placement. Patient is currently on a dysphagia pured diet. Patient tolerating about 15-25% of his food. PAST MEDICAL HISTORY: Chronic systolic heart failure with EF of 45-50%, mild valvular heart disease, mild aortic stenosis, mild mitral and tricuspid regurgitation, coronary disease status post CABG and cardiac stents, hypertension, hyperlipidemia, COPD, CVA, atrial fibrillation on Eliquis , BPH, osteoarthritis PAST SURGICAL HISTORY: See list. MEDICATIONS: See list. ALLERGIES: See list. SOCIAL HISTORY: No illicit drug use. REVIEW OF SYSTEMS: CONSTITUTIONAL: Denies fever or chills. HEENT: Denies blurred vision, vision changes, or eye pain. Denies hemoptysis CARDIOVASCULAR: Denies chest pain or pressure. RESPIRATORY: No shortness of breath. GASTROINTESTINAL: See HPI for pertinent findings HEMATOLOGIC: Denies bleeding disorders. GENITOURINARY: Denies any blood in urine or increased urinary frequency. SKIN: Denies pruitis. Denies rash. PHYSICAL EXAM: VITAL SIGNS: Reviewed GENERAL: Well-developed in no acute distress. HEENT: No sclera icterus. Extraocular movements grossly intact. Moist buccal mucosa. Head is atraumatic, normocephalic. No nasal drainage. ABDOMEN: Soft. Nondistended. Nontender NEUROLOGIC: Alert and oriented times [address] LABORATORY DATA: WBC is 13.81 Hgb 12.62 platelets 162 Sodium 152 potassium 3.2 creatinine 1.2 AST 19 ALT 20 alk phos 46 Albumin 2.4 IMAGING: Ultrasound shows thickening gallbladder wall with gallbladder sludge and cholelithiasis. Correlate for acute cholecystitis. Debris within the urinary bladder. The urinary bladder calcification also appears present. ASSESSMENT: 1. Severe protein calorie nutrition 2. Silent aspiration pneumonia 3. Incidental finding of thickened gallbladder with gallstones. Doubt acute cholecystitis. Patient has no RUQ abdominal pain or nausea and vomiting. PLAN: -We will await further family decision regarding PEG tube placement -Patient is being considered for possible palliative care or hospice -Continue supportive care Thank you for this consultation Physician [employer] note has been reviewed by physician. Signing provider agrees with the documented findings, assessment, and plan of care. Past Medical History Past Medical History: Atrial Fibrillation, Asthma, Coronary Artery Disease (CAD), Cancer, Heart Failure, COPD, Deep Vein Thrombosis (DVT), Hearing Disorder / Deafness, Hyperlipidemia, Hypertension, Osteoarthritis (OA), Prostate Disorder, Vascular Disorder Additional Past Medical History / Comment(s): Pt recently admitted to [facility] on 07/27/20 with acute DVT L lower extremity, bilateral lower extremity edema thought d/t venous insufficiency, acute renal failure. Other hx: Pt denies hx COPD, bronchial pneumonia, bronchitis, pleurisy, multiple "mini strokes" per MRI/pt, degenerative arthritis in multiple joints, chronic low back pain/pinched nerve, R carpal tunnel syndrome, gout bilateral feet, TMJ, dysphagia-pt states was to have study done but did not get to it d/t covid, sinusitis, over 20 days has had bilateral lower extremity edema pt believes d/t running out of gout medications, BPH, agent orange exposure which pt states caused heart damage, murmur, R ear mostly deaf, wears bilateral hearing aides, skin cancer removals. History of Any Multi-Drug Resistant Organisms: None Reported Past Surgical History: Back Surgery, Coronary Bypass/CABG, Ear Surgery, Heart Catheterization, Heart Catheterization With Stent Additional Past Surgical History / Comment(s): L eye surgery for benign lesion, lumbar back surgery, pain clinic procedures, 2003 CABG 5 vessel, R ear wax removal, skin cancer removal Past Anesthesia/Blood Transfusion Reactions: No Reported Reaction Additional Past Anesthesia/Blood Transfusion Reaction / Comm: Pt has clausterphobia. Date of Last Stent Placement:: unkn Past Psychological History: PTSD Smoking Status: Never smoker - Past Family History Father Family Medical History: No Reported History Additional Family Medical History / Comment(s): Father was healthy Mother Family Medical History: No Reported History Additional Family Medical History / Comment(s): Mother was healthy Medications and Allergies Home Medications Medication Instructions Recorded Confirmed Type Aspirin [[place] Aspirin EC] 81 mg PO DAILY 04/30/18 09/18/21 History Metoprolol Succinate [Toprol XL] 12.5 mg PO DAILY 04/30/18 09/18/21 History Omeprazole 20 mg PO DAILY 06/24/20 09/18/21 History Tamsulosin [Flomax] 0.4 mg PO DAILY 06/24/20 09/18/21 History Fluticasone Nasal [place] [Flonase 1 spr EA NOSTRIL BID 07/23/20 09/18/21 History Nasal [place]] Glucosam/Geovany-Msm1/C/Evan/Bosw 2 tab PO DAILY 07/23/20 09/18/21 History [Glucosamine-Chondroitin Tablet] Grape Seed 1 tab PO DAILY 07/23/20 09/18/21 History Melatonin 3 mg PO HS 07/23/20 09/18/21 History Nitroglycerin Sl Tabs [Nitrostat] 0.4 mg SL Q5M PRN 07/23/20 09/18/21 History Ubidecarenone [Coenzyme Q10] 30 mg PO DAILY 07/23/20 09/18/21 History Apixaban [Eliquis] 5 mg PO BID 30 Days #60 tab 07/27/20 09/18/21 Rx Albuterol Sulfate [Albuterol 2 puff INHALATION RT-QID PRN 10/24/20 09/18/21 History Sulfate Hfa] Finasteride [Proscar] 5 mg PO DAILY 10/24/20 09/18/21 History Furosemide [Lasix] 40 mg PO BID 10/24/20 09/18/21 History Lidocaine 5% Patch [Lidoderm 5% 1 patch TOPICAL DAILY 10/24/20 09/18/21 History Patch] Mineral Oil/Petrolatum,White [Stye 0.25 inch BOTH EYES HS 10/24/20 09/18/21 History Lubricant Eye Ointment] Potassium Chloride ER [K-Dur 10] 10 meq PO DAILY 10/24/20 09/18/21 History Saw Shevlin 500 mg PO DAILY 10/24/20 09/18/21 History Acetaminophen Tab [Tylenol] 650 mg PO Q6HR PRN tab 10/27/20 09/18/21 Rx Gabapentin 300 mg PO BID #10 cap 10/27/20 09/18/21 Rx Lactose-Reduced Food [Ensure Plus] 2 can PO DAILY 09/18/21 09/18/21 History Polyvinyl Alcohol/Povidone 1 drop BOTH EYES DAILY PRN 09/18/21 09/18/21 History [[place] Eye Drop] Rosuvastatin Calcium [Crestor] 5 mg PO DIRECTED 09/18/21 09/18/21 History allopurinoL [Zyloprim] 200 mg PO DAILY 09/18/21 09/18/21 History Allergies Allergy/AdvReac Type Severity Reaction Status Date / Time diazepam [From Valium] Allergy Unknown Verified 09/18/21 10:52 simvastatin [From Zocor] Allergy MYOSITIS Verified 09/18/21 10:52 terazosin Allergy SYNCOPE Verified 09/18/21 10:52 Beef Containing Products AdvReac Nausea & Verified 09/18/21 17:29 [Beef] Vomiting & Diarrhea chicken derived [Chicken] AdvReac Nausea & Verified 09/18/21 17:29 Vomiting & Diarrhea egg AdvReac Unknown Verified 09/18/21 10:52 gluten AdvReac Nausea & Verified 09/18/21 17:29 Vomiting & Diarrhea Pork/Porcine Containing AdvReac Nausea & Verified 09/18/21 17:29 Products Vomiting & [Pork] Diarrhea Surgical - Exam Vital Signs Temp Pulse Resp BP Pulse Ox 97.8 F 75 17 119/92 97 09/17/21 17:49 09/17/21 17:49 09/17/21 17:49 09/17/21 17:49 09/17/21 17:49 Results - Labs 09/23/21 06:03 09/23/21 06:03 Abnormal Lab Results - Last 24 Hours (Table) 09/22/21 09/22/21 09/23/21 Range/Units 11:58 19:41 06:03 WBC 13.81 H (4.50-10.00) X 10*3/uL RBC 3.95 L (4.40-5.60) X 10*6/uL Hgb 12.0 L (13.0-17.0) g/dL Hct 37.6 L (39.6-50.0) % MCHC 31.9 L (32.0-37.0) g/dL Immature Gran # 0.09 H (0.00-0.04) X 10*3/uL Neutrophils # 12.90 H (1.80-7.70) X 10*3/uL Lymphocytes # 0.50 L (0.90-5.00) X 10*3/uL Eosinophils # 0 L (0.04-0.35) X 10*3/uL Sodium 150 H (137-145) mmol/L Potassium (3.5-5.5) mmol/L Chloride (96-109) mmol/L Anion Gap (10.00-18.00) mmol/L BUN (9.0-27.0) mg/dL Est GFR (CKD-EPI)NonAf (60.0-200.0) BUN/Creatinine Ratio (12.00-20.00) Ratio Glucose (70-110) mg/dL Osmolality 343 H* (280-301) mosm/kg Calcium (8.7-10.3) mg/dL Total Protein (6.2-8.2) g/dL Albumin (3.8-4.9) g/dL Albumin/Globulin Ratio (1.60-3.17) g/dL Vitamin D 25-Hydroxy (30.0-100.0) ng/mL PTH Intact (14.0-72.0) pg/mL 09/23/21 09/23/21 09/23/21 Range/Units 06:03 06:03 06:03 WBC (4.50-10.00) X 10*3/uL RBC (4.40-5.60) X 10*6/uL Hgb (13.0-17.0) g/dL Hct (39.6-50.0) % MCHC (32.0-37.0) g/dL Immature Gran # (0.00-0.04) X 10*3/uL Neutrophils # (1.80-7.70) X 10*3/uL Lymphocytes # (0.90-5.00) X 10*3/uL Eosinophils # (0.04-0.35) X 10*3/uL Sodium 152 H (137-145) mmol/L Potassium 3.2 L (3.5-5.5) mmol/L Chloride 118 H (96-109) mmol/L Anion Gap 8.80 L (10.00-18.00) mmol/L BUN 43.2 H (9.0-27.0) mg/dL Est GFR (CKD-EPI)NonAf 56.8 L (60.0-200.0) BUN/Creatinine Ratio 36.00 H (12.00-20.00) Ratio Glucose 122 H (70-110) mg/dL Osmolality (280-301) mosm/kg Calcium 11.9 H (8.7-10.3) mg/dL Total Protein 4.7 L (6.2-8.2) g/dL Albumin 2.4 L (3.8-4.9) g/dL Albumin/Globulin Ratio 1.04 L (1.60-3.17) g/dL Vitamin D 25-Hydroxy 13.0 L (30.0-100.0) ng/mL PTH Intact 180.0 H (14.0-72.0) pg/mL Microbiology - Last 24 Hours (Table) 09/20/21 19:24 Blood Culture - Preliminary Blood No Growth after 48 hours 09/18/21 17:12 Urine Culture - Final Urine,Clean Catch Proteus mirabilis Diabetes panel 09/22/21 09/23/21 Range/Units 19:41 06:03 Sodium 150 H 152 H (137-145) mmol/L Potassium 3.2 L (3.5-5.5) mmol/L Chloride 118 H (96-109) mmol/L Carbon Dioxide 25.2 (20.0-27.5) mmol/L BUN 43.2 H (9.0-27.0) mg/dL Creatinine 1.2 (0.6-1.5) mg/dL Glucose 122 H (70-110) mg/dL Calcium 11.9 H (8.7-10.3) mg/dL AST 19 (14-35) U/L ALT 20 (10-49) U/L Alkaline Phosphatase 46 (41-126) U/L Total Protein 4.7 L (6.2-8.2) g/dL Albumin 2.4 L (3.8-4.9) g/dL Calcium panel 09/23/21 Range/Units 06:03 Calcium 11.9 H (8.7-10.3) mg/dL Albumin 2.4 L (3.8-4.9) g/dL Pituitary panel 09/22/21 09/23/21 Range/Units 19:41 06:03 Sodium 150 H 152 H (137-145) mmol/L Potassium 3.2 L (3.5-5.5) mmol/L Chloride 118 H (96-109) mmol/L Carbon Dioxide 25.2 (20.0-27.5) mmol/L BUN 43.2 H (9.0-27.0) mg/dL Creatinine 1.2 (0.6-1.5) mg/dL Glucose 122 H (70-110) mg/dL Calcium 11.9 H (8.7-10.3) mg/dL Adrenal panel 09/22/21 09/23/21 Range/Units 19:41 06:03 Sodium 150 H 152 H (137-145) mmol/L Potassium 3.2 L (3.5-5.5) mmol/L Chloride 118 H (96-109) mmol/L Carbon Dioxide 25.2 (20.0-27.5) mmol/L BUN 43.2 H (9.0-27.0) mg/dL Creatinine 1.2 (0.6-1.5) mg/dL Glucose 122 H (70-110) mg/dL Calcium 11.9 H (8.7-10.3) mg/dL Total Bilirubin 0.70 (0.30-1.20) mg/dL AST 19 (14-35) U/L ALT 20 (10-49) U/L Alkaline Phosphatase 46 (41-126) U/L Total Protein 4.7 L (6.2-8.2) g/dL Albumin 2.4 L (3.8-4.9) g/dL
--- NOTE | 2021-09-23 15:08 | P.PN ---
Subjective Progress Note Date: 09/23/21 80-year-old male patient with multiple medical problems and comorbidities who has been a silent aspirator. The patient is currently being treated for a right lower lobe aspiration pneumonia and a pulmonary consultation was requested. His comorbid conditions of multiple. Apparently the patient has a caregiver and is still living at home. He is quite sedentary. He has previous history of CVA. He also has previous history of DVT and the patient is demented on long-term medical condition with Eliquis. His comorbid conditions include chronic systolic heart failure with an ejection fraction of 45-50%, mild valvular heart disease, mild aortic stenosis, coronary artery disease, previous bypass surgery, hypertension hyperlipidemia. Unsure if the patient COPD as the patient is a lifetime nonsmoker. The patient is currently being treated for an acute hypoxic respiratory failure and a CAT scan of the chest was also done showing evidence of pneumomediastinum extending in the inferior aspect of the neck down to the diaphragm. There is also consolidation in the posterior aspect of the lower lo bes, more so on the right and the patient has some chronic scattered fibrotic changes in the lung bases along with some peripheral reticulation. No obvious pulmonary fibrosis. No obvious honeycombing. There is also evidence of possible pulmonary artery hypertension as the PA was around 2.5 cm in size and the patient will also had degenerative changes of the right shoulder. An echo was also done and the patient was found to have a ejection fraction 45%. No significant pulmonary hypertension was noted on the echocardiogram. The white cell count is at 10.3 with hemoglobin 12.5 and a platelet count of 135. The patient is a proBNP level of 15,700. Sodium level is at 149, BUN is 47 with a creatinine of 1.2. UA was abnormal with positive white cells and leukocyte esterase. Influenza screen was negative. Overnight. He was also negative. The patient is currently on IV Zosyn. The patient is also on long-term and coagulation with Eliquis. The patient remains on IV Lasix. He is on DuoNeb nebulized treatments around the clock and IV Solu-Medrol. Very poor historian. Palliative care was also consulted on the case. Pulmonary evaluation was delusional thinking 09/22/2021, the patient remains on room air oxygen. He remains on IV Zosyn. Chest x-ray findings are essentially unchanged with lower lobe pulmonary infiltrates. No evidence of any significant subcutaneous emphysema or pneumomediastinum and a chest x-ray. We stopped the Lasix on him yesterday and the sodium level is up to 157 and the potassium level is at 3.3. The white cell count of 14.8 with hemoglobin 4.5. The patient remains on IV Zosyn. No signs of any significant respiratory distress. Of significance, the creatinine is up to 1.4 with a BUN of 48 along with the intravascular volume depletion. The pro calcitonin level came back at 0.98.++ 09/23/2021, the patient is clinically stable. No new complaints for now.he remains on IV Zosyn for aspiration pneumonia. The white cell count of 15.8 with hemoglobin of 12 and a platelet count of 162. Sodium level was gradually improving and the patient was receiving free water supplements with D5 water. Sodium level is down to 152. The BMs at 43 with a creatinine of 1.2. Blood sugar is at 122.no significant signs of any respiratory distress. No signs of any respiratory distress. The patient is still on D5 water at the rate of 100 mL an hour. He is confused and has underlying dementia. Very poor historian for now. Very much debilitated. Objective - Vital Signs Vital signs: Vital Signs Temp 97.5 F L 09/23/21 13:55 Pulse 88 09/23/21 13:55 Resp 16 09/23/21 13:55 BP 137/76 09/23/21 13:55 Pulse Ox 99 09/23/21 13:55 FiO2 40 09/19/21 15:02 Intake & Output 09/22/21 09/23/21 09/23/21 18:59 06:59 18:59 Intake Total 1000 Output Total 150 425 Balance -150 575 Weight 53.07 kg Intake: Intake, IV Titration 1000 Amount Dextrose 5% in Water 1, 900 000 ml @ 100 mls/hr IV . Q10H ONE Rx#:[id number] Piperacillin-Tazobactam 3 100 .375 gm In Sodium Chloride 0.9% 100 ml @ 25 mls/hr IVPB Q8HR [facility] Rx# :[id number] Output: Urine 150 425 Other: Voiding Method External Catheter External Catheter # Voids 2 4 - Exam Gen. appearance the patient is calm and comfortable and the breathing is nonlabored at this point in time. He is on room air oxygen. Body mass index is 15.4 Head exam was generally normal. There was no scleral icterus or corneal arcus. Mucous membranes were moist. Neck was supple and without jugular venous distension, thyromegaly, or carotid bruits. Carotids were easily palpable bilaterally. There was no adenopathy. Lungs sounds are diminished in lung bases and the patient clearly has right basilar crackles Cardiac exam revealed the PMI to be normally situated and sized. The rhythm was regular and no extrasystoles were noted during several minutes of auscultation. The first and second heart sounds were normal and physiologic splitting of the second heart sound was noted. There were no murmurs, rubs, clicks, or gallops. Abdominal exam revealed normal bowel sounds. The abdomen was soft, non-tender, and without masses, organomegaly, or appreciable enlargement of the abdominal aorta. Examination of the extremities revealed easily palpable radial, femoral and pedal pulses. There was no cyanosis, clubbing or edema. Examination of the skin revealed no evidence of significant rashes, suspicious appearing nevi or other concerning lesions. - Labs CBC & Chem 7: 09/23/21 06:03 09/23/21 06:03 Labs: Abnormal Lab Results - Last 24 Hours (Table) 09/22/21 09/23/21 09/23/21 Range/Units 19:41 06:03 06:03 WBC 13.81 H (4.50-10.00) X 10*3/uL RBC 3.95 L (4.40-5.60) X 10*6/uL Hgb 12.0 L (13.0-17.0) g/dL Hct 37.6 L (39.6-50.0) % MCHC 31.9 L (32.0-37.0) g/dL Immature Gran # 0.09 H (0.00-0.04) X 10*3/uL Neutrophils # 12.90 H (1.80-7.70) X 10*3/uL Lymphocytes # 0.50 L (0.90-5.00) X 10*3/uL Eosinophils # 0 L (0.04-0.35) X 10*3/uL Sodium 150 H 152 H (137-145) mmol/L Potassium 3.2 L (3.5-5.5) mmol/L Chloride 118 H (96-109) mmol/L Anion Gap 8.80 L (10.00-18.00) mmol/L BUN 43.2 H (9.0-27.0) mg/dL Est GFR (CKD-EPI)NonAf 56.8 L (60.0-200.0) BUN/Creatinine Ratio 36.00 H (12.00-20.00) Ratio Glucose 122 H (70-110) mg/dL Calcium 11.9 H (8.7-10.3) mg/dL Total Protein 4.7 L (6.2-8.2) g/dL Albumin 2.4 L (3.8-4.9) g/dL Albumin/Globulin Ratio 1.04 L (1.60-3.17) g/dL Vitamin D 25-Hydroxy (30.0-100.0) ng/mL PTH Intact (14.0-72.0) pg/mL 09/23/21 09/23/21 Range/Units 06:03 06:03 WBC (4.50-10.00) X 10*3/uL RBC (4.40-5.60) X 10*6/uL Hgb (13.0-17.0) g/dL Hct (39.6-50.0) % MCHC (32.0-37.0) g/dL Immature Gran # (0.00-0.04) X 10*3/uL Neutrophils # (1.80-7.70) X 10*3/uL Lymphocytes # (0.90-5.00) X 10*3/uL Eosinophils # (0.04-0.35) X 10*3/uL Sodium (137-145) mmol/L Potassium (3.5-5.5) mmol/L Chloride (96-109) mmol/L Anion Gap (10.00-18.00) mmol/L BUN (9.0-27.0) mg/dL Est GFR (CKD-EPI)NonAf (60.0-200.0) BUN/Creatinine Ratio (12.00-20.00) Ratio Glucose (70-110) mg/dL Calcium (8.7-10.3) mg/dL Total Protein (6.2-8.2) g/dL Albumin (3.8-4.9) g/dL Albumin/Globulin Ratio (1.60-3.17) g/dL Vitamin D 25-Hydroxy 13.0 L (30.0-100.0) ng/mL PTH Intact 180.0 H (14.0-72.0) pg/mL Microbiology - Last 24 Hours (Table) 09/20/21 19:24 Blood Culture - Preliminary Blood No Growth after 48 hours Assessment and Plan Plan: Chronic silent aspiration with ongoing aspiration to lower lobe posterior segment right more than left, the patient's chest x-ray is unchanged, clinically unchanged, currently on 2 L O2 nasal cannula with a pulse ox of 99% Acute hypoxic respiratory failure currently on 2 L O2 nasal cannula with a pulse ox of 99% Pneumomediastinum involving the inferior aspect of the neck to the diaphragm and along the left cardiac border, rule out esophageal tear, rule out perforated pulmonary bleb contributing to this no mediastinum. The patient did undergo a barium swallow on 09/20/2021 that showed silent aspiration with liquid material and penetration was evident with nectar thick consistencies. The chest x-ray is unchanged Chronic systolic heart failure with an ejection fraction of 45% UTI, and then IV Zosyn Acute hypernatremia, hyperchloremic, likely secondary to diuretics and intravascular volume depletion, currently on D5 water and the sodium level is improving Acute kidney injury in the creatinine is up to 1.4 secondary to above Coronary artery disease bypass surgery History of DVT BPH Hypertension Hyperlipidemia Previous history of CVA Dementia PTSD Chronic anxiety/depression Debilitated state secondary to above-mentioned comorbidities Plan continue D5 water to monitor sodium levels Aspiration precautions IV Zosyn Continue anticoagulation with Eliquis Monitor sodium levels Monitor renal function We'll continue to follow prognosis poor. Consider custodial placement. Consider hospice.
--- NOTE | 2021-09-23 15:47 | P.PN ---
Subjective Progress Note Date: 09/23/21 Principal diagnosis: ANDREW, UTI, Respiratory distress The patient is [id number] male who apparently lives by himself was brought in by the caregiver because of increased weakness and confusion, he fell off at home and could not get up. Patient has history of chronic systolic congestive heart failure with last echo report showing EF of 45-50% from 06/2020, mild valvular heart disease including mild aortic stenosis, mild mitral and tricuspid regurgitation. Patient has history of coronary artery disease status post CABG stent placement, hypertension, hyperlipidemia, COPD, history of CVA/TIA, history of DVT (on Eliquis at home), history of benign prostatic hypertrophy, and osteoarthritis. Patient was admitted for acute kidney injury, debility, and urine tract infection. His hospital course was complicated by respiratory distress in the setting of aspiration. Pulmonary was consulted. Chest CT showed pneumomediastinum involving the inferior aspect of the neck to the diaphragm and along the left cardiac border, rule out esophageal tear, rule out perforated pulmonary bleb contributing to this no mediastinum. The patient did undergo a barium swallow on 09/20/2021 that showed silent aspiration with liquid material and penetration was evident with nectar thick consistencies. 09/22 Spoke with patient's son, Carlos, via telephone this morning. Palliative care services and philosophies explained. He stated that he lives in [place] and th at the best person to talk to about his dad is his byproducts pump operator Aniyah (she also goes by the name Constance). He stated that he does not mind being included in the decision making process for his day, but insists that his dad has papers naming Aniyah his DPOA. He thinks he may be able to obtain a copy of them from the [facility] and will try. Met with caretakers Aniyah and Howard at the bedside. Palliative care services and philosophies explained. They were told the patient has had a decline in his functional status and he has been very confused. Aniyah stated she has noticed his dementia has been worse since the beginning of the year. She also reported that he has fallen a couple times. Concern over the patient returning home was expressed. He lives alone and is no longer able to care for himself. The physician is recommending hospice or a shelter. They at first agreed that he should go to a shelter. Then changed their minds. They stated that they do not feel like patient get good care at nursing homes. Aniyah stated she would like the patient to move in with her, and she would care for him. She states she has plenty of help and support from family and friends. They were also informed that he also has severe protein calorie malnutrition. Aniyah states that she makes sure he has plenty of food and water. She has noticed that he has not been eating or drinking very much despite her efforts to encourage it. He threw away the ensure that was given to him. Aniyah and Howard were told that the patient has been aspirating on his food, causing his pneumo dustin. A feeding tube was mentioned at some point as a possible treatment. Aniyah and Howard were educated on how feeding tubes are not recommended on patients with advanced dementia. If he continues to eat, it is likely that he will end up with pneumonia again and have to return to the hospital. Hospice philosophies and services were explained and recommended to Howard and Aniyah. Aniyah stated she would need to talk to the patient's son Carlos. It was explained that legally, Carlos is next of kin and the decision maker at this time, unless we receive paper work stating otherwise. She is agreeable to what ever he decides. Spoke with the patient's son, Carlos, via telephone again. He was given the same information that the caregivers were. Hospice philosophies and services explained. He stated Aniyah knows the patient better and should make the decisions. It was also explained to him that legally he was the decision maker at this point. All questions answered. Carlos stated he would talk to the [facility] about insurance coverage and to Aniyah. He stated he will need some time to make any decisions. Objective - Vital Signs Vital signs: Vital Signs Temp 97.5 F L 09/23/21 13:55 Pulse 88 09/23/21 13:55 Resp 16 09/23/21 13:55 BP 137/76 09/23/21 13:55 Pulse Ox 99 09/23/21 13:55 FiO2 40 09/19/21 15:02 Intake & Output 09/22/21 09/23/21 09/23/21 18:59 06:59 18:59 Intake Total 1000 Output Total 150 425 Balance -150 575 Weight 53.07 kg Intake: Intake, IV Titration 1000 Amount Dextrose 5% in Water 1, 900 000 ml @ 100 mls/hr IV . Q10H ONE Rx#:[id number] Piperacillin-Tazobactam 3 100 .375 gm In Sodium Chloride 0.9% 100 ml @ 25 mls/hr IVPB Q8HR [facility] Rx# :[id number] Output: Urine 150 425 Other: Voiding Method External Catheter External Catheter # Voids 2 4 - Exam General: Patient appears comfortable No acute distress noted. Cachexic HEENT: Head is atraumatic, normocephalic . Sclerae are clear. Pupils equal, round and reactive to light bilaterally. CV: Heart regular in rate and rhythm positive S1 and S2. No S3. No S4. No clicks, rubs or murmurs. No JVD. Peripheral pulses equal. 2/4 Lungs: Scattered rhonchi throughout No wheezes rales or rhonchi. Respirations even and nonlabored. No intercostal retractions. on RA Abdomen/GI: Soft. Bowel sounds present in all 4 quadrants. Bowel sounds normoactive. No abdominal tenderness. : Catheter draining clear yellow urine Musculoskeletal/ Extremities: + generalized weakness Vascular: Radial pulses equal. 2/4. Trace right LE edema Skin: No rash. Warm and dry Neurologic: Awake, alert and oriented times 1-2. Psychiatric: Appropriate mood and affect. - Labs CBC & Chem 7: 09/23/21 06:03 09/23/21 06:03 Labs: Abnormal Lab Results - Last 24 Hours (Table) 09/22/21 09/23/21 09/23/21 Range/Units 19:41 06:03 06:03 WBC 13.81 H (4.50-10.00) X 10*3/uL RBC 3.95 L (4.40-5.60) X 10*6/uL Hgb 12.0 L (13.0-17.0) g/dL Hct 37.6 L (39.6-50.0) % MCHC 31.9 L (32.0-37.0) g/dL Immature Gran # 0.09 H (0.00-0.04) X 10*3/uL Neutrophils # 12.90 H (1.80-7.70) X 10*3/uL Lymphocytes # 0.50 L (0.90-5.00) X 10*3/uL Eosinophils # 0 L (0.04-0.35) X 10*3/uL Sodium 150 H 152 H (137-145) mmol/L Potassium 3.2 L (3.5-5.5) mmol/L Chloride 118 H (96-109) mmol/L Anion Gap 8.80 L (10.00-18.00) mmol/L BUN 43.2 H (9.0-27.0) mg/dL Est GFR (CKD-EPI)NonAf 56.8 L (60.0-200.0) BUN/Creatinine Ratio 36.00 H (12.00-20.00) Ratio Glucose 122 H (70-110) mg/dL Calcium 11.9 H (8.7-10.3) mg/dL Total Protein 4.7 L (6.2-8.2) g/dL Albumin 2.4 L (3.8-4.9) g/dL Albumin/Globulin Ratio 1.04 L (1.60-3.17) g/dL Vitamin D 25-Hydroxy (30.0-100.0) ng/mL PTH Intact (14.0-72.0) pg/mL 09/23/21 09/23/21 Range/Units 06:03 06:03 WBC (4.50-10.00) X 10*3/uL RBC (4.40-5.60) X 10*6/uL Hgb (13.0-17.0) g/dL Hct (39.6-50.0) % MCHC (32.0-37.0) g/dL Immature Gran # (0.00-0.04) X 10*3/uL Neutrophils # (1.80-7.70) X 10*3/uL Lymphocytes # (0.90-5.00) X 10*3/uL Eosinophils # (0.04-0.35) X 10*3/uL Sodium (137-145) mmol/L Potassium (3.5-5.5) mmol/L Chloride (96-109) mmol/L Anion Gap (10.00-18.00) mmol/L BUN (9.0-27.0) mg/dL Est GFR (CKD-EPI)NonAf (60.0-200.0) BUN/Creatinine Ratio (12.00-20.00) Ratio Glucose (70-110) mg/dL Calcium (8.7-10.3) mg/dL Total Protein (6.2-8.2) g/dL Albumin (3.8-4.9) g/dL Albumin/Globulin Ratio (1.60-3.17) g/dL Vitamin D 25-Hydroxy 13.0 L (30.0-100.0) ng/mL PTH Intact 180.0 H (14.0-72.0) pg/mL Microbiology - Last 24 Hours (Table) 09/20/21 19:24 Blood Culture - Preliminary Blood No Growth after 48 hours Assessment and Plan Assessment: Symptoms * Pain -0/10, history of chronic back pain - continue Lidoderm patch * Fatigue - Yes * SOB - Not currently, continue Duoneb treatments, Zosyn, and Solumedrol * Insomnia - No * N/V - No * Anxiety - No * Depression - No * Confusion - Yes * Agitation - No * Hallucinations - JOHN * Appetite/weight loss - Yes, caregivers state that he has not been eating or drinking at home, they provide food/water for him, but he is not consuming it, encourage PO intake and nutritional supplements * Dysphagia - Yes, + silent aspiration, continue pureed diet/honey thickened liquids * Constipation - No * Incontinence - Yes, has catheter and briefs on, continue Flomax * Itch - No Plan: Summary/Goals - shopping centre manager stated that he obtained DPOA paper work from the [facility]. This paperwork named the caregiver, AniyahRALPH. Meeting held with caser up- Aniyah Sapp, another caregiver - Howard, and palliative care RETAIL STORE CLERK. After much discussion, Aniyah decided to make the patient a DNR. She was very tearful. Emotional support provided. She also stated again that she did not want the patient to go into a shelter. She would like to bring him to her house and care for him there. She agreed to a hospice informational meeting. A referral was placed. Dr. Leyva and RN-Jane douglass. Recommendations - Home with Aniyah and hospice Advanced Directives - No Code Status - Full code Thank you for this consult Kailyn Whitmore [facility] Palliative Care [facility] [id number] Email: [email or web address] Time with Patient: Greater than 30
[2021-09-23] MEDS: ATORVASTATIN 20 MG TAB PO SCH (20:12)
[2021-09-24] MEDS: DEXTROSE 5% IN WATER 1,000 ML IV SCH ×3 (00:41→15:38)
[2021-09-24] MEDS: IPRATROPIUM-ALBUTEROL 3 ML NEB INHALATION SCH ×4 (08:01→18:54)
[2021-09-24] MEDS: APIXABAN 2.5 MG TABLET PO SCH ×2 (08:37→21:31)
[2021-09-24] MEDS: METOPROLOL SUCCINATE (ER) 25 MG TAB.ER.24H PO SCH (08:37)
[2021-09-24] MEDS: ASPIRIN 81 MG PO SCH (08:37)
[2021-09-24] MEDS: amLODIPine 10 MG TAB PO SCH (08:37)
[2021-09-24] MEDS: TAMSULOSIN 0.4 MG CAP.ER.24H PO SCH (08:37)
[2021-09-24] MEDS: PIPERACILLIN-TAZOBACTAM 3.375 GM in SODIUM CHLORIDE 0.9% 100 ML IVPB SCH ×3 (08:37→23:26)
[2021-09-24] MEDS: LIDOCAINE 5% PATCH TOPICAL SCH (08:38)
[2021-09-24] MEDS: CINACALCET 30 MG TAB PO SCH (08:38)
[2021-09-24 08:48] LABS: Basophils # (A) 0.03 X 10*3/uL (0.00-0.10); Basophils % (A) 0.2 %; Eosinophils # (A) 0 X 10*3/uL (0.04-0.35); Eosinophils % (A) 0 %; HCT 37.6 % (39.6-50.0); HGB 12.5 g/dL (13.0-17.0); Immature Grans, Automated 1.1 %; Lymphocytes # (A) 0.84 X 10*3/uL (0.90-5.00); Lymphocytes % (A) 6.3 %; MCH 30.9 pg (27.0-32.0); MCHC 33.2 g/dL (32.0-37.0); MCV 93.1 fL (80.0-97.0); Mean Platelet Volume 11.1 fL (9.5-12.2); Monocytes # (A) 0.84 X 10*3/uL (0.20-1.00); Monocytes % (A) 6.3 %; NRBC Per 100 WBC 0 /100 WBCS (0.0-0.0); Neutrophils # (A) 11.48 X 10*3/uL (1.80-7.70); Neutrophils % (A) 86.1 %; Platelet Count 157 X 10*3/uL (140-440); RBC 4.04 X 10*6/uL (4.40-5.60); RDW 13.9 % (11.5-14.5); WBC 13.34 X 10*3/uL (4.50-10.00)
--- NOTE | 2021-09-24 09:20 | P.PN ---
Subjective Patient is seen for follow-up for hyponatremia. He is currently maintained on D5W and serum sodium has decreased. 6 sodium had decreased to 150 from 157 and I had decrease the rate of D5W to 75 mL an hour. This morning sodium was at 152. No other complaints today. Mentation is improved Objective - Vital Signs Vital signs: Vital Signs Temp 97.8 F 09/24/21 07:21 Pulse 78 09/24/21 07:21 Resp 19 09/24/21 07:21 BP 155/86 09/24/21 07:21 Pulse Ox 96 09/24/21 01:36 FiO2 40 09/19/21 15:02 Intake & Output 09/23/21 09/24/21 09/24/21 18:59 06:59 18:59 Intake Total 280 Output Total 250 350 Balance 30 -350 Intake: Oral 280 Output: Urine 250 350 Other: Voiding Method External Catheter # Voids 1 - Exam Patient is awake, comfortable, not in any acute distress Examination of the heart S1 and S2 Examination lungs bilateral breath sounds are heard Abdomen is soft nontender Examination lower extremity shows edema 2+ left leg 1+ right leg CERAMIC ENGINEER exam shows patient is moving all 4 extremities. - Labs CBC & Chem 7: 09/24/21 06:05 09/23/21 06:03 Labs: Abnormal Lab Results - Last 24 Hours (Table) 09/23/21 09/23/21 09/23/21 Range/Units 06:03 06:03 06:03 WBC 13.81 H (4.50-10.00) X 10*3/uL RBC 3.95 L (4.40-5.60) X 10*6/uL Hgb 12.0 L (13.0-17.0) g/dL Hct 37.6 L (39.6-50.0) % MCHC 31.9 L (32.0-37.0) g/dL Immature Gran # 0.09 H (0.00-0.04) X 10*3/uL Neutrophils # 12.90 H (1.80-7.70) X 10*3/uL Lymphocytes # 0.50 L (0.90-5.00) X 10*3/uL Eosinophils # 0 L (0.04-0.35) X 10*3/uL Sodium 152 H (135-145) mmol/L Potassium 3.2 L (3.5-5.5) mmol/L Chloride 118 H (96-109) mmol/L Anion Gap 8.80 L (10.00-18.00) mmol/L BUN 43.2 H (9.0-27.0) mg/dL Est GFR (CKD-EPI)NonAf 56.8 L (60.0-200.0) BUN/Creatinine Ratio 36.00 H (12.00-20.00) Ratio Glucose 122 H (70-110) mg/dL Calcium 11.9 H (8.7-10.3) mg/dL Total Protein 4.7 L (6.2-8.2) g/dL Albumin 2.4 L (3.8-4.9) g/dL Albumin/Globulin Ratio 1.04 L (1.60-3.17) g/dL Vitamin D 25-Hydroxy 13.0 L (30.0-100.0) ng/mL PTH Intact (14.0-72.0) pg/mL 09/23/21 09/24/21 Range/Units 06:03 06:05 WBC 13.34 H (4.50-10.00) X 10*3/uL RBC 4.04 L (4.40-5.60) X 10*6/uL Hgb 12.5 L (13.0-17.0) g/dL Hct 37.6 L (39.6-50.0) % MCHC (32.0-37.0) g/dL Immature Gran # 0.15 H (0.00-0.04) X 10*3/uL Neutrophils # 11.48 H (1.80-7.70) X 10*3/uL Lymphocytes # 0.84 L (0.90-5.00) X 10*3/uL Eosinophils # 0 L (0.04-0.35) X 10*3/uL Sodium (135-145) mmol/L Potassium (3.5-5.5) mmol/L Chloride (96-109) mmol/L Anion Gap (10.00-18.00) mmol/L BUN (9.0-27.0) mg/dL Est GFR (CKD-EPI)NonAf (60.0-200.0) BUN/Creatinine Ratio (12.00-20.00) Ratio Glucose (70-110) mg/dL Calcium (8.7-10.3) mg/dL Total Protein (6.2-8.2) g/dL Albumin (3.8-4.9) g/dL Albumin/Globulin Ratio (1.60-3.17) g/dL Vitamin D 25-Hydroxy (30.0-100.0) ng/mL PTH Intact 180.0 H (14.0-72.0) pg/mL Microbiology - Last 24 Hours (Table) 09/20/21 19:24 Blood Culture - Preliminary Blood No Growth after 72 hours Assessment and Plan Assessment: 1. Hypernatremia associated with free water deficit currently improving. Increase D5W back to 100 mL an hour. Follow-up on sodium from today 2. Aspiration pneumonia maintained on antibiotics 3. Pneumomediastinum with suspicion for possible is available today versus perforated pulmonary bleb 4. Chronic systolic CHF with ejection fraction 45% 5. Acute kidney injury prerenal, improving with IV hydration 6. Hypercalcemia, PTH is elevated suggesting primary hyperparathyroidism. Vitamin D level is low which should be replaced. I will add Sensipar. Plan: Continue D5W Increase rate to 100 mL an hour Replace potassium Add Sensipar for hypercalcemia which is secondary to primary hyperparathyroidism. Patient is not a candidate for surgery. A nuclear scan for parathyroid glands will be ordered.
[2021-09-24] MEDS ORDERED: ERGOCALCIFEROL 1,250 MCG (50,000 IU) CAPSULE PO SCH (10:00)
--- NOTE | 2021-09-24 10:36 | P.PN ---
Progress Note - Text Progress Note Date: 09/24/21 Patient is eating. On exam vital signs are stable. Abdomen soft. Patient will be observed.
[2021-09-24 11:49] LABS: African American GFR (CKD) 73.1 (60.0-200.0); Albumin 2.4 g/dL (3.8-4.9); Albumin/Globulin Ratio 1.04 (1.60-3.17); Anion Gap 7.3 mmol/L (10.00-18.00); BUN/Creat Ratio 34.91 Ratio (12.00-20.00); Blood Urea Nitrogen 38.4 mg/dL (9.0-27.0); Calcium 11.5 mg/dL (8.7-10.3); Carbon Dioxide 26.7 mmol/L (20.0-27.5); Globulin 2.3 g/dL (1.6-3.3); Non-African American GFR(CKD) 63.1 (60.0-200.0); Potassium 3.4 mmol/L (3.5-5.5); Total Bilirubin 0.7 mg/dL (0.30-1.20); Total Protein 4.7 g/dL (6.2-8.2)
--- NOTE | 2021-09-24 12:11 | P.PN ---
Subjective Progress Note Date: 09/24/21 Principal diagnosis: ANDREW, UTI, Respiratory distress The patient is [id number] male who apparently lives by himself was brought in by the caregiver because of increased weakness and confusion, he fell off at home and could not get up. Patient has history of chronic systolic congestive heart failure with last echo report showing EF of 45-50% from 06/2020, mild valvular heart disease including mild aortic stenosis, mild mitral and tricuspid regurgitation. Patient has history of coronary artery disease status post CABG stent placement, hypertension, hyperlipidemia, COPD, history of CVA/TIA, history of DVT (on Eliquis at home), history of benign prostatic hypertrophy, and osteoarthritis. Patient was admitted for acute kidney injury, debility, and urine tract infection. His hospital course was complicated by respiratory distress in the setting of aspiration. Pulmonary was consulted. Chest CT showed pneumomediastinum involving the inferior aspect of the neck to the diaphragm and along the left cardiac border, rule out esophageal tear, rule out perforated p ulmonary bleb contributing to this no mediastinum. The patient did undergo a barium swallow on 09/20/2021 that showed silent aspiration with liquid material and penetration was evident with nectar thick consistencies. 09/22 Spoke with patient's son, Carlos, via telephone this morning. Palliative care services and philosophies explained. He stated that he lives in [place] and that the best person to talk to about his dad is his water control station engineer Aniyah (she also goes by the name Constance). He stated that he does not mind being included in the decision making process for his day, but insists that his dad has papers naming Aniyah his DPOA. He thinks he may be able to obtain a copy of them from the [facility] and will try. Met with caretakers Aniyah and Howard at the bedside. Palliative care services and philosophies explained. They were told the patient has had a decline in his functional status and he has been very confused. Aniyah stated she has noticed his dementia has been worse since the beginning of the year. She also reported that he has fallen a couple times. Concern over the patient returning home was expressed. He lives alone and is no longer able to care for himself. The valeriano oshea is recommending hospice or a assisted. They at first agreed that he should go to a assisted. Then changed their minds. They stated that they do not feel like patient get good care at nursing homes. Aniyah stated she would like the patient to move in with her, and she would care for him. She states she has plenty of help and support from family and friends. They were also informed that he also has severe protein calorie malnutrition. Aniyah states that she makes sure he has plenty of food and water. She has noticed that he has not been eating or drinking very much despite her efforts to encourage it. He threw away the ensure that was given to him. Aniyah and Howard were told that the patient has been aspirating on his food, causing his pneumonia. A feeding tube was mentioned at some point as a possible treatment. Aniyah and Howard were educated on how feeding tubes are not recommended on patients with advanced dementia. If he continues to eat, it is likely that he will end up with pneumonia again and have to return to the hospital. Hospice philosophies and services were explained and recommended to Howard and Aniyah. Aniyah stated she would need to talk to the patient's son Carlos. It was explained that legally, Carlos is next of kin and the decision maker at this time, unless we receive paper work stating otherwise. She is agreeable to what ever he decides. Spoke with the patient's son, Carlos, via telephone again. He was given the same information that the caregivers were. Hospice philosophies and services explained. He stated Aniyah knows the patient better and should make the decisions. It was also explained to him that legally he was the decision maker at this point. All questions answered. Carlos stated he would talk to the [facility] about insurance coverage and to Aniyah. He stated he will need some time to make any decisions. 09/23 watershed manager stated that he obtained RALPH paper work from the [facility]. This paperwork named the caregiver, RALPH Dill. Meeting held with showcase maker- Aniyah Sapp, another caregiver - Howard, and palliative care SAND FILLER. After much discussion, Aniyah decided to make the patient a DNR. She was very tearful. Emotional support provided. She also stated again that she did not want the patient to go into a assisted. She would like to bring him to her house and care for him there. She agreed to a hospice informational meeting. A referral was placed. Dr. Leyva and RN-Jane douglass. Objective - Vital Signs Vital signs: Vital Signs Temp 97.8 F 09/24/21 07:21 Pulse 80 09/24/21 11:50 Resp 19 09/24/21 07:21 BP 155/86 09/24/21 07:21 Pulse Ox 96 09/24/21 01:36 FiO2 40 09/19/21 15:02 Intake & Output 09/23/21 09/24/21 09/24/21 18:59 06:59 18:59 Intake Total 280 Output Total 250 350 Balance 30 -350 Intake: Oral 280 Output: Urine 250 350 Other: Voiding Method External Catheter External Catheter # Voids 1 - Exam General: Patient appears comfortable No acute distress noted. Cachexic HEENT: Head is atraumatic, normocephalic . Sclerae are clear. Pupils equal, round and reactive to light bilaterally. CV: Heart regular in rate and rhythm positive S1 and S2. No clicks, rubs or murmurs. Peripheral pulses equal. 2/4 Lungs: Diminished bases. No wheezes rales or rhonchi. Respirations even and nonlabored. No intercostal retractions. on RA Abdomen/GI: Soft. Bowel sounds present in all 4 quadrants. Bowel sounds normoactive. No abdominal tenderness. : Catheter draining clear yellow urine Musculoskeletal/ Extremities: + generalized weakness Vascular: Radial pulses equal. 2/4. Trace right LE edema Skin: No rash. Warm and dry Neurologic: Awake, alert and oriented times 1-2. Psychiatric: Appropriate mood and affect. - Labs CBC & Chem 7: 09/24/21 06:05 09/24/21 06:05 Labs: Abnormal Lab Results - Last 24 Hours (Table) 09/24/21 09/24/21 Range/Units 06:05 06:05 WBC 13.34 H (4.50-10.00) X 10*3/uL RBC 4.04 L (4.40-5.60) X 10*6/uL Hgb 12.5 L (13.0-17.0) g/dL Hct 37.6 L (39.6-50.0) % Immature Gran # 0.15 H (0.00-0.04) X 10*3/uL Neutrophils # 11.48 H (1.80-7.70) X 10*3/uL Lymphocytes # 0.84 L (0.90-5.00) X 10*3/uL Eosinophils # 0 L (0.04-0.35) X 10*3/uL Sodium 151 H (135-145) mmol/L Potassium 3.4 L (3.5-5.5) mmol/L Chloride 117 H (96-109) mmol/L Anion Gap 7.30 L (10.00-18.00) mmol/L BUN 38.4 H (9.0-27.0) mg/dL BUN/Creatinine Ratio 34.91 H (12.00-20.00) Ratio Calcium 11.5 H (8.7-10.3) mg/dL Total Protein 4.7 L (6.2-8.2) g/dL Albumin 2.4 L (3.8-4.9) g/dL Albumin/Globulin Ratio 1.04 L (1.60-3.17) g/dL Microbiology - Last 24 Hours (Table) 09/20/21 19:24 Blood Culture - Preliminary Blood No Growth after 72 hours Assessment and Plan Plan: Summary/Goals - Patient awake and alert. Care givers Aniyah and Howard at bedside. Aniyah stated she spoke with patient's son, Carlos, and discussed the plan of care for his dad. Farzana HOFFMAN for [facility] is here for informational meeting. Recommendations - Home to [facility] Advanced Directives - No Code Status - DNR Thank you for this consult Kailyn Whitmore [facility]- Palliative Care [facility] [id number] Email: [email or web address] Time with Patient: Less than 30
--- NOTE | 2021-09-24 13:16 | P.PN ---
Subjective Progress Note Date: 09/24/21 80-year-old male patient with multiple medical problems and comorbidities who has been a silent aspirator. The patient is currently being treated for a right lower lobe aspiration pneumonia and a pulmonary consultation was requested. His comorbid conditions of multiple. Apparently the patient has a caregiver and is still living at home. He is quite sedentary. He has previous history of CVA. He also has previous history of DVT and the patient is demented on long-term medical condition with Eliquis. His comorbid conditions include chronic systolic heart failure with an ejection fraction of 45-50%, mild valvular heart disease, mild aortic stenosis, coronary artery disease, previous bypass surgery, hypertension hyperlipidemia. Unsure if the patient COPD as the patient is a lifetime nonsmoker. The patient is currently being treated for an acute hypoxic respiratory failure and a CAT scan of the chest was also done showing evidence of pneumomediastinum extending in the inferior aspect of the neck down to the diaphragm. There is also consolidation in the posterior aspect of the lower lo bes, more so on the right and the patient has some chronic scattered fibrotic changes in the lung bases along with some peripheral reticulation. No obvious pulmonary fibrosis. No obvious honeycombing. There is also evidence of possible pulmonary artery hypertension as the PA was around 2.5 cm in size and the patient will also had degenerative changes of the right shoulder. An echo was also done and the patient was found to have a ejection fraction 45%. No significant pulmonary hypertension was noted on the echocardiogram. The white cell count is at 10.3 with hemoglobin 12.5 and a platelet count of 135. The patient is a proBNP level of 15,700. Sodium level is at 149, BUN is 47 with a creatinine of 1.2. UA was abnormal with positive white cells and leukocyte esterase. Influenza screen was negative. Overnight. He was also negative. The patient is currently on IV Zosyn. The patient is also on long-term and coagulation with Eliquis. The patient remains on IV Lasix. He is on DuoNeb nebulized treatments around the clock and IV Solu-Medrol. Very poor historian. Palliative care was also consulted on the case. Pulmonary evaluation was delusional thinking 09/22/2021, the patient remains on room air oxygen. He remains on IV Zosyn. Chest x-ray findings are essentially unchanged with lower lobe pulmonary infiltrates. No evidence of any significant subcutaneous emphysema or pneumomediastinum and a chest x-ray. We stopped the Lasix on him yesterday and the sodium level is up to 157 and the potassium level is at 3.3. The white cell count of 14.8 with hemoglobin 4.5. The patient remains on IV Zosyn. No signs of any significant respiratory distress. Of significance, the creatinine is up to 1.4 with a BUN of 48 along with the intravascular volume depletion. The pro calcitonin level came back at 0.98.++ 09/23/2021, the patient is clinically stable. No new complaints for now.he remains on IV Zosyn for aspiration pneumonia. The white cell count of 15.8 with hemoglobin of 12 and a platelet count of 162. Sodium level was gradually improving and the patient was receiving free water supplements with D5 water. Sodium level is down to 152. The BMs at 43 with a creatinine of 1.2. Blood sugar is at 122.no significant signs of any respiratory distress. No signs of any respiratory distress. The patient is still on D5 water at the rate of 100 mL an hour. He is confused and has underlying dementia. Very poor historian for now. Very much debilitated. 09/24/2021, the patient is being considered for hospice. Extremely debilitated 80-year-old male patient with chronic ongoing aspiration. The patient is currently on IV Zosyn. The patient is on 2 L about 2 by nasal cannula with a pulse is 96%. Blood work from today shows a white cell count of 15.3 with a hemoglobin of 12.5 and his sodium level is at 151 with a potassium level of 3.4. There is also a component of hypercalcemia with elevated intact PTH with a possibility of primary hyperparathyroidism. The exit 38 and a creatinine of 1.1. Mother the patient has been receiving D5 water replacement at the rate of 100 mL an hour. He was started on Sensipar 30 mg by mouth daily. Objective - Vital Signs Vital signs: Vital Signs Temp 97.8 F 09/24/21 07:21 Pulse 80 09/24/21 12:01 Resp 19 09/24/21 07:21 BP 155/86 09/24/21 07:21 Pulse Ox 96 09/24/21 01:36 FiO2 40 09/19/21 15:02 Intake & Output 09/23/21 09/24/21 09/24/21 18:59 06:59 18:59 Intake Total 280 Output Total 250 350 Balance 30 -350 Intake: Oral 280 Output: Urine 250 350 Other: Voiding Method External Catheter External Catheter # Voids 1 - Exam Gen. appearance the patient is calm and comfortable and the breathing is nonlabored at this point in time. He is on room air oxygen. Body mass index is 15.4 Head exam was generally normal. There was no scleral icterus or corneal arcus. Mucous membranes were moist. Neck was supple and without jugular venous distension, thyromegaly, or carotid bruits. Carotids were easily palpable bilaterally. There was no adenopathy. Lungs sounds are diminished in lung bases and the patient clearly has right basilar crackles Cardiac exam revealed the PMI to be normally situated and sized. The rhythm was regular and no extrasystoles were noted during several minutes of auscultation. The first and second heart sounds were normal and physiologic splitting of the second heart sound was noted. There were no murmurs, rubs, clicks, or gallops. Abdominal exam revealed normal bowel sounds. The abdomen was soft, non-tender, and without masses, organomegaly, or appreciable enlargement of the abdominal aorta. Examination of the extremities revealed easily palpable radial, femoral and pedal pulses. There was no cyanosis, clubbing or edema. Examination of the skin revealed no evidence of significant rashes, suspicious appearing nevi or other concerning lesions. - Labs CBC & Chem 7: 09/24/21 06:05 09/24/21 06:05 Labs: Abnormal Lab Results - Last 24 Hours (Table) 09/24/21 09/24/21 Range/Units 06:05 06:05 WBC 13.34 H (4.50-10.00) X 10*3/uL RBC 4.04 L (4.40-5.60) X 10*6/uL Hgb 12.5 L (13.0-17.0) g/dL Hct 37.6 L (39.6-50.0) % Immature Gran # 0.15 H (0.00-0.04) X 10*3/uL Neutrophils # 11.48 H (1.80-7.70) X 10*3/uL Lymphocytes # 0.84 L (0.90-5.00) X 10*3/uL Eosinophils # 0 L (0.04-0.35) X 10*3/uL Sodium 151 H (135-145) mmol/L Potassium 3.4 L (3.5-5.5) mmol/L Chloride 117 H (96-109) mmol/L Anion Gap 7.30 L (10.00-18.00) mmol/L BUN 38.4 H (9.0-27.0) mg/dL BUN/Creatinine Ratio 34.91 H (12.00-20.00) Ratio Calcium 11.5 H (8.7-10.3) mg/dL Total Protein 4.7 L (6.2-8.2) g/dL Albumin 2.4 L (3.8-4.9) g/dL Albumin/Globulin Ratio 1.04 L (1.60-3.17) g/dL Microbiology - Last 24 Hours (Table) 09/20/21 19:24 Blood Culture - Preliminary Blood No Growth after 72 hours Assessment and Plan Plan: Chronic silent aspiration with ongoing aspiration to lower lobe posterior segment right more than left, the patient's chest x-ray is unchanged, clinically unchanged, currently on 2 L O2 nasal cannula with a pulse ox of 99% Acute hypoxic respiratory failure currently on 2 L O2 nasal cannula with a pulse ox of 99% Pneumomediastinum involving the inferior aspect of the neck to the diaphragm and along the left cardiac border, rule out esophageal tear, rule out perforated pulmonary bleb contributing to this no mediastinum. The patient did undergo a barium swallow on 09/20/2021 that showed silent aspiration with liquid material and penetration was evident with nectar thick consistencies. The chest x-ray is unchanged Chronic systolic heart failure with an ejection fraction of 45% UTI, and then IV Zosyn Acute hypernatremia, hyperchloremic, likely secondary to diuretics and intravascular volume depletion, currently on D5 water and the sodium level is improving Hypercalcemia with elevated PTH, rule out primary hyperparathyroidism. Cur rently on D5 water and Sensipar was also added. Acute kidney injury, recovered Coronary artery disease bypass surgery History of DVT BPH Hypertension Hyperlipidemia Previous history of CVA Dementia PTSD Chronic anxiety/depression Debilitated state secondary to above-mentioned comorbidities Plan continue D5 water to monitor sodium levels, sodium levels are still elevated and the patient is on D5 water at the rate of 100 mL an hour Start Sensipar 30 mg by mouth daily Monitor calcium level Hypercalcemia could've been contributing to his intravascular volume depletion Aspiration precautions IV Zosyn Continue anticoagulation with Eliquis Monitor sodium levels Monitor renal function We'll continue to follow prognosis poor. Consider alf placement. Hospice today in consulta tion.
--- NOTE | 2021-09-24 13:39 | P.PN ---
Subjective History of present illness per H&P: 80-year-old male who apparently lives by himself was brought in by the caregiver because of increased weakness and confusion, he fell off at home and couldn't get up. Patient has history of chronic systolic congestive heart failure with last echo report showing EF of 45-50% from 06/2020, mild valvular heart disease including mild aortic stenosis mild mitral and tricuspid regurgitation. Patient has history of coronary artery disease status post CABG stent placement hypertension hyperlipidemia COPD history of CVA/TIA, history of DVT on Eliquis at home, history of benign prostatic hypertrophy osteoarthritis. Patient was admitted for acute kidney injury debility, urine tract infection, hospital course was complicated by respiratory distress in the setting of aspiration, possibly combination of fluid overload and aspiration pneumonia. Interval history: Patient was examined at the bedside. He will alert oriented to himself. No acute reported changes overnight. The DPOA met with hospice nurse and plan to discharge patient home with hospice on Monday Physical examination: Gen. appearance the patient is calm and comfortable. Cachectic Head exam was generally normal. There was no scleral icterus or corneal arcus. Mucous membranes were moist. Neck was supple and without jugular venous distension, thyromegaly, or carotid bruits. Carotids were easily palpable bilaterally. There was no adenopathy. Lungs sounds are diminished in lung bases and the patient clearly has right basilar crackles Cardiac exam revealed the PMI to be normally situated and sized. The rhythm was regular and no extrasystoles were noted during several minutes of auscultation. The first and second heart sounds were normal and physiologic splitting of the second heart sound was noted. There were no murmurs, rubs, clicks, or gallops. Abdominal exam revealed normal bowel sounds. The abdomen was soft, non-tender, and without masses, organomegaly, or appreciable enlargement of the abdominal aorta. Examination of the extremities revealed easily palpable radial, femoral and pedal pulses. There was no cyanosis, clubbing or edema. Examination of the skin revealed no evidence of significant rashes, suspicious appearing nevi or other concerning lesions. Acute hypoxic respiratory failure secondary to chronic silent aspiration pneumonia -Computed tomography scan of the chest showed pneumo-mediastinum and bilateral aspiration pneumonia worse on the right -Resume IV Zosyn -Speech started patient on pured diet with honey thick liquids -Broncholithiasis treatment Aspiration pneumonia Continue antibiotics as mentioned above Sputum and blood cultures Acute kidney injury -Improving with IV fluids -Most likely prerenal azotemia secondary to decreased oral intake -Patient started D5 half-normal saline -Nephrology following Acute hypernatremia -Secondary to water deficit -She started D5 half-normal saline Hypokalemia -Replaced Pneumomediastinum -involving the inferior aspect of the neck to the diaphragm and along the left cardiac border, rule out esophageal tear, rule out perforated pulmonary bleb contributing to this no mediastinum. The patient did undergo a barium swallow on 09/20/2021 that showed silent aspiration with liquid material and penetration was evident with nectar thick consistencies. -Pulmonary consulted Dysphagia Severe protein calorie malnutrition Cachexia -Nutrition services consulted -Patient on dysphagia 1 diet and honey thick liquids -Gen. surgery consulted for feeding tube placement Chronic systolic heart failure -Echo showed mild LV systolic dysfunction with ejection fraction 45-50% -Mild mitral regurgitation -Mild tricuspid regurgitation - Lasix discontinued secondary to acute kidney injury and hypernatremia payam -Cardiology consul Proteus mirabilis urinary tract infection Pansensitive Continue Zosyn Follow up cultures History of coronary artery disease status post CABG Resume home medications aspirin and statin beta blockers History of DVT Resume Eliquis Benign prostatic hypertrophy Resume home medication, Flomax Hypertension -Resume Norvasc Chronic medical condition Hyperlipidemia Dementia Anxiety and depression PTSD disorder CODE STATUS: Full code DVT prophylaxis: Subcutaneous heparin Disposition plan: Home with hospice on September 26 Objective - Vital Signs Vital signs: Vital Signs Temp 97.8 F 09/24/21 07:21 Pulse 80 09/24/21 12:01 Resp 19 09/24/21 07:21 BP 155/86 09/24/21 07:21 Pulse Ox 96 09/24/21 01:36 FiO2 40 09/19/21 15:02 Intake & Output 09/23/21 09/24/21 09/24/21 18:59 06:59 18:59 Intake Total 280 Output Total 250 350 Balance 30 -350 Weight 53.07 kg Intake: Oral 280 Output: Urine 250 350 Other: Voiding Method External Catheter External Catheter # Voids 1 - Labs CBC & Chem 7: 09/24/21 06:05 09/24/21 06:05 Labs: Abnormal Lab Results - Last 24 Hours (Table) 09/24/21 09/24/21 Range/Units 06:05 06:05 WBC 13.34 H (4.50-10.00) X 10*3/uL RBC 4.04 L (4.40-5.60) X 10*6/uL Hgb 12.5 L (13.0-17.0) g/dL Hct 37.6 L (39.6-50.0) % Immature Gran # 0.15 H (0.00-0.04) X 10*3/uL Neutrophils # 11.48 H (1.80-7.70) X 10*3/uL Lymphocytes # 0.84 L (0.90-5.00) X 10*3/uL Eosinophils # 0 L (0.04-0.35) X 10*3/uL Sodium 151 H (135-145) mmol/L Potassium 3.4 L (3.5-5.5) mmol/L Chloride 117 H (96-109) mmol/L Anion Gap 7.30 L (10.00-18.00) mmol/L BUN 38.4 H (9.0-27.0) mg/dL BUN/Creatinine Ratio 34.91 H (12.00-20.00) Ratio Calcium 11.5 H (8.7-10.3) mg/dL Total Protein 4.7 L (6.2-8.2) g/dL Albumin 2.4 L (3.8-4.9) g/dL Albumin/Globulin Ratio 1.04 L (1.60-3.17) g/dL Microbiology - Last 24 Hours (Table) 09/20/21 19:24 Blood Culture - Preliminary Blood No Growth after 72 hours
--- NOTE | 2021-09-24 16:04 | NM ---
EXAMINATION TYPE: NM parathyroid DATE OF EXAM: 09/24/2021 COMPARISON: NONE HISTORY: Hypercalcemia TECHNIQUE: Following administration of 25.3 mCi Tc99m Sestamibi. Anterior projection images of the neck and ches t were obtained 10 minutes. Procedure was terminated due to patient noncooperation. Delayed images co uld not be obtained. Examination is nondiagnostic for parathyroid evaluation. IMPRESSION: 1. Nondiagnostic parathyroid evaluation.
[2021-09-24] MEDS: ATORVASTATIN 20 MG TAB PO SCH (21:31)
[2021-09-25] MEDS: DEXTROSE 5% IN WATER 1,000 ML IV SCH ×2 (04:23→12:41)
[2021-09-25] MEDS: IPRATROPIUM-ALBUTEROL 3 ML NEB INHALATION SCH ×4 (07:20→20:23)
[2021-09-25] MEDS: PIPERACILLIN-TAZOBACTAM 3.375 GM in SODIUM CHLORIDE 0.9% 100 ML IVPB SCH ×2 (08:40→15:24)
[2021-09-25] MEDS: LIDOCAINE 5% PATCH TOPICAL SCH (08:42)
[2021-09-25] MEDS: TAMSULOSIN 0.4 MG CAP.ER.24H PO SCH (08:43)
[2021-09-25] MEDS: amLODIPine 10 MG TAB PO SCH (08:43)
[2021-09-25] MEDS: APIXABAN 2.5 MG TABLET PO SCH ×2 (08:43→20:42)
[2021-09-25] MEDS: METOPROLOL SUCCINATE (ER) 25 MG TAB.ER.24H PO SCH (08:43)
[2021-09-25] MEDS: ASPIRIN 81 MG PO SCH (08:43)
[2021-09-25] MEDS: CINACALCET 30 MG TAB PO SCH (08:44)
--- NOTE | 2021-09-25 09:56 | P.PN ---
Subjective Patient is seen in follow-up for acute kidney injury, hypercalcemia and hypernatremia. Currently receiving D5W. Sensipar was started yesterday. Oral intake is fair. On dysphagia 1 pured diet. Has been voiding. Denies chest pain or shortness of breath. Vital signs are stable. General: Awake. No acute distress. HEENT: Head exam is unremarkable. LUNGS: Breath sounds decreased. HEART: Rate and Rhythm are regular. ABDOMEN: Soft, no distention. EXTREMITITES: No edema. Objective - Vital Signs Vital signs: Vital Signs Temp 98.5 F 09/25/21 07:34 Pulse 94 09/25/21 07:34 Resp 17 09/25/21 07:34 BP 132/77 09/25/21 07:34 Pulse Ox 96 09/25/21 07:34 FiO2 40 09/19/21 15:02 Intake & Output 09/24/21 09/25/21 09/25/21 18:59 06:59 18:59 Intake Total 1300 Output Total 150 Balance 1300 -150 Weight 53.07 kg Intake: Intake, IV Titration 1300 Amount Dextrose 5% in Water 1, 1200 000 ml @ 100 mls/hr IV . Q10H NIKKI Rx#:[id number] Piperacillin-Tazobactam 3 100 .375 gm In Sodium Chloride 0.9% 100 ml @ 25 mls/hr IVPB Q8HR NIKKI Rx# :[id number] Output: Urine 150 Other: Voiding Method External Catheter External Catheter - Labs CBC & Chem 7: 09/24/21 06:05 09/24/21 06:05 Labs: Abnormal Lab Results - Last 24 Hours (Table) 09/24/21 Range/Units 06:05 Sodium 151 H (135-145) mmol/L Potassium 3.4 L (3.5-5.5) mmol/L Chloride 117 H (96-109) mmol/L Anion Gap 7.30 L (10.00-18.00) mmol/L BUN 38.4 H (9.0-27.0) mg/dL BUN/Creatinine Ratio 34.91 H (12.00-20.00) Ratio Calcium 11.5 H (8.7-10.3) mg/dL Total Protein 4.7 L (6.2-8.2) g/dL Albumin 2.4 L (3.8-4.9) g/dL Albumin/Globulin Ratio 1.04 L (1.60-3.17) g/dL Microbiology - Last 24 Hours (Table) 09/20/21 19:24 Blood Culture - Preliminary Blood No Growth after 96 hours Assessment and Plan Plan: Assessment: 1. Acute kidney injury mostly prerenal from poor intake and hypercalcemia. Better. Creatinine 1.1 as of yesterday. 2. Hypernatremia from lack of oral water intake. On D5 W. 3. Hypercalcemia with elevated PTH suggestive of primary hyperparathyroidism. On Sensipar. PTH 180. Vitamin D level 13. 1,25 D3 38. Parathyroid nuclear scan was nondiagnostic due to patient not cooperating during the procedure. 4. Proteus UTI on antibiotics. 5. Benign hypertension. Controlled. 6. Hypokalemia from poor intake. Plan: Maintain D5W. Follow-up morning labs. Follow-up JERED level and electrophoresis studies. Plan is home with hospice tomorrow.
--- NOTE | 2021-09-25 11:23 | P.PN ---
Progress Note - Text Progress Note Date: 09/25/21 Patient remains stable. He is eating. We will remain on standby for possible feeding tube placement
--- NOTE | 2021-09-25 11:29 | P.PN ---
Subjective Progress Note Date: 09/25/21 80-year-old male patient with multiple medical problems and comorbidities who has been a silent aspirator. The patient is currently being treated for a right lower lobe aspiration pneumonia and a pulmonary consultation was requested. His comorbid conditions of multiple. Apparently the patient has a caregiver and is still living at home. He is quite sedentary. He has previous history of CVA. He also has previous history of DVT and the patient is demented on long-term medical condition with Eliquis. His comorbid conditions include chronic systolic heart failure with an ejection fraction of 45-50%, mild valvular heart disease, mild aortic stenosis, coronary artery disease, previous bypass surgery, hypertension hyperlipidemia. Unsure if the patient COPD as the patient is a lifetime nonsmoker. The patient is currently being treated for an acute hypoxic respiratory failure and a CAT scan of the chest was also done showing evidence of pneumomediastinum extending in the inferior aspect of the neck down to the diaphragm. There is also consolidation in the posterior aspect of the lower lo bes, more so on the right and the patient has some chronic scattered fibrotic changes in the lung bases along with some peripheral reticulation. No obvious pulmonary fibrosis. No obvious honeycombing. There is also evidence of possible pulmonary artery hypertension as the PA was around 2.5 cm in size and the patient will also had degenerative changes of the right shoulder. An echo was also done and the patient was found to have a ejection fraction 45%. No significant pulmonary hypertension was noted on the echocardiogram. The white cell count is at 10.3 with hemoglobin 12.5 and a platelet count of 135. The patient is a proBNP level of 15,700. Sodium level is at 149, BUN is 47 with a creatinine of 1.2. UA was abnormal with positive white cells and leukocyte esterase. Influenza screen was negative. Overnight. He was also negative. The patient is currently on IV Zosyn. The patient is also on long-term and coagulation with Eliquis. The patient remains on IV Lasix. He is on DuoNeb nebulized treatments around the clock and IV Solu-Medrol. Very poor historian. Palliative care was also consulted on the case. Pulmonary evaluation was delusional thinking 09/22/2021, the patient remains on room air oxygen. He remains on IV Zosyn. Chest x-ray findings are essentially unchanged with lower lobe pulmonary infiltrates. No evidence of any significant subcutaneous emphysema or pneumomediastinum and a chest x-ray. We stopped the Lasix on him yesterday and the sodium level is up to 157 and the potassium level is at 3.3. The white cell count of 14.8 with hemoglobin 4.5. The patient remains on IV Zosyn. No signs of any significant respiratory distress. Of significance, the creatinine is up to 1.4 with a BUN of 48 along with the intravascular volume depletion. The pro calcitonin level came back at 0.98.++ 09/23/2021, the patient is clinically stable. No new complaints for now.he remains on IV Zosyn for aspiration pneumonia. The white cell count of 15.8 with hemoglobin of 12 and a platelet count of 162. Sodium level was gradually improving and the patient was receiving free water supplements with D5 water. Sodium level is down to 152. The BMs at 43 with a creatinine of 1.2. Blood sugar is at 122.no significant signs of any respiratory distress. No signs of any respiratory distress. The patient is still on D5 water at the rate of 100 mL an hour. He is confused and has underlying dementia. Very poor historian for now. Very much debilitated. 09/24/2021, the patient is being considered for hospice. Extremely debilitated 80-year-old male patient with chronic ongoing aspiration. The patient is currently on IV Zosyn. The patient is on 2 L about 2 by nasal cannula with a pulse is 96%. Blood work from today shows a white cell count of 15.3 with a hemoglobin of 12.5 and his sodium level is at 151 with a potassium level of 3.4. There is also a component of hypercalcemia with elevated intact PTH with a possibility of primary hyperparathyroidism. The exit 38 and a creatinine of 1.1. Mother the patient has been receiving D5 water replacement at the rate of 100 mL an hour. He was started on Sensipar 30 mg by mouth daily. 09/25/2021, no new complaints of the patient's condition is unchanged. The patient is going to proceed with hospice care as of tomorrow. Meanwhile, the patient remains on IV antibiotics. No new labs available from today. Objective - Vital Signs Vital signs: Vital Signs Temp 98.5 F 09/25/21 07:34 Pulse 88 09/25/21 11:11 Resp 17 09/25/21 07:34 BP 132/77 09/25/21 07:34 Pulse Ox 96 09/25/21 07:34 FiO2 40 09/19/21 15:02 Intake & Output 09/24/21 09/25/21 09/25/21 18:59 06:59 18:59 Intake Total 1300 Output Total 150 Balance 1300 -150 Weight 53.07 kg Intake: Intake, IV Titration 1300 Amount Dextrose 5% in Water 1, 1200 000 ml @ 100 mls/hr IV . Q10H NIKKI Rx#:[id number] Piperacillin-Tazobactam 3 100 .375 gm In Sodium Chloride 0.9% 100 ml @ 25 mls/hr IVPB Q8HR NIKKI Rx# :[id number] Output: Urine 150 Other: Voiding Method External Catheter External Catheter - Exam Gen. appearance the patient is calm and comfortable and the breathing is nonlabored at this point in time. He is on room air oxygen. Body mass index is 15.4 Head exam was generally normal. There was no scleral icterus or corneal arcus. Mucous membranes were moist. Neck was supple and without jugular venous distension, thyromegaly, or carotid bruits. Carotids were easily palpable bilaterally. There was no adenopathy. Lungs sounds are diminished in lung bases and the patient clearly has right basilar crackles Cardiac exam revealed the PMI to be normally situated and sized. The rhythm was regular and no extrasystoles were noted during several minutes of auscultation. The first and second heart sounds were normal and physiologic splitting of the second heart sound was noted. There were no murmurs, rubs, clicks, or gallops. Abdominal exam revealed normal bowel sounds. The abdomen was soft, non-tender, and without masses, organomegaly, or appreciable enlargement of the abdominal aorta. Examination of the extremities revealed easily palpable radial, femoral and pedal pulses. There was no cyanosis, clubbing or edema. Examination of the skin revealed no evidence of significant rashes, suspicious appearing nevi or other concerning lesions. - Labs CBC & Chem 7: 09/24/21 06:05 09/24/21 06:05 Labs: Abnormal Lab Results - Last 24 Hours (Table) 09/24/21 Range/Units 06:05 Sodium 151 H (135-145) mmol/L Potassium 3.4 L (3.5-5.5) mmol/L Chloride 117 H (96-109) mmol/L Anion Gap 7.30 L (10.00-18.00) mmol/L BUN 38.4 H (9.0-27.0) mg/dL BUN/Creatinine Ratio 34.91 H (12.00-20.00) Ratio Calcium 11.5 H (8.7-10.3) mg/dL Total Protein 4.7 L (6.2-8.2) g/dL Albumin 2.4 L (3.8-4.9) g/dL Albumin/Globulin Ratio 1.04 L (1.60-3.17) g/dL Microbiology - Last 24 Hours (Table) 09/20/21 19:24 Blood Culture - Preliminary Blood No Growth after 96 hours Assessment and Plan Plan: Chronic silent aspiration with ongoing aspiration to lower lobe posterior segment right more than left, the patient's chest x-ray is unchanged, clinically unchanged, currently on 2 L O2 nasal cannula with a pulse ox of 99% Acute hypoxic respiratory failure currently on 2 L O2 nasal cannula with a pulse ox of 99% Pneumomediastinum involving the inferior aspect of the neck to the diaphragm and along the left cardiac border, rule out esophageal tear, rule out perforated pulmonary bleb contributing to this no mediastinum. The patient did undergo a barium swallow on 09/20/2021 that showed silent aspiration with liquid material and penetration was evident with nectar thick consistencies. The chest x-ray is unchanged Chronic systolic heart failure with an ejection fraction of 45% UTI, and then IV Zosyn Acute hypernatremia, hyperchloremic, likely secondary to diuretics and intravascular volume depletion, currently on D5 water and the sodium level is improving Hypercalcemia with elevated PTH, rule out primary hyperparathyroidism. Currently on D5 water and Sensipar was also added. Acute kidney injury, recovered Coronary artery disease bypass surgery History of DVT BPH Hypertension Hyperlipidemia Previous history of CVA Dementia PTSD Chronic anxiety/depression Debilitated state secondary to above-mentioned comorbidities Plan Continue with the same treatment Hospice care by tomorrow pulmonary critical care services we'll sign off the case
[2021-09-25 12:24] LABS: African American GFR (CKD) 66 (>60 ml/min/1.73 sqM); Anion Gap 4 mmol/L; Blood Urea Nitrogen 46 mg/dL (9-20); Calcium 9.7 mg/dL (8.4-10.2); Carbon Dioxide 20 mmol/L (22-30); Chloride 112 mmol/L (98-107); Glucose 127 mg/dL (74-99); Non-African American GFR(CKD) 57 (>60 ml/min/1.73 sqM); Sodium 136 mmol/L (137-145)
[2021-09-25 12:25] LABS: Magnesium 1.9 mg/dL (1.6-2.3); Potassium 3.4 mmol/L (3.5-5.1)
--- NOTE | 2021-09-25 14:05 | P.PN ---
Subjective History of present illness per H&P: 80-year-old male who apparently lives by himself was brought in by the caregiver because of increased weakness and confusion, he fell off at home and couldn't get up. Patient has history of chronic systolic congestive heart failure with last echo report showing EF of 45-50% from 06/2020, mild valvular heart disease including mild aortic stenosis mild mitral and tricuspid regurgitation. Patient has history of coronary artery disease status post CABG stent placement hypertension hyperlipidemia COPD history of CVA/TIA, history of DVT on Eliquis at home, history of benign prostatic hypertrophy osteoarthritis. Patient was admitted for acute kidney injury debility, urine tract infection, hospital course was complicated by respiratory distress in the setting of aspiration, possibly combination of fluid overload and aspiration pneumonia. Interval history: Patient was examined at the bedside. He will alert oriented to himself. No acute reported changes overnight. The DPOA met with hospice nurse and plan to discharge patient home with hospice on Monday Physical examination: Gen. appearance the patient is calm and comfortable. Cachectic Head exam was generally normal. There was no scleral icterus or corneal arcus. Mucous membranes were moist. Neck was supple and without jugular venous distension, thyromegaly, or carotid bruits. Carotids were easily palpable bilaterally. There was no adenopathy. Lungs sounds are diminished in lung bases and the patient clearly has right basilar crackles Cardiac exam revealed the PMI to be normally situated and sized. The rhythm was regular and no extrasystoles were noted during several minutes of auscultation. The first and second heart sounds were normal and physiologic splitting of the second heart sound was noted. There were no murmurs, rubs, clicks, or gallops. Abdominal exam revealed normal bowel sounds. The abdomen was soft, non-tender, and without masses, organomegaly, or appreciable enlargement of the abdominal aorta. Examination of the extremities revealed easily palpable radial, femoral and pedal pulses. There was no cyanosis, clubbing or edema. Examination of the skin revealed no evidence of significant rashes, suspicious appearing nevi or other concerning lesions. Acute hypoxic respiratory failure secondary to chronic silent aspiration pneumonia -Computed tomography scan of the chest showed pneumo-mediastinum and bilateral aspiration pneumonia worse on the right -Resume IV Zosyn -Speech started patient on pured diet with honey thick liquids -Broncholithiasis treatment Aspiration pneumonia Continue antibiotics as mentioned above Sputum and blood cultures Acute kidney injury -Improving with IV fluids -Most likely prerenal azotemia secondary to decreased oral intake -Patient started D5 half-normal saline -Nephrology following Acute hypernatremia -Secondary to water deficit -She started D5 half-normal saline Hypokalemia -Replaced Pneumomediastinum -involving the inferior aspect of the neck to the diaphragm and along the left cardiac border, rule out esophageal tear, rule out perforated pulmonary bleb contributing to this no mediastinum. The patient did undergo a barium swallow on 09/20/2021 that showed silent aspiration with liquid material and penetration was evident with nectar thick consistencies. -Pulmonary consulted Dysphagia Severe protein calorie malnutrition Cachexia -Nutrition services consulted -Patient on dysphagia 1 diet and honey thick liquids -Gen. surgery consulted for feeding tube placement Chronic systolic heart failure -Echo showed mild LV systolic dysfunction with ejection fraction 45-50% -Mild mitral regurgitation -Mild tricuspid regurgitation - Lasix discontinued secondary to acute kidney injury and hypernatremia payam -Cardiology consul Proteus mirabilis urinary tract infection Pansensitive Continue Zosyn Follow up cultures History of coronary artery disease status post CABG Resume home medications aspirin and statin beta blockers History of DVT Resume Eliquis Benign prostatic hypertrophy Resume home medication, Flomax Hypertension -Resume Norvasc Chronic medical condition Hyperlipidemia Dementia Anxiety and depression PTSD disorder CODE STATUS: Full code DVT prophylaxis: Subcutaneous heparin Disposition plan: Home with hospice on September 26 Objective - Vital Signs Vital signs: Vital Signs Temp 98.5 F 09/25/21 07:34 Pulse 88 09/25/21 11:11 Resp 17 09/25/21 07:34 BP 132/77 09/25/21 07:34 Pulse Ox 96 09/25/21 07:34 FiO2 40 09/19/21 15:02 Intake & Output 09/24/21 09/25/21 09/25/21 18:59 06:59 18:59 Intake Total 1300 Output Total 150 Balance 1300 -150 Weight 53.07 kg Intake: Intake, IV Titration 1300 Amount Dextrose 5% in Water 1, 1200 000 ml @ 100 mls/hr IV . Q10H NIKKI Rx#:[id number] Piperacillin-Tazobactam 3 100 .375 gm In Sodium Chloride 0.9% 100 ml @ 25 mls/hr IVPB Q8HR NIKKI Rx# :[id number] Output: Urine 150 Other: Voiding Method External Catheter External Catheter - Labs CBC & Chem 7: 09/24/21 06:05 09/25/21 11:18 Labs: Abnormal Lab Results - Last 24 Hours (Table) 09/25/21 Range/Units 11:18 Sodium 136 L (137-145) mmol/L Potassium 3.4 L (3.5-5.1) mmol/L Chloride 112 H (98-107) mmol/L Carbon Dioxide 20 L (22-30) mmol/L BUN 46 H (9-20) mg/dL Glucose 127 H (74-99) mg/dL Microbiology - Last 24 Hours (Table) 09/20/21 19:24 Blood Culture - Preliminary Blood No Growth after 96 hours
[2021-09-25] MEDS ORDERED: POTASSIUM CHLORIDE ER 20 MEQ TAB.ER PO STA (14:33)
[2021-09-25] MEDS: ATORVASTATIN 20 MG TAB PO SCH (20:41)
[2021-09-26] MEDS: PIPERACILLIN-TAZOBACTAM 3.375 GM in SODIUM CHLORIDE 0.9% 100 ML IVPB SCH ×2 (00:13→06:54)
[2021-09-26] MEDS: TAMSULOSIN 0.4 MG CAP.ER.24H PO SCH (06:50)
[2021-09-26] MEDS: amLODIPine 10 MG TAB PO SCH (06:51)
[2021-09-26] MEDS: ASPIRIN 81 MG PO SCH (06:51)
[2021-09-26] MEDS: APIXABAN 2.5 MG TABLET PO SCH (06:51)
[2021-09-26] MEDS: LIDOCAINE 5% PATCH TOPICAL SCH (06:52)
[2021-09-26] MEDS: CINACALCET 30 MG TAB PO SCH (06:52)
[2021-09-26] MEDS: METOPROLOL SUCCINATE (ER) 25 MG TAB.ER.24H PO SCH (06:54)
[2021-09-26] MEDS: IPRATROPIUM-ALBUTEROL 3 ML NEB INHALATION SCH (07:08)
[2021-09-26 07:44] VITALS: BP 108/65; PULSE 82; RESP 16; TEMP 97.9
--- NOTE | 2021-09-26 07:50 | P.DS ---
Providers Date of admission: 09/17/21 21:26 Expected date of discharge: 09/26/21 Attending physician: Mary Ness MD Consults: 09/21/21 07:44 Consult to Palliative Care Routine Consulting Provider: Kailyn Whitmore Consult Reason/Comments: palliative care vs hospice Do you want consulting provider notified?: Yes 09/21/21 10:30 Consult Physician Routine Consulting Provider: Artemio Mancera Consult Reason/Comments: acute hypoxia Do you want consulting provider notified?: Yes 09/22/21 13:12 Consult Physician Routine Consulting Provider: Skylar Sarkar Consult Reason/Comments: hypernatremia and ANDREW Do you want consulting provider notified?: Yes 09/23/21 10:38 Consult Physician Routine Consulting Provider: Senthil Bailey Consult Reason/Comments: possible peg tube placement Do you want consulting provider notified?: Yes Primary care physician: [facility] Course: History of present illness per H&P: 80-year-old male who apparently lives by himself was brought in by the caregiver because of increased weakness and confusion, he fell off at home and couldn't get up. Patient has history of chronic systolic congestive heart failure with last echo report showing EF of 45-50% from 06/2020, mild valvular heart disease including mild aortic stenosis mild mitral and tricuspid regurgitation. Patient has history of coronary artery disease status post CABG stent placement hypertension hyperlipidemia COPD history of CVA/TIA, history of DVT on Eliquis at home, history of benign prostatic hypertrophy osteoarthritis. Patient was admitted for acute kidney injury debility, urine tract infection, hospital course was complicated by respiratory distress in the setting of aspiration, possibly combination of fluid overload and aspiration pneumonia. Physical examination on discharge: Gen. appearance the patient is calm and comfortable. Cachectic Head exam was generally normal. There was no scleral icterus or corneal arcus. Mucous membranes were moist. Neck was supple and without jugular venous distension, thyromegaly, or carotid bruits. Carotids were easily palpable bilaterally. There was no adenopathy. Lungs sounds are diminished in lung bases and the patient clearly has right basilar crackles Cardiac exam revealed the PMI to be normally situated and sized. The rhythm was regular and no extrasystoles were noted during several minutes of auscultation. The first and second heart sounds were normal and physiologic splitting of the second heart sound was noted. There were no murmurs, rubs, clicks, or gallops. Abdominal exam revealed normal bowel sounds. The abdomen was soft, non-tender, and without masses, organomegaly, or appreciable enlargement of the abdominal aorta. Examination of the extremities revealed easily palpable radial, femoral and pedal pulses. There was no cyanosis, clubbing or edema. Examination of the skin revealed no evidence of significant rashes, suspicious appearing nevi or other concerning lesions. Hospital course 80-year-old male with history of multiple medical problems admitted to the hospital with acute respiratory failure. The patient was diagnosed with aspiration pneumonia. He failed a swallow evaluation was started on dysphagia diet. Patient also diagnosed with Proteus mirabilis UTI and acute kidney injury. Was treated with broad-spectrum antibiotic. Patient was evaluated by pulmonary cardiology and nephrology. Patient overall prognosis seems to be very poor CODE STATUS was addressed with family and the patient to course of action dizzy and her family requested the patient to be discharged home with hospice. Discharge diagnosis: Acute hypoxic respiratory failure secondary to chronic silent aspiration pneumonia Aspiration pneumonia Acute kidney injury Acute hypernatremia Hypokalemia Pneumomediastinum Dysphagia Severe protein calorie malnutrition Cachexia Failure to thrive Chronic systolic heart failure Proteus mirabilis urinary tract infection History of coronary artery disease status post CABG History of DVT Benign prostatic hypertrophy Hypertension Hyperlipidemia Dementia Anxiety and depression PTSD Time spent in discharge process 35 minutes Patient Condition at Discharge: Poor Plan - Discharge Summary Discharge Rx Participant: Yes New Discharge Prescriptions: Continue Aspirin [[place] Aspirin EC] 81 mg PO DAILY Metoprolol Succinate [Toprol XL] 12.5 mg PO DAILY Omeprazole 20 mg PO DAILY Grape Seed 1 tab PO DAILY Fluticasone Nasal [place] [Flonase Nasal [place]] 1 spr EA NOSTRIL BID Melatonin 3 mg PO HS Nitroglycerin Sl Tabs [Nitrostat] 0.4 mg SL Q5M PRN PRN Reason: Chest Pain Albuterol Sulfate [Albuterol Sulfate Hfa] 2 puff INHALATION RT-QID PRN PRN Reason: Shortness Of Breath Saw Wayne 500 mg PO DAILY Mineral Oil/Petrolatum,White [Stye Lubricant Eye Ointment] 0.25 inch BOTH EYES HS Finasteride [Proscar] 5 mg PO DAILY Lactose-Reduced Food [Ensure Plus] 2 can PO DAILY allopurinoL [Zyloprim] 200 mg PO DAILY Tamsulosin [Flomax] 0.4 mg PO DAILY Glucosam/Geovany-Msm1/C/Evan/Bosw [Glucosamine-Chondroitin Tablet] 2 tab PO DAILY Ubidecarenone [Coenzyme Q10] 30 mg PO DAILY Apixaban [Eliquis] 5 mg PO BID 30 Days #60 tab Lidocaine 5% Patch [Lidoderm 5% Patch] 1 patch TOPICAL DAILY Gabapentin 300 mg PO BID #10 cap Polyvinyl Alcohol/Povidone [[place] Eye Drop] 1 drop BOTH EYES DAILY PRN PRN Reason: DRY EYES Rosuvastatin Calcium [Crestor] 5 mg PO DIRECTED Discontinued Potassium Chloride ER [K-Dur 10] 10 meq PO DAILY Furosemide [Lasix] 40 mg PO BID Acetaminophen Tab [Tylenol] 650 mg PO Q6HR PRN tab PRN Reason: Mild Pain Or Fever > 100.5 Discharge Medication List Aspirin [[place] Aspirin EC] 81 mg PO DAILY 04/30/18 [History] Metoprolol Succinate [Toprol XL] 12.5 mg PO DAILY 04/30/18 [History] Omeprazole 20 mg PO DAILY 06/24/20 [History] Tamsulosin [Flomax] 0.4 mg PO DAILY 06/24/20 [History] Fluticasone Nasal [place] [Flonase Nasal [place]] 1 spr EA NOSTRIL BID 07/23/20 [History] Glucosam/Geovany-Msm1/C/Evan/Bosw [Glucosamine-Chondroitin Tablet] 2 tab PO DAILY 07/23/20 [History] Grape Seed 1 tab PO DAILY 07/23/20 [History] Melatonin 3 mg PO HS 07/23/20 [History] Nitroglycerin Sl Tabs [Nitrostat] 0.4 mg SL Q5M PRN 07/23/20 [History] Ubidecarenone [Coenzyme Q10] 30 mg PO DAILY 07/23/20 [History] Apixaban [Eliquis] 5 mg PO BID 30 Days #60 tab 07/27/20 [Rx] Albuterol Sulfate [Albuterol Sulfate Hfa] 2 puff INHALATION RT-QID PRN 10/24/20 [History] Finasteride [Proscar] 5 mg PO DAILY 10/24/20 [History] Lidocaine 5% Patch [Lidoderm 5% Patch] 1 patch TOPICAL DAILY 10/24/20 [History] Mineral Oil/Petrolatum,White [Stye Lubricant Eye Ointment] 0.25 inch BOTH EYES HS 10/24/20 [History] Saw Wayne 500 mg PO DAILY 10/24/20 [History] Gabapentin 300 mg PO BID #10 cap 10/27/20 [Rx] Lactose-Reduced Food [Ensure Plus] 2 can PO DAILY 09/18/21 [History] Polyvinyl Alcohol/Povidone [[place] Eye Drop] 1 drop BOTH EYES DAILY PRN 09/18/21 [History] Rosuvastatin Calcium [Crestor] 5 mg PO DIRECTED 09/18/21 [History] allopurinoL [Zyloprim] 200 mg PO DAILY 09/18/21 [History] Follow up Appointment(s)/Referral(s): [facility],Clinic [Primary Care Provider] - 1-2 days Discharge Disposition: HOME WITH HOSPICE
[2021-09-26 08:13] LABS: African American GFR (CKD) 55 (>60 ml/min/1.73 sqM); Anion Gap 4 mmol/L; Blood Urea Nitrogen 51 mg/dL (9-20); Calcium 9.3 mg/dL (8.4-10.2); Carbon Dioxide 23 mmol/L (22-30); Chloride 112 mmol/L (98-107); Glucose 80 mg/dL (74-99); Non-African American GFR(CKD) 47 (>60 ml/min/1.73 sqM); Potassium 3.6 mmol/L (3.5-5.1); Sodium 139 mmol/L (137-145)
--- NOTE | 2021-09-26 09:51 | P.PN ---
Subjective Patient is seen in follow-up for acute kidney injury, hypercalcemia and hypernatremia. Currently off IV fluids. Sodium level normal. Calcium level normal. Maintained on Sensipar. Oral intake is fair. On dysphagia 1 pured diet. Has been voiding. Denies chest pain or shortness of breath. Vital signs are stable. General: Awake. No acute distress. HEENT: Head exam is unremarkable. LUNGS: Breath sounds decreased. HEART: Rate and Rhythm are regular. ABDOMEN: Soft, no distention. EXTREMITITES: No edema. Objective - Vital Signs Vital signs: Vital Signs Temp 97.9 F 09/26/21 07:44 Pulse 82 09/26/21 07:44 Resp 16 09/26/21 07:44 BP 108/65 09/26/21 07:44 Pulse Ox 95 09/26/21 07:44 FiO2 40 09/19/21 15:02 Intake & Output 09/25/21 09/26/21 09/26/21 18:59 06:59 18:59 Intake Total 1000 Output Total 300 1300 Balance 700 -1300 Intake: Intake, IV Titration 1000 Amount Dextrose 5% in Water 1, 800 000 ml @ 100 mls/hr IV . Q10H NIKKI Rx#:[id number] Piperacillin-Tazobactam 3 200 .375 gm In Sodium Chloride 0.9% 100 ml @ 25 mls/hr IVPB Q8HR NIKKI Rx# :[id number] Output: Urine 300 1300 Straight 1000 Other: Voiding Method External Catheter # Bowel Movements 1 - Labs CBC & Chem 7: 09/24/21 06:05 09/26/21 07:45 Labs: Abnormal Lab Results - Last 24 Hours (Table) 09/25/21 09/26/21 Range/Units 11:18 07:45 Sodium 136 L (137-145) mmol/L Potassium 3.4 L (3.5-5.1) mmol/L Chloride 112 H 112 H (98-107) mmol/L Carbon Dioxide 20 L (22-30) mmol/L BUN 46 H 51 H (9-20) mg/dL Creatinine 1.40 H (0.66-1.25) mg/dL Glucose 127 H (74-99) mg/dL Microbiology - Last 24 Hours (Table) 09/20/21 19:24 Blood Culture - Preliminary Blood No Growth after 120 hours Assessment and Plan Plan: Assessment: 1. Acute kidney injury mostly prerenal from poor intake and hypercalcemia. Renal function little worse today. Creatinine 1.4. 2. Hypernatremia from lack of oral water intake. Status post D5W. 3. Hypercalcemia with elevated PTH suggestive of primary hyperparathyroidism. On Sensipar. PTH 180. Vitamin D level 13. 1,25 D3 38. Parathyroid nuclear scan was nondiagnostic due to patient not cooperating during the procedure. No monoclonality noted on serum immunofixation. Calcium level now normal. 4. Proteus UTI on antibiotics. 5. Benign hypertension. Controlled. 6. Hypokalemia from poor intake. Replaced. Better. Plan: Plan is for her home with hospice today.
--- NOTE | 2021-09-26 10:12 | P.PN ---
Progress Note - Text Progress Note Date: 09/26/21 Patient is tolerating a diet. He is scheduled be discharged home today.
== END 2021-09-26 15:11 | disposition hospice, home (50) | DRG 177 ==
LOC: EC 17:23 → 4SSUR 21:26
PROVIDERS: ADMIT Internal Medicine; ATTEND Internal Medicine
DX: J69.0 Pneumonitis due to inhalation of food and vomit (principal); J96.01 Acute respiratory failure with hypoxia; E43 Unspecified severe protein-calorie malnutrition; I50.23 Acute on chronic systolic (congestive) heart failure; I48.20 Chronic atrial fibrillation, unspecified; N39.0 Urinary tract infection, site not specified; N17.9 Acute kidney failure, unspecified; E87.0 Hyperosmolality and hypernatremia; R64 Cachexia; Z68.1 Body mass index [BMI] 19.9 or less, adult; E87.1 Hypo-osmolality and hyponatremia; J44.1 Chronic obstructive pulmonary disease with (acute) exacerbation; K80.20 Calculus of gallbladder without cholecystitis without obstruction; H91.90 Unspecified hearing loss, unspecified ear; I25.10 Atherosclerotic heart disease of native coronary artery without angina pectoris; M19.011 Primary osteoarthritis, right shoulder; B96.4 Proteus (mirabilis) (morganii) as the cause of diseases classified elsewhere; E83.52 Hypercalcemia; R53.81 Other malaise; N40.0 Benign prostatic hyperplasia without lower urinary tract symptoms; J98.2 Interstitial emphysema; E86.9 Volume depletion, unspecified; F43.10 Post-traumatic stress disorder, unspecified; W06.XXXA Fall from bed, initial encounter; I11.0 Hypertensive heart disease with heart failure; R62.7 Adult failure to thrive; R13.10 Dysphagia, unspecified; E78.5 Hyperlipidemia, unspecified; F03.90 Unspecified dementia, unspecified severity, without behavioral disturbance, psychotic disturbance, mood disturbance, and anxiety; Z20.822 Contact with and (suspected) exposure to COVID-19; F32.A Depression, unspecified; F41.9 Anxiety disorder, unspecified; E87.6 Hypokalemia; Z66 Do not resuscitate; Z86.718 Personal history of other venous thrombosis and embolism; Y92.003 Bedroom of unspecified non-institutional (private) residence as the place of occurrence of the external cause; Z51.5 Encounter for palliative care; Z79.01 Long term (current) use of anticoagulants; Z79.82 Long term (current) use of aspirin; Z79.899 Other long term (current) drug therapy; Z85.828 Personal history of other malignant neoplasm of skin; Z86.73 Personal history of transient ischemic attack (TIA), and cerebral infarction without residual deficits; Z95.1 Presence of aortocoronary bypass graft; Z95.5 Presence of coronary angioplasty implant and graft; Z97.4 Presence of external hearing-aid; Z72.3 Lack of physical exercise; Z88.8 Allergy status to other drugs, medicaments and biological substances
CPT/HCPCS: 71045; 71046; 71250; 74230; 76770; 78070; 80048; 80053; 81001; 82164; 82306; 82652; 83605; 83735; 83880; 83930; 83935; 83970; 84100; 84145; 84295; 84439; 84443; 84481; 84484; 85025; 85610; 85730; 86334; 86335; 87040; 87077; 87086; 87186; 87502; 87635; 93005; 93306; 94640; 94760; 96360; 99285